=== PATIENT | male | born 1990 | race Caucasian/White ===

== ENCOUNTER 2018-02-24 19:04 | Emergency (ER) | payer OTHER ==
[~2018-02-24] VITALS: Ht 170.2 cm; Wt 72.6 kg
--- OUTSIDE RECORDS SUMMARY | ~2018-02-24 | XMS | Clinical Summary ---
Demographics + + + | Address | [address] | | | [place] [address] | + + + | Home Phone | | + + + | Preferred Language | Unknown | + + + | Marital Status | | + + + | Spiritism Affiliation | NON | + + + | Race | Unknown | + + + | Ethnic Group | Not or | + + + Author + + + | Author | [facility] | + + + | Organization | [facility] | + + + | Address | Unknown | + + + | Phone | Unavailable | + + + Support + + + + + | Name | Relationship | Address | Phone | + + + + + | ROSA ALEXANDER | ECON | [address] | | | | | [place] | | | | | [phone] | | + + + + + Care Team Providers + +------+ + | Care Program Medical Director Name | Role | Phone | + +------+ + | No Pcp Per Patient | PP | Unavailable | + +------+ + Source Comments JUAN C is fully live on both [facility] Ambulatory and [facility] InPatient.[facility] Allergies No Known Allergies Current Medications + + + +---------+------+------+-------+ | Prescription | Sig. | Disp. | Refills | Star | End | Statu | | | | | | t | Date | s | | | | | | Date | | | + + + +---------+------+------+-------+ | nicotine 21 mg/24 | Apply 1 patch to | | | | | Activ | | hr transdermal patch | skin once daily. | | | | | e | | 24 hour | | | | | | | + + + +---------+------+------+-------+ | calcium carbonate | Take 2 tablets by | | | 10/1 | | Activ | | [...] | Take 1-2 tablets by | | | 10/1 | | Activ | | mg oral tablet | mouth every four | | | 9/20 | | e | | | hours as needed. | | | 14 | | | + + + +---------+------+------+-------+ | artificial tears, | Instill 1 drop into | 15 mL | | 10/1 | | Activ | | [...] each by mouth | 20 each | | 10/1 | | Activ | | [...] | exploratory laparotomy and was transferred to [facility] as hemorrhage | | was uncontrollable. Pt was brought to [facility] Trauma Service as a | [...] +---------+ + | Yes | 28 Cans | 14.0 | | | | of beer | | | + + +---------+ + + + + | Sex Assigned at | Date Recorded | | | | + + + | Not on file | | + + + Last Filed Vital Signs + + + + | Vital Sign | Reading | Time Taken | + + + + | Blood Pressure | 114/75 | 09/16/2014 12:01 PM PDT | + + + + | Pulse | 95 | 09/16/2014 12:01 PM PDT | + + + + | Temperature | 37 C (98.6 F) | 09/16/2014 12:01 PM PDT | + + + + | Respiratory Rate | 16 | 09/16/2014 12:01 PM PDT | + + + + | Oxygen Saturation | 100% | 09/16/2014 12:01 PM PDT | + + + + | Inhaled Oxygen | - | - | | Concentration | | | + + + + | Weight | 80 kg (176 lb 5.9 | 09/09/2014 12:00 PM PDT | | | oz) | | + + + + | Height | 180.3 cm (5' 11") | 09/09/2014 10:41 AM PDT | + + + + | Body Mass Index | 24.6 | 09/09/2014 12:00 PM PDT | + + + + Plan of Treatment + + + + + | Health Maintenance | Due Date | Last Done | Comments | + + + + + | INFLUENZA VACCINE | | | | | (FLU SHOT) | 7 | | | + + + + + Implants + +------+--------+ +--------+--------+--------+ | Implanted | Type | Area | Manufacture | Device | Expira | Model | | | | | r | | tion | / | | | | | | Identi | Date | Serial | | | | | | fier | | / Lot | + +------+--------+ +--------+--------+--------+ | Floseal 5mm - | | N/A: | BRIA | | 06/28/ | [id number] | | [id number]: Qty: 1 on | | [employer] | HEALTHCARE | | 2015 | 0 / | | 09/09/2014 by Shen, | | n | | | | /[id number] | | Addie Valenzuela MD | | | | | | 139 | + +------+--------+ +--------+--------+--------+ Results Not on filefrom Last 3 Months
--- OUTSIDE RECORDS SUMMARY | ~2018-02-24 | XMS | Clinical Summary ---
Demographics + + + | Address | [address] | | | [place] [address] | + + + | Home Phone [...] [place] | | | | | [phone] | | + + + + + Care Team Providers + +------+ + | Care Garment Manufacturing Supervisor Name | Role | Phone | + +------+ + | No Pcp Per Patient | PP | Unavailable | + +------+ + Source Comments JUAN C is fully live on both [facility] Ambulatory and [facility] InPatient.[facility] Allergies No Known Allergies Current [...] | exploratory laparotomy and was transferred to [facility] as hemorrhage | | was uncontrollable. Pt was brought to [facility] Trauma Service as a | | Level [...] N/A: | BRIA | | 06/28/ | [id number] | | [id number]: Qty: 1 on | | [facility] | HEALTHCARE | | 2015 | 0 / | | 09/09/2014 by Shen, | | n | | | | /[id number] | | Addie Valenzuela MD | | | | | | 139 | + +------+--------+ +--------+--------+--------+ Results Not on filefrom Last 3 Months
[~2018-02-24 19:04] MED LIST: CHILDREN'S ASPI81 M1 PO; OXYCODONE HCL10 MG PO; RA SENNA PLUS1 EACH PO; ULTRAM50 MG PO
== END 2018-02-24 20:25 | disposition home or self-care (01) ==
LOC: ED 19:04
DX: K62.89 Other specified diseases of anus and rectum (principal); K21.9 Gastro-esophageal reflux disease without esophagitis
CPT/HCPCS: 99282

== ENCOUNTER 2018-04-03 02:41 | Inpatient (IN) | payer OTHER ==
[~2018-04-03] VITALS: Ht 170.2 cm; Wt 84.2 kg
--- NOTE | 2018-04-03 05:54 | NUR ---
04/03/18 0554 Chloé Rader 0530 PT ARRIVES TO PACU. JAW THRUST IN PROGRESS, O2 VIA MASK IN PLACE. PT REACTIVE TO PAIN. 2 RNS AT BEDSIDE. MONITOR IN PLACE. DRESSING TO THE R FORARM SHOWING A SMALL AMOUNT OF DRAINAGE. VITALS STABLE. WILL MONITOR. 0530 PT CONTINUES TO NEED JAW THRUST TO MAINTAIN AIRWAY. 02 AT 6L VIA MASK REMAINS IN PLACE. ATTEMPTS TO STIMULATE PT DONE SEVERAL TIME. PT RESPONDS TO PAIN BY MOVING ALL 4 EXTREMITIES, WILL NOT OPEN EYES. WILL CONTINUE TO MONITOR.
--- NOTE | 2018-04-03 07:30 | NUR ---
PT UNRESPOSIVE TO VOICE, GROANS WITH STERNAL RUB. O2 SATS 95% ON 2L NC, LUNG SOUNDS CLEAR, CONTINUOUS PULSE OX IN PLACE. PT BOWEL TONES HYPOACTIVE. IV FLUIDS INFUSING D5LR AT 125 ML/HR. PT WITH BANDAGE TO RIGHT ARM IN FINGER, PULSE PALPABLE, CAP REFIL 1 SECOND, STRIEK THROUGH DRAINAGE PRESENT. PT WIHTOUT EDEMA. BED ALARM IN PLACE.
--- NOTE | 2018-04-03 08:05 | NUR ---
PT CONTINUES TO BE SOMNOLENT, AROUSABLE WITH STERNAL RUB. VSS. NO ACUTE CHANGES. BED ALARM IN PLACE.
--- NOTE | 2018-04-03 09:10 | NUR ---
PT AROUSABLE TO GENTLE SHAKE, NOT FOLLOWING COMMANDS. PT ON 2L NC, 02 SATS 96%. STRIKE THROUGH UNCHANGED. PULSE PALPBLE. BED ALARM IN PLACE.
--- NOTE | 2018-04-03 10:05 | NUR ---
PT AROUSABLE TO VOICE, FOLLOWING SIMPLE COMMANDS. PT HAD REMOVED NASAL CANNULA, O2 SATS 88%, OXYGEN REPLACED. STRIKE THROUGH TO RIGHT ARM UNCHANGED. PT ABLE TO SQUEEZE HAND, PULSE PALPBLE, CAP REFILL [address].
--- NOTE | 2018-04-03 11:45 | NUR ---
PT MORE ALERT, ANSWERING QUESTIONS. PT COMPLAINT OF PAIN TO RIGHT ARM, RATING 8/10. PT GIVEN 2 MG IV MORPHINE. ASSISTED WITH ORDERING LUNCH. PT ENCOURAGED TO USE URINAL. PT DENIES OTHER NEEDS AT THIS TIME.
[2018-04-03] MEDS ORDERED: IBUPROFEN600 MG PO (13:28)
[2018-04-03] MEDS ORDERED: OXYCODON-ACETA1 EAC2 PO (13:28)
[2018-04-03] MEDS ORDERED: MAPAP325 MG PO (13:29)
--- NOTE | 2018-04-03 16:00 | NUR ---
PT RESTIGN IN BED. PT MORE ALERT, EATING LATE LUNCH. PT COMPLAITN OF PAIN 05/08, STATES IT HURTS WORSE WITH MOVEMENT, GIVEN 1 TAB PERCOCET. CMS INATCT, FULL SNESTATION IN RIGHT HAND, WEAK GRASP, PULSE PALPABLE, CAP REFILL 2 SECONDS. DRESSING TO RIGHT ARM INTACT, STRIKE TRHOUGH UNCHANGED. ADMISSION INTAKE COMPLETED WITH PT. PT PROVIDED WITH FRESH WATER AND SODA. PT DENIES OTHER NEEDS AT THIS TIME.
--- NOTE | 2018-04-03 17:47 | NUR ---
PT RECEIVED THIS AM AFTER SURGERY TO REPAIN RIGH TARM LACERATION. PT VERY DROWSY THIS AM, NOW ALERT AND ORIENTED. PT ON ROOM AIR, LUNG SOUNDS CLEAR. PT PAIN CONTROLED WITH MORTIN AND PERCOCET. TOLERATING REGULAR DIET. IV INFUSING D5LR AT 85 ML/HR. RIGHT ARM WITH DRESSING STRIKE THROUGH UNCHANGED FROM ARRIVAL, CMS INTACT, PULSE PALPBALE, WEAK AUTOMATIC BLOCKER. PT VOIDING QS.
--- NOTE | 2018-04-03 18:36 | NUR ---
PT WALKED IN LAW, COMPLETED 2 LAPS AROUND NURSING FLOOR. PT COMPLAINT OF PAIN, REQUESTING PERCOET, SECOND TAB GIVEN. PT DENIES OTHER NEEDS AT THIS TIME.
--- NOTE | 2018-04-03 19:10 | NUR ---
SHIFT REPORT RECEIVED. PATIENT RESTING IN BED. FRIENDS IN THE ROOM. PATIENT STATES HE "FEELS GOOD" AFTER THE PERCOSET. IV FLUIDS INFUSING. DRESSING IN PLACE, RED DRAINAGE SHOWING THROUGH, DAY RN STATES IT IS THE SAME IT HAS BEEN. PATIENT REQUESTING FOOD. WORK STUDY STUDENT CONTACTED FOR SANDWICH BOX.
--- NOTE | 2018-04-03 19:56 | NUR ---
PATIENT UNWRAPPED MOST OF HIS DRESSING. RN REMOVED DRESSING AND NO NEW DRAINAGE NOTED. FRESH GAUZE PLACED OVER WOUND AND NEW SEBASTIAN WRAPPED PLACED. PATIENT IS PLESANT BUT REQUESTING TO GO OUT AND SMOKE. i EXPLAINED THE POLICY ON THIS AND TOLD HIM HE HAS THE NICOTINE PATCH. HE REQUESTED A SECOND PATCH OR SOME GUM. CALLED, NEW ORDERS FOR LOZENGES OR GUM RECEIVED.
--- NOTE | 2018-04-03 20:30 | NUR ---
EVENING MEDS GIVEN PER ORDER. PATIENT HAS BEEN UP WALKING THE HALLS. HIS RIGHT ARM IN MORE SWOLLEN NOW AFTER IT HAS NOT BEEN ELEVATED. ASSISTED THE PATIENT INTO BED AND ELEVATED THE ARM. HE IS EATING AND HAS RECEIVED HIS NICOTINE LOZENGE. FRIENDS ARE IN THE ROOM. PATIENT IS IN GOOD SPIRITS. HE AGREES TO STAY THE NIGHT BUT HAS MANY QUESTIONS ABOUT HIS RECOVERY. EDUCATION PROVIDED ON INFECTION PREVENTION, PAIN MANAGEMENT, AND IMPORTANCE OF FOLLOWING DC ORDERS.
--- NOTE | 2018-04-03 21:13 | NUR ---
VITALS DONE AND CHARTED. BEDSIDE TABLE AND CALL LIGHT WITHIN REACH. PT NEEDS NOTHING ELSE AT THIS TIME.
--- NOTE | 2018-04-03 22:00 | NUR ---
PATIENT UP WALKING IN THE HALLWAYS. HE IS IN GOOD SPIRITS BUT MOVES HIS RIGHT ARM VERY SLOWLY AND APPEARS UNCOMFORTABLE. USING THE IV POLE TO REST HIS ARM AND ELEVATE WHILE HE WALKS.
--- NOTE | 2018-04-03 22:30 | NUR ---
PATIENT CONTINUE TO REPORT PAIN IN HIS RIGHT ARM. CMS INTACT. HAND APPEARS VERY SWOLLEN AND THE SKIN IS WARM AND RED. FRESH ICE PACKS APPLIED. EDUCATED PATIENT ON PROPER PAIN MANAGEMENT. PROVIDED PRN PERCOCET 2 TABS. ENCOURAGED PATIENT TO REST AND ELEVATE THE EXTREMITY. PROVIDED HYGIENE PRODUCT SO THAT PATIENT COULD BRUSH HIS TEETH AND CLEAN UP.
--- NOTE | 2018-04-03 23:45 | NUR ---
PATIENT REPORTING 10/10 PAIN. ASKING IF BANDAGE CAN BE REMOVED, HE BELIEVES THIS IS CAUSING HIS PAIN. EDUCATED PATIENT ON IMPORTANCE OF THE PROPER BANDAGE. DISCUSSED EXPECTATIONS FOR PAIN CONTROL. PATIENT AGREES TO KEEP ICE ON ARM AND ELEVATE.
--- NOTE | 2018-04-04 00:50 | NUR ---
PATIENT REPORTING PAIN AND APPEARS PAINFUL. PRN MORHINE PROVIDED FOR ADDITIONAL PAIN COVERAGE. PATIENT ABLE TO REST AFTER MED ADMINISTRATION BUT STILL APPEARS UNCOMFORTABLE. CMS INTACT IN RIGHT ARM. SWELLING APPEARS THE SAME IT HAS BEEN, SKIN ON HAND IS WARM AND RED.
--- NOTE | 2018-04-04 02:00 | NUR ---
POLICE ARRIVED TO THE FLOOR REQUESTING TO SPEAK WITH THE PATIENT. THE PATIENT DECLINED TO SPEAK TO THEM AT THIS TIME AND STATES THAT HE DOES NOT WANT TO TALK TO THEM AT ANY POINT. POLICE NOTIFIED. ASSEMBLER WET WASH AND CAR BODY MECHANIC AWARE.
--- NOTE | 2018-04-04 02:45 | NUR ---
PATIENT RESTING IN BED. SLEEPING OFF AND ON. STATES HIS PAIN IS 7/10 BUT STILL CONSTANTLY HURTING. HE STATES THAT THE ICE PACK HAS HELPED. PRN PERCOCET PROVIDED.
--- NOTE | 2018-04-04 02:54 | NUR ---
EVENING MEDS GIVEN PER ORDER. PATIENT IS AWAKE IN HIS ROOM. FRIENDS WITH HIM. HE IS COMPLAINING OF INCREASED PAIN. THE RIGHT EXTREMITY IS HOT, RED, AND SWOLLEN. CMS INTACT. PATIENT APPEARS RESTLESS AND PAINFUL. PRN MORPHINE PROVIDED. ICE PACKS IN PLACE ON ARM. READJUSTED THE PILLOW TO ELEVATE THE EXTREMITIY. PATIENT IS AAOX3. LUNGS ARE CLEAR. ABD SOFT AND NONTENDER. PATIENT HAS HAD GOOD APPETITE ALL DAY. URINE OUTPUT APPEARS SUFFICIENT BUT PATIENT IS NOT SAVING IT TO BE MEASURED. NO OTHER CONCERNS. IV FLUIDS INFUSING, PATIENT REQUESTING THEY BE DISCONNECTED. EDUCATED PATIENT ON NEED FOR PROPER HYDRATION AND HE AGREED TO FINISH OUT THE BAG.
--- NOTE | 2018-04-04 02:55 | NUR ---
VITALS AND I&OS DONE AND CHARTED. BEDSIDE TABLE AND CALL LIGHT WITHIN REACH. PT NEEDS NOTHING ELSE AT THIS TIME.
--- NOTE | 2018-04-04 03:35 | NUR ---
IV FLUIDS FINISHED AT THIS TIME. PATIENT DOES NOT WANT AN ADDITIONAL BAG STARTED.
--- NOTE | 2018-04-04 04:20 | NUR ---
PATIENT HAS BECOME INCREASINGLY UNCOMFORTABLE. HE STATES HE IS ABLE TO SLEEP IN SMALL AMOUNTS BUT WAKES DUE TO PAIN. "IT'S CONSTANTLY THROBBING, IT REALLY HURTS. I DON'T KNOW WHAT TO DO." PATIENT IS ASKING QUESTIONS ABOUT PAIN RELIEF, INCLUDING PUTTING HIS ARM IN COLD WATER, TAKING A SHOWER, REMOVING THE BANDAGE, ETC. DISCUSSED ASSESSMENT FINDINGS WITH CLERICAL ORDER FILLER. PATIENT'S HAND IS SLIGHTLY MORE SWOLLEN THAN PREVIOUS ASSESSMENT. SKIN IS HOT AND TIGHT. PATIENT IS ABLE TO MOVE FINGERS SLIGHTLY AND THE RADIAL PULSE IS BOUNDING. HE IS RESTLESS IN THE BED AND RATES PAIN 10/10. PRN MOTRIN AND MORPHINE PROVIDED. DISCUSSED NEED FOR PROPER PAIN CONTROL PRIOR TO DC. PATIENT IS CONCERNED THAT TAKING THE PAIN MEDS CONSISTENTLY WILL EFFECT HIS ABLITY TO TRANSITION INTO A "SOBER LIVING" HOME HE IS SCHEDULED TO MOVE TO THIS WEEK. ASSURED PATIENT THAT HIS DISCHARGE PAPERS WOULD INCLUDE INFORMATION HE COULD PROVIDE TO THE FACILITY. PATIENT BACK IN BED. FRESH ICE PACKS ON ARM, ELEVATED ABOVE HIS HEART. SEBASTIAN WRAP WAS LOOSENED SLIGHTLY.
--- NOTE | 2018-04-04 05:49 | NUR ---
PATIENT SLEPT ONLY IN SMALL AMOUNTS THROUGHOUT THE NIGHT. DRESSING ON RIGHT ARM WAS CHANGED. NEW SEROSANGUINEOUS DRAINAGE NOTED. RIGHT HAND IS MORE SWOLLEN THAN START OF SHIFT. SKIN IS TIGHT, RED, AND HOT TO TOUCH. RADIAL PULSE IS BOUNDING. CMS INTACT. INCREASED PAIN WITH MOVEMENT. PAIN IS CONSTANT AND ORAL PERCOCET HAS NOT BEEN SUFFICIENT TO MANAGE PAIN. PRN MORPHINE GIVEN FOR COVERAGE NEED. EXTREMITY ELEVATED MUCH POSSIBLE, ICE PACKS USED. PATIENT AMBULATED IN HALLWAYS. IV SL PER PATIENT REQUEST. TOLERATING ORAL INTAKE.
--- NOTE | 2018-04-04 06:37 | NUR ---
VITALS AND I&OS DONE AND CHARTED. BEDSIDE TABLE AND CALL LIGHT WITHIN REACH. PT ASKED WHEN HE COULD HAVE MORE MORPHINE? I TOLD HIM I WOULD ASK HIS RN CARMEN. INFORMED CARMEN WHAT HE HAD ASKED. PT NEEDS NOTHING ELSE AT THIS TIME.
--- NOTE | 2018-04-04 07:57 | NUR ---
PATIENT UP AND DRESSED IN CLOTHES FROM HOME. PATIENT REQUESTED RN FOR WOUND DRESSING CHANGE.RN NOTIFIED. CALL LIGHT IN REACH. NO OTHER NEEDS AT THIS TIME.
--- NOTE | 2018-04-04 08:03 | NUR ---
PT REMOVED DRESSING FROM RIGHT ARM, STATED THAT IT HAD BECOME DAMP FROM DRAINAGE FROM WOUND TO RIGHT AC/FOREARM. WOUND JEMIMA, NOTED SMALL AMOUNT OF SEROSANGUAINOUS DRAINAGE PRESENT. REDRESSED WOUND WITH 4X4 GAUZE, KERLIX GAUZE, AND SEBASTIAN WRAP. CMS TO RUE INTACT. RIGHT HAND AND FOREARM SWOLLEN. ENCOURAGED PT TO ELEVATE RUE. PT UP WALKING AROUND ROOM WITH ARM DANGLING AT SIDE. PT AGREED TO ELEVATE RUE. FRIEND AT SIDE.
--- NOTE | 2018-04-04 09:07 | NUR ---
PT C/O 07/08 PAIN TO RIGHT ARM. GAVE MORPHINE 4 MG IV PRN. PT DECLINED NICOTINE PATCH, HE IS TO DISCHARGE TODAY. PERSONAL SUPPLIES AND CALL BUTTON IN REACH. PT UP IN ROOM INDEPENDANTLY. REMINDED PT TO ELEVATE RIGHT ARM.
--- NOTE | 2018-04-04 09:20 | NUR ---
PT EDUCATION PROVIDED BY AND THIS RN, WOUND CARE AND FOLLOW-UP. HAND X-RAY COMPLETE. PT VERBALIZING HE IS LEAVING NOW. SIGNED PAPER WORK, DRESSING SUPPLIES GIVEN. EDUCATION ON PAIN MEDICATION PERCOCET PRECAUTIONS AND ADMINISTRATION LAST DOSE NEXT DOSE.
--- NOTE | 2018-04-05 12:56 | OR ---
[facility] [address], [place] [address] Signed DATE OF OPERATION: 04/03/2018 SURGEON: Jayne Cronin MD PREOPERATIVE DIAGNOSES: 1. Right deep forearm laceration with ongoing bleeding. 2. Right middle finger laceration. POSTOPERATIVE DIAGNOSES: 1. Right deep forearm laceration with ongoing bleeding related to transection of forearm veins and muscle (flexor carpi radialis), incomplete. 2. Laceration 2.5 cm in length of right middle finger. PROCEDURE: 1. Wound exploration and debridement. 2. Control of venous bleeding. 3. Repair of muscular transection, right forearm. 4. Repair of right finger laceration, 2.5 cm. ANESTHESIA: General endotracheal, Binh Esteves CRNA. 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 He was inebriated at that time. He is accompanied by one of his brothers. He was noted to have profuse bleeding from the right forearm. A field tourniquet was placed, which was inadequate in controlling the bleeding initially. Exploration briefly by Dr. Rice, emergency room physician, showed no sign of arterial bleeding, but persistent significant venous bleeding for which local control could not easily be undertaken in the emergency room setting. Additionally, the patient is noted to have blood over the right middle finger and likely laceration in that area. He is taken emergently to operation for control of hemorrhage, repair of structures as necessary. The patient is right-hand dominant. In discussing things with his brother, he admits he is inebriated. He was given Ancef and tetanus prophylaxis in the emergency room setting and preoperative Pepcid as well. The patient to the extent he can and the brother to the extent he wishes, understand the Electronically Signed By: JAYNE CRONIN MD 04/05/18 1256 PATIENT NAME: CHARLIE ROSE I OPERATIVE REPORT DATE OF : [birth year] REPORT #: [id number] PHYSICIAN: JAYNE CRONIN MD PCP: NO PRIMARY CARE PHYSICIAN REPORT IS CONFIDENTIAL AND NOT TO BE RELEASED WITHOUT AUTHORIZATION [facility] [address], [place] [address] Signed risks of bleeding, infection, need for repair, and other unforeseen complications and wished to proceed. FINDINGS: He was intubated without problem without aspiration or other issues despite a known likely full stomach. The patient was unable to take by citrate due to his inebriation and inability to cooperate. An arm tourniquet was used for hemostasis. The injury included transection of superficial veins of the forearm, but no arterial injury. There was no sign of nerve injury to speak of. Notably, the preoperative sensory exam was inadequate due to his inebriation. Transection of flexor carpi radialis muscle in part was noted. The laceration extended more proximal in the arm than the level of the arm noted. There is no arterial or nerve injury that could be identified. As regard to the laceration of the middle finger was in the right middle finger on the dorsal surface directly over the interphalangeal joint proximally. There was no sign of tendon laceration. This area was irrigated well and closed also. The laceration of the forearm was rather complex, but was repaired well and a drain was placed in the depths of the wound (1 inch Waleska). DESCRIPTION OF PROCEDURE: The patient was brought emergently to the operating room with pressure directly over the wound. The tourniquet of the upper arm was too uncomfortable for the patient to tolerate and had been removed. The radial pulse was noted. With rapid sequence induction, he was intubated without incident. A tourniquet was placed above the elbow in the standard way and exsanguination of the hand and arm undertaken with the Esmarch bandage and the tourniquet taken up to 250 mmHg pressure. The wound dressing was then removed showing a copious amount of clot and so forth in the wound. There was no sign of bleeding at that point. A small amount of oozing welled up in the wound. No doubt from venous flow. The arm was then expediently and thoroughly prepared with Betadine solution and draped sterilely. Interrogation of the wound showed oozing of the transected vessels (veins) of the forearm, which were quickly secured with hemostats. Irrigation was undertaken and transection of the flexor carpi radialis, which was incomplete, was noted. There was no sign of nerve injury. Electronically Signed By: JAYNE CRONIN MD 04/05/18 1256 PATIENT NAME: CHARLIE ROSE I OPERATIVE REPORT DATE OF : [birth year] REPORT #: [id number] PHYSICIAN: JAYNE CRONIN MD PCP: NO PRIMARY CARE PHYSICIAN REPORT IS CONFIDENTIAL AND NOT TO BE RELEASED WITHOUT AUTHORIZATION [address] [address] Signed The wound was copiously irrigated and the transected vessels (veins) were secured with 2-0 Vicryl ties. More proximally, the muscle was irrigated and small punctate areas likely to bleed were electrocauterized carefully. The brachioradialis appeared to be completely intact. There was no evidence of nerve injury or arterial injury. The tourniquet was then taken down, showing no sign of significant bleeding at that point. Good hemostasis was assured. A 1 inch Waleska drain was nestled into the depths of the wound proximally and the muscular transected fascial layers were reapproximated with interrupted 2-0 Vicryl suture. Attention was then turned toward skin closure. 4-0 nylon suture was used to reapproximate the skin, maintaining alignment of his forearm tattoo and so forth as best could be. There were several abraded areas medially. It was not a simple laceration by any means. Those areas that were were secured, however. Attention was then turned toward the right middle finger. In the interphalangeal joint of the middle finger on the dorsal aspect, the laceration was somewhat irregular L-shaped appearance. This was irrigated copiously and gently probed and found not to contain any formed material including glass or other substances. Electrocautery was used for hemostasis. The tendon was identified, but not transected. The skin was then closed with interrupted 4-0 nylon suture. Bacitracin was applied to both wounds as was a Xeroform dressing. A small Flexicon wrap applied to the finger and Xeroform gauze and plain gauze and a Kerlix wrap applied to the forearm and subsequently an Jesus wrap. The patient was ultimately extubated without complication and taken to recovery room in good condition. Intraoperative blood loss from time of entry to the OR was approximately 100 mL at most. Urine was taken from the Quiroz catheter that had been placed to complete his emergency room evaluation, which includes a urine tox screen. MD MONCHO Graf/ALEXIS Electronically Signed By: JAYNE CRONIN MD 04/05/18 1256 PATIENT NAME: CHARLIE ROSE I OPERATIVE REPORT DATE OF : [birth year] REPORT #: [id number] PHYSICIAN: JAYNE CRONIN MD PCP: NO PRIMARY CARE PHYSICIAN REPORT IS CONFIDENTIAL AND NOT TO BE RELEASED WITHOUT AUTHORIZATION [address] [address] Signed /[id number] cc: MD Stiven Painting MD [facility] Copies: TEDDY RICE MD, ANDREW L MD ~ Electronically Signed By: JAYNE CRONIN MD 04/05/18 1256 PATIENT NAME: CHARLIE ROSE I OPERATIVE REPORT DATE OF : [birth year] REPORT #: [id number] PHYSICIAN: JAYNE CRONIN MD PCP: NO PRIMARY CARE PHYSICIAN REPORT IS CONFIDENTIAL AND NOT TO BE RELEASED WITHOUT AUTHORIZATION
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
== END 2018-04-04 09:25 | disposition home or self-care (01) | DRG 502 ==
LOC: ED 02:41 → MS 04:02 → DSVR 04:02 → MS 07:05
PROVIDERS: ADMIT Surgery
PROC: 0HQFXZZ Repair Right Hand Skin, External Approach (ICD-10-PCS; 2018-04-03)
PROC: 0KQ90ZZ Repair Right Lower Arm and Wrist Muscle, Open Approach (ICD-10-PCS; principal; 2018-04-03 04:52)
DX: S56.921A Laceration of unspecified muscles, fascia and tendons at forearm level, right arm, initial encounter (principal); S51.811A Laceration without foreign body of right forearm, initial encounter; S61.212A Laceration without foreign body of right middle finger without damage to nail, initial encounter; F10.129 Alcohol abuse with intoxication, unspecified; Y90.7 Blood alcohol level of 200-239 mg/100 ml; W25.XXXA Contact with sharp glass, initial encounter; Y92.511 Restaurant or cafe as the place of occurrence of the external cause
CPT/HCPCS: 00400; 36415; 73130; 80053; 81001; 85025; 86850; 86900; 86901; 90471; 90715; 96374; 96375; 96376; 99285; G0480; J0330; J0690; J2060; J2250; J2270; J2370; J2405; J2704; J2765; J3010; J7030; J7120

== ENCOUNTER 2018-06-22 15:16 | Emergency (ER) | payer OTHER ==
[~2018-06-22] VITALS: Ht 170.2 cm; Wt 84.2 kg
[~2018-06-22 15:16] MED LIST changes: +IBUPROFEN600 MG PO; +MAPAP325 MG PO; +OXYCODON-ACETA1 EAC2 PO
[2018-06-22] MEDS ORDERED: NORCO 5-325 TA1 EACH PO (15:31)
[2018-06-22] MEDS ORDERED: ZUBSOLV 8.6-2.1 EACH SL (15:32)
[2018-06-22] MEDS ORDERED: [UNRECOGNIZED DRUG - REMARK] (15:33)
== END 2018-06-22 15:35 | disposition home or self-care (01) ==
LOC: ED 15:16
DX: S31.139D Puncture wound of abdominal wall without foreign body, unspecified quadrant without penetration into peritoneal cavity, subsequent encounter (principal)

== ENCOUNTER 2018-07-04 22:32 | Emergency (ER) | payer OTHER ==
[~2018-07-04] VITALS: Ht 170.2 cm; Wt 84.2 kg
[~2018-07-04 22:32] MED LIST changes: +NORCO 5-325 TA1 EACH PO; +ZUBSOLV 8.6-2.1 EACH SL; +[UNRECOGNIZED DRUG - REMARK]
== END 2018-07-04 23:08 | disposition home or self-care (01) ==
LOC: ED 22:32
DX: Z48.817 Encounter for surgical aftercare following surgery on the skin and subcutaneous tissue (principal); F17.200 Nicotine dependence, unspecified, uncomplicated
CPT/HCPCS: 99282

== ENCOUNTER 2019-05-22 02:32 | Emergency (ER) | payer OTHER ==
[~2019-05-22] VITALS: Ht 170.2 cm; Wt 84.8 kg
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
[2019-05-22] MEDS ORDERED: TRAMADOL HCL50 MG PO (02:57)
[2019-05-22] MEDS ORDERED: CEPHALEXIN500 MG PO (02:57)
[2019-05-22] MEDS ORDERED: BACTRIM DS TAB1 EACH PO (02:57)
== END 2019-05-22 03:08 | disposition home or self-care (01) ==
LOC: ED 02:32
DX: L03.114 Cellulitis of left upper limb (principal); F17.200 Nicotine dependence, unspecified, uncomplicated
CPT/HCPCS: 99283

== ENCOUNTER 2019-09-08 02:52 | Emergency (ER) | payer OTHER ==
[~2019-09-08] VITALS: Ht 170.2 cm; Wt 88.7 kg
--- OUTSIDE RECORDS SUMMARY | ~2019-09-08 | XMS | Clinical Summary ---
Demographics + + + | Address | NEED ADDRESS | | | [place] [address] | + + + | Home Phone | | + + + | Preferred Language | Unknown | + + + | Marital Status | Single | + + + | Protestant Affiliation | Unknown | + + + | Race | Unknown | + + + | Ethnic Group | Unknown | + + + Author + + + | Author | [facility] | | | and [place] | + + + | Organization | [facility] | | | and [place] | + + + | Address | Unknown | + + + | Phone | Unavailable | + + + Support + + + + + | Name | Relationship | Address | Phone | + + + + + | Haylee Kc | ECON | [address] | | | | | [place], [place] | | | | | [address] | | + + + + + | Sarai Tnioco | ECON | Unknown | | + + + + + Care Team Providers + +------+ + | Care Home Health Billing Specialist Name | Role | Phone | + +------+ + | No, Unknownpcp | PCP | | + +------+ + Allergies + + + + + + | Active Allergy | Reactions | Severity | Noted | Comments | | | | | Date | | + + + + + + | Amoxicillin | | | 03/31/20 | | | | | | 19 | | + + + + + + Medications + + + +---------+------+------+-------+ | Medication | Sig | Dispensed | Refills | Star | End | Statu | | | | | | t | Date | s | | | | | | Date | | | + + + +---------+------+------+-------+ | ibuprofen | Take 1 tablet by | 40 | 0 | 04/0 | | Activ | | (ADVIL,MOTRIN) 800 | mouth every 8 hours | tablet | | 1/20 | | e | | MG tablet | as needed for Pain. | | | 19 | | | + + + +---------+------+------+-------+ | cephalexin | Take 1 capsule by | 20 | 0 | 04/0 | | Activ | | (KEFLEX) 500 mg | mouth 4 times daily. | capsule | | 12/18 | | e | | capsule | | | | 19 | | | + + + +---------+------+------+-------+ Active Problems Not on file Immunizations + + + + | Name | Dates Previously Given | Next Due | + + + + | TDAP, (ADOL/ADULT) | 02/26/2019 (Deferred: Other - pt had | | | | vaccine in Novemer) | | + + + + Social History + +-------+ +--------+------+ | Tobacco Use | Types | Packs/Day | Years | Date | | | | | Used | | + +-------+ +--------+------+ | Current Every Day | | | | | | Smoker | | | | | + +-------+ +--------+------+ + +---+---+---+ | Smokeless Tobacco: | | | | | Never Used | | | | + +---+---+---+ + + +---------+ + | Alcohol Use | Drinks/We | oz/Week | Comments | | | ek | | | + + +---------+ + | Yes | | | | + + +---------+ + + [...] recent travel history available. | + + Last Filed Vital Signs + + + + | Vital Sign | Reading | Time Taken | + + + + | Blood Pressure | 129/77 | 02/27/201911/2018 PDT | + + + + | Pulse | 86 | 02/27/2019758 PDT | + + + + | Temperature | 37 C (98.6 F) | 02/27/2019758 PDT | + + + + | Respiratory Rate | 14 | 02/27/2019758 PDT | + + + + | Oxygen Saturation | 100% | 02/27/2019758 PDT | + + + + | Inhaled Oxygen | - | - | | Concentration | | | + + + + | Weight | 77.1 kg (170 lb) | 02/26/20191757 PDT | + + + + | Height | 172.7 cm (5' 8") | 02/26/20191757 PDT | + + + + | Body Mass Index | 25.85 | 02/26/20191757 PDT | + + + + Plan of Treatment + + + + + | Health Maintenance | Due Date | Last Done | Comments | + + + + + | Vaccine: | | | | | Dtap/Tdap/Td (1 - | 9 | | | | Tdap) | | | | + + + + + | Vaccine: | | | | | Pneumococcal 19-64 | 9 | | | | (PPSV23 only) Medium | | | | | Risk (1 of 1 - | | | | | PPSV23) | | | | + + + + + | Vaccine: Influenza | | | | | (#1) | 9 | | | + + + + + Results Not on filefrom Last 3 Months Advance Directives Patient has advance care planning documents on file. For more information, please contact:[facility] [place] [address]
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
--- OUTSIDE RECORDS SUMMARY | ~2019-09-08 | XMS | Encounter Summary ---
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 Routin | 09/09/2014 | Stab wound | Results for this | | | e | 6:24 AM | | procedure are in the | | | | PDT | | results section. | + +--------+ + + + | POTASSIUM, POC | Routin | 09/09/2014 | Stab wound | Results for this | | | e | 6:24 AM | | procedure are in the | | | | PDT | | results section. | + +--------+ + + + | GLUCOSE, POC | Routin | 09/09/2014 | Stab wound | Results for this | | | e | 6:24 AM | | procedure are in the | | | | PDT | | results section. | + +--------+ + + + | JARRED POC | Routin | 09/09/2014 | Stab wound | Results for this | | | e | 6:24 AM | | procedure are in the | | | | PDT | | results section. | + +--------+ + + + | LEANDRO MACIEL MILLER POC | Routin | 09/09/2014 | Stab wound | Results for this | | | e | 6:24 AM | | procedure are in the | | | | PDT | | results section. | + +--------+ + + + | CONFIRMATORY ABO/RH | Routin | 09/09/2014 | | Results for this | | | e | 6:10 AM | | procedure are in the | | | | PDT | | results section. | + +--------+ + + + | LACTATE (ART), POC | Routin | 09/09/2014 | Stab wound | Results for this | | ISTAT | e | 5:58 AM | | procedure are in the | | | | PDT | | results section. | + +--------+ + + + | HEMOGLOBIN-DARCY, POC | Routin | 09/09/2014 | Stab wound | Results for this | | | e | 5:58 AM | | procedure are in the | | | | PDT | | results section. | + +--------+ + + + | SODIUM, POC | Routin | 09/09/2014 | Stab wound | Results for this | | | e | 5:58 AM | | procedure are in the | | | | PDT | | results section. | + +--------+ + + + | POTASSIUM, POC | Routin | 09/09/2014 | Stab wound | Results for this | | | e | 5:58 AM | | procedure are in the | | | | PDT | | results section. | + +--------+ + + + | GLUCOSE, POC | Routin | 09/09/2014 | Stab wound | Results for this | | | e | 5:58 AM | | procedure are in the | | | | PDT | | results section. | + +--------+ + + + | ARTERIAL BLOOD GAS, | Routin | 09/09/2014 | Stab wound | Results for this | | POC | e | 5:58 AM | | procedure are in the | | | | PDT | | results section. | + +--------+ + + + | CHLORIDE, POC | Routin | 09/09/2014 | Stab wound | Results for this | | | e | 5:58 AM | | procedure are in the | | | | PDT | | results section. | + +--------+ + + + | LEANDRO IONIZED CA, POC | Routin | 09/09/2014 | Stab wound | Results for this | | | e | 5:58 AM | | procedure are in the | | | | PDT | | results section. | + +--------+ + + + | PRODUCT - | Routin | 09/09/2014 | | Results for this | | CRYOPRECIPITATE POOL | e | 5:49 AM | | procedure are in the | | | | PDT | | results section. | + +--------+ + + + | PRODUCT - | Routin | 09/09/2014 | | Results for this | | CRYOPRECIPITATE POOL | e | 5:49 AM | | procedure are in the | | | | PDT | | results section. | + +--------+ + + + | PRODUCT - RED CELLS | Routin | 09/09/2014 | | Results for this | | LEUKOREDUCED | e | 5:47 AM | | procedure are in the | | | | PDT | | results section. | + +--------+ + + + | PRODUCT - RED CELLS | Routin | 09/09/2014 | | Results for this | | LEUKOREDUCED | e | 5:47 AM | | procedure are in the | | | | PDT | | results section. | + +--------+ + + + | PRODUCT - RED CELLS | Routin | 09/09/2014 | | Results for this | | LEUKOREDUCED | e | 5:47 AM | | procedure are in the | | | | PDT | | results section. | + +--------+ + + + | PRODUCT - RED CELLS | Routin | 09/09/2014 | | Results for this | | LEUKOREDUCED | e | 5:47 AM | | procedure are in the | | | | PDT | | results section. | + +--------+ + + + | PRODUCT - RED CELLS | Routin | 09/09/2014 | | Results for this | | LEUKOREDUCED | e | 5:47 AM | | procedure are in the | | | | PDT | | results section. | + +--------+ + + + | PRODUCT - RED CELLS | Routin | 09/09/2014 | | Results for this | | LEUKOREDUCED | e | 5:47 AM | | procedure are in the | | | | PDT | | results section. | + +--------+ + + + | PRODUCT - RED CELLS | Routin | 09/09/2014 | | Results for this | | LEUKOREDUCED | e | 5:47 AM | | procedure are in the | | | | PDT | | results section. | + +--------+ + + + | PRODUCT - RED CELLS | Routin | 09/09/2014 | | Results for this | | LEUKOREDUCED | e | 5:47 AM | | procedure are in the | | | | PDT | | results section. | + +--------+ + + + | PRODUCT - FRESH | Routin | 09/09/2014 | | Results for this | | FROZEN PLASMA | e | 5:41 AM | | procedure are in the | | | | PDT | | results section. | + +--------+ + + + | PRODUCT - FRESH | Routin | 09/09/2014 | | Results for this | | FROZEN PLASMA | e | 5:41 AM | | procedure are in the | | | | PDT | | results section. | + +--------+ + + + | PRODUCT - FRESH | Routin | 09/09/2014 | | Results for this | | FROZEN PLASMA | e | 5:41 AM | | procedure are in the | | | | PDT | | results section. | + +--------+ + + + | PRODUCT - FRESH | Routin | 09/09/2014 | | Results for this | | FROZEN PLASMA | e | 5:41 AM | | procedure are in the | | | | PDT | | results section. | + +--------+ + + + | PRODUCT - FRESH | Routin | 09/09/2014 | | Results for this | | FROZEN PLASMA | e | 5:41 AM | | procedure are in the | | | | PDT | | results section. | + +--------+ + + + | PRODUCT - FRESH | Routin | 09/09/2014 | | Results for this | | FROZEN PLASMA | e | 5:41 AM | | procedure are in the | | | | PDT | | results section. | + +--------+ + + + | PRODUCT - FRESH | Routin | 09/09/2014 | | Results for this | | FROZEN PLASMA | e | 5:41 AM | | procedure are in the | | | | PDT | | results section. | + +--------+ + + + | PRODUCT - FRESH | Routin | 09/09/2014 | | Results for this | | FROZEN PLASMA | e | 5:41 AM | | procedure are in the | | | | PDT | | results section. | + +--------+ + + + | PRODUCT - FRESH | Routin | 09/09/2014 | | Results for this | | FROZEN PLASMA | e | 5:41 AM | | procedure are in the | | | | PDT | | results section. | + +--------+ + + + | PRODUCT - FRESH | Routin | 09/09/2014 | | Results for this | | FROZEN PLASMA | e | 5:41 AM | | procedure are in the | | | | PDT | | results section. | + +--------+ + + + | PRODUCT - PLATELET | Routin | 09/09/2014 | | Results for this | | PHERESIS | e | 5:39 AM | | procedure are in the | | LEUKOREDUCED | | PDT | | results section. | + +--------+ + + + | PRODUCT - PLATELET | Routin | 09/09/2014 | | Results for this | | PHERESIS | e | 5:39 AM | | procedure are in the | | LEUKOREDUCED | | PDT | | results section. | + +--------+ + + + | PRODUCT - PLATELET | Routin | 09/09/2014 | | Results for this | | PHERESIS | e | 5:39 AM | | procedure are in the | | LEUKOREDUCED | | PDT | | results section. | + +--------+ + + + | PRODUCT - PLATELET | Routin | 09/09/2014 | | Results for this | | PHERESIS | e | 5:35 AM | | procedure are in the | | LEUKOREDUCED | | PDT | | results section. | + +--------+ + + + | PRODUCT - RED CELLS | Routin | 09/09/2014 | | Results for this | | LEUKOREDUCED | e | 5:34 AM | | procedure are in the | | | | PDT | | results section. | + +--------+ + + + | PRODUCT - RED CELLS | Routin | 09/09/2014 | | Results for this | | LEUKOREDUCED | e | 5:34 AM | | procedure are in the | | | | PDT | | results section. | + +--------+ + + + | PRODUCT - RED CELLS | Routin | 09/09/2014 | | Results for this | | LEUKOREDUCED | e | 5:34 AM | | procedure are in the | | | | PDT | | results section. | + +--------+ + + + | PRODUCT - RED CELLS | Routin | 09/09/2014 | | Results for this | | LEUKOREDUCED | e | 5:34 AM | | procedure are in the | | | | PDT | | results section. | + +--------+ + + + | LACTATE (ART), POC | Routin | 09/09/2014 | Stab wound | Results for this | | ISTAT | e | 5:29 AM | | procedure are in the | | | | PDT | | results section. | + +--------+ + + + | HEMOGLOBIN-COOX, POC | Routin | 09/09/2014 | Stab wound | Results for this | | | e | 5:29 AM | | procedure are in the | | | | PDT | | results section. | + +--------+ + + + | SODIUM, POC | Routin | 09/09/2014 | Stab wound | Results for this | | | e | 5:29 AM | | procedure are in the | | | | PDT | | results section. | + +--------+ + + + | POTASSIUM, POC | Routin | 09/09/2014 | Stab wound | Results for this | | | e | 5:29 AM | | procedure are in the | | | | PDT | | results section. | + +--------+ + + + | GLUCOSE, POC | Routin | 09/09/2014 | Stab wound | Results for this | | | e | 5:29 AM | | procedure are in the | | | | PDT | | results section. | + +--------+ + + + | ARTERIAL BLOOD GAS, | Routin | 09/09/2014 | Stab wound | Results for this | | POC | e | 5:29 AM | | procedure are in the | | | | PDT | | results section. | + +--------+ + + + | CHLORIDE, POC | Routin | 09/09/2014 | Stab wound | Results for this | | | e | 5:29 AM | | procedure are in the | | | | PDT | | results section. | + +--------+ + + + | LEANDRO IONIZED CA, POC | Routin | 09/09/2014 | Stab wound | Results for this | | | e | 5:29 AM | | procedure are in the | | | | PDT | | results section. | + +--------+ + + + | CBC (HEMOGRAM) ONLY | Urgent | 09/09/2014 | | Results for this | | | | 5:18 AM | | procedure are in the | | | | PDT | | results section. | + +--------+ + + + | CBC ONLY | Urgent | 09/09/2014 | | Results for this | | | | 5:18 AM | | procedure are in the | | | | PDT | | results section. | + +--------+ + + + | COAGULOPATHY PANEL | Urgent | 09/09/2014 | | Results for this | | (INR,APTT,FIBRINOGEN | | 5:18 AM | | procedure are in the | | ) | | PDT | | results section. | + +--------+ + + + | JASS (YEN), POC | Routin | 09/09/2014 | Stab wound | Results for this | | ISTAT | e | 5:08 AM | | procedure are in the | | | | PDT | | results section. | + +--------+ + + + | HEMOGLOBIN-DARCY POC | Routin | 09/09/2014 | Stab wound | Results for this | | | e | 5:08 AM | | procedure are in the | | | | PDT | | results section. | + +--------+ + + + | SODIUM, POC | Routin | 09/09/2014 | Stab wound | Results for this | | | e | 5:08 AM | | procedure are in the | | | | PDT | | results section. | + +--------+ + + + | POTASSIUM, POC | Routin | 09/09/2014 | Stab wound | Results for this | | | e | 5:08 AM | | procedure are in the | | | | PDT | | results section. | + +--------+ + + + | GLUCOSE, POC | Routin | 09/09/2014 | Stab wound | Results for this | | | e | 5:08 AM | | procedure are in the | | | | PDT | | results section. | + +--------+ + + + | ARTERIAL BLOOD GAS, | Routin | 09/09/2014 | Stab wound | Results for this | | POC | e | 5:08 AM | | procedure are in the | | | | PDT | | results section. | + +--------+ + + + | CHLORIDE, POC | Routin | 09/09/2014 | Stab wound | Results for this | | | e | 5:08 AM | | procedure are in the | | | | PDT | | results section. | + +--------+ + + + | LEANDRO IONIZED CA, POC | Routin | 09/09/2014 | Stab wound | Results for this | | | e | 5:08 AM | | procedure are in the | | | | PDT | | results section. | + +--------+ + + + | CTA ABDOMEN AND | Routin | 09/09/2014 | | Results for this | | PELVIS W IV CONTRAST | e | 5:01 AM | | procedure are in the | | | | PDT | | results section. | + +--------+ + + + | CTA CHEST WWO | Routin | 09/09/2014 | | Results for this | | CONTRAST | e | 5:01 AM | | procedure are in the | | | | PDT | | results section. | + +--------+ + + + | PRODUCT - | Routin | 09/09/2014 | | Results for this | | CRYOPRECIPITATE POOL | e | 4:51 AM | | procedure are in the | | | | PDT | | results section. | + +--------+ + + + | PRODUCT - | Routin | 09/09/2014 | | Results for this | | CRYOPRECIPITATE POOL | e | 4:51 AM | | procedure are in the | | | | PDT | | results section. | + +--------+ + + + | PRODUCT - RED CELLS | Routin | 09/09/2014 | | Results for this | | LEUKOREDUCED | e | 4:50 AM | | procedure are in the | | | | PDT | | results section. | + +--------+ + + + | PRODUCT - RED CELLS | Routin | 09/09/2014 | | Results for this | | LEUKOREDUCED | e | 4:50 AM | | procedure are in the | | | | PDT | | results section. | + +--------+ + + + | PRODUCT - RED CELLS | Routin | 09/09/2014 | | Results for this | | LEUKOREDUCED | e | 4:50 AM | | procedure are in the | | | | PDT | | results section. | + +--------+ + + + | PRODUCT - RED CELLS | Routin | 09/09/2014 | | Results for this | | LEUKOREDUCED | e | 4:50 AM | | procedure are in the | | | | PDT | | results section. | + +--------+ + + + | PRODUCT - RED CELLS | Routin | 09/09/2014 | | Results for this | | LEUKOREDUCED | e | 4:50 AM | | procedure are in the | | | | PDT | | results section. | + +--------+ + + + | PRODUCT - RED CELLS | Routin | 09/09/2014 | | Results for this | | LEUKOREDUCED | e | 4:50 AM | | procedure are in the | | | | PDT | | results section. | + +--------+ + + + | PRODUCT - RED CELLS | Routin | 09/09/2014 | | Results for this | | LEUKOREDUCED | e | 4:46 AM | | procedure are in the | | | | PDT | | results section. | + +--------+ + + + | PRODUCT - RED CELLS | Routin | 09/09/2014 | | Results for this | | LEUKOREDUCED | e | 4:46 AM | | procedure are in the | | | | PDT | | results section. | + +--------+ + + + | EXPLORATORY | | 09/09/2014 | stabbed | | | LAPAROTOMY | | 4:30 AM | | | | | | PDT | | | + +--------+ + + + | PRODUCT - PLATELET | Routin | 09/09/2014 | | Results for this | | PHERESIS | e | 4:07 AM | | procedure are in the | | LEUKOREDUCED | | PDT | | results section. | + +--------+ + + + | PRODUCT - PLATELET | Routin | 09/09/2014 | | Results for this | | PHERESIS | e | 4:07 AM | | procedure are in the | | LEUKOREDUCED | | PDT | | results section. | + +--------+ + + + | PRODUCT - FRESH | Routin | 09/09/2014 | | Results for this | | FROZEN PLASMA | e | 4:07 AM | | procedure are in the | | | | PDT | | results section. | + +--------+ + + + | PRODUCT - FRESH | Routin | 09/09/2014 | | Results for this | | FROZEN PLASMA | e | 4:07 AM | | procedure are in the | | | | PDT | | results section. | + +--------+ + + + | PRODUCT - FRESH | Routin | 09/09/2014 | | Results for this | | FROZEN PLASMA | e | 4:07 AM | | procedure are in the | | | | PDT | | results section. | + +--------+ + + + | PRODUCT - FRESH | Routin | 09/09/2014 | | Results for this | | FROZEN PLASMA | e | 4:07 AM | | procedure are in the | | | | PDT | | results section. | + +--------+ + + + | PRODUCT - FRESH | Routin | 09/09/2014 | | Results for this | | FROZEN PLASMA | e | 4:07 AM | | procedure are in the | | | | PDT | | results section. | + +--------+ + + + | PRODUCT - FRESH | Routin | 09/09/2014 | | Results for this | | FROZEN PLASMA | e | 4:07 AM | | procedure are in the | | | | PDT | | results section. | + +--------+ + + + | PRODUCT - FRESH | Routin | 09/09/2014 | | Results for this | | FROZEN PLASMA | e | 4:07 AM | | procedure are in the | | | | PDT | | results section. | + +--------+ + + + | PRODUCT - FRESH | Routin | 09/09/2014 | | Results for this | | FROZEN PLASMA | e | 4:07 AM | | procedure are in the | | | | PDT | | results section. | + +--------+ + + + | PRODUCT - FRESH | Routin | 09/09/2014 | | Results for this | | FROZEN PLASMA | e | 4:07 AM | | procedure are in the | | | | PDT | | results section. | + +--------+ + + + | PRODUCT - FRESH | Routin | 09/09/2014 | | Results for this | | FROZEN PLASMA | e | 4:07 AM | | procedure are in the | | | | PDT | | results section. | + +--------+ + + + | PRODUCT - FRESH | Routin | 09/09/2014 | | Results for this | | FROZEN PLASMA | e | 4:07 AM | | procedure are in the | | | | PDT | | results section. | + +--------+ + + + | PRODUCT - FRESH | Routin | 09/09/2014 | | Results for this | | FROZEN PLASMA | e | 4:07 AM | | procedure are in the | | | | PDT | | results section. | + +--------+ + + + | CHEM 8 W/H&H,POC | Urgent | 09/09/2014 | | Results for this | | | | 4:00 AM | | procedure are in the | | | | PDT | | results section. | + +--------+ + + + | PRODUCT - RED CELLS | Routin | 09/09/2014 | | Results for this | | LEUKOREDUCED | e | 3:59 AM | | procedure are in the | | | | PDT | | results section. | + +--------+ + + + | PRODUCT - RED CELLS | Routin | 09/09/2014 | | Results for this | | LEUKOREDUCED | e | 3:59 AM | | procedure are in the | | | | PDT | | results section. | + +--------+ + + + | PRODUCT - RED CELLS | Routin | 09/09/2014 | | Results for this | | LEUKOREDUCED | e | 3:59 AM | | procedure are in the | | | | PDT | | results section. | + +--------+ + + + | PRODUCT - RED CELLS | Routin | 09/09/2014 | | Results for this | | LEUKOREDUCED | e | 3:59 AM | | procedure are in the | | | | PDT | | results section. | + +--------+ + + + | PRODUCT - RED CELLS | Routin | 09/09/2014 | | Results for this | | LEUKOREDUCED | e | 3:59 AM | | procedure are in the | | | | PDT | | results section. | + +--------+ + + + | PRODUCT - RED CELLS | Routin | 09/09/2014 | | Results for this | | LEUKOREDUCED | e | 3:59 AM | | procedure are in the | | | | PDT | | results section. | + +--------+ + + + | BG-LAC,POC ISTAT | Urgent | 09/09/2014 | | Results for this | | | | 3:52 AM | | procedure are in the | | | | PDT | | results section. | + +--------+ + + + | PRODUCT - FRESH | Routin | 09/09/2014 | | Results for this | | FROZEN PLASMA | e | 3:51 AM | | procedure are in the | | | | PDT | | results section. | + +--------+ + + + | PRODUCT - FRESH | Routin | 09/09/2014 | | Results for this | | FROZEN PLASMA | e | 3:51 AM | | procedure are in the | | | | PDT | | results section. | + +--------+ + + + | PRODUCT - RED CELLS | Routin | 09/09/2014 | | Results for this | | LEUKOREDUCED | e | 3:32 AM | | procedure are in the | | | | PDT | | results section. | + +--------+ + + + | PRODUCT - RED CELLS | Routin | 09/09/2014 | | Results for this | | LEUKOREDUCED | e | 3:32 AM | | procedure are in the | | | | PDT | | results section. | + +--------+ + + + | PRODUCT - RED CELLS | Routin | 09/09/2014 | | Results for this | | LEUKOREDUCED | e | 3:32 AM | | procedure are in the | | | | PDT | | results section. | + +--------+ + + + | PRODUCT - RED CELLS | Routin | 09/09/2014 | | Results for this | | LEUKOREDUCED | e | 3:32 AM | | procedure are in the | | | | PDT | | results section. | + +--------+ + + + | PRODUCT - RED CELLS | Routin | 09/09/2014 | | Results for this | | LEUKOREDUCED | e | 3:32 AM | | procedure are in the | | | | PDT | | results section. | + +--------+ + + + | PRODUCT - RED CELLS | Routin | 09/09/2014 | | Results for this | | LEUKOREDUCED | e | 3:32 AM | | procedure are in the | | | | PDT | | results section. | + +--------+ + + + | ANTIBODY SCREEN | Urgent | 09/09/2014 | | Results for this | | | | 3:26 AM | | procedure are in the | | | | PDT | | results section. | + +--------+ + + + | TYPE AND SCREEN | Urgent | 09/09/2014 | | Results for this | | | | 3:26 AM | | procedure are in the | | | | PDT | | results section. | + +--------+ + + + | ABO & RH TYPE | Urgent | 09/09/2014 | | Results for this | | | | 3:26 AM | | procedure are in the | | | | PDT | | results section. | + +--------+ + + + | CBC (HEMOGRAM) ONLY | Urgent | 09/09/2014 | | Results for this | | | | 3:26 AM | | procedure are in the | | | | PDT | | results section. | + +--------+ + + + | BASIC METABOLIC SET | Urgent | 09/09/2014 | | Results for this | | (NA, K, CL, TCO2, | | 3:26 AM | | procedure are in the | | BUN, CR, GLU, CA) | | PDT | | results section. | + +--------+ + + + | CBC ONLY | Urgent | 09/09/2014 | | Results for this | | | | 3:26 AM | | procedure are in the | | | | PDT | | results section. | + +--------+ + + + | COAGULOPATHY PANEL | Urgent | 09/09/2014 | | Results for this | | (INR,APTT,FIBRINOGEN | | 3:26 AM | | procedure are in the | | ) | | PDT | | results section. | + +--------+ + + + | ETHANOL (ALCOHOL), | Urgent | 09/09/2014 | | Results for this | | BLOOD | | 3:26 AM | | procedure are in the | | | | PDT | | results section. | + +--------+ + + + | GLUCOSE, PLASMA | Urgent | 09/09/2014 | | Results for this | | | | 3:26 AM | | procedure are in the | | | | PDT | | results section. | + +--------+ + + + | CARDIOLOGY | | 09/09/2014 | | Results for this | | | | 12:00 AM | | procedure are in the | | | | PDT | | results section. | + +--------+ + + + | RADIOLOGY | | 09/09/2014 | | Results for this | | | | 12:00 AM | | procedure are in the | | | | PDT | | results section. | + +--------+ + + + | RADIOLOGY | | 09/09/2014 | | Results for this | | | | 12:00 AM | | procedure are in the | | | | PDT | | results section. | + +--------+ + + + | RADIOLOGY | | 09/09/2014 | | Results for this | | | | 12:00 AM | | procedure are in the | | | | PDT | | results section. | + +--------+ + + + | SURGICAL PATHOLOGY | Routin | 09/09/2014 | | Results for this | | | e | | | procedure are in the | | | | | | results section. | + +--------+ + + + documented in this encounter Results PROCEDURE NOTE (01/02/2016 5:17 PM PST)PROCEDURE NOTE (01/02/2016 5:16 PM PST)PROCEDURE N OTE (01/02/2016 5:16 PM PST)PROCEDURE NOTE (01/02/2016 5:16 PM PST)PROCEDURE NOTE ( 5:15 PM PST)CBC (HEMOGRAM) ONLY (09/16/2014 5:02 AM PDT) + + + + + + | Component | Value | Ref Range | Performed | Pathologist | | | | | At | Signature | + + + + + + | WHITE CELL | 12.71 (H) | 4.40 - 11.00 | [facility] | | | COUNT | | K/cu mm | LABORATORY | | | | | | SERVICES, | | | | | | CORE | | + + + + + + | RED CELL | 3.83 (L) | 4.50 - 6.00 | [facility] | | | COUNT | | M/cu mm | LABORATORY | | | | | | SERVICES, | | | | | | CORE | | + + + + + + | HEMOGLOBIN | 11.5 (L) | 13.5 - 17.5 | [facility] | | | | | g/dL | LABORATORY | | | | | | SERVICES, | | | | | | CORE | | + + + + + + | HEMATOCRIT | 34.1 (L) | 41.0 - 53.0 % | [facility] | | | | | | LABORATORY | | | | | | SERVICES, | | | | | | CORE | | + + + + + + | MCV | 89.0 | 80.0 - 96.0 fL | [facility] | | | | | | LABORATORY | | | | | | SERVICES, | | | | | | CORE | | + + + + + + | MCHC | 33.7 | 33.0 - 35.5 | [facility] | | | | | g/dL | LABORATORY | | | | | | SERVICES, | | | | | | CORE | | + + + + + + | RDW SD | 47.1 (H) | 35.1 - 46.3 fL | [facility] | | | | | | LABORATORY | | | | | | SERVICES, | | | | | | CORE | | + + + + + + | PLATELET | 698 (H) | 150 - 400 K/cu | [facility] | | | COUNT | | mm | LABORATORY | | | | | | SERVICES, | | | | | | CORE | | + + + + + + | MPV | 9.0 (L) | 9.7 - 12.3 fL | [facility] | | | | | | LABORATORY | | | | | | SERVICES, | | | | | | CORE | | + + + + + + | NRBC% | 0.0 | 0.0 - 0.3 % | [facility] | | | | | | LABORATORY | | | | | | SERVICES, | | | | | | CORE | | + + + + + + | NRBC# | 0.00 | 0.00 - 0.02 | [facility] | | | | | K/cu mm | LABORATORY | | | | | | SERVICES, | | | | | | CORE | | + + + + + + + + | Specimen | + + | Blood - Blood | + + + + + + + | Performing | Address | City/State/Zipcode | Phone Number | | Organization | | | | + + + + + | [facility] | [id number] | [place] [address] | | | [place]MA ROSA, CORE | [address] | | | + + + + + PHOSPHORUS, PLASMA (09/16/2014 5:02 AM PDT) + +---------+ + + + | Component | Value | Ref Range | Performed | Pathologist | | | | | At | Signature | + +---------+ + + + | PHOSPHORUS, | 4.8 (H) | 2.4 - 4.7 mg/dL | [facility] | | | PLASMA | | | LABORATORY | | | (LAB) | | | SERVICES, | | | | | | CORE | | + +---------+ + + + + + | Specimen | + + | Blood - Blood | + + + + + + + | Performing | Address | City/State/Zipcode | Phone Number | | Organization | | | | + + + + + | [facility] | [address] | [place] [address] | | | SERVICES, CORE | [address] | | | + + + + + MAGNESIUM, PLASMA (09/16/2014 5:02 AM PDT) + +---------+ + + + | Component | Value | Ref Range | Performed | Pathologist | | | | | At | Signature | + +---------+ + + + | MAGNESIUM,P | 1.5 (L) | 1.8 - 2.5 mg/dL | [facility] | | | L[facility] | | | LABORATORY | | | | | | SERVICES, | | | | | | CORE | | + +---------+ + + + + + | Specimen | + + | Blood - Blood | + + + + + + + | Performing | Address | City/State/Zipcode | Phone Number | | Organization | | | | + + + + + | [facility] | [address] | [place] [address] | | | SERVICES, CORE | [address] | | | + + + + + RENAL FUNCTION SET (NA,K,CL,CO2,BUN,CREAT,GLUC,CA,PHOS,ALB ) (09/16/2014 5:02 AM PDT) + + + + + + | Component | Value | Ref Range | Performed | Pathologist | | | | | At | Signature | + + + + + + | GLUCOSE, | 105 (H) | 60 - 99 mg/dL | [facility] | | | PLASMA | | | LABORATORY | | | (LAB) | | | SERVICES, | | | | | | CORE | | + + + + + + | BUN, PLASMA | 5 (L) | 6 - 20 mg/dL | [facility] | | | (LAB) | | | LABORATORY | | | | | | SERVICES, | | | | | | CORE | | + + + + + + | CREATININE | 0.65 (L) | 0.70 - 1.30 | [facility] | | | PLASMA | | mg/dL | LABORATORY | | | (LAB) | | | SERVICES, | | | | | | CORE | | + + + + + + | EGFR | >60 | >60 mL/min | [facility] | | | - | | | LABORATORY | | | BRAZILIAN | | | SERVICES, | | | | | | CORE | | + + + + + + | EGFR NON | >60 | >60 mL/min | [facility] | | | -MOIS[facility] | | | LABORATORY | | | RICAN | | | SERVICES, | | | | | | CORE | | + + + + + + | SODIUM, | 139 | 136 - 145 | [facility] | | | PLASMA | | mmol/L | LABORATORY | | | (LAB) | | | SERVICES, | | | | | | CORE | | + + + + + + | POTASSIUM, | 3.9 | 3.4 - 5.0 | [facility] | | | PLASMA | | mmol/L | LABORATORY | | | (LAB) | | | SERVICES, | | | | | | CORE | | + + + + + + | CHLORIDE, | 106 | 97 - 108 mmol/L | [facility] | | | PLASMA | | | LABORATORY | | | (LAB) | | | SERVICES, | | | | | | CORE | | + + + + + + | TOTAL CO2, | 26 | 21 - 32 mmol/L | [facility] | | | PLASMA | | | LABORATORY | | | (LAB) | | | SERVICES, | | | | | | CORE | | + + + + + + | CALCIUM, | 8.4 (L) | 8.6 - 10.2 | [facility] | | | PLASMA | | mg/dL | LABORATORY | | | (LAB) | | | SERVICES, | | | | | | CORE | | + + + + + + | ALBUMIN, | 2.1 (L) | 3.5 - 4.7 g/dL | [facility] | | | PLASMA | | | LABORATORY | | | (LAB) | | | SERVICES, | | | | | | CORE | | + + + + + + | PHOSPHORUS, | 4.8 (H) | 2.4 - 4.7 mg/dL | [facility] | | | PLASMA | | | LABORATORY | | | (LAB) | | | SERVICES, | | | | | | CORE | | + + + + + + | POTASSIUM | No Hemo | | [facility] | | | CMNT | | | LABORATORY | | | | | | SERVICES, | | | | | | CORE | | + + + + + + | ANION GAP | 7 | mmol/L | [facility] | | | | | | LABORATORY | | | | | | SERVICES, | | | | | | CORE | | + + + + + + | ANION | 11 | 4 - 11 mmol/L | [facility] | | | GAP(ALB | | | LABORATORY | | | CORRECTED) | | | SERVICES, | | | | | | CORE | | + + + + + + + + | Specimen | + + | Blood - Blood | + + + + + | Narrative | Performed At | + + + | GFR is estimated using the MDRD equation recommended by the | [facility] | | National Kidney Disease Education Program. Estimated GFR | LABORATORY | | Interpretive Information: <60 mL/min/1.73 sq | SERVICES, CORE | | m Chronic Kidney Disease <15 mL/min/1.73 | | | sq m Kidney Failure Estimated GFR greater | | | that 60 mL/min/1.73 sq m is of limited clinical value. The MDRD | | | equation is not valid in the following situations: - Patients under | | | 18 years of age - Severe malnutrition or obesity - Vegetarian diet | | | - Rapidly changing kidney function | | + + + + + + + + | Performing | Address | City/State/Zipcode | Phone Number | | Organization | | | | + + + + + | [facility] | [address] | [place] [address] | | | SERVICES, [facility] | [address] | | | + + + + + CBC (HEMOGRAM) ONLY (09/15/2014 5:11 AM PDT) + + + + + + | Component | Value | Ref Range | Performed | Pathologist | | | | | At | Signature | + + + + + + | WHITE CELL | 12.65 (H) | 4.40 - 11.00 | [facility] | | | COUNT | | K/cu mm | LABORATORY | | | | | | SERVICES, | | | | | | CORE | | + + + + + + | RED CELL | 3.95 (L) | 4.50 - 6.00 | [facility] | | | COUNT | | M/cu mm | LABORATORY | | | | | | SERVICES, | | | | | | CORE | | + + + + + + | HEMOGLOBIN | 11.6 (L) | 13.5 - 17.5 | [facility] | | | | | g/dL | LABORATORY | | | | | | SERVICES, | | | | | | CORE | | + + + + + + | HEMATOCRIT | 34.7 (L) | 41.0 - 53.0 % | [facility] | | | | | | LABORATORY | | | | | | SERVICES, | | | | | | CORE | | + + + + + + | MCV | 87.8 | 80.0 - 96.0 fL | [facility] | | | | | | LABORATORY | | | | | | SERVICES, | | | | | | CORE | | + + + + + + | MCHC | 33.4 | 33.0 - 35.5 | [facility] | | | | | g/dL | LABORATORY | | | | | | SERVICES, | | | | | | CORE | | + + + + + + | RDW SD | 44.8 | 35.1 - 46.3 fL | [facility] | | | | | | LABORATORY | | | | | | SERVICES, | | | | | | CORE | | + + + + + + | PLATELET | 570 (H) | 150 - 400 K/cu | [facility] | | | COUNT | | mm | LABORATORY | | | | | | SERVICES, | | | | | | CORE | | + + + + + + | MPV | 9.0 (L) | 9.7 - 12.3 fL | [facility] | | | | | | LABORATORY | | | | | | SERVICES, | | | | | | CORE | | + + + + + + | NRBC% | 0.0 | 0.0 - 0.3 % | [facility] | | | | | | LABORATORY | | | | | | SERVICES, | | | | | | CORE | | + + + + + + | NRBC# | 0.00 | 0.00 - 0.02 | [facility] | | | | | K/cu mm | LABORATORY | | | | | | SERVICES, | | | | | | CORE | | + + + + + + + + | Specimen | + + | Blood - Blood | + + + + + + + | Performing | Address | City/State/Zipcode | Phone Number | | Organization | | | | + + + + + | [facility] | [address] | [place] [address] | | | SERVICES, CORE | [address] | | | + + + + + PHOSPHORUS, PLASMA (09/15/2014 5:11 AM PDT) + +-------+ + + + | Component | Value | Ref Range | Performed | Pathologist | | | | | At | Signature | + +-------+ + + + | PHOSPHORUS, | 3.6 | 2.4 - 4.7 mg/dL | [facility] | | | PLASMA | | | LABORATORY | | | (LAB) | | | SERVICES, | | | | | | CORE | | + +-------+ + + + + + | Specimen | + + | Blood - Blood | + + + + + + + | Performing | Address | City/State/Zipcode | Phone Number | | Organization | | | | + + + + + | [facility] | [address] | [place] [address] | | | SERVICES, [facility] | [address] | | | + + + + + MAGNESIUM, PLASMA (09/15/2014 5:11 AM PDT) + +---------+ + + + | Component | Value | Ref Range | Performed | Pathologist | | | | | At | Signature | + +---------+ + + + | MAGNESIUM,P | 1.7 (L) | 1.8 - 2.5 mg/dL | [facility] | | | LASMA | | | LABORATORY | | | | | | SERVICES, | | | | | | CORE | | + +---------+ + + + + + | Specimen | + + | Blood - Blood | + + + + + + + | Performing | Address | City/State/Zipcode | Phone Number | | Organization | | | | + + + + + | [facility] | [address] | [place] [address] | | | SERVICES, CORE | [address] | | | + + + + + RENAL FUNCTION SET (NA,K,CL,CO2,BUN,CREAT,GLUC,CA,PHOS,ALB ) (09/15/2014 5:11 AM PDT) + + + + + + | Component | Value | Ref Range | Performed | Pathologist | | | | | At | Signature | + + + + + + | GLUCOSE, | 97 | 60 - 99 mg/dL | [facility] | | | PLASMA | | | LABORATORY | | | (LAB) | | | SERVICES, | | | | | | CORE | | + + + + + + | BUN, PLASMA | 5 (L) | 6 - 20 mg/dL | [facility] | | | (LAB) | | | LABORATORY | | | | | | SERVICES, | | | | | | CORE | | + + + + + + | CREATININE | 0.66 (L) | 0.70 - 1.30 | [facility] | | | PLASMA | | mg/dL | LABORATORY | | | (LAB) | | | SERVICES, | | | | | | CORE | | + + + + + + | EGFR | >60 | >60 mL/min | [facility] | | | - | | | LABORATORY | | | BRAZILIAN | | | SERVICES, | | | | | | CORE | | + + + + + + | EGFR NON | >60 | >60 mL/min | [facility] | | | -MO[facility] | | | LABORATORY | | | RICAN | | | SERVICES, | | | | | | CORE | | + + + + + + | SODIUM, | 137 | 136 - 145 | [facility] | | | PLASMA | | mmol/L | LABORATORY | | | (LAB) | | | SERVICES, | | | | | | CORE | | + + + + + + | POTASSIUM, | 3.9 | 3.4 - 5.0 | [facility] | | | PLASMA | | mmol/L | LABORATORY | | | (LAB) | | | SERVICES, | | | | | | CORE | | + + + + + + | CHLORIDE, | 104 | 97 - 108 mmol/L | [facility] | | | PLASMA | | | LABORATORY | | | (LAB) | | | SERVICES, | | | | | | CORE | | + + + + + + | TOTAL CO2, | 26 | 21 - 32 mmol/L | [facility] | | | PLASMA | | | LABORATORY | | | (LAB) | | | SERVICES, | | | | | | CORE | | + + + + + + | CALCIUM, | 8.3 (L) | 8.6 - 10.2 | [facility] | | | PLASMA | | mg/dL | LABORATORY | | | (LAB) | | | SERVICES, | | | | | | CORE | | + + + + + + | ALBUMIN, | 2.1 (L) | 3.5 - 4.7 g/dL | [facility] | | | PLASMA | | | LABORATORY | | | (LAB) | | | SERVICES, | | | | | | CORE | | + + + + + + | PHOSPHORUS, | 3.6 | 2.4 - 4.7 mg/dL | [facility] | | | PLASMA | | | LABORATORY | | | (LAB) | | | SERVICES, | | | | | | CORE | | + + + + + + | POTASSIUM | No Hemo | | [facility] | | | CMNT | | | LABORATORY | | | | | | SERVICES, | | | | | | CORE | | + + + + + + | ANION GAP | 7 | mmol/L | [facility] | | | | | | LABORATORY | | | | | | SERVICES, | | | | | | CORE | | + + + + + + | ANION | 11 | 4 - 11 mmol/L | [facility] | | | GAP(ALB | | | LABORATORY | | | CORRECTED) | | | SERVICES, | | | | | | CORE | | + + + + + + + + | Specimen | + + | Blood - Blood | + + + + + | Narrative | Performed At | + + + | GFR is estimated using the MDRD equation recommended by the | [facility] | | National Kidney Disease Education Program. Estimated GFR | LABORATORY | | Interpretive Information: <60 mL/min/1.73 sq | [address] | | m Chronic Kidney Disease <15 mL/min/1.73 | | | sq m Kidney Failure Estimated GFR greater | | | that 60 mL/min/1.73 sq m is of limited clinical value. The MDRD | | | equation is not valid in the following situations: - Patients under | | | 18 years of age - Severe malnutrition or obesity - Vegetarian diet | | | - Rapidly changing kidney function | | + + + + + + + + | Performing | Address | City/State/Zipcode | Phone Number | | Organization | | | | + + + + + | [facility] | [address] | [place] [address] | | | [address] | [address] | | | + + + + + CBC (HEMOGRAM) ONLY (09/14/2014 5:03 AM PDT) + + + + + + | Component | Value | Ref Range | Performed | Pathologist | | | | | At | Signature | + + + + + + | WHITE CELL | 13.59 (H) | 4.40 - 11.00 | [facility] | | | COUNT | | K/cu mm | LABORATORY | | | | | | SERVICES, | | | | | | CORE | | + + + + + + | RED CELL | 4.01 (L) | 4.50 - 6.00 | [facility] | | | COUNT | | M/cu mm | LABORATORY | | | | | | SERVICES, | | | | | | CORE | | + + + + + + | HEMOGLOBIN | 12.0 (L) | 13.5 - 17.5 | [facility] | | | | | g/dL | LABORATORY | | | | | | SERVICES, | | | | | | CORE | | + + + + + + | HEMATOCRIT | 35.0 (L) | 41.0 - 53.0 % | [facility] | | | | | | LABORATORY | | | | | | SERVICES, | | | | | | CORE | | + + + + + + | MCV | 87.3 | 80.0 - 96.0 fL | [facility] | | | | | | LABORATORY | | | | | | SERVICES, | | | | | | CORE | | + + + + + + | MCHC | 34.3 | 33.0 - 35.5 | [facility] | | | | | g/dL | LABORATORY | | | | | | SERVICES, | | | | | | CORE | | + + + + + + | RDW SD | 44.8 | 35.1 - 46.3 fL | [facility] | | | | | | LABORATORY | | | | | | SERVICES, | | | | | | CORE | | + + + + + + | PLATELET | 430 (H) | 150 - 400 K/cu | [facility] | | | COUNT | | mm | LABORATORY | | | | | | SERVICES, | | | | | | CORE | | + + + + + + | MPV | 9.6 (L) | 9.7 - 12.3 fL | [facility] | | | | | | LABORATORY | | | | | | SERVICES, | | | | | | CORE | | + + + + + + | NRBC% | 0.0 | 0.0 - 0.3 % | [facility] | | | | | | LABORATORY | | | | | | SERVICES, | | | | | | CORE | | + + + + + + | NRBC# | 0.00 | 0.00 - 0.02 | [facility] | | | | | K/cu mm | LABORATORY | | | | | | SERVICES, | | | | | | CORE | | + + + + + + + + | Specimen | + + | Blood - Blood | + + + + + + + | Performing | Address | City/State/Zipcode | Phone Number | | Organization | | | | + + + + + | [facility] | [address] | [place] [address] | | | SERVICES, CORE | [address] | | | + + + + + PHOSPHORUS, PLASMA (09/14/2014 5:03 AM PDT) + +-------+ + + + | Component | Value | Ref Range | Performed | Pathologist | | | | | At | Signature | + +-------+ + + + | PHOSPHORUS, | 3.7 | 2.4 - 4.7 mg/dL | [facility] | | | PLASMA | | | LABORATORY | | | (LAB) | | | SERVICES, | | | | | | CORE | | + +-------+ + + + + + | Specimen | + + | Blood - Blood | + + + + + + + | Performing | Address | City/State/Zipcode | Phone Number | | Organization | | | | + + + + + | [facility] | [address] | [place] [address] | | | SERVICES, CORE | [address] | | | + + + + + MAGNESIUM, PLASMA (09/14/2014 5:03 AM PDT) + +---------+ + + + | Component | Value | Ref Range | Performed | Pathologist | | | | | At | Signature | + +---------+ + + + | MAGNESIUM,P | 1.7 (L) | 1.8 - 2.5 mg/dL | [facility] | | | LASMA | | | LABORATORY | | | | | | SERVICES, | | | | | | CORE | | + +---------+ + + + + + | Specimen | + + | Blood - Blood | + + + + + + + | Performing | Address | City/State/Zipcode | Phone Number | | Organization | | | | + + + + + | [facility] | [address] | [place] [address] | | | SERVICES, CORE | [address] | | | + + + + + RENAL FUNCTION SET (NA,K,CL,CO2,BUN,CREAT,GLUC,CA,PHOS,ALB ) (09/14/2014 5:03 AM PDT) + + + + + + | Component | Value | Ref Range | Performed | Pathologist | | | | | At | Signature | + + + + + + | GLUCOSE, | 95 | 60 - 99 mg/dL | [facility] | | | PLASMA | | | LABORATORY | | | (LAB) | | | SERVICES, | | | | | | CORE | | + + + + + + | BUN, PLASMA | 5 (L) | 6 - 20 mg/dL | [facility] | | | (LAB) | | | LABORATORY | | | | | | SERVICES, | | | | | | CORE | | + + + + + + | CREATININE | 0.64 (L) | 0.70 - 1.30 | [facility] | | | PLASMA | | mg/dL | LABORATORY | | | (LAB) | | | SERVICES, | | | | | | CORE | | + + + + + + | EGFR | >60 | >60 mL/min | [facility] | | | - | | | LABORATORY | | | BRAZILIAN | | | SERVICES, | | | | | | CORE | | + + + + + + | EGFR NON | >60 | >60 mL/min | [facility] | | | -MOIS[facility] | | | LABORATORY | | | RICAN | | | SERVICES, | | | | | | CORE | | + + + + + + | SODIUM, | 137 | 136 - 145 | [facility] | | | PLASMA | | mmol/L | LABORATORY | | | (LAB) | | | SERVICES, | | | | | | CORE | | + + + + + + | POTASSIUM, | 3.8 | 3.4 - 5.0 | [facility] | | | PLASMA | | mmol/L | LABORATORY | | | (LAB) | | | SERVICES, | | | | | | CORE | | + + + + + + | CHLORIDE, | 102 | 97 - 108 mmol/L | [facility] | | | PLASMA | | | LABORATORY | | | (LAB) | | | SERVICES, | | | | | | CORE | | + + + + + + | TOTAL CO2, | 29 | 21 - 32 mmol/L | [facility] | | | PLASMA | | | LABORATORY | | | (LAB) | | | SERVICES, | | | | | | CORE | | + + + + + + | CALCIUM, | 8.5 (L) | 8.6 - 10.2 | [facility] | | | PLASMA | | mg/dL | LABORATORY | | | (LAB) | | | SERVICES, | | | | | | CORE | | + + + + + + | ALBUMIN, | 2.1 (L) | 3.5 - 4.7 g/dL | [facility] | | | PLASMA | | | LABORATORY | | | (LAB) | | | SERVICES, | | | | | | CORE | | + + + + + + | PHOSPHORUS, | 3.7 | 2.4 - 4.7 mg/dL | [facility] | | | PLASMA | | | LABORATORY | | | (LAB) | | | SERVICES, | | | | | | CORE | | + + + + + + | POTASSIUM | No Hemo | | [facility] | | | CMNT | | | LABORATORY | | | | | | SERVICES, | | | | | | CORE | | + + + + + + | ANION GAP | 6 | mmol/L | [facility] | | | | | | LABORATORY | | | | | | SERVICES, | | | | | | CORE | | + + + + + + | ANION | 10 | 4 - 11 mmol/L | [facility] | | | GAP(ALB | | | LABORATORY | | | CORRECTED) | | | SERVICES, | | | | | | CORE | | + + + + + + + + | Specimen | + + | Blood - Blood | + + + + + | Narrative | Performed At | + + + | GFR is estimated using the MDRD equation recommended by the | [facility] | | National Kidney Disease Education Program. Estimated GFR | LABORATORY | | Interpretive Information: <60 mL/min/1.73 sq | SERVICES, CORE | | m Chronic Kidney Disease <15 mL/min/1.73 | | | sq m Kidney Failure Estimated GFR greater | | | that 60 mL/min/1.73 sq m is of limited clinical value. The MDRD | | | equation is not valid in the following situations: - Patients under | | | 18 years of age - Severe malnutrition or obesity - Vegetarian diet | | | - Rapidly changing kidney function | | + + + + + + + + | Performing | Address | City/State/Zipcode | Phone Number | | Organization | | | | + + + + + | [facility] | [address] | [place] [address] | | | SERVICES, [place] | [address] | | | + + + + + [facility] RENAL DUPLEX COMPLETE (09/13/2014 4:44 PM PDT) + + + + + + | Component | Value | Ref Range | Performed | Pathologist | | | | | At | Signature | + + + + + + | [facility] | RENAL DUPLEX | | | | | RENAL | STUDY: 09/13/2014 | | | | | DUPLEX | Dictated 09/13/2014 | | | | | COMPLETE | INDICATION: Followup | | | | | | left renal vein repair. | | | | | | The blood pressure is | | | | | | 100/54 mmHg. The duplex | | | | | | scanner was used to | | | | | | examine the aorta, | | | | | | celiac, superior | | | | | | mesenteric,right and | | | | | | left renal arteries, | | | | | | right and left renal | | | | | | veins, and the | | | | | | renalparenchyma | | | | | | bilaterally. Flow in the | | | | | | aorta is 110 cm/s, 129 | | | | | | cm/s in the celiac | | | | | | artery, and 142 cm/s | | | | | | inthe superior | | | | | | mesenteric artery, | | | | | | Maximum flow velocity in | | | | | | the right renal artery | | | | | | is 97 cm/s for a | | | | | | renal/aorticratio of | | | | | | 0.88. Maximum flow | | | | | | velocity in the left | | | | | | renal artery is 92 cm/s | | | | | | for a renal/aorticratio | | | | | | of 0.82. The right and | | | | | | left renal veins appear | | | | | | patent. There are normal | | | | | | parenchymal resistance | | | | | | values present in the | | | | | | right and | | | | | | leftkidneys. The | | | | | | right kidney is 10.1 cm | | | | | | and the left kidney, | | | | | | 11.5 cm in length. | | | | | | IMPRESSION: Renal duplex | | | | | | study without evidence | | | | | | of stenosis of the | | | | | | celiac, | | | | | | superiormesenteric, | | | | | | right or left renal | | | | | | arteries. The right | | | | | | and left renal veins | | | | | | arepatent without | | | | | | evidence of | | | | | | thrombus. By | | | | | | ultrasound criteria, the | | | | | | parenchyma ofthe | | | | | | kidneys are normal | | | | | | bilaterally. END | | | | | | IMPRESSION: Attending | | | | | | Radiologists: ,Author | | | | | | : GRICELDA RENE MD I | | | | | | have personally viewed | | | | | | this procedure/exam, | | | | | | reviewed this report, | | | | | | and madechanges to it | | | | | | where appropriate. | | | | | | Final/Electronically | | | | | | signed / GRICELDA | | | | | | EDGARD Preliminary | | | | | | / Stephanie Balbuena | | | | + + + + + + + + | Specimen | + + | | + + + +---------+ + + | Performing | Address | City/State/Zipcode | Phone Number | | Organization | | | | + +---------+ + + | [facility] | | | | | RADIOLOGY | | | | + +---------+ + + PHOSPHORUS, PLASMA (09/13/2014 4:59 AM PDT) + +-------+ + + + | Component | Value | Ref Range | Performed | Pathologist | | | | | At | Signature | + +-------+ + + + | PHOSPHORUS, | 4.3 | 2.4 - 4.7 mg/dL | [facility] | | | PLASMA | | | LABORATORY | | | (LAB) | | | SERVICES, | | | | | | CORE | | + +-------+ + + + + + | Specimen | + + | Blood - Blood | + + + + + + + | Performing | Address | City/State/Zipcode | Phone Number | | Organization | | | | + + + + + | [facility] | [address] | [place] [address] | | | SERVICES, CORE | [address] | | | + + + + + MAGNESIUM, PLASMA (09/13/2014 4:59 AM PDT) + +---------+ + + + | Component | Value | Ref Range | Performed | Pathologist | | | | | At | Signature | + +---------+ + + + | MAGNESIUM,P | 1.6 (L) | 1.8 - 2.5 mg/dL | [facility] | | | [facility] | | | LABORATORY | | | | | | SERVICES, | | | | | | CORE | | + +---------+ + + + + + | Specimen | + + | Blood - Blood | + + + + + + + | Performing | Address | City/State/Zipcode | Phone Number | | Organization | | | | + + + + + | [facility] | [address] | [place] [address] | | | [facility], CORE | [address] | | | + + + + + RENAL FUNCTION SET (NA,K,CL,CO2,BUN,CREAT,GLUC,CA,PHOS,ALB ) (09/13/2014 4:59 AM PDT) + + + + + + | Component | Value | Ref Range | Performed | Pathologist | | | | | At | Signature | + + + + + + | GLUCOSE, | 102 (H) | 60 - 99 mg/dL | [facility] | | | PLASMA | | | LABORATORY | | | (LAB) | | | SERVICES, | | | | | | CORE | | + + + + + + | BUN, PLASMA | 4 (L) | 6 - 20 mg/dL | [facility] | | | (LAB) | | | LABORATORY | | | | | | SERVICES, | | | | | | CORE | | + + + + + + | CREATININE | 0.68 (L) | 0.70 - 1.30 | [facility] | | | PLASMA | | mg/dL | LABORATORY | | | (LAB) | | | SERVICES, | | | | | | CORE | | + + + + + + | EGFR | >60 | >60 mL/min | [facility] | | | - | | | LABORATORY | | | BRAZILIAN | | | SERVICES, | | | | | | CORE | | + + + + + + | EGFR NON | >60 | >60 mL/min | [facility] | | | -MO[facility] | | | LABORATORY | | | RICAN | | | SERVICES, | | | | | | CORE | | + + + + + + | SODIUM, | 141 | 136 - 145 | [facility] | | | PLASMA | | mmol/L | LABORATORY | | | (LAB) | | | SERVICES, | | | | | | CORE | | + + + + + + | POTASSIUM, | 3.7 | 3.4 - 5.0 | [facility] | | | PLASMA | | mmol/L | LABORATORY | | | (LAB) | | | SERVICES, | | | | | | CORE | | + + + + + + | CHLORIDE, | 105 | 97 - 108 mmol/L | [facility] | | | PLASMA | | | LABORATORY | | | (LAB) | | | SERVICES, | | | | | | CORE | | + + + + + + | TOTAL CO2, | 31 | 21 - 32 mmol/L | [facility] | | | PLASMA | | | LABORATORY | | | (LAB) | | | SERVICES, | | | | | | CORE | | + + + + + + | CALCIUM, | 8.3 (L) | 8.6 - 10.2 | [facility] | | | PLASMA | | mg/dL | LABORATORY | | | (LAB) | | | SERVICES, | | | | | | CORE | | + + + + + + | ALBUMIN, | 2.0 (L) | 3.5 - 4.7 g/dL | [facility] | | | PLASMA | | | LABORATORY | | | (LAB) | | | SERVICES, | | | | | | CORE | | + + + + + + | PHOSPHORUS, | 4.3 | 2.4 - 4.7 mg/dL | [facility] | | | PLASMA | | | LABORATORY | | | (LAB) | | | SERVICES, | | | | | | CORE | | + + + + + + | POTASSIUM | No Hemo | | [facility] | | | CMNT | | | LABORATORY | | | | | | SERVICES, | | | | | | CORE | | + + + + + + | ANION GAP | 5 | mmol/L | [facility] | | | | | | LABORATORY | | | | | | SERVICES, | | | | | | CORE | | + + + + + + | ANION | 10 | 4 - 11 mmol/L | [facility] | | | GAP(ALB | | | LABORATORY | | | CORRECTED) | | | SERVICES, | | | | | | CORE | | + + + + + + + + | Specimen | + + | Blood - Blood | + + + + + | Narrative | Performed At | + + + | GFR is estimated using the MDRD equation recommended by the | [facility] | | National Kidney Disease Education Program. Estimated GFR | LABORATORY | | Interpretive Information: <60 mL/min/1.73 sq | SERVICES, CORE | | m Chronic Kidney Disease <15 mL/min/1.73 | | | sq m Kidney Failure Estimated GFR greater | | | that 60 mL/min/1.73 sq m is of limited clinical value. The MDRD | | | equation is not valid in the following situations: - Patients under | | | 18 years of age - Severe malnutrition or obesity - Vegetarian diet | | | - Rapidly changing kidney function | | + + + + + + + + | Performing | Address | City/State/Zipcode | Phone Number | | Organization | | | | + + + + + | [facility] | [address] | [place] [address] | | | SERVICES, CORE | [address] | | | + + + + + [facility]ASC LAB PORTABLE VENOUS DUPLEX LOWER EXTREMITY BILATERAL COMPLETE (09/12/2014 4:00 PM PDT ) + + + + + + | Component | Value | Ref Range | Performed | Pathologist | | | | | At | Signature | + + + + + + | [facility] LAB | LOWER EXTREMITY VENOUS | | | | | PORTABLE | STUDY: 09/12/2014 | | | | | VENOUS | Dictated 09/12/2014 | | | | | DUPLEX | INDICATION: Pain. The | | | | | LOWER | duplex scanner was used | | | | | EXTREMITY | to examine the deep and | | | | | BILATERAL | superficial veins of | | | | | COMPLETE | theright and left lower | | | | | | extremities. The | | | | | | veins are patent with | | | | | | normal flows | | | | | | andresponses to | | | | | | augmentation and | | | | | | compression maneuvers | | | | | | and no thrombus is | | | | | | noted. IMPRESSION: A | | | | | | normal venous | | | | | | examination of the lower | | | | | | extremities. No | | | | | | evidence of | | | | | | venousthrombosis. END | | | | | | IMPRESSION: Attending | | | | | | Radiologists: ,Author | | | | | | : GRICELDA RENE MD I | | | | | | have personally viewed | | | | | | this procedure/exam, | | | | | | reviewed this report, | | | | | | and madechanges to it | | | | | | where appropriate. | | | | | | Final/Electronically | | | | | | signed / GRICELDA | | | | | | EDGARD Preliminary | | | | | | / Stephanie Balbuena | | | | + + + + + + + + | Specimen | + + | | + + + +---------+ + + | Performing | Address | City/State/Zipcode | Phone Number | | Organization | | | | + +---------+ + + | [facility] | | | | RADIOLOGY | | | | + +---------+ + + AMYLASE, BODY FLUIDS (09/12/2014 2:01 PM PDT) + +-------+ + + + | Component | Value | Ref Range | Performed | Pathologist | | | | | At | Signature | + +-------+ + + + | AMYLASE | 18 | U/L | [facility] | | | [facility] | | | LABORATORY | | | | | | SERVICES, | | | | | | CORE | | + +-------+ + + + + + | Specimen | + + | Fluid - Drain | + + + + + + + | Performing | Address | City/State/Zipcode | Phone Number | | Organization | | | | + + + + + | [facility] | [address] | [place] [address] | | | SERVICES, CORE | [address] | | | + + + + + AMYLASE, PLASMA (09/12/2014 12:09 PM PDT) + +-------+ + + + | Component | Value | Ref Range | Performed | Pathologist | | | | | At | Signature | + +-------+ + + + | AMYLASE,CRISTIAN | 28 | 25 - 115 U/L | [facility] | | | SMA | | | LABORATORY | | | | | | SERVICES, | | | | | | CORE | | + +-------+ + + + + + | Specimen | + + | Blood - Blood | + + + + + + + | Performing | Address | City/State/Zipcode | Phone Number | | Organization | | | | + + + + + | [facility] | [address] | [place] [address] | | | SERVICES, CORE | [address] | | | + + + + + PHOSPHORUS, PLASMA (09/12/2014 5:25 AM PDT) + +-------+ + + + | Component | Value | Ref Range | Performed | Pathologist | | | | | At |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 TESTS | | | | + + + + + POTASSIUM, POC (09/09/2014 7:46 AM PDT) + +-------+ + + + | Component | Value | Ref Range | Performed | Pathologist | | | | | At | Signature | + +-------+ + + + | POTASSIUM, | 3.5 | 3.4 - 5.0 | [facility] | | | POC | | mmol/L | [facility] | | | | | | [facility] | | | | | | OF CARE | | | | | | TESTS | | + +-------+ + + + + + | Specimen | + + | | + + + + + + + | Performing | Address | City/State/Zipcode | Phone Number | | Organization | | | | + + + + + | [facility] | [address] | [place], [place] | | | [facility] | [address] | [address] | | | TESTS | | | | + + + + + GLUCOSE, POC (09/09/2014 7:46 AM PDT) + +---------+ + + + | Component | Value | Ref Range | Performed | Pathologist | | | | | At | Signature | + +---------+ + + + | GLUCOSE, | 160 (H) | 60 - 99 mg/dL | [facility] | | | POC | | | [facility] | | | | | | [facility] | | | | | | OF CARE | | | | | | TESTS | | + +---------+ + + + + + | Specimen | + + | | + + + + + + + | Performing | Address | City/State/Zipcode | Phone Number | | Organization | | | | + + + + + | [facility] | [address] | [place], [place] | | | [facility] CARE | [address] | [address] | | | TESTS | | | | + + + + + CHLORIDE, POC (09/09/2014 7:46 AM PDT) + +---------+ + + + | Component | Value | Ref Range | Performed | Pathologist | | | | | At | Signature | + +---------+ + + + | CHLORIDE, | 112 (H) | 97 - 108 mmol/L | [facility] | | | POC | | | [facility] | | | | | | [facility] | | | | | | OF CARE | | | | | | TESTS | | + +---------+ + + + + + | Specimen | + + | | + + + + + + + | Performing | Address | City/State/Zipcode | Phone Number | | Organization | | | | + + + + + | [facility] | [address] | [place], [place] | | | [facility] CARE | [address] | [address] | | | TESTS | | | | + + + + + LEANDRO WESTON ZAVALA (09/09/2014 7:46 AM PDT) + + + + + + | Component | Value | Ref Range | Performed | Pathologist | | | | | At | Signature | + + + + + + | LEANDRO | 1.07 (L) | 1.14 - 1.32 | [facility] - | | | IONIZED CA, | | mmol/L | [facility] | | | POC | | | [facility] | | | | | | OF CARE | | | | | | TESTS | | + + + + + + + + | Specimen | + + | | + + + + + + + | Performing | Address | City/State/Zipcode | Phone Number | | Organization | | | | + + + + + | [facility] | [address] | [place], [place] | | | [facility] CARE | [facility] | [address] | | | TESTS | | | | + + + + + HEMOGLOBIN-COOX, POC (09/09/2014 7:46 AM PDT) + + + + + + | Component | Value | Ref Range | Performed | Pathologist | | | | | At | Signature | + + + + + + | TOTAL | 9.4 (L) | 13.5 - 17.5 | [facility] - | | | HEMOGLOBIN, | | g/dL | [facility] | | | POC | | | [facility] | | | | | | OF CARE | | | | | | TESTS | | + + + + + + | OXYHEMOGLOB | 98.3 | 94.0 - 100 % | [facility] - | | | IN, POC | | | [facility] | | | | | | [facility] | | | | | | OF CARE | | | | | | TESTS | | + + + + + + | CARBOXYHEMO | 1.6 (H) | 0.0 - 1.5 % | [facility] - | | | GLOBIN, POC | | | [facility] | | | | | | [place] [place] | | | | | | OF CARE | | | | | | TESTS | | + + + + + + | METHEMOGLOB | 1.0 | 0.0 - 1.9 % | [facility] - | | | IN, POC | | | [facility] | | | | | | [place] [place] | | | | | | OF CARE | | | | | | TESTS | | + + + + + + | HEMATOCRIT, | 28.9 (L) | 41.0 - 53.0 % | [facility] | | | POC | | | [facility] | | | | | | [place] [place] | | | | | | OF CARE | | | | | | TESTS | | + + + + + + + + | Specimen | + + | | + + + + + + + | Performing | Address | City/State/Zipcode | Phone Number | | Organization | | | | + + + + + | [facility] | [address] | [place], [place] | | | [facility] CARE | [address] | [address] | | | TESTS | | | | + + + + + ANTIBODY SCREEN (09/09/2014 7:30 AM PDT) + + + + + + | Component | Value | Ref Range | Performed | Pathologist | | | | | At | Signature | + + + + + + | Antibody | Negative | | [facility] | | | Screen | | | LABORATORY | | | | | | SERVICES, | | | | | | TRANSFUSION | | | | | | MEDICINE | | + + + + + + + + | Specimen | + + | Blood - Blood | + + + + + + + | Performing | Address | City/State/Zipcode | Phone Number | | Organization | | | | + + + + + | [facility] | [address] | [place] [address] | | | SERVICES, | [address] | | | | TRANSFUSION MEDICINE | | | | + + + + + ABO & RH TYPE (09/09/2014 7:30 AM PDT) + + + + + + | Component | Value | Ref Range | Performed | Pathologist | | | | | At | Signature | + + + + + + | ABO Group | B | | [facility] | | | | | | LABORATORY | | | | | | SERVICES, | | | | | | TRANSFUSION | | | | | | MEDICINE | | + + + + + + | Rh Type | Positive | | [facility] | | | | | | LABORATORY | | | | | | SERVICES, | | | | | | TRANSFUSION | | | | | | MEDICINE | | + + + + + + + + | Specimen | + + | Blood - Blood | + + + + + + + | Performing | Address | City/State/Zipcode | Phone Number | | Organization | | | | + + + + + | [facility] | [address] | [place] [address] | | | SERVICES, | [address] | | | | TRANSFUSION MEDICINE | | | | + + + + + LACTATE (ART), POC (09/09/2014 6:59 AM PDT) + +---------+ + + + | Component | Value | Ref Range | Performed | Pathologist | | | | | At | Signature | + +---------+ + + + | LACTATE | 3.2 (H) | 0.5 - 1.6 | [facility] - | | | ARTERIAL, | | mmol/L | [facility] | | | POC | | | [facility] | | | | | | OF CARE | | | | | | TESTS | | + +---------+ + + + + + | Specimen | + + | | + + + + + + + | Performing | Address | City/State/Zipcode | Phone Number | | Organization | | | | + + + + + | [facility] | [address] | [place], [place] | | | [facility] CARE | [facility] | [address] | | | TESTS | | | | + + + + + SODIUM, POC (09/09/2014 6:59 AM PDT) + +---------+ + + + | Component | Value | Ref Range | Performed | Pathologist | | | | | At | Signature | + +---------+ + + + | SODIUM, POC | 144 (H) | 134 - 143 | [facility] | | | | | mmol/L | [facility] | | | | | | [facility] | | | | | | OF CARE | | | | | | TESTS | | + +---------+ + + + + + | Specimen | + + | | + + + + + + + | Performing | Address | City/State/Zipcode | Phone Number | | Organization | | | | + + + + + | [facility] | [address] | [place], [place] | | | [facility] | [address] | [address] | | | TESTS | | | | + + + + + POTASSIUM, POC (09/09/2014 6:59 AM PDT) + +-------+ + + + | Component | Value | Ref Range | Performed | Pathologist | | | | | At | Signature | + +-------+ + + + | POTASSIUM, | 3.8 | 3.4 - 5.0 | [facility] | | | POC | | mmol/L | [facility] | | | | | | [facility] | | | | | | OF CARE | | | | | | TESTS | | + +-------+ + + + + + | Specimen | + + | | + + + + + + + | Performing | Address | City/State/Zipcode | Phone Number | | Organization | | | | + + + + + | [facility] | [address] | [place], [place] | | | [facility] | [facility] | [address] | | | TESTS | | | | + + + + + GLUCOSE, POC (09/09/2014 6:59 AM PDT) + +---------+ + + + | Component | Value | Ref Range | Performed | Pathologist | | | | | At | Signature | + +---------+ + + + | GLUCOSE, | 195 (H) | 60 - 99 mg/dL | [facility] - | | | POC | | | [facility] | | | | | | [facility] | | | | | | OF CARE | | | | | | TESTS | | + +---------+ + + + + + | Specimen | + + | | + + + + + + + | Performing | Address | City/State/Zipcode | Phone Number | | Organization | | | | + + + + + | [facility] | [address] | [place], [place] | | | [facility] CARE | [address] | [address] | | | TESTS | | | | + + + + + CHLORIDE, POC (09/09/2014 6:59 AM PDT) + +---------+ + + + | Component | Value | Ref Range | Performed | Pathologist | | | | | At | Signature | + +---------+ + + + | CHLORIDE, | 112 (H) | 97 - 108 mmol/L | [facility] - | | | POC | | | [facility] | | | | | | [facility] | | | | | | OF CARE | | | | | | TESTS | | + +---------+ + + + + + | Specimen | + + | | + + + + + + + | Performing | Address | City/State/Zipcode | Phone Number | | Organization | | | | + + + + + | [facility] | [address] | [place], [place] | | | [facility] | [facility] | [address] | | | TESTS | | | | + + + + + LEANDRO IONIZED CA, POC (09/09/2014 6:59 AM PDT) + + + + + + | Component | Value | Ref Range | Performed | Pathologist | | | | | At | Signature | + + + + + + | LEANDRO | 1.01 (L) | 1.14 - 1.32 | [facility] - | | | IONIZED CA, | | mmol/L | [facility] | | | POC | | | [place] | | | | | | OF CARE | | | | | | TESTS | | + + + + + + + + | Specimen | + + | | + + + + + + + | Performing | Address | City/State/Zipcode | Phone Number | | Organization | | | | + + + + + | [facility] | [address] | [place], [place] | | | [facility] | [facility] | [address] | | | TESTS | | | | + + + + + HEMOGLOBIN-COOX, POC (09/09/2014 6:59 AM PDT) + + + + + + | Component | Value | Ref Range | Performed | Pathologist | | | | | At | Signature | + + + + + + | TOTAL | 8.3 (L) | 13.5 - 17.5 | [facility] - | | | HEMOGLOBIN, | | g/dL | [facility] | | | POC | | | [facility] | | | | | | OF CARE | | | | | | TESTS | | + + + + + + | OXYHEMOGLOB | 98.4 | 94.0 - 100 % | [facility] - | | | IN, POC | | | [facility] | | | | | | [place] [place] | | | | | | OF CARE | | | | | | TESTS | | + + + + + + | CARBOXYHEMO | 1.5 | 0.0 - 1.5 % | [facility] - | | | GLOBIN, POC | | | [facility] | | | | | | [facility] | | | | | | OF CARE | | | | | | TESTS | | + + + + + + | METHEMOGLOB | 1.0 | 0.0 - 1.9 % | [facility] - | | | IN, POC | | | [facility] | | | | | | [facility] | | | | | | OF CARE | | | | | | TESTS | | + + + + + + | HEMATOCRIT, | 25.5 (L) | 41.0 - 53.0 % | [facility] - | | | POC | | | [facility] | | | | | | [facility] | | | | | | OF CARE | | | | | | TESTS | | + + + + + + + + | Specimen | + + | | + + + + + + + | Performing | Address | City/State/Zipcode | Phone Number | | Organization | | | | + + + + + | [facility] | [address] | [place], [place] | | | [facility] CARE | [address] | [address] | | | TESTS | | | | + + + + + PRODUCT - FRESH FROZEN PLASMA (09/09/2014 6:31 AM PDT) + + + + + + | Component | Value | Ref Range | Performed | Pathologist | | | | | At | Signature | + + + + + + | PRODUCT | THAWED APHERESIS PLASMA | | [facility] | | | DESCRIPTION | | | DEPARTMENT | | | | | | OF | | | | | | PATHOLOGY | | + + + + + + | PRODUCT | [id number] | | [facility] | | | UNIT # | | | DEPARTMENT | | | | | | OF | | | | | | PATHOLOGY | | + + + + + + | UNIT ABO | AB | | [facility] | | | | | | DEPARTMENT | | | | | | OF | | | | | | PATHOLOGY | | + + + + + + | UNIT RH | NEG | | [facility] | | | | | | DEPARTMENT | | | | | | OF | | | | | | PATHOLOGY | | + + + + + + | STATUS OF | Returned to Blood Bank | | [facility] | | | UNIT | | | DEPARTMENT | | | | | | OF | | | | | | PATHOLOGY | | + + + + + + | BLOOD | [id number] | | [facility] | | | PRODUCT | | | DEPARTMENT | | | CODE | | | OF | | | | | | PATHOLOGY | | + + + + + + + + | Specimen | + + | | + + + + + + + | Performing | Address | City/State/Zipcode | Phone Number | | Organization | | | | + + + + + | [facility] | [address] | [place] [address] | | | PATHOLOGY | [address] | | | + + + + + PRODUCT - FRESH FROZEN PLASMA (09/09/2014 6:31 AM PDT) + + + + + + | Component | Value | Ref Range | Performed | Pathologist | | | | | At | Signature | + + + + + + | PRODUCT | PLASMA THAWED | | [facility] | | | DESCRIPTION | | | DEPARTMENT | | | | | | OF | | | | | | PATHOLOGY | | + + + + + + | PRODUCT | [id number] | | [facility] | | | UNIT # | | | DEPARTMENT | | | | | | OF | | | | | | PATHOLOGY | | + + + + + + | UNIT ABO | B | | [facility] | | | | | | DEPARTMENT | | | | | | OF | | | | | | PATHOLOGY | | + + + + + + | UNIT RH | NEG | | [facility] | | | | | | DEPARTMENT | | | | | | OF | | | | | | PATHOLOGY | | + + + + + + | STATUS OF | Returned to Blood Bank | | [facility] | | | UNIT | | | DEPARTMENT | | | | | | OF | | | | | | PATHOLOGY | | + + + + + + | BLOOD | [id number] | | [facility] | | | PRODUCT | | | DEPARTMENT | | | CODE | | | OF | | | | | | PATHOLOGY | | + + + + + + + + | Specimen | + + | | + + + + + + + | Performing | Address | City/State/Zipcode | Phone Number | | Organization | | | | + + + + + | [facility] | [address] | [place] [address] | | | PATHOLOGY | [address] | | | + + + + + PRODUCT - FRESH FROZEN PLASMA (09/09/2014 6:31 AM PDT) + + + + + + | Component | Value | Ref Range | Performed | Pathologist | | | | | At | Signature | + + + + + + | PRODUCT | PLASMA THAWED | | [facility] | | | DESCRIPTION | | | DEPARTMENT | | | | | | OF | | | | | | PATHOLOGY | | + + + + + + | PRODUCT | [id number] | | [facility] | | | UNIT # | | | DEPARTMENT | | | | | | OF | | | | | | PATHOLOGY | | + + + + + + | UNIT ABO | B | | [facility] | | | | | | DEPARTMENT | | | | | | OF | | | | | | PATHOLOGY | | + + + + + + | UNIT RH | POS | | [facility] | | | | | | DEPARTMENT | | | | | | OF | | | | | | PATHOLOGY | | + + + + + + | STATUS OF | Returned to Blood Bank | | [facility] | | | UNIT | | | DEPARTMENT | | | | | | OF | | | | | | PATHOLOGY | | + + + + + + | BLOOD | [id number] | | [facility] | | | PRODUCT | | | DEPARTMENT | | | CODE | | | OF | | | | | | PATHOLOGY | | + + + + + + + + | Specimen | + + | | + + + + + + + | Performing | Address | City/State/Zipcode | Phone Number | | Organization | | | | + + + + + | [facility] | [address] | [place] [address] | | | PATHOLOGY | [address] | | | + + + + + PRODUCT - FRESH FROZEN PLASMA (09/09/2014 6:31 AM PDT) + + + + + + | Component | Value | Ref Range | Performed | Pathologist | | | | | At | Signature | + + + + + + | PRODUCT | PLASMA THAWED | | [facility] | | | DESCRIPTION | | | DEPARTMENT | | | | | | OF | | | | | | PATHOLOGY | | + + + + + + | PRODUCT | [id number] | | [facility] | | | UNIT # | | | DEPARTMENT | | | | | | OF | | | | | | PATHOLOGY | | + + + + + + | UNIT ABO | B | | [facility] | | | | | | DEPARTMENT | | | | | | OF | | | | | | PATHOLOGY | | + + + + + + | UNIT RH | POS | | [facility] | | | | | | DEPARTMENT | | | | | | OF | | | | | | PATHOLOGY | | + + + + + + | STATUS OF | Returned to Blood Bank | | [facility] | | | UNIT | | | DEPARTMENT | | | | | | OF | | | | | | PATHOLOGY | | + + + + + + | BLOOD | [id number] | | [facility] | | | PRODUCT | | | DEPARTMENT | | | CODE | | | OF | | | | | | PATHOLOGY | | + + + + + + + + | Specimen | + + | | + + + + + + + | Performing | Address | City/State/Zipcode | Phone Number | | Organization | | | | + + + + + | [facility] | [address] | [place] [address] | | | PATHOLOGY | [address] | | | + + + + + PRODUCT - FRESH FROZEN PLASMA (09/09/2014 6:31 AM PDT) + + + + + + | Component | Value | Ref Range | Performed | Pathologist | | | | | At | Signature | + + + + + + | PRODUCT | PLASMA THAWED | | [facility] | | | DESCRIPTION | | | DEPARTMENT | | | | | | OF | | | | | | PATHOLOGY | | + + + + + + | PRODUCT | [id number] | | [facility] | | | UNIT # | | | DEPARTMENT | | | | | | OF | | | | | | PATHOLOGY | | + + + + + + | UNIT ABO | B | | [facility] | | | | | | DEPARTMENT | | | | | | OF | | | | | | PATHOLOGY | | + + + + + + | UNIT RH | POS | | [facility] | | | | | | DEPARTMENT | | | | | | OF | | | | | | PATHOLOGY | | + + + + + + | STATUS OF | Returned to Blood Bank | | [facility] | | | UNIT | | | DEPARTMENT | | | | | | OF | | | | | | PATHOLOGY | | + + + + + + | BLOOD | [id number] | | [facility] | | | PRODUCT | | | DEPARTMENT | | | CODE | | | OF | | | | | | PATHOLOGY | | + + + + + + + + | Specimen | + + | | + + + + + + + | Performing | Address | City/State/Zipcode | Phone Number | | Organization | | | | + + + + + | [facility] | [address] | [place] [address] | | | PATHOLOGY | [address] | | | + + + + + PRODUCT - FRESH FROZEN PLASMA (09/09/2014 6:31 AM PDT) + + + + + + | Component | Value | Ref Range | Performed | Pathologist | | | | | At | Signature | + + + + + + | PRODUCT | PLASMA THAWED | | [facility] | | | DESCRIPTION | | | DEPARTMENT | | | | | | OF | | | | | | PATHOLOGY | | + + + + + + | PRODUCT | [id number] | | [facility] | | | UNIT # | | | DEPARTMENT | | | | | | OF | | | | | | PATHOLOGY | | + + + + + + | UNIT ABO | B | | [facility] | | | | | | DEPARTMENT | | | | | | OF | | | | | | PATHOLOGY | | + + + + + + | UNIT RH | POS | | [facility] | | | | | | DEPARTMENT | | | | | | OF | | | | | | PATHOLOGY | | + + + + + + | STATUS OF | Returned to Blood Bank | | [facility] | | | UNIT | | | DEPARTMENT | | | | | | OF | | | | | | PATHOLOGY | | + + + + + + | BLOOD | [id number] | | [facility] | | | PRODUCT | | | DEPARTMENT | | | CODE | | | OF | | | | | | PATHOLOGY | | + + + + + + + + | Specimen | + + | | + + + + + + + | Performing | Address | City/State/Zipcode | Phone Number | | Organization | | | | + + + + + | [facility] | [address] | [place] [address] | | | PATHOLOGY | [address] | | | + + + + + PRODUCT - FRESH FROZEN PLASMA (09/09/2014 6:31 AM PDT) + + + + + + | Component | Value | Ref Range | Performed | Pathologist | | | | | At | Signature | + + + + + + | PRODUCT | PLASMA THAWED | | [facility] | | | DESCRIPTION | | | DEPARTMENT | | | | | | OF | | | | | | PATHOLOGY | | + + + + + + | PRODUCT | [id number] | | [facility] | | | UNIT # | | | DEPARTMENT | | | | | | OF | | | | | | PATHOLOGY | | + + + + + + | UNIT ABO | B | | [facility] | | | | | | DEPARTMENT | | | | | | OF | | | | | | PATHOLOGY | | + + + + + + | UNIT RH | POS | | [facility] | | | | | | DEPARTMENT | | | | | | OF | | | | | | PATHOLOGY | | + + + + + + | STATUS OF | Returned to Blood Bank | | [facility] | | | UNIT | | | DEPARTMENT | | | | | | OF | | | | | | PATHOLOGY | | + + + + + + | BLOOD | [id number] | | [facility] | | | PRODUCT | | | DEPARTMENT | | | CODE | | | OF | | | | | | PATHOLOGY | | + + + + + + + + | Specimen | + + | | + + + + + + + | Performing | Address | City/State/Zipcode | Phone Number | | Organization | | | | + + + + + | [facility] | [address] | [place] [address] | | | PATHOLOGY | [address] | | | + + + + + PRODUCT - FRESH FROZEN PLASMA (09/09/2014 6:31 AM PDT) + + + + + + | Component | Value | Ref Range | Performed | Pathologist | | | | | At | Signature | + + + + + + | PRODUCT | PLASMA THAWED | | [facility] | | | DESCRIPTION | | | DEPARTMENT | | | | | | OF | | | | | | PATHOLOGY | | + + + + + + | PRODUCT | [id number] | | [facility] | | | UNIT # | | | DEPARTMENT | | | | | | OF | | | | | | PATHOLOGY | | + + + + + + | UNIT ABO | B | | [facility] | | | | | | DEPARTMENT | | | | | | OF | | | | | | PATHOLOGY | | + + + + + + | UNIT RH | POS | | [facility] | | | | | | DEPARTMENT | | | | | | OF | | | | | | PATHOLOGY | | + + + + + + | STATUS OF | Returned to Blood Bank | | [facility] | | | UNIT | | | DEPARTMENT | | | | | | OF | | | | | | PATHOLOGY | | + + + + + + | BLOOD | [id number] | | [facility] | | | PRODUCT | | | DEPARTMENT | | | CODE | | | OF | | | | | | PATHOLOGY | | + + + + + + + + | Specimen | + + | | + + + + + + + | Performing | Address | City/State/Zipcode | Phone Number | | Organization | | | | + + + + + | [facility] | [address] | [place] [address] | | | PATHOLOGY | [address] | | | + + + + + PRODUCT - FRESH FROZEN PLASMA (09/09/2014 6:31 AM PDT) + + + + + + | Component | Value | Ref Range | Performed | Pathologist | | | | | At | Signature | + + + + + + | PRODUCT | PLASMA THAWED | | [facility] | | | DESCRIPTION | | | DEPARTMENT | | | | | | OF | | | | | | PATHOLOGY | | + + + + + + | PRODUCT | [id number] | | [facility] | | | UNIT # | | | DEPARTMENT | | | | | | OF | | | | | | PATHOLOGY | | + + + + + + | UNIT ABO | B | | [facility] | | | | | | DEPARTMENT | | | | | | OF | | | | | | PATHOLOGY | | + + + + + + | UNIT RH | POS | | [facility] | | | | | | DEPARTMENT | | | | | | OF | | | | | | PATHOLOGY | | + + + + + + | STATUS OF | Returned to Blood Bank | | [facility] | | | UNIT | | | DEPARTMENT | | | | | | OF | | | | | | PATHOLOGY | | + + + + + + | BLOOD | [id number] | | [facility] | | | PRODUCT | | | DEPARTMENT | | | CODE | | | OF | | | | | | PATHOLOGY | | + + + + + + + + | Specimen | + + | | + + + + + + + | Performing | Address | City/State/Zipcode | Phone Number | | Organization | | | | + + + + + | [facility] DEPARTMENT [facility] | [address] | [place] [address] | | | PATHOLOGY | [address] | | | + + + + + PRODUCT - FRESH FROZEN PLASMA (09/09/2014 6:31 AM PDT) + + + + + + | Component | Value | Ref Range | Performed | Pathologist | | | | | At | Signature | + + + + + + | PRODUCT | PLASMA THAWED | | [facility] | | | DESCRIPTION | | | DEPARTMENT | | | | | | OF | | | | | | PATHOLOGY | | + + + + + + | PRODUCT | [id number] | | [facility] | | | UNIT # | | | DEPARTMENT | | | | | | OF | | | | | | PATHOLOGY | | + + + + + + | UNIT ABO | B | | [facility] | | | | | | DEPARTMENT | | | | | | OF | | | | | | PATHOLOGY | | + + + + + + | UNIT RH | NEG | | [facility] | | | | | | DEPARTMENT | | | | | | OF | | | | | | PATHOLOGY | | + + + + + + | STATUS OF | Returned to Blood Bank | | [facility] | | | UNIT | | | DEPARTMENT | | | | | | OF | | | | | | PATHOLOGY | | + + + + + + | BLOOD | [id number] | | [facility] | | | PRODUCT | | | DEPARTMENT | | | CODE | | | OF | | | | | | PATHOLOGY | | + + + + + + + + | Specimen | + + | | + + + + + + + | Performing | Address | City/State/Zipcode | Phone Number | | Organization | | | | + + + + + | [facility] | [address] | [place] [address] | | | PATHOLOGY | [address] | | | + + + + + PRODUCT- RED CELLS LEUKOREDUCED (09/09/2014 6:31 AM PDT) + + + + + + | Component | Value | Ref Range | Performed | Pathologist | | | | | At | Signature | + + + + + + | PRODUCT | -1 RED BLOOD CELL | | [facility] | | | DESCRIPTION | ADENINE-SALINE ADDED | | DEPARTMENT | | | | LEUKOCYTES REDUCED | | OF | | | | | | PATHOLOGY | | + + + + + + | PRODUCT | [id number] | | [facility] | | | UNIT # | | | DEPARTMENT | | | | | | OF | | | | | | PATHOLOGY | | + + + + + + | UNIT ABO | O | | [facility] | | | | | | DEPARTMENT | | | | | | OF | | | | | | PATHOLOGY | | + + + + + + | UNIT RH | POS | | [facility] | | | | | | DEPARTMENT | | | | | | OF | | | | | | PATHOLOGY | | + + + + + + | STATUS OF | Returned to Blood Bank | | [facility] | | | UNIT | | | DEPARTMENT | | | | | | OF | | | | | | PATHOLOGY | | + + + + + + | BLOOD | [id number] | | [facility] | | | PRODUCT | | | DEPARTMENT | | | CODE | | | OF | | | | | | PATHOLOGY | | + + + + + + + + | Specimen | + + | | + + + + + + + | Performing | Address | City/State/Zipcode | Phone Number | | Organization | | | | + + + + + | [facility] DE[facility]MENT [facility] | [address] | [place] [address] | | | PATHOLOGY | [address] | | | + + + + + PRODUCT- RED CELLS LEUKOREDUCED (09/09/2014 6:31 AM PDT) + + + + + + | Component | Value | Ref Range | Performed | Pathologist | | | | | At | Signature | + + + + + + | PRODUCT | -1 RED BLOOD CELL | | [facility] | | | DESCRIPTION | ADENINE-SALINE ADDED | | DEPARTMENT | | | | LEUKOCYTES REDUCED | | OF | | | | | | PATHOLOGY | | + + + + + + | PRODUCT | [id number] | | [facility] | | | UNIT # | | | DEPARTMENT | | | | | | OF | | | | | | PATHOLOGY | | + + + + + + | UNIT ABO | O | | [facility] | | | | | | DEPARTMENT | | | | | | OF | | | | | | PATHOLOGY | | + + + + + + | UNIT RH | POS | | [facility] | | | | | | DEPARTMENT | | | | | | OF | | | | | | PATHOLOGY | | + + + + + + | STATUS OF | Returned to Blood Bank | | [facility] | | | UNIT | | | DEPARTMENT | | | | | | OF | | | | | | PATHOLOGY | | + + + + + + | BLOOD | [id number] | | [facility] | | | PRODUCT | | | DEPARTMENT | | | CODE | | | OF | | | | | | PATHOLOGY | | + + + + + + + + | Specimen | + + | | + + + + + + + | Performing | Address | City/State/Zipcode | Phone Number | | Organization | | | | + + + + + | [facility] DEPARTMENT OF | [address] | [place] [address] | | | PATHOLOGY | [address] | | | + + + + + PRODUCT- RED CELLS LEUKOREDUCED (09/09/2014 6:31 AM PDT) + + + + + + | Component | Value | Ref Range | Performed | Pathologist | | | | | At | Signature | + + + + + + | PRODUCT | -1 RED BLOOD CELL | | [facility] | | | DESCRIPTION | ADENINE-SALINE ADDED | | DEPARTMENT | | | | LEUKOCYTES REDUCED | | OF | | | | | | PATHOLOGY | | + + + + + + | PRODUCT | [id number] | | [facility] | | | UNIT # | | | DEPARTMENT | | | | | | OF | | | | | | PATHOLOGY | | + + + + + + | UNIT ABO | O | | [facility] | | | | | | DEPARTMENT | | | | | | OF | | | | | | PATHOLOGY | | + + + + + + | UNIT RH | POS | | [facility] | | | | | | DEPARTMENT | | | | | | OF | | | | | | PATHOLOGY | | + + + + + + | STATUS OF | Returned to Blood Bank | | [facility] | | | UNIT | | | DEPARTMENT | | | | | | OF | | | | | | PATHOLOGY | | + + + + + + | BLOOD | [id number] | | [facility] | | | PRODUCT | | | DEPARTMENT | | | CODE | | | OF | | | | | | PATHOLOGY | | + + + + + + + + | Specimen | + + | | + + + + + + + | Performing | Address | City/State/Zipcode | Phone Number | | Organization | | | | + + + + + | [facility] | [address] | [place] [address] | | | PATHOLOGY | [address] | | | + + + + + PRODUCT- RED CELLS LEUKOREDUCED (09/09/2014 6:31 AM PDT) + + + + + + | Component | Value | Ref Range | Performed | Pathologist | | | | | At | Signature | + + + + + + | PRODUCT | -1 RED BLOOD CELL | | [facility] | | | DESCRIPTION | ADENINE-SALINE ADDED | | DEPARTMENT | | | | LEUKOCYTES REDUCED | | OF | | | | | | PATHOLOGY | | + + + + + + | PRODUCT | [id number] | | [facility] | | | UNIT # | | | DEPARTMENT | | | | | | OF | | | | | | PATHOLOGY | | + + + + + + | UNIT ABO | O | | [facility] | | | | | | DEPARTMENT | | | | | | OF | | | | | | PATHOLOGY | | + + + + + + | UNIT RH | POS | | [facility] | | | | | | DEPARTMENT | | | | | | OF | | | | | | PATHOLOGY | | + + + + + + | STATUS OF | Returned to Blood Bank | | [facility] | | | UNIT | | | DEPARTMENT | | | | | | OF | | | | | | PATHOLOGY | | + + + + + + | BLOOD | [id number] | | [facility] | | | PRODUCT | | | DEPARTMENT | | | CODE | | | OF | | | | | | PATHOLOGY | | + + + + + + + + | Specimen | + + | | + + + + + + + | Performing | Address | City/State/Zipcode | Phone Number | | Organization | | | | + + + + + | [facility] | [address] | [place] [address] | | | PATHOLOGY | [address] | | | + + + + + PRODUCT- RED CELLS LEUKOREDUCED (09/09/2014 6:31 AM PDT) + + + + + + | Component | Value | Ref Range | Performed | Pathologist | | | | | At | Signature | + + + + + + | PRODUCT | -3 RED BLOOD CELLS | | [facility] | | | DESCRIPTION | ADENINE-SALINE ADDED | | DEPARTMENT | | | | LEUKOCYTES REDUCED | | OF | | | | | | PATHOLOGY | | + + + + + + | PRODUCT | [id number] | | [facility] | | | UNIT # | | | DEPARTMENT | | | | | | OF | | | | | | PATHOLOGY | | + + + + + + | UNIT ABO | O | | [facility] | | | | | | DEPARTMENT | | | | | | OF | | | | | | PATHOLOGY | | + + + + + + | UNIT RH | POS | | [facility] | | | | | | DEPARTMENT | | | | | | OF | | | | | | PATHOLOGY | | + + + + + + | STATUS OF | Returned to Blood Bank | | [facility] | | | UNIT | | | DEPARTMENT | | | | | | OF | | | | | | PATHOLOGY | | + + + + + + | BLOOD | [id number] | | [facility] | | | PRODUCT | | | DEPARTMENT | | | CODE | | | OF | | | | | | PATHOLOGY | | + + + + + + + + | Specimen | + + | | + + + + + + + | Performing | Address | City/State/Zipcode | Phone Number | | Organization | | | | + + + + + | [facility] | [address] | [place] [address] | | | PATHOLOGY | [address] | | | + + + + + PRODUCT- RED CELLS LEUKOREDUCED (09/09/2014 6:31 AM PDT) + + + + + + | Component | Value | Ref Range | Performed | Pathologist | | | | | At | Signature | + + + + + + | PRODUCT | -3 RED BLOOD CELLS | | [facility] | | | DESCRIPTION | ADENINE-SALINE ADDED | | DEPARTMENT | | | | LEUKOCYTES REDUCED | | OF | | | | | | PATHOLOGY | | + + + + + + | PRODUCT | [id number] | | [facility] | | | UNIT # | | | DEPARTMENT | | | | | | OF | | | | | | PATHOLOGY | | + + + + + + | UNIT ABO | O | | [facility] | | | | | | DEPARTMENT | | | | | | OF | | | | | | PATHOLOGY | | + + + + + + | UNIT RH | POS | | [facility] | | | | | | DEPARTMENT | | | | | | OF | | | | | | PATHOLOGY | | + + + + + + | STATUS OF | Returned to Blood Bank | | [facility] | | | UNIT | | | DEPARTMENT | | | | | | OF | | | | | | PATHOLOGY | | + + + + + + | BLOOD | [id number] | | [facility] | | | PRODUCT | | | DEPARTMENT | | | CODE | | | OF | | | | | | PATHOLOGY | | + + + + + + + + | Specimen | + + | | + + + + + + + | Performing | Address | City/State/Zipcode | Phone Number | | Organization | | | | + + + + + | [facility] | [address] | [place] [address] | | | PATHOLOGY | [address] | | | + + + + + PRODUCT- RED CELLS LEUKOREDUCED (09/09/2014 6:31 AM PDT) + + + + + + | Component | Value | Ref Range | Performed | Pathologist | | | | | At | Signature | + + + + + + | PRODUCT | -1 RED BLOOD CELL | | [facility] | | | DESCRIPTION | ADENINE-SALINE ADDED | | DEPARTMENT | | | | LEUKOCYTES REDUCED | | OF | | | | | | PATHOLOGY | | + + + + + + | PRODUCT | [id number] | | [facility] | | | UNIT # | | | DEPARTMENT | | | | | | OF | | | | | | PATHOLOGY | | + + + + + + | UNIT ABO | O | | [facility] | | | | | | DEPARTMENT | | | | | | OF | | | | | | PATHOLOGY | | + + + + + + | UNIT RH | POS | | [facility] | | | | | | DEPARTMENT | | | | | | OF | | | | | | PATHOLOGY | | + + + + + + | STATUS OF | Returned to Blood Bank | | [facility] | | | UNIT | | | DEPARTMENT | | | | | | OF | | | | | | PATHOLOGY | | + + + + + + | BLOOD | [id number] | | [facility] | | | PRODUCT | | | DEPARTMENT | | | CODE | | | OF | | | | | | PATHOLOGY | | + + + + + + + + | Specimen | + + | | + + + + + + + | Performing | Address | City/State/Zipcode | Phone Number | | Organization | | | | + + + + + | [facility] | [address] | [place], [place] [address] | | | PATHOLOGY | [address] | | | + + + + + PRODUCT- RED CELLS LEUKOREDUCED (09/09/2014 6:31 AM PDT) + + + + + + | Component | Value | Ref Range | Performed | Pathologist | | | | | At | Signature | + + + + + + | PRODUCT | -3 RED BLOOD CELLS | | [facility] | | | DESCRIPTION | ADENINE-SALINE ADDED | | DEPARTMENT | | | | LEUKOCYTES REDUCED | | OF | | | | | | PATHOLOGY | | + + + + + + | PRODUCT | [id number] | | [facility] | | | UNIT # | | | DEPARTMENT | | | | | | OF | | | | | | PATHOLOGY | | + + + + + + | UNIT ABO | O | | [facility] | | | | | | DEPARTMENT | | | | | | OF | | | | | | PATHOLOGY | | + + + + + + | UNIT RH | POS | | [facility] | | | | | | DEPARTMENT | | | | | | OF | | | | | | PATHOLOGY | | + + + + + + | STATUS OF | Returned to Blood Bank | | [facility] | | | UNIT | | | DEPARTMENT | | | | | | OF | | | | | | PATHOLOGY | | + + + + + + | BLOOD | [id number] | | [facility] | | | PRODUCT | | | DEPARTMENT | | | CODE | | | OF | | | | | | PATHOLOGY | | + + + + + + + + | Specimen | + + | | + + + + + + + | Performing | Address | City/State/Zipcode | Phone Number | | Organization | | | | + + + + + | [facility] DEPART[facility] | [address] | [place] [address] | | | PATHOLOGY | [address] | | | + + + + + CBC (HEMOGRAM) ONLY (09/09/2014 6:30 AM PDT) + + + + + + | Component | Value | Ref Range | Performed | Pathologist | | | | | At | Signature | + + + + + + | WHITE CELL | 4.49 | 4.40 - 11.00 | [facility] | | | COUNT | | K/cu mm | LABORATORY | | | | | | SERVICES, | | | | | | CORE | | + + + + + + | RED CELL | 2.51 (L) | 4.50 - 6.00 | [facility] | | | COUNT | | M/cu mm | LABORATORY | | | | | | SERVICES, | | | | | | CORE | | + + + + + + | HEMOGLOBIN | 7.6 (L) | 13.5 - 17.5 | [facility] | | | | | g/dL | LABORATORY | | | | | | SERVICES, | | | | | | CORE | | + + + + + + | HEMATOCRIT | 21.9 (L) | 41.0 - 53.0 % | [facility] | | | | | | LABORATORY | | | | | | SERVICES, | | | | | | CORE | | + + + + + + | MCV | 87.3 | 80.0 - 96.0 fL | [facility] | | | | | | LABORATORY | | | | | | SERVICES, | | | | | | CORE | | + + + + + + | MCHC | 34.7 | 33.0 - 35.5 | [facility] | | | | | g/dL | LABORATORY | | | | | | SERVICES, | | | | | | CORE | | + + + + + + | RDW SD | 44.0 | 35.1 - 46.3 fL | [facility] | | | | | | LABORATORY | | | | | | SERVICES, | | | | | | CORE | | + + + + + + | PLATELET | 125 (L) | 150 - 400 K/cu | [facility] | | | COUNT | | mm | LABORATORY | | | | | | SERVICES, | | | | | | CORE | | + + + + + + | MPV | 9.1 (L) | 9.7 - 12.3 fL | [facility] | | | | | | LABORATORY | | | | | | SERVICES, | | | | | | CORE | | + + + + + + | NRBC% | 0.0 | 0.0 - 0.3 % | [facility] | | | | | | LABORATORY | | | | | | SERVICES, | | | | | | CORE | | + + + + + + | NRBC# | 0.00 | 0.00 - 0.02 | [facility] | | | | | K/cu mm | LABORATORY | | | | | | SERVICES, | | | | | | CORE | | + + + + + + + + | Specimen | + + | Blood - Blood | + + + + + + + | Performing | Address | City/State/Zipcode | Phone Number | | Organization | | | | + + + + + | [facility] | [address] | [place] [address] | | | SERVICES, CORE | [address] | | | + + + + + COAGULOPATHY PANEL (INR,APTT,FIBRINOGEN) (09/09/2014 6:30 AM PDT) + + + + + + | Component | Value | Ref Range | Performed | Pathologist | | | | | At | Signature | + + + + + + | INR | 1.54 (H) | 0.90 - 1.20 INR | [facility] | | | | | | LABORATORY | | | | | | SERVICES, | | | | | | CORE | | + + + + + + | APTT | 51.9 (H) | 26.0 - 36.0 | [facility] | | | | | seconds | LABORATORY | | | | | | SERVICES, | | | | | | CORE | | + + + + + + | FIBRINOGEN | 206 | 200 - 450 mg/dL | [facility] | | | LEVEL | | | LABORATORY | | | | | | SERVICES, | | | | | | CORE | | + + + + + + + + | Specimen | + + | Blood - Blood | + + + + + | Narrative | Performed At | + + + | INR Therapeutic ranges for full anticoagulation: INR for | [facility] | | Venous Thromboembolism (2.0 - 3.0) INR | LABORATORY | | INR for most patients with mech. valves (2.5 - 3.5) INR | SERVICES, CORE | | APTT Therapeutic Range: (75 - | | | 120) sec Heparin levels of 0.35 - 0.7 U/mL | | + + + + + + + + | Performing | Address | City/State/Zipcode | Phone Number | | Organization | | | | + + + + + | [facility] | [address] | [place] [address] | | | SERVICES, CORE | [address] | | | + + + + + LACTATE (ART), POC (09/09/2014 6:24 AM PDT) + +---------+ + + + | Component | Value | Ref Range | Performed | Pathologist | | | | | At | Signature | + +---------+ + + + | LACTATE | 3.3 (H) | 0.5 - 1.6 | [facility] | | | ARTERIAL, | | mmol/L | [facility] | | | POC | | | [facility] | | | | | | OF CARE | | | | | | TESTS | | + +---------+ + + + + + | Specimen | + + | | + + + + + + + | Performing | Address | City/State/Zipcode | Phone Number | | Organization | | | | + + + + + | [facility] | [address] | [place], [place] | | | [facility] | [address] | [address] | | | TESTS | | | | + + + + + SODIUM, POC (09/09/2014 6:24 AM PDT) + +-------+ + + + | Component | Value | Ref Range | Performed | Pathologist | | | | | At | Signature | + +-------+ + + + | SODIUM, POC | 142 | 134 - 143 | [facility] - | | | | | mmol/L | [facility] | | | | | | [facility] | | | | | | OF CARE | | | | | | TESTS | | + +-------+ + + + + + | Specimen | + + | | + + + + + + + | Performing | Address | City/State/Zipcode | Phone Number | | Organization | | | | + + + + + | [facility] | [address] | [place], [place] | | | [facility] | [facility] | [address] | | | TESTS | | | | + + + + + POTASSIUM, POC (09/09/2014 6:24 AM PDT) + +-------+ + + + | Component | Value | Ref Range | Performed | Pathologist | | | | | At | Signature | + +-------+ + + + | POTASSIUM, | 4.0 | 3.4 - 5.0 | [facility] - | | | POC | | mmol/L | [facility] | | | | | | [facility] | | | | | | OF CARE | | | | | | TESTS | | + +-------+ + + + + + | Specimen | + + | | + + + + + + + | Performing | Address | City/State/Zipcode | Phone Number | | Organization | | | | + + + + + | [facility] | [address] | [place], [place] | | | [facility] | [address] | [address] | | | TESTS | | | | + + + + + GLUCOSE, POC (09/09/2014 6:24 AM PDT) + +---------+ + + + | Component | Value | Ref Range | Performed | Pathologist | | | | | At | Signature | + +---------+ + + + | GLUCOSE, | 219 (H) | 60 - 99 mg/dL | [facility] - | | | POC | | | [facility] | | | | | | [facility] | | | | | | OF CARE | | | | | | TESTS | | + +---------+ + + + + + | Specimen | + + | | + + + + + + + | Performing | Address | City/State/Zipcode | Phone Number | | Organization | | | | + + + + + | [facility] | [address] | [place], [place] | | | [facility] | [facility] | [address] | | | TESTS | | | | + + + + + CHLORIDE, POC (09/09/2014 6:24 AM PDT) + +---------+ + + + | Component | Value | Ref Range | Performed | Pathologist | | | | | At | Signature | + +---------+ + + + | CHLORIDE, | 112 (H) | 97 - 108 mmol/L | [facility] - | | | POC | | | [facility] | | | | | | [facility] | | | | | | OF CARE | | | | | | TESTS | | + +---------+ + + + + + | Specimen | + + | | + + + + + + + | Performing | Address | City/State/Zipcode | Phone Number | | Organization | | | | + + + + + | [facility] | [address] | [place], [place] | | | [facility] | [facility] | [address] | | | TESTS | | | | + + + + + LEANDRO IONIZED CA, POC (09/09/2014 6:24 AM PDT) + + + + + + | Component | Value | Ref Range | Performed | Pathologist | | | | | At | Signature | + + + + + + | LEANDRO | 1.10 (L) | 1.14 - 1.32 | [facility] - | | | IONIZED CA, | | mmol/L | [facility] | | | POC | | | [facility] | | | | | | OF CARE | | | | | | TESTS | | + + + + + + + + | Specimen | + + | | + + + + + + + | Performing | Address | City/State/Zipcode | Phone Number | | Organization | | | | + + + + + | [facility] | [address] | [place], [place] | | | [facility] | [address] | [address] | | | TESTS | | | | + + + + + HEMOGLOBIN-COOX, POC (09/09/2014 6:24 AM PDT) + + + + + + | Component | Value | Ref Range | Performed | Pathologist | | | | | At | Signature | + + + + + + | TOTAL | 8.1 (L) | 13.5 - 17.5 | [facility] - | | | HEMOGLOBIN, | | g/dL | [facility] | | | POC | | | [facility] | | | | | | OF CARE | | | | | | TESTS | | + + + + + + | OXYHEMOGLOB | 98.3 | 94.0 - 100 % | [facility] - | | | IN, POC | | | [facility] | | | | | | [facility] | | | | | | OF CARE | | | | | | TESTS | | + + + + + + | CARBOXYHEMO | 1.7 (H) | 0.0 - 1.5 % | [facility] - | | | GLOBIN, POC | | | [facility] | | | | | | [facility] | | | | | | OF CARE | | | | | | TESTS | | + + + + + + | METHEMOGLOB | 1.0 | 0.0 - 1.9 % | [facility] - | | | IN, POC | | | [facility] | | | | | | [facility] | | | | | | OF CARE | | | | | | TESTS | | + + + + + + | HEMATOCRIT, | 24.8 (L) | 41.0 - 53.0 % | [facility] - | | | POC | | | [facility] | | | | | | [facility] | | | | | | OF CARE | | | | | | TESTS | | + + + + + + + + | Specimen | + + | | + + + + + + + | Performing | Address | City/State/Zipcode | Phone Number | | Organization | | | | + + + + + | [facility] | [address] | [place], [place] | | | [facility] | [address] | [address] | | | TESTS | | | | + + + + + CONFIRMATORY ABO/RH (09/09/2014 6:10 AM PDT) + + + + + + | Component | Value | Ref Range | Performed | Pathologist | | | | | At | Signature | + + + + + + | ABO Group | B | | [facility] | | | | | | LABORATORY | | | | | | SERVICES, | | | | | | TRANSFUSION | | | | | | MEDICINE | | + + + + + + | Rh Type | Positive | | [facility] | | | | | | LABORATORY | | | | | | SERVICES, | | | | | | TRANSFUSION | | | | | | MEDICINE | | + + + + + + + + | Specimen | + + | Blood - Blood | + + + + + + + | Performing | Address | City/State/Zipcode | Phone Number | | Organization | | | | + + + + + | [facility] | [address] | [place] [address] | | | SERVICES, | [address] | | | | TRANSFUSION MEDICINE | | | | + + + + + LACTATE (ART), POC (09/09/2014 5:58 AM PDT) + +---------+ + + + | Component | Value | Ref Range | Performed | Pathologist | | | | | At | Signature | + +---------+ + + + | LACTATE | 3.7 (H) | 0.5 - 1.6 | [facility] - | | | ARTERIAL, | | mmol/L | [facility] | | | POC | | | [facility] | | | | | | OF CARE | | | | | | TESTS | | + +---------+ + + + + + | Specimen | + + | | + + + + + + + | Performing | Address | City/State/Zipcode | Phone Number | | Organization | | | | + + + + + | [facility] | [address] | [place], [place] | | | [facility] | [facility] | [address] | | | TESTS | | | | + + + + + SODIUM, POC (09/09/2014 5:58 AM PDT) + +-------+ + + + | Component | Value | Ref Range | Performed | Pathologist | | | | | At | Signature | + +-------+ + + + | SODIUM, POC | 142 | 134 - 143 | [facility] - | | | | | mmol/L | [facility] | | | | | | [facility] | | | | | | OF CARE | | | | | | TESTS | | + +-------+ + + + + + | Specimen | + + | | + + + + + + + | Performing | Address | City/State/Zipcode | Phone Number | | Organization | | | | + + + + + | [facility] | [address] | [place], [place] | | | [facility] | [facility] | [address] | | | TESTS | | | | + + + + + POTASSIUM, POC (09/09/2014 5:58 AM PDT) + +-------+ + + + | Component | Value | Ref Range | Performed | Pathologist | | | | | At | Signature | + +-------+ + + + | POTASSIUM, | 4.4 | 3.4 - 5.0 | [facility] - | | | POC | | mmol/L | [facility] | | | | | | [facility] | | | | | | OF CARE | | | | | | TESTS | | + +-------+ + + + + + | Specimen | + + | | + + + + + + + | Performing | Address | City/State/Zipcode | Phone Number | | Organization | | | | + + + + + | [facility] | [address] | [place], [place] | | | [facility] | [facility] | [address] | | | TESTS | | | | + + + + + GLUCOSE, POC (09/09/2014 5:58 AM PDT) + +---------+ + + + | Component | Value | Ref Range | Performed | Pathologist | | | | | At | Signature | + +---------+ + + + | GLUCOSE, | 244 (H) | 60 - 99 mg/dL | [facility] - | | | POC | | | [facility] | | | | | | [facility] | | | | | | OF CARE | | | | | | TESTS | | + +---------+ + + + + + | Specimen | + + | | + + + + + + + | Performing | Address | City/State/Zipcode | Phone Number | | Organization | | | | + + + + + | [facility] | [address] | [place], [place] | | | [facility] | [address] | [address] | | | TESTS | | | | + + + + + CHLORIDEWESTON (09/09/2014 5:58 AM PDT) + +---------+ + + + | Component | Value | Ref Range | Performed | Pathologist | | | | | At | Signature | + +---------+ + + + | CHLORIDE, | 112 (H) | 97 - 108 mmol/L | [facility] - | | | POC | | | [facility] | | | | | | [facility] | | | | | | OF CARE | | | | | | TESTS | | + +---------+ + + + + + | Specimen | + + | | + + + + + + + | Performing | Address | City/State/Zipcode | Phone Number | | Organization | | | | + + + + + | [facility] | [address] | [place], [place] | | | [facility] | [facility] | [address] | | | TESTS | | | | + + + + + LEANDRO IONIZED CA, POC (09/09/2014 5:58 AM PDT) + + + + + + | Component | Value | Ref Range | Performed | Pathologist | | | | | At | Signature | + + + + + + | LEANDRO | 0.92 (L) | 1.14 - 1.32 | [facility] - | | | IONIZED CA, | | mmol/L | [facility] | | | POC | | | [facility] | | | | | | OF CARE | | | | | | TESTS | | + + + + + + + + | Specimen | + + | | + + + + + + + | Performing | Address | City/State/Zipcode | Phone Number | | Organization | | | | + + + + + | [facility] | [address] | [place], [place] | | | [facility] | [facility] | [address] | | | TESTS | | | | + + + + + HEMOGLOBIN-COOX POC (09/09/2014 5:58 AM PDT) + + + + + + | Component | Value | Ref Range | Performed | Pathologist | | | | | At | Signature | + + + + + + | TOTAL | 7.8 (L) | 13.5 - 17.5 | [facility] - | | | HEMOGLOBIN, | | g/dL | [facility] | | | POC | | | [place] | | | | | | OF CARE | | | | | | TESTS | | + + + + + + | OXYHEMOGLOB | 98.1 | 94.0 - 100 % | [facility] - | | | IN, POC | | | [facility] | | | | | | [facility] | | | | | | OF CARE | | | | | | TESTS | | + + + + + + | CARBOXYHEMO | 1.8 (H) | 0.0 - 1.5 % | [facility] - | | | GLOBIN, POC | | | [facility] | | | | | | [facility] | | | | | | OF CARE | | | | | | TESTS | | + + + + + + | METHEMOGLOB | 1.0 | 0.0 - 1.9 % | [facility] - | | | IN, POC | | | [facility] | | | | | | [facility] | | | | | | OF CARE | | | | | | TESTS | | + + + + + + | HEMATOCRIT, | 23.8 (L) | 41.0 - 53.0 % | [facility] - | | | POC | | | [facility] | | | | | | [facility] | | | | | | OF CARE | | | | | | TESTS | | + + + + + + + + | Specimen | + + | | + + + + + + + | Performing | Address | City/State/Zipcode | Phone Number | | Organization | | | | + + + + + | [facility] | [address] | [place], [place] | | | [facility] | [address] | [address] | | | TESTS | | | | + + + + + ARTERIAL BLOOD GAS, POC (09/09/2014 5:58 AM PDT) + + + + + + | Component | Value | Ref Range | Performed | Pathologist | | | | | At | Signature | + + + + + + | PH | 7.31 (L) | 7.37 - 7.44 | [facility] - | | | [facility], | | | [place] | | | POC | | | [place] POINT | | | | | | OF CARE | | | | | | TESTS | | + + + + + + | PO2 | 512 (H) | 83 - 108 mmHg | [facility] - | | | ARTERIAL, | | | [place] | | | POC | | | [place] [place]INT | | | | | | OF CARE | | | | | | TESTS | | + + + + + + | PCO2 | 41 | 32 - 43 mmHg | [facility] - | | | ART[facility], | | | [place] | | | POC | | | [place] [place] | | | | | | OF CARE | | | | | | TESTS | | + + + + + + | O2 SAT | 100.9 (H) | 92.0 - 98.0 % | [facility] - | | | ART[facility], | | | [place] | | | POC | | | [place], POINT | | | | | | OF CARE | | | | | | TESTS | | + + + + + + | HCO3 | 20.8 (L) | 21 - 28 mmol/L | [facility] - | | | ARTERIAL, | | | [place] | | | POC | | | [place], [place] | | | | | | OF CARE | | | | | | TESTS | | + + + + + + | BASE EXCESS | -5.5 | | [facility] - | | | ART[facility], | | | [place] | | | POC | | | [place] [place] | | | | | | OF CARE | | | | | | TESTS | | + + + + + + + + | Specimen | + + | | + + + + + + + | Performing | Address | City/State/Zipcode | Phone Number | | Organization | | | | + + + + + | [facility] | [address] | [place], [place] | | | [facility] | [address] | [address] | | | TESTS | | | | + + + + + PRODUCT - CRYOPRECIPITATE POOL (09/09/2014 5:49 AM PDT) + + + + + + | Component | Value | Ref Range | Performed | Pathologist | | | | | At | Signature | + + + + + + | PRODUCT | [id number] POOLED CRYO | | [facility] | | | DESCRIPTION | | | DEPARTMENT | | | | | | OF | | | | | | PATHOLOGY | | + + + + + + | PRODUCT | [id number] | | [facility] | | | UNIT # | | | DEPARTMENT | | | | | | OF | | | | | | PATHOLOGY | | + + + + + + | UNIT ABO | O | | [facility] | | | | | | DEPARTMENT | | | | | | OF | | | | | | PATHOLOGY | | + + + + + + | UNIT RH | POS | | [facility] | | | | | | DEPARTMENT | | | | | | OF | | | | | | PATHOLOGY | | + + + + + + | STATUS OF | Presumed Transfused | | [facility] | | | UNIT | | | DEPARTMENT | | | | | | OF | | | | | | PATHOLOGY | | + + + + + + | BLOOD | [id number] | | [facility] | | | PRODUCT | | | DEPARTMENT | | | CODE | | | OF | | | | | | PATHOLOGY | | + + + + + + + + | Specimen | + + | | + + + + + + + | Performing | Address | City/State/Zipcode | Phone Number | | Organization | | | | + + + + + | [facility] | [address] | [place] [address] | | | PATHOLOGY | [address] | | | + + + + + PRODUCT - CRYOPRECIPITATE POOL (09/09/2014 5:49 AM PDT) + + + + + + | Component | Value | Ref Range | Performed | Pathologist | | | | | At | Signature | + + + + + + | PRODUCT | [id number] POOLED CRYO | | [facility] | | | DESCRIPTION | | | DEPARTMENT | | | | | | OF | | | | | | PATHOLOGY | | + + + + + + | PRODUCT | [id number] | | [facility] | | | UNIT # | | | DEPARTMENT | | | | | | OF | | | | | | PATHOLOGY | | + + + + + + | UNIT ABO | O | | [facility] | | | | | | DEPARTMENT | | | | | | OF | | | | | | PATHOLOGY | | + + + + + + | UNIT RH | POS | | [facility] | | | | | | DEPARTMENT | | | | | | OF | | | | | | PATHOLOGY | | + + + + + + | STATUS OF | Returned to Blood Bank | | [facility] | | | UNIT | | | DEPARTMENT | | | | | | OF | | | | | | PATHOLOGY | | + + + + + + | BLOOD | [id number] | | [facility] | | | PRODUCT | | | DEPARTMENT | | | CODE | | | OF | | | | | | PATHOLOGY | | + + + + + + + + | Specimen | + + | | + + + + + + + | Performing | Address | City/State/Zipcode | Phone Number | | Organization | | | | + + + + + | [facility] | [address] | [place] [address] | | | PATHOLOGY | [address] | | | + + + + + PRODUCT- RED CELLS LEUKOREDUCED (09/09/2014 5:47 AM PDT) + + + + + + | Component | Value | Ref Range | Performed | Pathologist | | | | | At | Signature | + + + + + + | PRODUCT | -3 RED BLOOD CELLS | | [facility] | | | DESCRIPTION | ADENINE-SALINE ADDED | | DEPARTMENT | | | | LEUKOCYTES REDUCED | | OF | | | | | | PATHOLOGY | | + + + + + + | PRODUCT | [id number] | | [facility] | | | UNIT # | | | DEPARTMENT | | | | | | OF | | | | | | PATHOLOGY | | + + + + + + | UNIT ABO | O | | [facility] | | | | | | DEPARTMENT | | | | | | OF | | | | | | PATHOLOGY | | + + + + + + | UNIT RH | POS | | [facility] | | | | | | DEPARTMENT | | | | | | OF | | | | | | PATHOLOGY | | + + + + + + | STATUS OF | Presumed Transfused | | [facility] | | | UNIT | | | DEPARTMENT | | | | | | OF | | | | | | PATHOLOGY | | + + + + + + | BLOOD | [id number] | | [facility] | | | PRODUCT | | | DEPARTMENT | | | CODE | | | OF | | | | | | PATHOLOGY | | + + + + + + + + | Specimen | + + | | + + + + + + + | Performing | Address | City/State/Zipcode | Phone Number | | Organization | | | | + + + + + | [facility] DEPARTMENT OF | [address] | [place], [place] [address] | | | PATHOLOGY | [address] | | | + + + + + PRODUCT- RED CELLS LEUKOREDUCED (09/09/2014 5:47 AM PDT) + + + + + + | Component | Value | Ref Range | Performed | Pathologist | | | | | At | Signature | + + + + + + | PRODUCT | -3 RED BLOOD CELLS | | [facility] | | | DESCRIPTION | ADENINE-SALINE ADDED | | DEPARTMENT | | | | LEUKOCYTES REDUCED | | OF | | | | | | PATHOLOGY | | + + + + + + | PRODUCT | [id number] | | [facility] | | | UNIT # | | | DEPARTMENT | | | | | | OF | | | | | | PATHOLOGY | | + + + + + + | UNIT ABO | O | | [facility] | | | | | | DEPARTMENT | | | | | | OF | | | | | | PATHOLOGY | | + + + + + + | UNIT RH | POS | | [facility] | | | | | | DEPARTMENT | | | | | | OF | | | | | | PATHOLOGY | | + + + + + + | STATUS OF | Returned to Blood Bank | | [facility] | | | UNIT | | | DEPARTMENT | | | | | | OF | | | | | | PATHOLOGY | | + + + + + + | BLOOD | [id number] | | [facility] | | | PRODUCT | | | DEPARTMENT | | | CODE | | | OF | | | | | | PATHOLOGY | | + + + + + + + + | Specimen | + + | | + + + + + + + | Performing | Address | City/State/Zipcode | Phone Number | | Organization | | | | + + + + + | [facility] DEPARTMENT OF | [address] | [place] [address] | | | PATHOLOGY | [address] | | | + + + + + PRODUCT- RED CELLS LEUKOREDUCED (09/09/2014 5:47 AM PDT) + + + + + + | Component | Value | Ref Range | Performed | Pathologist | | | | | At | Signature | + + + + + + | PRODUCT | -3 RED BLOOD CELLS | | [facility] | | | DESCRIPTION | ADENINE-SALINE ADDED | | DEPARTMENT | | | | LEUKOCYTES REDUCED | | OF | | | | | | PATHOLOGY | | + + + + + + | PRODUCT | [id number] | | [facility] | | | UNIT # | | | DEPARTMENT | | | | | | OF | | | | | | PATHOLOGY | | + + + + + + | UNIT ABO | O | | [facility] | | | | | | DEPARTMENT | | | | | | OF | | | | | | PATHOLOGY | | + + + + + + | UNIT RH | POS | | [facility] | | | | | | DEPARTMENT | | | | | | OF | | | | | | PATHOLOGY | | + + + + + + | STATUS OF | Returned to Blood Bank | | [facility] | | | UNIT | | | DEPARTMENT | | | | | | OF | | | | | | PATHOLOGY | | + + + + + + | BLOOD | [id number] | | [facility] | | | PRODUCT | | | DEPARTMENT | | | CODE | | | OF | | | | | | PATHOLOGY | | + + + + + + + + | Specimen | + + | | + + + + + + + | Performing | Address | City/State/Zipcode | Phone Number | | Organization | | | | + + + + + | [facility] DEPARTMENT OF | [address] | [place], [place] [address] | | | PATHOLOGY | [address] | | | + + + + + PRODUCT- RED CELLS LEUKOREDUCED (09/09/2014 5:47 AM PDT) + + + + + + | Component | Value | Ref Range | Performed | Pathologist | | | | | At | Signature | + + + + + + | PRODUCT | -3 RED BLOOD CELLS | | [facility] | | | DESCRIPTION | ADENINE-SALINE ADDED | | DEPARTMENT | | | | LEUKOCYTES REDUCED | | OF | | | | | | PATHOLOGY | | + + + + + + | PRODUCT | [id number] | | [facility] | | | UNIT # | | | DEPARTMENT | | | | | | OF | | | | | | PATHOLOGY | | + + + + + + | UNIT ABO | O | | [facility] | | | | | | DEPARTMENT | | | | | | OF | | | | | | PATHOLOGY | | + + + + + + | UNIT RH | POS | | [facility] | | | | | | DEPARTMENT | | | | | | OF | | | | | | PATHOLOGY | | + + + + + + | STATUS OF | Presumed Transfused | | [facility] | | | UNIT | | | DEPARTMENT | | | | | | OF | | | | | | PATHOLOGY | | + + + + + + | BLOOD | [id number] | | [facility] | | | PRODUCT | | | DEPARTMENT | | | CODE | | | OF | | | | | | PATHOLOGY | | + + + + + + + + | Specimen | + + | | + + + + + + + | Performing | Address | City/State/Zipcode | Phone Number | | Organization | | | | + + + + + | [facility] DEPARTMENT OF | [address] | [place] [address] | | | PATHOLOGY | [address] | | | + + + + + PRODUCT- RED CELLS LEUKOREDUCED (09/09/2014 5:47 AM PDT) + + + + + + | Component | Value | Ref Range | Performed | Pathologist | | | | | At | Signature | + + + + + + | PRODUCT | -1 RED BLOOD CELL | | [facility] | | | DESCRIPTION | ADENINE-SALINE ADDED | | DEPARTMENT | | | | LEUKOCYTES REDUCED | | OF | | | | | | PATHOLOGY | | + + + + + + | PRODUCT | [id number] | | [facility] | | | UNIT # | | | DEPARTMENT | | | | | | OF | | | | | | PATHOLOGY | | + + + + + + | UNIT ABO | O | | [facility] | | | | | | DEPARTMENT | | | | | | OF | | | | | | PATHOLOGY | | + + + + + + | UNIT RH | POS | | [facility] | | | | | | DEPARTMENT | | | | | | OF | | | | | | PATHOLOGY | | + + + + + + | STATUS OF | Presumed Transfused | | [facility] | | | UNIT | | | DEPARTMENT | | | | | | OF | | | | | | PATHOLOGY | | + + + + + + | BLOOD | [id number] | | [facility] | | | PRODUCT | | | DEPARTMENT | | | CODE | | | OF | | | | | | PATHOLOGY | | + + + + + + + + | Specimen | + + | | + + + + + + + | Performing | Address | City/State/Zipcode | Phone Number | | Organization | | | | + + + + + | [facility] DEPARTMENT OF | [address] | [place] [address] | | | PATHOLOGY | [address] | | | + + + + + PRODUCT- RED CELLS LEUKOREDUCED (09/09/2014 5:47 AM PDT) + + + + + + | Component | Value | Ref Range | Performed | Pathologist | | | | | At | Signature | + + + + + + | PRODUCT | -3 RED BLOOD CELLS | | [facility] | | | DESCRIPTION | ADENINE-SALINE ADDED | | DEPARTMENT | | | | LEUKOCYTES REDUCED | | OF | | | | | | PATHOLOGY | | + + + + + + | PRODUCT | [id number] | | [facility] | | | UNIT # | | | DEPARTMENT | | | | | | OF | | | | | | PATHOLOGY | | + + + + + + | UNIT ABO | O | | [facility] | | | | | | DEPARTMENT | | | | | | OF | | | | | | PATHOLOGY | | + + + + + + | UNIT RH | POS | | [facility] | | | | | | DEPARTMENT | | | | | | OF | | | | | | PATHOLOGY | | + + + + + + | STATUS OF | Returned to Blood Bank | | [facility] | | | UNIT | | | DEPARTMENT | | | | | | OF | | | | | | PATHOLOGY | | + + + + + + | BLOOD | [id number] | | [facility] | | | PRODUCT | | | DEPARTMENT | | | CODE | | | OF | | | | | | PATHOLOGY | | + + + + + + + + | Specimen | + + | | + + + + + + + | Performing | Address | City/State/Zipcode | Phone Number | | Organization | | | | + + + + + | [facility] | [address] | [place] [address] | | | PATHOLOGY | [address] | | | + + + + + PRODUCT- RED CELLS LEUKOREDUCED (09/09/2014 5:47 AM PDT) + + + + + + | Component | Value | Ref Range | Performed | Pathologist | | | | | At | Signature | + + + + + + | PRODUCT | -3 RED BLOOD CELLS | | [facility] | | | DESCRIPTION | ADENINE-SALINE ADDED | | DEPARTMENT | | | | LEUKOCYTES REDUCED | | OF | | | | | | PATHOLOGY | | + + + + + + | PRODUCT | [id number] | | [facility] | | | UNIT # | | | DEPARTMENT | | | | | | OF | | | | | | PATHOLOGY | | + + + + + + | UNIT ABO | O | | [facility] | | | | | | DEPARTMENT | | | | | | OF | | | | | | PATHOLOGY | | + + + + + + | UNIT RH | POS | | [facility] | | | | | | DEPARTMENT | | | | | | OF | | | | | | PATHOLOGY | | + + + + + + | STATUS OF | Presumed Transfused | | [facility] | | | UNIT | | | DEPARTMENT | | | | | | OF | | | | | | PATHOLOGY | | + + + + + + | BLOOD | [id number] | | [facility] | | | PRODUCT | | | DEPARTMENT | | | CODE | | | OF | | | | | | PATHOLOGY | | + + + + + + + + | Specimen | + + | | + + + + + + + | Performing | Address | City/State/Zipcode | Phone Number | | Organization | | | | + + + + + | [facility] DEPARTMENT OF | [address] | [place] [address] | | | PATHOLOGY | [address] | | | + + + + + PRODUCT- RED CELLS LEUKOREDUCED (09/09/2014 5:47 AM PDT) + + + + + + | Component | Value | Ref Range | Performed | Pathologist | | | | | At | Signature | + + + + + + | PRODUCT | -3 RED BLOOD CELLS | | [facility] | | | DESCRIPTION | ADENINE-SALINE ADDED | | DEPARTMENT | | | | LEUKOCYTES REDUCED | | OF | | | | | | PATHOLOGY | | + + + + + + | PRODUCT | [id number] | | [facility] | | | UNIT # | | | DEPARTMENT | | | | | | OF | | | | | | PATHOLOGY | | + + + + + + | UNIT ABO | O | | [facility] | | | | | | DEPARTMENT | | | | | | OF | | | | | | PATHOLOGY | | + + + + + + | UNIT RH | POS | | [facility] | | | | | | DEPARTMENT | | | | | | OF | | | | | | PATHOLOGY | | + + + + + + | STATUS OF | Presumed Transfused | | [facility] | | | UNIT | | | DEPARTMENT | | | | | | OF | | | | | | PATHOLOGY | | + + + + + + | BLOOD | [id number] | | [facility] | | | PRODUCT | | | DEPARTMENT | | | CODE | | | OF | | | | | | PATHOLOGY | | + + + + + + + + | Specimen | + + | | + + + + + + + | Performing | Address | City/State/Zipcode | Phone Number | | Organization | | | | + + + + + | [facility]MENT [facility] | [address] | [place] [address] | | | PATHOLOGY | [address] | | | + + + + + PRODUCT - FRESH FROZEN PLASMA (09/09/2014 5:41 AM PDT) + + + + + + | Component | Value | Ref Range | Performed | Pathologist | | | | | At | Signature | + + + + + + | PRODUCT | PLASMA THAWED | | [facility] | | | DESCRIPTION | | | DEPARTMENT | | | | | | OF | | | | | | PATHOLOGY | | + + + + + + | PRODUCT | [id number] | | [facility] | | | UNIT # | | | DEPARTMENT | | | | | | OF | | | | | | PATHOLOGY | | + + + + + + | UNIT ABO | B | | [facility] | | | | | | DEPARTMENT | | | | | | OF | | | | | | PATHOLOGY | | + + + + + + | UNIT RH | POS | | [facility] | | | | | | DEPARTMENT | | | | | | OF | | | | | | PATHOLOGY | | + + + + + + | STATUS OF | Presumed Transfused | | [facility] | | | UNIT | | | DEPARTMENT | | | | | | OF | | | | | | PATHOLOGY | | + + + + + + | BLOOD | [id number] | | [facility] | | | PRODUCT | | | DEPARTMENT | | | CODE | | | OF | | | | | | PATHOLOGY | | + + + + + + + + | Specimen | + + | | + + + + + + + | Performing | Address | City/State/Zipcode | Phone Number | | Organization | | | | + + + + + | [facility] DEPARTMENT OF | [address] | [place] [address] | | | PATHOLOGY | [address] | | | + + + + + PRODUCT - FRESH FROZEN PLASMA (09/09/2014 5:41 AM PDT) + + + + + + | Component | Value | Ref Range | Performed | Pathologist | | | | | At | Signature | + + + + + + | PRODUCT | PLASMA THAWED | | [facility] | | | DESCRIPTION | | | DEPARTMENT | | | | | | OF | | | | | | PATHOLOGY | | + + + + + + | PRODUCT | [id number] | | [facility] | | | UNIT # | | | DEPARTMENT | | | | | | OF | | | | | | PATHOLOGY | | + + + + + + | UNIT ABO | AB | | [facility] | | | | | | DEPARTMENT | | | | | | OF | | | | | | PATHOLOGY | | + + + + + + | UNIT RH | POS | | [facility] | | | | | | DEPARTMENT | | | | | | OF | | | | | | PATHOLOGY | | + + + + + + | STATUS OF | Presumed Transfused | | [facility] | | | UNIT | | | DEPARTMENT | | | | | | OF | | | | | | PATHOLOGY | | + + + + + + | BLOOD | [id number] | | [facility] | | | PRODUCT | | | DEPARTMENT | | | CODE | | | OF | | | | | | PATHOLOGY | | + + + + + + + + | Specimen | + + | | + + + + + + + | Performing | Address | City/State/Zipcode | Phone Number | | Organization | | | | + + + + + | [facility] DEPARTMENT | [address] | [place] [address] | | | PATHOLOGY | [address] | | | + + + + + PRODUCT - FRESH FROZEN PLASMA (09/09/2014 5:41 AM PDT) + + + + + + | Component | Value | Ref Range | Performed | Pathologist | | | | | At | Signature | + + + + + + | PRODUCT | PLASMA THAWED | | [facility] | | | DESCRIPTION | | | DEPARTMENT | | | | | | OF | | | | | | PATHOLOGY | | + + + + + + | PRODUCT | [id number] | | [facility] | | | UNIT # | | | DEPARTMENT | | | | | | OF | | | | | | PATHOLOGY | | + + + + + + | UNIT ABO | B | | [facility] | | | | | | DEPARTMENT | | | | | | OF | | | | | | PATHOLOGY | | + + + + + + | UNIT RH | NEG | | [facility] | | | | | | DEPARTMENT | | | | | | OF | | | | | | PATHOLOGY | | + + + + + + | STATUS OF | Returned to Blood Bank | | [facility] | | | UNIT | | | DEPARTMENT | | | | | | OF | | | | | | PATHOLOGY | | + + + + + + | BLOOD | [id number] | | [facility] | | | PRODUCT | | | DEPARTMENT | | | CODE | | | OF | | | | | | PATHOLOGY | | + + + + + + + + | Specimen | + + | | + + + + + + + | Performing | Address | City/State/Zipcode | Phone Number | | Organization | | | | + + + + + | [facility] | [address] | [place] [address] | | | PATHOLOGY | [address] | | | + + + + + PRODUCT - FRESH FROZEN PLASMA (09/09/2014 5:41 AM PDT) + + + + + + | Component | Value | Ref Range | Performed | Pathologist | | | | | At | Signature | + + + + + + | PRODUCT | FRESH FROZEN PLASMA, | | [facility] | | | DESCRIPTION | THAWED | | DEPARTMENT | | | | | | OF | | | | | | PATHOLOGY | | + + + + + + | PRODUCT | [id number] | | [facility] | | | UNIT # | | | DEPARTMENT | | | | | | OF | | | | | | PATHOLOGY | | + + + + + + | UNIT ABO | B | | [facility] | | | | | | DEPARTMENT | | | | | | OF | | | | | | PATHOLOGY | | + + + + + + | UNIT RH | POS | | [facility] | | | | | | DEPARTMENT | | | | | | OF | | | | | | PATHOLOGY | | + + + + + + | STATUS OF | Presumed Transfused | | [facility] | | | UNIT | | | DEPARTMENT | | | | | | OF | | | | | | PATHOLOGY | | + + + + + + | BLOOD | [id number] | | [facility] | | | PRODUCT | | | DEPARTMENT | | | CODE | | | OF | | | | | | PATHOLOGY | | + + + + + + + + | Specimen | + + | | + + + + + + + | Performing | Address | City/State/Zipcode | Phone Number | | Organization | | | | + + + + + | [facility] DEPARTMENT OF | [address] | [place] [address] | | | PATHOLOGY | [address] | | | + + + + + PRODUCT - FRESH FROZEN PLASMA (09/09/2014 5:41 AM PDT) + + + + + + | Component | Value | Ref Range | Performed | Pathologist | | | | | At | Signature | + + + + + + | PRODUCT | FRESH FROZEN PLASMA, | | [facility] | | | DESCRIPTION | THAWED | | DEPARTMENT | | | | | | OF | | | | | | PATHOLOGY | | + + + + + + | PRODUCT | [id number] | | [facility] | | | UNIT # | | | DEPARTMENT | | | | | | OF | | | | | | PATHOLOGY | | + + + + + + | UNIT ABO | B | | [facility] | | | | | | DEPARTMENT | | | | | | OF | | | | | | PATHOLOGY | | + + + + + + | UNIT RH | POS | | [facility] | | | | | | DEPARTMENT | | | | | | OF | | | | | | PATHOLOGY | | + + + + + + | STATUS OF | Presumed Transfused | | [facility] | | | UNIT | | | DEPARTMENT | | | | | | OF | | | | | | PATHOLOGY | | + + + + + + | BLOOD | [id number] | | [facility] | | | PRODUCT | | | DEPARTMENT | | | CODE | | | OF | | | | | | PATHOLOGY | | + + + + + + + + | Specimen | + + | | + + + + + + + | Performing | Address | City/State/Zipcode | Phone Number | | Organization | | | | + + + + + | [facility] | [address] | [place] [address] | | | PATHOLOGY | [address] | | | + + + + + PRODUCT - FRESH FROZEN PLASMA (09/09/2014 5:41 AM PDT) + + + + + + | Component | Value | Ref Range | Performed | Pathologist | | | | | At | Signature | + + + + + + | PRODUCT | PLASMA THAWED | | [facility] | | | DESCRIPTION | | | DEPARTMENT | | | | | | OF | | | | | | PATHOLOGY | | + + + + + + | PRODUCT | [id number] | | [facility] | | | UNIT # | | | DEPARTMENT | | | | | | OF | | | | | | PATHOLOGY | | + + + + + + | UNIT ABO | B | | [facility] | | | | | | DEPARTMENT | | | | | | OF | | | | | | PATHOLOGY | | + + + + + + | UNIT RH | NEG | | [facility] | | | | | | DEPARTMENT | | | | | | OF | | | | | | PATHOLOGY | | + + + + + + | STATUS OF | Presumed Transfused | | [facility] | | | UNIT | | | DEPARTMENT | | | | | | OF | | | | | | PATHOLOGY | | + + + + + + | BLOOD | [id number] | | [facility] | | | PRODUCT | | | DEPARTMENT | | | CODE | | | OF | | | | | | PATHOLOGY | | + + + + + + + + | Specimen | + + | | + + + + + + + | Performing | Address | City/State/Zipcode | Phone Number | | Organization | | | | + + + + + | [facility] DEPARTMENT OF | [address] | [place] [address] | | | PATHOLOGY | [address] | | | + + + + + PRODUCT - FRESH FROZEN PLASMA (09/09/2014 5:41 AM PDT) + + + + + + | Component | Value | Ref Range | Performed | Pathologist | | | | | At | Signature | + + + + + + | PRODUCT | FRESH FROZEN PLASMA, | | [facility] | | | DESCRIPTION | THAWED | | DEPARTMENT | | | | | | OF | | | | | | PATHOLOGY | | + + + + + + | PRODUCT | [id number] | | [facility] | | | UNIT # | | | DEPARTMENT | | | | | | OF | | | | | | PATHOLOGY | | + + + + + + | UNIT ABO | B | | [facility] | | | | | | DEPARTMENT | | | | | | OF | | | | | | PATHOLOGY | | + + + + + + | UNIT RH | POS | | [facility] | | | | | | DEPARTMENT | | | | | | OF | | | | | | PATHOLOGY | | + + + + + + | STATUS OF | Presumed Transfused | | [facility] | | | UNIT | | | DEPARTMENT | | | | | | OF | | | | | | PATHOLOGY | | + + + + + + | BLOOD | [id number] | | [facility] | | | PRODUCT | | | DEPARTMENT | | | CODE | | | OF | | | | | | PATHOLOGY | | + + + + + + + + | Specimen | + + | | + + + + + + + | Performing | Address | City/State/Zipcode | Phone Number | | Organization | | | | + + + + + | [facility] | [address] | [place] [address] | | | PATHOLOGY | [address] | | | + + + + + PRODUCT - FRESH FROZEN PLASMA (09/09/2014 5:41 AM PDT) + + + + + + | Component | Value | Ref Range | Performed | Pathologist | | | | | At | Signature | + + + + + + | PRODUCT | THAWED APHERESIS PLASMA | | [facility] | | | DESCRIPTION | | | DEPARTMENT | | | | | | OF | | | | | | PATHOLOGY | | + + + + + + | PRODUCT | [id number] | | [facility] | | | UNIT # | | | DEPARTMENT | | | | | | OF | | | | | | PATHOLOGY | | + + + + + + | UNIT ABO | AB | | [facility] | | | | | | DEPARTMENT | | | | | | OF | | | | | | PATHOLOGY | | + + + + + + | UNIT RH | POS | | [facility] | | | | | | DEPARTMENT | | | | | | OF | | | | | | PATHOLOGY | | + + + + + + | STATUS OF | Presumed Transfused | | [facility] | | | UNIT | | | DEPARTMENT | | | | | | OF | | | | | | PATHOLOGY | | + + + + + + | BLOOD | [id number] | | [facility] | | | PRODUCT | | | DEPARTMENT | | | CODE | | | OF | | | | | | PATHOLOGY | | + + + + + + + + | Specimen | + + | | + + + + + + + | Performing | Address | City/State/Zipcode | Phone Number | | Organization | | | | + + + + + | [facility] DEPARTMENT OF | [address] | [place] [address] | | | PATHOLOGY | [address] | | | + + + + + PRODUCT - FRESH FROZEN PLASMA (09/09/2014 5:41 AM PDT) + + + + + + | Component | Value | Ref Range | Performed | Pathologist | | | | | At | Signature | + + + + + + | PRODUCT | FRESH FROZEN PLASMA, | | [facility] | | | DESCRIPTION | THAWED | | DEPARTMENT | | | | | | OF | | | | | | PATHOLOGY | | + + + + + + | PRODUCT | [id number] | | [facility] | | | UNIT # | | | DEPARTMENT | | | | | | OF | | | | | | PATHOLOGY | | + + + + + + | UNIT ABO | B | | [facility] | | | | | | DEPARTMENT | | | | | | OF | | | | | | PATHOLOGY | | + + + + + + | UNIT RH | POS | | [facility] | | | | | | DEPARTMENT | | | | | | OF | | | | | | PATHOLOGY | | + + + + + + | STATUS OF | Presumed Transfused | | [facility] | | | UNIT | | | DEPARTMENT | | | | | | OF | | | | | | PATHOLOGY | | + + + + + + | BLOOD | [id number] | | [facility] | | | PRODUCT | | | DEPARTMENT | | | CODE | | | OF | | | | | | PATHOLOGY | | + + + + + + + + | Specimen | + + | | + + + + + + + | Performing | Address | City/State/Zipcode | Phone Number | | Organization | | | | + + + + + | [facility] | [address] | [place] [address] | | | PATHOLOGY | [address] | | | + + + + + PRODUCT - FRESH FROZEN PLASMA (09/09/2014 5:41 AM PDT) + + + + + + | Component | Value | Ref Range | Performed | Pathologist | | | | | At | Signature | + + + + + + | PRODUCT | PLASMA THAWED | | [facility] | | | DESCRIPTION | | | DEPARTMENT | | | | | | OF | | | | | | PATHOLOGY | | + + + + + + | PRODUCT | [id number] | | [facility] | | | UNIT # | | | DEPARTMENT | | | | | | OF | | | | | | PATHOLOGY | | + + + + + + | UNIT ABO | B | | [facility] | | | | | | DEPARTMENT | | | | | | OF | | | | | | PATHOLOGY | | + + + + + + | UNIT RH | NEG | | [facility] | | | | | | DEPARTMENT | | | | | | OF | | | | | | PATHOLOGY | | + + + + + + | STATUS OF | Presumed Transfused | | [facility] | | | UNIT | | | DEPARTMENT | | | | | | OF | | | | | | PATHOLOGY | | + + + + + + | BLOOD | [id number] | | [facility] | | | PRODUCT | | | DEPARTMENT | | | CODE | | | OF | | | | | | PATHOLOGY | | + + + + + + + + | Specimen | + + | | + + + + + + + | Performing | Address | City/State/Zipcode | Phone Number | | Organization | | | | + + + + + | [facility] DEPARTMENT OF | [address] | [place] [address] | | | PATHOLOGY | [address] | | | + + + + + PRODUCT - PLATELET PHERESIS LEUKOREDUCED (09/09/2014 5:39 AM PDT) + + + + + + | Component | Value | Ref Range | Performed | Pathologist | | | | | At | Signature | + + + + + + | PRODUCT | PLATELETS PHERESIS | | [facility] | | | DESCRIPTION | LEUKOCYTE REDUCED | | DEPARTMENT | | | | | | OF | | | | | | PATHOLOGY | | + + + + + + | PRODUCT | [id number] | | [facility] | | | UNIT # | | | DEPARTMENT | | | | | | OF | | | | | | PATHOLOGY | | + + + + + + | UNIT ABO | O | | [facility] | | | | | | DEPARTMENT | | | | | | OF | | | | | | PATHOLOGY | | + + + + + + | UNIT RH | POS | | [facility] | | | | | | DEPARTMENT | | | | | | OF | | | | | | PATHOLOGY | | + + + + + + | STATUS OF | Returned to Blood Bank | | [facility] | | | UNIT | | | DEPARTMENT | | | | | | OF | | | | | | PATHOLOGY | | + + + + + + | BLOOD | [id number] | | [facility] | | | PRODUCT | | | DEPARTMENT | | | CODE | | | OF | | | | | | PATHOLOGY | | + + + + + + + + | Specimen | + + | | + + + + + + + | Performing | Address | City/State/Zipcode | Phone Number | | Organization | | | | + + + + + | [facility] DEPARTMENT OF | [id number] | [place] [address] | | | PATHOLOGY | [address] | | | + + + + + PRODUCT - PLATELET PHERESIS LEUKOREDUCED (09/09/2014 5:39 AM PDT) + + + + + + | Component | Value | Ref Range | Performed | Pathologist | | | | | At | Signature | + + + + + + | PRODUCT | PLATELETS PHERESIS | | [facility] | | | DESCRIPTION | LEUKOCYTE REDUCED | | DEPARTMENT | | | | | | OF | | | | | | PATHOLOGY | | + + + + + + | PRODUCT | [id number] | | [facility] | | | UNIT # | | | DEPARTMENT | | | | | | OF | | | | | | PATHOLOGY | | + + + + + + | UNIT ABO | O | | [facility] | | | | | | DEPARTMENT | | | | | | OF | | | | | | PATHOLOGY | | + + + + + + | UNIT RH | POS | | [facility] | | | | | | DEPARTMENT | | | | | | OF | | | | | | PATHOLOGY | | + + + + + + | STATUS OF | Presumed Transfused | | [facility] | | | UNIT | | | DEPARTMENT | | | | | | OF | | | | | | PATHOLOGY | | + + + + + + | BLOOD | [id number] | | [facility] | | | PRODUCT | | | DEPARTMENT | | | CODE | | | OF | | | | | | PATHOLOGY | | + + + + + + + + | Specimen | + + | | + + + + + + + | Performing | Address | City/State/Zipcode | Phone Number | | Organization | | | | + + + + + | [facility] DEPARTMENT OF | [address] | [place] [address] | | | PATHOLOGY | [address] | | | + + + + + PRODUCT - PLATELET PHERESIS LEUKOREDUCED (09/09/2014 5:39 AM PDT) + + + + + + | Component | Value | Ref Range | Performed | Pathologist | | | | | At | Signature | + + + + + + | PRODUCT | PLATELETS PHERESIS | | [facility] | | | DESCRIPTION | LEUKOCYTES REDUCED | | DEPARTMENT | | | | | | OF | | | | | | PATHOLOGY | | + + + + + + | PRODUCT | [id number] | | [facility] | | | UNIT # | | | DEPARTMENT | | | | | | OF | | | | | | PATHOLOGY | | + + + + + + | UNIT ABO | O | | [facility] | | | | | | DEPARTMENT | | | | | | OF | | | | | | PATHOLOGY | | + + + + + + | UNIT RH | POS | | [facility] | | | | | | DEPARTMENT | | | | | | OF | | | | | | PATHOLOGY | | + + + + + + | STATUS OF | Returned to Blood Bank | | [facility] | | | UNIT | | | DEPARTMENT | | | | | | OF | | | | | | PATHOLOGY | | + + + + + + | BLOOD | [id number] | | [facility] | | | PRODUCT | | | DEPARTMENT | | | CODE | | | OF | | | | | | PATHOLOGY | | + + + + + + + + | Specimen | + + | | + + + + + + + | Performing | Address | City/State/Zipcode | Phone Number | | Organization | | | | + + + + + | [facility]MENT [facility] | [address] | [place] [address] | | | PATHOLOGY | [address] | | | + + + + + PRODUCT - PLATELET PHERESIS LEUKOREDUCED (09/09/2014 5:35 AM PDT) + + + + + + | Component | Value | Ref Range | Performed | Pathologist | | | | | At | Signature | + + + + + + | PRODUCT | PLATELETS PHERESIS | | [facility] | | | DESCRIPTION | LEUKOCYTE REDUCED | | DEPARTMENT | | | | | | OF | | | | | | PATHOLOGY | | + + + + + + | PRODUCT | [id number] | | [facility] | | | UNIT # | | | DEPARTMENT | | | | | | OF | | | | | | PATHOLOGY | | + + + + + + | UNIT ABO | AB | | [facility] | | | | | | DEPARTMENT | | | | | | OF | | | | | | PATHOLOGY | | + + + + + + | UNIT RH | POS | | [facility] | | | | | | DEPARTMENT | | | | | | OF | | | | | | PATHOLOGY | | + + + + + + | STATUS OF | Presumed Transfused | | [facility] | | | UNIT | | | DEPARTMENT | | | | | | OF | | | | | | PATHOLOGY | | + + + + + + | BLOOD | [id number] | | [facility] | | | PRODUCT | | | DEPARTMENT | | | CODE | | | OF | | | | | | PATHOLOGY | | + + + + + + + + | Specimen | + + | | + + + + + + + | Performing | Address | City/State/Zipcode | Phone Number | | Organization | | | | + + + + + | [facility] DEPARTMENT OF | [address] | [place] [address] | | | PATHOLOGY | [address] | | | + + + + + PRODUCT- RED CELLS LEUKOREDUCED (09/09/2014 5:34 AM PDT) + + + + + + | Component | Value | Ref Range | Performed | Pathologist | | | | | At | Signature | + + + + + + | PRODUCT | -3 RED BLOOD CELLS | | [facility] | | | DESCRIPTION | ADENINE-SALINE ADDED | | DEPARTMENT | | | | LEUKOCYTES REDUCED | | OF | | | | | | PATHOLOGY | | + + + + + + | PRODUCT | [id number] | | [facility] | | | UNIT # | | | DEPARTMENT | | | | | | OF | | | | | | PATHOLOGY | | + + + + + + | UNIT ABO | O | | [facility] | | | | | | DEPARTMENT | | | | | | OF | | | | | | PATHOLOGY | | + + + + + + | UNIT RH | POS | | [facility] | | | | | | DEPARTMENT | | | | | | OF | | | | | | PATHOLOGY | | + + + + + + | STATUS OF | Returned to Blood Bank | | [facility] | | | UNIT | | | DEPARTMENT | | | | | | OF | | | | | | PATHOLOGY | | + + + + + + | BLOOD | [id number] | | [facility] | | | PRODUCT | | | DEPARTMENT | | | CODE | | | OF | | | | | | PATHOLOGY | | + + + + + + + + | Specimen | + + | | + + + + + + + | Performing | Address | City/State/Zipcode | Phone Number | | Organization | | | | + + + + + | [facility] DEPARTMENT OF | [address] | [place] [address] | | | PATHOLOGY | [address] | | | + + + + + PRODUCT- RED CELLS LEUKOREDUCED (09/09/2014 5:34 AM PDT) + + + + + + | Component | Value | Ref Range | Performed | Pathologist | | | | | At | Signature | + + + + + + | PRODUCT | -3 RED BLOOD CELLS | | [facility] | | | DESCRIPTION | ADENINE-SALINE ADDED | | DEPARTMENT | | | | LEUKOCYTES REDUCED | | OF | | | | | | PATHOLOGY | | + + + + + + | PRODUCT | [id number] | | [facility] | | | UNIT # | | | DEPARTMENT | | | | | | OF | | | | | | PATHOLOGY | | + + + + + + | UNIT ABO | O | | [facility] | | | | | | DEPARTMENT | | | | | | OF | | | | | | PATHOLOGY | | + + + + + + | UNIT RH | POS | | [facility] | | | | | | DEPARTMENT | | | | | | OF | | | | | | PATHOLOGY | | + + + + + + | STATUS OF | Presumed Transfused | | [facility] | | | UNIT | | | DEPARTMENT | | | | | | OF | | | | | | PATHOLOGY | | + + + + + + | BLOOD | [id number] | | [facility] | | | PRODUCT | | | DEPARTMENT | | | CODE | | | OF | | | | | | PATHOLOGY | | + + + + + + + + | Specimen | + + | | + + + + + + + | Performing | Address | City/State/Zipcode | Phone Number | | Organization | | | | + + + + + | [facility] DEPARTMENT OF | [address] | [place] [address] | | | PATHOLOGY | [address] | | | + + + + + PRODUCT- RED CELLS LEUKOREDUCED (09/09/2014 5:34 AM PDT) + + + + + + | Component | Value | Ref Range | Performed | Pathologist | | | | | At | Signature | + + + + + + | PRODUCT | -3 RED BLOOD CELLS | | [facility] | | | DESCRIPTION | ADENINE-SALINE ADDED | | DEPARTMENT | | | | LEUKOCYTES REDUCED | | OF | | | | | | PATHOLOGY | | + + + + + + | PRODUCT | [id number] | | [facility] | | | UNIT # | | | DEPARTMENT | | | | | | OF | | | | | | PATHOLOGY | | + + + + + + | UNIT ABO | O | | [facility] | | | | | | DEPARTMENT | | | | | | OF | | | | | | PATHOLOGY | | + + + + + + | UNIT RH | POS | | [facility] | | | | | | DEPARTMENT | | | | | | OF | | | | | | PATHOLOGY | | + + + + + + | STATUS OF | Presumed Transfused | | [facility] | | | UNIT | | | DEPARTMENT | | | | | | OF | | | | | | PATHOLOGY | | + + + + + + | BLOOD | [id number] | | [facility] | | | PRODUCT | | | DEPARTMENT | | | CODE | | | OF | | | | | | PATHOLOGY | | + + + + + + + + | Specimen | + + | | + + + + + + + | Performing | Address | City/State/Zipcode | Phone Number | | Organization | | | | + + + + + | [facility] DEPARTMENT OF | [address] | [place] [address] | | | PATHOLOGY | [address] | | | + + + + + PRODUCT- RED CELLS LEUKOREDUCED (09/09/2014 5:34 AM PDT) + + + + + + | Component | Value | Ref Range | Performed | Pathologist | | | | | At | Signature | + + + + + + | PRODUCT | -3 RED BLOOD CELLS | | [facility] | | | DESCRIPTION | ADENINE-SALINE ADDED | | DEPARTMENT | | | | LEUKOCYTES REDUCED | | OF | | | | | | PATHOLOGY | | + + + + + + | PRODUCT | [id number] | | [facility] | | | UNIT # | | | DEPARTMENT | | | | | | OF | | | | | | PATHOLOGY | | + + + + + + | UNIT ABO | O | | [facility] | | | | | | DEPARTMENT | | | | | | OF | | | | | | PATHOLOGY | | + + + + + + | UNIT RH | POS | | [facility] | | | | | | DEPARTMENT | | | | | | OF | | | | | | PATHOLOGY | | + + + + + + | STATUS OF | Presumed Transfused | | [facility] | | | UNIT | | | DEPARTMENT | | | | | | OF | | | | | | PATHOLOGY | | + + + + + + | BLOOD | [id number] | | [facility] | | | PRODUCT | | | DEPARTMENT | | | CODE | | | OF | | | | | | PATHOLOGY | | + + + + + + + + | Specimen | + + | | + + + + + + + | Performing | Address | City/State/Zipcode | Phone Number | | Organization | | | | + + + + + | [facility] DEPARTMENT OF | [address] | [place] [address] | | | PATHOLOGY | [address] | | | + + + + + LACTATE (ART) POC (09/09/2014 5:29 AM PDT) + +---------+ + + + | Component | Value | Ref Range | Performed | Pathologist | | | | | At | Signature | + +---------+ + + + | LACTATE | 3.8 (H) | 0.5 - 1.6 | [facility] - | | | ARTERIAL, | | mmol/L | [facility] | | | POC | | | [facility] | | | | | | OF CARE | | | | | | TESTS | | + +---------+ + + + + + | Specimen | + + | | + + + + + + + | Performing | Address | City/State/Zipcode | Phone Number | | Organization | | | | + + + + + | [facility] | [address] | [place], [place] | | | [facility] | [address] | [address] | | | TESTS | | | | + + + + + SODIUM, POC (09/09/2014 5:29 AM PDT) + +-------+ + + + | Component | Value | Ref Range | Performed | Pathologist | | | | | At | Signature | + +-------+ + + + | SODIUM, POC | 141 | 134 - 143 | [facility] - | | | | | mmol/L | [facility] | | | | | | [facility] | | | | | | OF CARE | | | | | | TESTS | | + +-------+ + + + + + | Specimen | + + | | + + + + + + + | Performing | Address | City/State/Zipcode | Phone Number | | Organization | | | | + + + + + | [facility] | [address] | [place], [place] | | | [facility] | [facility] | [address] | | | TESTS | | | | + + + + + POTASSIUM, POC (09/09/2014 5:29 AM PDT) + +-------+ + + + | Component | Value | Ref Range | Performed | Pathologist | | | | | At | Signature | + +-------+ + + + | POTASSIUM, | 5.0 | 3.4 - 5.0 | [facility] - | | | POC | | mmol/L | [facility] | | | | | | [facility] | | | | | | OF CARE | | | | | | TESTS | | + +-------+ + + + + + | Specimen | + + | | + + + + + + + | Performing | Address | City/State/Zipcode | Phone Number | | Organization | | | | + + + + + | [facility] | [address] | [place], [place] | | | [facility] CARE | [address] | [address] | | | TESTS | | | | + + + + + GLUCOSE, POC (09/09/2014 5:29 AM PDT) + +---------+ + + + | Component | Value | Ref Range | Performed | Pathologist | | | | | At | Signature | + +---------+ + + + | GLUCOSE, | 267 (H) | 60 - 99 mg/dL | [facility] | | | POC | | | [facility] | | | | | | [facility] | | | | | | OF CARE | | | | | | TESTS | | + +---------+ + + + + + | Specimen | + + | | + + + + + + + | Performing | Address | City/State/Zipcode | Phone Number | | Organization | | | | + + + + + | [facility] | [address] | [place], [place] | | | [facility] CARE | [address] | [address] | | | TESTS | | | | + + + + + CHLORIDE, POC (09/09/2014 5:29 AM PDT) + +---------+ + + + | Component | Value | Ref Range | Performed | Pathologist | | | | | At | Signature | + +---------+ + + + | CHLORIDE, | 113 (H) | 97 - 108 mmol/L | [facility] - | | | POC | | | [facility] | | | | | | [facility] | | | | | | OF CARE | | | | | | TESTS | | + +---------+ + + + + + | Specimen | + + | | + + + + + + + | Performing | Address | City/State/Zipcode | Phone Number | | Organization | | | | + + + + + | [facility] | [address] | [place], [place] | | | [facility] CARE | [address] | [address] | | | TESTS | | | | + + + + + LEANDRO IONIZED CA, POC (09/09/2014 5:29 AM PDT) + +-------+ + + + | Component | Value | Ref Range | Performed | Pathologist | | | | | At | Signature | + +-------+ + + + | LEANDRO | 1.27 | 1.14 - 1.32 | [facility] - | | | IONIZED CA, | | mmol/L | [facility] | | | POC | | | [facility] | | | | | | OF CARE | | | | | | TESTS | | + +-------+ + + + + + | Specimen | + + | | + + + + + + + | Performing | Address | City/State/Zipcode | Phone Number | | Organization | | | | + + + + + | [facility] | [address] | [place], [place] | | | [facility]ARE | [address] | [address] | | | TESTS | | | | + + + + + HEMOGLOBIN-WESTON TAVERAS (09/09/2014 5:29 AM PDT) + + + + + + | Component | Value | Ref Range | Performed | Pathologist | | | | | At | Signature | + + + + + + | TOTAL | 5.8 (AA) | 13.5 - 17.5 | [facility] - | | | HEMOGLOBIN, | | g/dL | [facility] | | | POC | | | [facility] | | | | | | OF CARE | | | | | | TESTS | | + + + + + + | OXYHEMOGLOB | 98.7 | 94.0 - 100 % | [facility] - | | | IN, POC | | | [facility] | | | | | | [facility] POINT | | | | | | OF CARE | | | | | | TESTS | | + + + + + + | CARBOXYHEMO | 1.8 (H) | 0.0 - 1.5 % | [facility] - | | | GLOBIN, POC | | | [facility] | | | | | | [facility] POINT | | | | | | OF CARE | | | | | | TESTS | | + + + + + + | METHEMOGLOB | 0.5 | 0.0 - 1.9 % | [facility] - | | | IN, POC | | | [facility] | | | | | | WILL, POINT | | | | | | OF CARE | | | | | | TESTS | | + + + + + + | HEMATOCRIT, | 17.9 (AA) | 41.0 - 53.0 % | [facility] - | | | POC | | | [facility] | | | | | | [facility] POINT | | | | | | OF CARE | | | | | | TESTS | | + + + + + + + + | Specimen | + + | | + + + + + + + | Performing | Address | City/State/Zipcode | Phone Number | | Organization | | | | + + + + + | [facility] | [address] | [place], [place] | | | [facility] | [facility] | [address] | | | TESTS | | | | + + + + + ARTERIAL BLOOD GAS, POC (09/09/2014 5:29 AM PDT) + + + + + + | Component | Value | Ref Range | Performed | Pathologist | | | | | At | Signature | + + + + + + | PH | 7.27 (L) | 7.37 - 7.44 | [facility] - | | | ARTERIAL, | | | [facility] | | | POC | | | [facility] | | | | | | OF CARE | | | | | | TESTS | | + + + + + + | PO2 | 514 (H) | 83 - 108 mmHg | [facility] - | | | ARTERIAL, | | | [facility] | | | POC | | | [facility] | | | | | | OF CARE | | | | | | TESTS | | + + + + + + | PCO2 | 48 (H) | 32 - 43 mmHg | [facility] - | | | ARTERIAL, | | | [facility] | | | POC | | | WILL POINT | | | | | | OF CARE | | | | | | TESTS | | + + + + + + | HCO3 | 22.2 | 21 - 28 mmol/L | [facility] - | | | ARTERIAL, | | | [facility] | | | POC | | | WILL, POINT | | | | | | OF CARE | | | | | | TESTS | | + + + + + + | BASE EXCESS | -4.7 | | [facility] - | | | ARTERIAL, | | | [facility] | | | POC | | | WILL POINT | | | | | | OF CARE | | | | | | TESTS | | + + + + + + + + | Specimen | + + | | + + + + + + + | Performing | Address | City/State/Zipcode | Phone Number | | Organization | | | | + + + + + | [facility] | [address] | [place], [place] | | | [facility] OF [facility] | [address] | [address] | | | TESTS | | | | + + + + + CBC (HEMOGRAM) ONLY (09/09/2014 5:18 AM PDT) + + + + + + | Component | Value | Ref Range | Performed | Pathologist | | | | | At | Signature | + + + + + + | WHITE CELL | 12.12 (H) | 4.40 - 11.00 | [facility] | | | COUNT | | K/cu mm | LABORATORY | | | | | | SERVICES, | | | | | | CORE | | + + + + + + | RED CELL | 2.73 (L) | 4.50 - 6.00 | [facility] | | | COUNT | | M/cu mm | LABORATORY | | | | | | SERVICES, | | | | | | CORE | | + + + + + + | HEMOGLOBIN | 8.0 (L) | 13.5 - 17.5 | [facility] | | | | | g/dL | LABORATORY | | | | | | SERVICES, | | | | | | CORE | | + + + + + + | HEMATOCRIT | 24.7 (L) | 41.0 - 53.0 % | [facility] | | | | | | LABORATORY | | | | | | SERVICES, | | | | | | CORE | | + + + + + + | MCV | 90.5 | 80.0 - 96.0 fL | [facility] | | | | | | LABORATORY | | | | | | SERVICES, | | | | | | CORE | | + + + + + + | MCHC | 32.4 | 33.0 - 35.5 | [facility] | | | | | g/dL | LABORATORY | | | | | | SERVICES, | | | | | | CORE | | + + + + + + | RDW SD | 47.8 (H) | 35.1 - 46.3 fL | [facility] | | | | | | LABORATORY | | | | | | SERVICES, | | | | | | CORE | | + + + + + + | PLATELET | 65 (L) | 150 - 400 K/cu | [facility] | | | COUNT | | mm | LABORATORY | | | | | | SERVICES, | | | | | | CORE | | + + + + + + | MPV | 9.8 | 9.7 - 12.3 fL | [facility] | | | | | | LABORATORY | | | | | | SERVICES, | | | | | | CORE | | + + + + + + | NRBC% | 0.0 | 0.0 - 0.3 % | [facility] | | | | | | LABORATORY | | | | | | SERVICES, | | | | | | CORE | | + + + + + + | NRBC# | 0.00 | 0.00 - 0.02 | [facility] | | | | | K/cu mm | LABORATORY | | | | | | SERVICES, | | | | | | CORE | | + + + + + + + + | Specimen | + + | Blood - Blood | + + + + + + + | Performing | Address | City/State/Zipcode | Phone Number | | Organization | | | | + + + + + | [facility] | [address] | [place] [address] | | | SERVICES, CORE | [address] | | | + + + + + COAGULOPATHY PANEL (INR,APTT,FIBRINOGEN) (09/09/2014 5:18 AM PDT) + + + + + + | Component | Value | Ref Range | Performed | Pathologist | | | | | At | Signature | + + + + + + | INR | 2.39 (H) | 0.90 - 1.20 INR | [facility] | | | | | | LABORATORY | | | | | | SERVICES, | | | | | | CORE | | + + + + + + | APTT | >200.0 (HH) | 26.0 - 36.0 | [facility] | | | | | seconds | LABORATORY | | | | | | SERVICES, | | | | | | CORE | | + + + + + + | FIBRINOGEN | 82 (L) | 200 - 450 mg/dL | [facility] | | | LEVEL | | | LABORATORY | | | | | | SERVICES, | | | | | | CORE | | + + + + + + + + | Specimen | + + | Blood - Blood | + + + + + | Narrative | Performed At | + + + | INR Therapeutic ranges for full anticoagulation: INR for | [facility] | | Venous Thromboembolism (2.0 - 3.0) INR | LABORATORY | | INR for most patients with mech. valves (2.5 - 3.5) INR | [facility] | | APTT Therapeutic Range: (75 - | | | 120) sec Heparin levels of 0.35 - 0.7 U/mL | | + + + + + + + + | Performing | Address | City/State/Zipcode | Phone Number | | Organization | | | | + + + + + | [facility] | [address] [facility] | [place] [address] | | | [address] | [address] | | | + + + + + JASS (ART)WESTON (09/09/2014 5:08 AM PDT) + +---------+ + + + | Component | Value | Ref Range | Performed | Pathologist | | | | | At | Signature | + +---------+ + + + | LACTATE | 3.5 (H) | 0.5 - 1.6 | [facility] - | | | ARTERIAL, | | mmol/L | [facility] | | | POC | | | [facility] | | | | | | OF CARE | | | | | | TESTS | | + +---------+ + + + + + | Specimen | + + | | + + + + + + + | Performing | Address | City/State/Zipcode | Phone Number | | Organization | | | | + + + + + | [facility] | [address] | [place], [place] | | | [facility] OF CARE | [address] | [address] | | | TESTS | | | | + + + + + SODIUM, POC (09/09/2014 5:08 AM PDT) + +-------+ + + + | Component | Value | Ref Range | Performed | Pathologist | | | | | At | Signature | + +-------+ + + + | SODIUM, POC | 140 | 134 - 143 | [facility] - | | | | | mmol/L | [facility] | | | | | | [facility] | | | | | | OF CARE | | | | | | TESTS | | + +-------+ + + + + + | Specimen | + + | | + + + + + + + | Performing | Address | City/State/Zipcode | Phone Number | | Organization | | | | + + + + + | [facility] | [address] | [place], [place] | | | [facility] CARE | [address] | [address] | | | TESTS | | | | + + + + + POTASSIUM, POC (09/09/2014 5:08 AM PDT) + +-------+ + + + | Component | Value | Ref Range | Performed | Pathologist | | | | | At | Signature | + +-------+ + + + | POTASSIUM, | 5.0 | 3.4 - 5.0 | [facility] - | | | POC | | mmol/L | [facility] | | | | | | [facility] | | | | | | OF CARE | | | | | | TESTS | | + +-------+ + + + + + | Specimen | + + | | + + + + + + + | Performing | Address | City/State/Zipcode | Phone Number | | Organization | | | | + + + + + | [facility] | [address] | [place], [place] | | | [facility] | [facility] | [address] | | | TESTS | | | | + + + + + GLUCOSE, POC (09/09/2014 5:08 AM PDT) + +---------+ + + + | Component | Value | Ref Range | Performed | Pathologist | | | | | At | Signature | + +---------+ + + + | GLUCOSE, | 307 (H) | 60 - 99 mg/dL | [facility] - | | | POC | | | [facility] | | | | | | [facility] | | | | | | OF CARE | | | | | | TESTS | | + +---------+ + + + + + | Specimen | + + | | + + + + + + + | Performing | Address | City/State/Zipcode | Phone Number | | Organization | | | | + + + + + | [facility] | [address] | [place], [place] | | | [facility] OF CARE | [address] | [address] | | | TESTS | | | | + + + + + CHLORIDE, POC (09/09/2014 5:08 AM PDT) + +---------+ + + + | Component | Value | Ref Range | Performed | Pathologist | | | | | At | Signature | + +---------+ + + + | CHLORIDE, | 112 (H) | 97 - 108 mmol/L | [facility] - | | | POC | | | [facility] | | | | | | [facility] | | | | | | OF CARE | | | | | | TESTS | | + +---------+ + + + + + | Specimen | + + | | + + + + + + + | Performing | Address | City/State/Zipcode | Phone Number | | Organization | | | | + + + + + | [facility] | [address] | [place], [place] | | | [facility] OF [facility] | [facility] | [address] | | | TESTS | | | | + + + + + LEANDRO IONIZED CA, POC (09/09/2014 5:08 AM PDT) + + + + + + | Component | Value | Ref Range | Performed | Pathologist | | | | | At | Signature | + + + + + + | LEANDRO | 0.62 (L) | 1.14 - 1.32 | [facility] - | | | IONIZED CA, | | mmol/L | [facility] | | | POC | | | [facility] | | | | | | OF CARE | | | | | | TESTS | | + + + + + + + + | Specimen | + + | | + + + + + + + | Performing | Address | City/State/Zipcode | Phone Number | | Organization | | | | + + + + + | [facility] | [address] | [place], [place] | | | [facility] | [address] | [address] | | | TESTS | | | | + + + + + HEMOGLOBIN-COOX, POC (09/09/2014 5:08 AM PDT) + + + + + + | Component | Value | Ref Range | Performed | Pathologist | | | | | At | Signature | + + + + + + | TOTAL | 8.9 (L) | 13.5 - 17.5 | [facility] - | | | HEMOGLOBIN, | | g/dL | [facility] | | | POC | | | [facility] | | | | | | OF CARE | | | | | | TESTS | | + + + + + + | OXYHEMOGLOB | 98.6 | 94.0 - 100 % | [facility] - | | | IN, POC | | | [facility] | | | | | | [facility] POINT | | | | | | OF CARE | | | | | | TESTS | | + + + + + + | CARBOXYHEMO | 1.5 | 0.0 - 1.5 % | [facility] - | | | GLOBIN, POC | | | [facility] | | | | | | [facility]INT | | | | | | OF CARE | | | | | | TESTS | | + + + + + + | METHEMOGLOB | 0.5 | 0.0 - 1.9 % | [facility] - | | | IN, POC | | | [facility] | | | | | | [facility]INT | | | | | | OF CARE | | | | | | TESTS | | + + + + + + | HEMATOCRIT, | 27.4 (L) | 41.0 - 53.0 % | [facility] - | | | POC | | | [facility] | | | | | | [facility]INT | | | | | | OF CARE | | | | | | TESTS | | + + + + + + + + | Specimen | + + | | + + + + + + + | Performing | Address | City/State/Zipcode | Phone Number | | Organization | | | | + + + + + | [facility] | [address] | [place], [place] | | | [facility] OF CARE | [facility] | [address] | | | TESTS | | | | + + + + + ARTERIAL BLOOD GAS, POC (09/09/2014 5:08 AM PDT) + + + + + + | Component | Value | Ref Range | Performed | Pathologist | | | | | At | Signature | + + + + + + | PH | 7.08 (AA) | 7.37 - 7.44 | [facility] - | | | ARTERIAL, | | | [facility] | | | POC | | | [facility] | | | | | | OF CARE | | | | | | TESTS | | + + + + + + | PO2 | 519 (H) | 83 - 108 mmHg | [facility] - | | | ARTERIAL, | | | [facility] | | | POC | | | [facility]INT | | | | | | OF CARE | | | | | | TESTS | | + + + + + + | PCO2 | 59 (H) | 32 - 43 mmHg | [facility] - | | | ARTERIAL, | | | [facility] | | | POC | | | H[facility], POINT | | | | | | OF CARE | | | | | | TESTS | | + + + + + + | O2 SAT | 100.6 (H) | 92.0 - 98.0 % | [facility] - | | | ARTERIAL, | | | [facility] | | | POC | | | [facility], POINT | | | | | | OF CARE | | | | | | TESTS | | + + + + + + | HCO3 | 17.8 (L) | 21 - 28 mmol/L | [facility] - | | | ARTERIAL, | | | [facility] | | | POC | | | [facility] | | | | | | OF CARE | | | | | | TESTS | | + + + + + + | BASE EXCESS | -12.1 | | [facility] - | | | [facility], | | | [facility] | | | POC | | | [facility] | | | | | | OF CARE | | | | | | TESTS | | + + + + + + + + | Specimen | + + | | + + + + + + + | Performing | Address | City/State/Zipcode | Phone Number | | Organization | | | | + + + + + | [facility] | [address] | [place], [place] | | | [facility] | [address] | [phone] | | | TESTS | | | | + + + + + CTA ABDOMEN AND PELVIS WITH CONTRAST (09/09/2014 5:01 AM PDT) + + + + + + | Component | Value | Ref Range | Performed | Pathologist | | | | | At | Signature | + + + + + + | CTA ABDOMEN | EXAM: CTA of the | | | | | AND PELVIS | chest, abdomen and | | | | | W/ | pelvis with intravenous | | | | | CONTRAST | contrast HISTORY: | | | | | | Trauma, stabbing | | | | | | COMPARISON: None | | | | | | available. TECHNIQUE: | | | | | | CTA of the chest, | | | | | | abdomen and pelvis with | | | | | | 150 mL of Omnipaque | | | | | | 350non-ionic intravenous | | | | | | contrast. Coronal and | | | | | | sagittal MIP | | | | | | reformatted. | | | | | | FINDINGS:LINES/TUBES: | | | | | | Endotracheal tube | | | | | | terminates | | | | | | appropriately. | | | | | | Orogastric | | | | | | tubeterminates in distal | | | | | | esophagus. Advancement | | | | | | is needed. MEDIASTINUM: | | | | | | Density in the anterior | | | | | | mediastinum is thought | | | | | | to be residualthymus. | | | | | | There is diffuse | | | | | | mediastinal edema, | | | | | | likely from | | | | | | anasarca/lineplacement. | | | | | | The thoracic aorta and | | | | | | major branch vessels | | | | | | appear intact.LUNGS: | | | | | | Small bilateral pleural | | | | | | effusions measure | | | | | | intermediate density and | | | | | | arelikely small | | | | | | hemothoraces. Minimal | | | | | | compressive atelectasis. | | | | | | Small leftpneumothorax. | | | | | | Note that a CTA | | | | | | examination is limited | | | | | | in evaluation for active | | | | | | | | | | | | extravasation.Additional | | | | | | ly, evaluation of the | | | | | | solid organs is limited | | | | | | in the | | | | | | angiographicphase. No | | | | | | portal phase was done. | | | | | | LIVER: Large amount of | | | | | | perihepatic clotted | | | | | | blood with no active | | | | | | bleeding. Nodefinite | | | | | | focal liver lesions | | | | | | though imaging phases | | | | | | not ideal for | | | | | | evaluation.BILIARY: | | | | | | Unremarkable.SPLEEN: | | | | | | Poorly enhancing; unable | | | | | | to assess for | | | | | | injury.PANCREAS: | | | | | | Unremarkable. ADRENALS: | | | | | | Unremarkable.KIDNEYS/URE | | | | | | TERS: | | | | | | Unremarkable.PELVIC | | | | | | ORGANS/BLADDER: History | | | | | | contrast the bladder. | | | | | | [place] in the bladder. GI | | | | | | TRACT: Limited | | | | | | evaluation.PERITONEUM: | | | | | | Large amount of surgical | | | | | | packing in the left | | | | | | abdomen. Scatteredareas | | | | | | of large volume | | | | | | intraperitoneal | | | | | | hemorrhage in the right | | | | | | upper quadrant,left | | | | | | upper quadrant, right | | | | | | lower quadrant and | | | | | | pelvis. Blush of | | | | | | contrast seenalong the | | | | | | packing material near | | | | | | the gastroepiploic | | | | | | artery, along the | | | | | | greatercurvature. Free | | | | | | air from recent ex-lap. | | | | | | LYMPH NODES: No | | | | | | lymphadenopathy.VESSELS: | | | | | | Unremarkable. BONES AND | | | | | | SOFT TISSUES: | | | | | | Unremarkable. | | | | | | IMPRESSION: *Limited | | | | | | evaluation of the solid | | | | | | organs in the | | | | | | angiographic phase.* 1. | | | | | | Small left pneumothorax. | | | | | | Small bilateral | | | | | | hemothoraces. No active | | | | | | bleeding inthe chest | | | | | | seen.2. Post recent | | | | | | exploratory laparoscopy | | | | | | with packing. Large | | | | | | volumehemoperitoneum. | | | | | | Concern for active | | | | | | extravasation adjacent | | | | | | to the packing | | | | | | comingfrom the | | | | | | gastroepiploic artery, | | | | | | along the greater | | | | | | curvature.3. Orogastric | | | | | | tube in the distal | | | | | | esophagus. Advancement | | | | | | is needed. These | | | | | | results were discussed | | | | | | with Dr. Lopes at 0532 | | | | | | hours by Dr. Brar. | | | | | | Attending Radiologists: | | | | | | ELIO FRANKS MDAuthor: | | | | | | ELIO FRANKS MD I have | | | | | | personally viewed this | | | | | | procedure/exam, reviewed | | | | | | this report, and | | | | | | madechanges to it where | | | | | | appropriate. | | | | | | Final/Electronically | | | | | | daphne / ELIO | | | | | | GOLDEN 09/09/2014 11:50 | | | | | | AM | | | | + + + + + + + + | Specimen | + + | | + + + +---------+ + + | Performing | Address | City/State/Zipcode | Phone Number | | Organization | | | | + +---------+ + + | [facility] | | | | | [facility]OLOGY | | | | + +---------+ + + CT CTA CHEST WITH & WITHOUT CONTRAST (09/09/2014 5:01 AM PDT) + + + + + + | Component | Value | Ref Range | Performed | Pathologist | | | | | At | Signature | + + + + + + | CT CTA | EXAM: CTA of the | | | | | CHEST WWO | chest, abdomen and | | | | | CONTRAST | pelvis with intravenous | | | | | | contrast HISTORY: | | | | | | Trauma, stabbing | | | | | | COMPARISON: None | | | | | | available. TECHNIQUE: | | | | | | CTA of the chest, | | | | | | abdomen and pelvis with | | | | | | 150 mL of Omnipaque | | | | | | 350non-ionic intravenous | | | | | | contrast. Coronal and | | | | | | sagittal MIP | | | | | | reformatted. | | | | | | FINDINGS:LINES/TUBES: | | | | | | Endotracheal tube | | | | | | terminates | | | | | | appropriately. | | | | | | Orogastric | | | | | | tubeterminates in distal | | | | | | esophagus. Advancement | | | | | | is needed. MEDIASTINUM: | | | | | | Density in the anterior | | | | | | mediastinum is thought | | | | | | to be residualthymus. | | | | | | There is diffuse | | | | | | mediastinal edema, | | | | | | likely from | | | | | | anasarca/lineplacement. | | | | | | The thoracic aorta and | | | | | | major branch vessels | | | | | | appear intact.LUNGS: | | | | | | Small bilateral pleural | | | | | | effusions measure | | | | | | intermediate density and | | | | | | arelikely small | | | | | | hemothoraces. Minimal | | | | | | compressive atelectasis. | | | | | | Small leftpneumothorax. | | | | | | Note that a CTA | | | | | | examination is limited | | | | | | in evaluation for active | | | | | | | | | | | | extravasation.Additional | | | | | | ly, evaluation of the | | | | | | solid organs is limited | | | | | | in the | | | | | | angiographicphase. No | | | | | | portal phase was done. | | | | | | LIVER: Large amount of | | | | | | perihepatic clotted | | | | | | blood with no active | | | | | | bleeding. Nodefinite | | | | | | focal liver lesions | | | | | | though imaging phases | | | | | | not ideal for | | | | | | evaluation.BILIARY: | | | | | | Unremarkable.SPLEEN: | | | | | | Poorly enhancing; unable | | | | | | to assess for | | | | | | injury.PANCREAS: | | | | | | Unremarkable. ADRENALS: | | | | | | Unremarkable.KIDNEYS/URE | | | | | | TERS: | | | | | | Unremarkable.PELVIC | | | | | | ORGANS/BLADDER: History | | | | | | contrast the bladder. | | | | | | Bolivar in the bladder. GI | | | | | | TRACT: Limited | | | | | | evaluation.PERITONEUM: | | | | | | Large amount of surgical | | | | | | packing in the left | | | | | | abdomen. Scatteredareas | | | | | | of large volume | | | | | | intraperitoneal | | | | | | hemorrhage in the right | | | | | | upper quadrant,left | | | | | | upper quadrant, right | | | | | | lower quadrant and | | | | | | pelvis. Blush of | | | | | | contrast seenalong the | | | | | | packing material near | | | | | | the gastroepiploic | | | | | | artery, along the | | | | | | greatercurvature. Free | | | | | | air from recent ex-lap. | | | | | | LYMPH NODES: No | | | | | | lymphadenopathy.VESSELS: | | | | | | Unremarkable. BONES AND | | | | | | SOFT TISSUES: | | | | | | Unremarkable. | | | | | | IMPRESSION: *Limited | | | | | | evaluation of the solid | | | | | | organs in the | | | | | | angiographic phase.* 1. | | | | | | Small left pneumothorax. | | | | | | Small bilateral | | | | | | hemothoraces. No active | | | | | | bleeding inthe chest | | | | | | seen.2. Post recent | | | | | | exploratory laparoscopy | | | | | | with packing. Large | | | | | | volumehemoperitoneum. | | | | | | Concern for active | | | | | | extravasation adjacent | | | | | | to the packing | | | | | | comingfrom the | | | | | | gastroepiploic artery, | | | | | | along the greater | | | | | | curvature.3. Orogastric | | | | | | tube in the distal | | | | | | esophagus. Advancement | | | | | | is needed. These | | | | | | results were discussed | | | | | | with Dr. Lopes at 0532 | | | | | | hours by Dr. Brar. | | | | | | Attending Radiologists: | | | | | | ELIO FRANKS MDAuthor: | | | | | | ELIO FRANKS MD I have | | | | | | personally viewed this | | | | | | procedure/exam, reviewed | | | | | | this report, and | | | | | | madechanges to it where | | | | | | appropriate. | | | | | | Final/Electronically | | | | | | signed / ELIO | | | | | | GOLDEN 09/09/2014 11:50 | | | | | | AM | | | | + + + + + + + + | Specimen | + + | | + + + +---------+ + + | Performing | Address | City/State/Zipcode | Phone Number | | Organization | | | | + +---------+ + + | [facility] | | | | | RADIOLOGY | | | | + +---------+ + + PRODUCT - CRYOPRECIPITATE POOL (09/09/2014 4:51 AM PDT) + + + + + + | Component | Value | Ref Range | Performed | Pathologist | | | | | At | Signature | + + + + + + | PRODUCT | [id number] POOLED CRYO | | [facility] | | | DESCRIPTION | | | DEPARTMENT | | | | | | OF | | | | | | PATHOLOGY | | + + + + + + | PRODUCT | [id number] | | [facility] | | | UNIT # | | | DEPARTMENT | | | | | | OF | | | | | | PATHOLOGY | | + + + + + + | UNIT ABO | A | | [facility] | | | | | | DEPARTMENT | | | | | | OF | | | | | | PATHOLOGY | | + + + + + + | UNIT RH | POS | | [facility] | | | | | | DEPARTMENT | | | | | | OF | | | | | | PATHOLOGY | | + + + + + + | STATUS OF | Presumed Transfused | | [facility] | | | UNIT | | | DEPARTMENT | | | | | | OF | | | | | | PATHOLOGY | | + + + + + + | BLOOD | [id number] | | [facility] | | | PRODUCT | | | DEPARTMENT | | | CODE | | | OF | | | | | | PATHOLOGY | | + + + + + + + + | Specimen | + + | | + + + + + + + | Performing | Address | City/State/Zipcode | Phone Number | | Organization | | | | + + + + + | [facility] | [address] | [place] [address] | | | PATHOLOGY | [address] | | | + + + + + PRODUCT - CRYOPRECIPITATE POOL (09/09/2014 4:51 AM PDT) + + + + + + | Component | Value | Ref Range | Performed | Pathologist | | | | | At | Signature | + + + + + + | PRODUCT | [id number] POOLED CRYO | | [facility] | | | DESCRIPTION | | | DEPARTMENT | | | | | | OF | | | | | | PATHOLOGY | | + + + + + + | PRODUCT | [id number] | | [facility] | | | UNIT # | | | DEPARTMENT | | | | | | OF | | | | | | PATHOLOGY | | + + + + + + | UNIT ABO | A | | [facility] | | | | | | DEPARTMENT | | | | | | OF | | | | | | PATHOLOGY | | + + + + + + | UNIT RH | POS | | [facility] | | | | | | DEPARTMENT | | | | | | OF | | | | | | PATHOLOGY | | + + + + + + | STATUS OF | Presumed Transfused | | [facility] | | | UNIT | | | DEPARTMENT | | | | | | OF | | | | | | PATHOLOGY | | + + + + + + | BLOOD | [id number] | | [facility] | | | PRODUCT | | | DEPARTMENT | | | CODE | | | OF | | | | | | PATHOLOGY | | + + + + + + + + | Specimen | + + | | + + + + + + + | Performing | Address | City/State/Zipcode | Phone Number | | Organization | | | | + + + + + | [facility] | [address] | [place] [address] | | | PATHOLOGY | [address] | | | + + + + + PRODUCT- RED CELLS LEUKOREDUCED (09/09/2014 4:50 AM PDT) + + + + + + | Component | Value | Ref Range | Performed | Pathologist | | | | | At | Signature | + + + + + + | PRODUCT | -3 RED BLOOD CELLS | | [facility] | | | DESCRIPTION | ADENINE-SALINE ADDED | | DEPARTMENT | | | | LEUKOCYTES REDUCED | | OF | | | | | | PATHOLOGY | | + + + + + + | PRODUCT | [id number] | | [facility] | | | UNIT # | | | DEPARTMENT | | | | | | OF | | | | | | PATHOLOGY | | + + + + + + | UNIT ABO | O | | [facility] | | | | | | DEPARTMENT | | | | | | OF | | | | | | PATHOLOGY | | + + + + + + | UNIT RH | POS | | [facility] | | | | | | DEPARTMENT | | | | | | OF | | | | | | PATHOLOGY | | + + + + + + | STATUS OF | Returned to Blood Bank | | [facility] | | | UNIT | | | DEPARTMENT | | | | | | OF | | | | | | PATHOLOGY | | + + + + + + | BLOOD | [id number] | | [facility] | | | PRODUCT | | | DEPARTMENT | | | CODE | | | OF | | | | | | PATHOLOGY | | + + + + + + + + | Specimen | + + | | + + + + + + + | Performing | Address | City/State/Zipcode | Phone Number | | Organization | | | | + + + + + | [facility] | [address] | [place] [address] | | | PATHOLOGY | [address] | | | + + + + + PRODUCT- RED CELLS LEUKOREDUCED (09/09/2014 4:50 AM PDT) + + + + + + | Component | Value | Ref Range | Performed | Pathologist | | | | | At | Signature | + + + + + + | PRODUCT | -1 RED BLOOD CELL | | [facility] | | | DESCRIPTION | ADENINE-SALINE ADDED | | DEPARTMENT | | | | LEUKOCYTES REDUCED | | OF | | | | | | PATHOLOGY | | + + + + + + | PRODUCT | [id number] | | [facility] | | | UNIT # | | | DEPARTMENT | | | | | | OF | | | | | | PATHOLOGY | | + + + + + + | UNIT ABO | O | | [facility] | | | | | | DEPARTMENT | | | | | | OF | | | | | | PATHOLOGY | | + + + + + + | UNIT RH | POS | | [facility] | | | | | | DEPARTMENT | | | | | | OF | | | | | | PATHOLOGY | | + + + + + + | STATUS OF | Presumed Transfused | | [facility] | | | UNIT | | | DEPARTMENT | | | | | | OF | | | | | | PATHOLOGY | | + + + + + + | BLOOD | [id number] | | [facility] | | | PRODUCT | | | DEPARTMENT | | | CODE | | | OF | | | | | | PATHOLOGY | | + + + + + + + + | Specimen | + + | | + + + + + + + | Performing | Address | City/State/Zipcode | Phone Number | | Organization | | | | + + + + + | [facility] | [address] | [place] [address] | | | PATHOLOGY | [address] | | | + + + + + PRODUCT- RED CELLS LEUKOREDUCED (09/09/2014 4:50 AM PDT) + + + + + + | Component | Value | Ref Range | Performed | Pathologist | | | | | At | Signature | + + + + + + | PRODUCT | -1 RED BLOOD CELL | | [facility] | | | DESCRIPTION | ADENINE-SALINE ADDED | | DEPARTMENT | | | | LEUKOCYTES REDUCED | | OF | | | | | | PATHOLOGY | | + + + + + + | PRODUCT | [id number] | | [facility] | | | UNIT # | | | DEPARTMENT | | | | | | OF | | | | | | PATHOLOGY | | + + + + + + | UNIT ABO | O | | [facility] | | | | | | DEPARTMENT | | | | | | OF | | | | | | PATHOLOGY | | + + + + + + | UNIT RH | POS | | [facility] | | | | | | DEPARTMENT | | | | | | OF | | | | | | PATHOLOGY | | + + + + + + | STATUS OF | Returned to Blood Bank | | [facility] | | | UNIT | | | DEPARTMENT | | | | | | OF | | | | | | PATHOLOGY | | + + + + + + | BLOOD | [id number] | | [facility] | | | PRODUCT | | | DEPARTMENT | | | CODE | | | OF | | | | | | PATHOLOGY | | + + + + + + + + | Specimen | + + | | + + + + + + + | Performing | Address | City/State/Zipcode | Phone Number | | Organization | | | | + + + + + | [facility] | [address] | [place] [address] | | | PATHOLOGY | [address] | | | + + + + + PRODUCT- RED CELLS LEUKOREDUCED (09/09/2014 4:50 AM PDT) + + + + + + | Component | Value | Ref Range | Performed | Pathologist | | | | | At | Signature | + + + + + + | PRODUCT | -1 RED BLOOD CELL | | [facility] | | | DESCRIPTION | ADENINE-SALINE ADDED | | DEPARTMENT | | | | LEUKOCYTES REDUCED | | OF | | | | | | PATHOLOGY | | + + + + + + | PRODUCT | [id number] | | [facility] | | | UNIT # | | | DEPARTMENT | | | | | | OF | | | | | | PATHOLOGY | | + + + + + + | UNIT ABO | O | | [facility] | | | | | | DEPARTMENT | | | | | | OF | | | | | | PATHOLOGY | | + + + + + + | UNIT RH | POS | | [facility] | | | | | | DEPARTMENT | | | | | | OF | | | | | | PATHOLOGY | | + + + + + + | STATUS OF | Returned to Blood Bank | | [facility] | | | UNIT | | | DEPARTMENT | | | | | | OF | | | | | | PATHOLOGY | | + + + + + + | BLOOD | [id number] | | [facility] | | | PRODUCT | | | DEPARTMENT | | | CODE | | | OF | | | | | | PATHOLOGY | | + + + + + + + + | Specimen | + + | | + + + + + + + | Performing | Address | City/State/Zipcode | Phone Number | | Organization | | | | + + + + + | [facility] | [address] | [place] [address] | | | PATHOLOGY | [address] | | | + + + + + PRODUCT- RED CELLS LEUKOREDUCED (09/09/2014 4:50 AM PDT) + + + + + + | Component | Value | Ref Range | Performed | Pathologist | | | | | At | Signature | + + + + + + | PRODUCT | -3 RED BLOOD CELLS | | [facility] | | | DESCRIPTION | ADENINE-SALINE ADDED | | DEPARTMENT | | | | LEUKOCYTES REDUCED | | OF | | | | | | PATHOLOGY | | + + + + + + | PRODUCT | [id number] | | [facility] | | | UNIT # | | | DEPARTMENT | | | | | | OF | | | | | | PATHOLOGY | | + + + + + + | UNIT ABO | O | | [facility] | | | | | | DEPARTMENT | | | | | | OF | | | | | | PATHOLOGY | | + + + + + + | UNIT RH | POS | | [facility] | | | | | | DEPARTMENT | | | | | | OF | | | | | | PATHOLOGY | | + + + + + + | STATUS OF | Presumed Transfused | | [facility] | | | UNIT | | | DEPARTMENT | | | | | | OF | | | | | | PATHOLOGY | | + + + + + + | BLOOD | [id number] | | [facility] | | | PRODUCT | | | DEPARTMENT | | | CODE | | | OF | | | | | | PATHOLOGY | | + + + + + + + + | Specimen | + + | | + + + + + + + | Performing | Address | City/State/Zipcode | Phone Number | | Organization | | | | + + + + + | [facility] | [address] | [place] [address] | | | PATHOLOGY | [address] | | | + + + + + PRODUCT- RED CELLS LEUKOREDUCED (09/09/2014 4:50 AM PDT) + + + + + + | Component | Value | Ref Range | Performed | Pathologist | | | | | At | Signature | + + + + + + | PRODUCT | -1 RED BLOOD CELL | | [facility] | | | DESCRIPTION | ADENINE-SALINE ADDED | | DEPARTMENT | | | | LEUKOCYTES REDUCED | | OF | | | | | | PATHOLOGY | | + + + + + + | PRODUCT | [id number] | | [facility] | | | UNIT # | | | DEPARTMENT | | | | | | OF | | | | | | PATHOLOGY | | + + + + + + | UNIT ABO | O | | [facility] | | | | | | DEPARTMENT | | | | | | OF | | | | | | PATHOLOGY | | + + + + + + | UNIT RH | POS | | [facility] | | | | | | DEPARTMENT | | | | | | OF | | | | | | PATHOLOGY | | + + + + + + | STATUS OF | Returned to Blood Bank | | [facility] | | | UNIT | | | DEPARTMENT | | | | | | OF | | | | | | PATHOLOGY | | + + + + + + | BLOOD | [id number] | | [facility] | | | PRODUCT | | | DEPARTMENT | | | CODE | | | OF | | | | | | PATHOLOGY | | + + + + + + + + | Specimen | + + | | + + + + + + + | Performing | Address | City/State/Zipcode | Phone Number | | Organization | | | | + + + + + | [facility] | [address] | [place] [address] | | | PATHOLOGY | [address] | | | + + + + + PRODUCT- RED CELLS LEUKOREDUCED (09/09/2014 4:46 AM PDT) + + + + + + | Component | Value | Ref Range | Performed | Pathologist | | | | | At | Signature | + + + + + + | PRODUCT | -1 RED BLOOD CELL | | [facility] | | | DESCRIPTION | ADENINE-SALINE ADDED | | DEPARTMENT | | | | LEUKOCYTES REDUCED | | OF | | | | | | PATHOLOGY | | + + + + + + | PRODUCT | [id number] | | [facility] | | | UNIT # | | | DEPARTMENT | | | | | | OF | | | | | | PATHOLOGY | | + + + + + + | UNIT ABO | O | | [facility] | | | | | | DEPARTMENT | | | | | | OF | | | | | | PATHOLOGY | | + + + + + + | UNIT RH | POS | | [facility] | | | | | | DEPARTMENT | | | | | | OF | | | | | | PATHOLOGY | | + + + + + + | STATUS OF | Returned to Blood Bank | | [facility] | | | UNIT | | | DEPARTMENT | | | | | | OF | | | | | | PATHOLOGY | | + + + + + + | BLOOD | [id number] | | [facility] | | | PRODUCT | | | DEPARTMENT | | | CODE | | | OF | | | | | | PATHOLOGY | | + + + + + + + + | Specimen | + + | | + + + + + + + | Performing | Address | City/State/Zipcode | Phone Number | | Organization | | | | + + + + + | [facility] | [address] | [place] [address] | | | PATHOLOGY | [address] | | | + + + + + PRODUCT- RED CELLS LEUKOREDUCED (09/09/2014 4:46 AM PDT) + + + + + + | Component | Value | Ref Range | Performed | Pathologist | | | | | At | Signature | + + + + + + | PRODUCT | -1 RED BLOOD CELL | | [facility] | | | DESCRIPTION | ADENINE-SALINE ADDED | | DEPARTMENT | | | | LEUKOCYTES REDUCED | | OF | | | | | | PATHOLOGY | | + + + + + + | PRODUCT | [id number] | | [facility] | | | UNIT # | | | DEPARTMENT | | | | | | OF | | | | | | PATHOLOGY | | + + + + + + | UNIT ABO | O | | [facility] | | | | | | DEPARTMENT | | | | | | OF | | | | | | PATHOLOGY | | + + + + + + | UNIT RH | POS | | [facility] | | | | | | DEPARTMENT | | | | | | OF | | | | | | PATHOLOGY | | + + + + + + | STATUS OF | Returned to Blood Bank | | [facility] | | | UNIT | | | DEPARTMENT | | | | | | OF | | | | | | PATHOLOGY | | + + + + + + | BLOOD | [id number] | | [facility] | | | PRODUCT | | | DEPARTMENT | | | CODE | | | OF | | | | | | PATHOLOGY | | + + + + + + + + | Specimen | + + | | + + + + + + + | Performing | Address | City/State/Zipcode | Phone Number | | Organization | | | | + + + + + | [facility] | [address] | [place] [address] | | | PATHOLOGY | [address] | | | + + + + + PRODUCT - FRESH FROZEN PLASMA (09/09/2014 4:07 AM PDT) + + + + + + | Component | Value | Ref Range | Performed | Pathologist | | | | | At | Signature | + + + + + + | PRODUCT | PLASMA THAWED | | [facility] | | | DESCRIPTION | | | DEPARTMENT | | | | | | OF | | | | | | PATHOLOGY | | + + + + + + | PRODUCT | [id number] | | [facility] | | | UNIT # | | | DEPARTMENT | | | | | | OF | | | | | | PATHOLOGY | | + + + + + + | UNIT ABO | A | | [facility] | | | | | | DEPARTMENT | | | | | | OF | | | | | | PATHOLOGY | | + + + + + + | UNIT RH | POS | | [facility] | | | | | | DEPARTMENT | | | | | | OF | | | | | | PATHOLOGY | | + + + + + + | STATUS OF | Presumed Transfused | | [facility] | | | UNIT | | | DEPARTMENT | | | | | | OF | | | | | | PATHOLOGY | | + + + + + + | BLOOD | [id number] | | [facility] | | | PRODUCT | | | DEPARTMENT | | | CODE | | | OF | | | | | | PATHOLOGY | | + + + + + + + + | Specimen | + + | | + + + + + + + | Performing | Address | City/State/Zipcode | Phone Number | | Organization | | | | + + + + + | [facility] | [address] | [place] [address] | | | PATHOLOGY | [address] | | | + + + + + PRODUCT - FRESH FROZEN PLASMA (09/09/2014 4:07 AM PDT) + + + + + + | Component | Value | Ref Range | Performed | Pathologist | | | | | At | Signature | + + + + + + | PRODUCT | THAWED APHERESIS PLASMA | | [facility] | | | DESCRIPTION | | | DEPARTMENT | | | | | | OF | | | | | | PATHOLOGY | | + + + + + + | PRODUCT | [id number] | | [facility] | | | UNIT # | | | DEPARTMENT | | | | | | OF | | | | | | PATHOLOGY | | + + + + + + | UNIT ABO | AB | | [facility] | | | | | | DEPARTMENT | | | | | | OF | | | | | | PATHOLOGY | | + + + + + + | UNIT RH | POS | | [facility] | | | | | | DEPARTMENT | | | | | | OF | | | | | | PATHOLOGY | | + + + + + + | STATUS OF | Presumed Transfused | | [facility] | | | UNIT | | | DEPARTMENT | | | | | | OF | | | | | | PATHOLOGY | | + + + + + + | BLOOD | [id number] | | [facility] | | | PRODUCT | | | DEPARTMENT | | | CODE | | | OF | | | | | | PATHOLOGY | | + + + + + + + + | Specimen | + + | | + + + + + + + | Performing | Address | City/State/Zipcode | Phone Number | | Organization | | | | + + + + + | [facility] | [address] | [place] [address] | | | PATHOLOGY | [address] | | | + + + + + PRODUCT - FRESH FROZEN PLASMA (09/09/2014 4:07 AM PDT) + + + + + + | Component | Value | Ref Range | Performed | Pathologist | | | | | At | Signature | + + + + + + | PRODUCT | THAWED APHERESIS PLASMA | | [facility] | | | DESCRIPTION | | | DEPARTMENT | | | | | | OF | | | | | | PATHOLOGY | | + + + + + + | PRODUCT | [id number] | | [facility] | | | UNIT # | | | DEPARTMENT | | | | | | OF | | | | | | PATHOLOGY | | + + + + + + | UNIT ABO | AB | | [facility] | | | | | | DEPARTMENT | | | | | | OF | | | | | | PATHOLOGY | | + + + + + + | UNIT RH | POS | | [facility] | | | | | | DEPARTMENT | | | | | | OF | | | | | | PATHOLOGY | | + + + + + + | STATUS OF | Presumed Transfused | | [facility] | | | UNIT | | | DEPARTMENT | | | | | | OF | | | | | | PATHOLOGY | | + + + + + + | BLOOD | [id number] | | [facility] | | | PRODUCT | | | DEPARTMENT | | | CODE | | | OF | | | | | | PATHOLOGY | | + + + + + + + + | Specimen | + + | | + + + + + + + | Performing | Address | City/State/Zipcode | Phone Number | | Organization | | | | + + + + + | [facility] | [address] | [place] [address] | | | PATHOLOGY | [address] | | | + + + + + PRODUCT - FRESH FROZEN PLASMA (09/09/2014 4:07 AM PDT) + + + + + + | Component | Value | Ref Range | Performed | Pathologist | | | | | At | Signature | + + + + + + | PRODUCT | PLASMA THAWED | | [facility] | | | DESCRIPTION | | | DEPARTMENT | | | | | | OF | | | | | | PATHOLOGY | | + + + + + + | PRODUCT | [id number] | | [facility] | | | UNIT # | | | DEPARTMENT | | | | | | OF | | | | | | PATHOLOGY | | + + + + + + | UNIT ABO | A | | [facility] | | | | | | DEPARTMENT | | | | | | OF | | | | | | PATHOLOGY | | + + + + + + | UNIT RH | POS | | [facility] | | | | | | DEPARTMENT | | | | | | OF | | | | | | PATHOLOGY | | + + + + + + | STATUS OF | Presumed Transfused | | [facility] | | | UNIT | | | DEPARTMENT | | | | | | OF | | | | | | PATHOLOGY | | + + + + + + | BLOOD | [id number] | | [facility] | | | PRODUCT | | | DEPARTMENT | | | CODE | | | OF | | | | | | PATHOLOGY | | + + + + + + + + | Specimen | + + | | + + + + + + + | Performing | Address | City/State/Zipcode | Phone Number | | Organization | | | | + + + + + | [facility] | [address] | [place] [address] | | | PATHOLOGY | [address] | | | + + + + + PRODUCT - FRESH FROZEN PLASMA (09/09/2014 4:07 AM PDT) + + + + + + | Component | Value | Ref Range | Performed | Pathologist | | | | | At | Signature | + + + + + + | PRODUCT | FRESH FROZEN PLASMA, | | [facility] | | | DESCRIPTION | THAWED | | DEPARTMENT | | | | | | OF | | | | | | PATHOLOGY | | + + + + + + | PRODUCT | [id number] | | [facility] | | | UNIT # | | | DEPARTMENT | | | | | | OF | | | | | | PATHOLOGY | | + + + + + + | UNIT ABO | A | | [facility] | | | | | | DEPARTMENT | | | | | | OF | | | | | | PATHOLOGY | | + + + + + + | UNIT RH | POS | | [facility] | | | | | | DEPARTMENT | | | | | | OF | | | | | | PATHOLOGY | | + + + + + + | STATUS OF | Presumed Transfused | | [facility] | | | UNIT | | | DEPARTMENT | | | | | | OF | | | | | | PATHOLOGY | | + + + + + + | BLOOD | [id number] | | [facility] | | | PRODUCT | | | DEPARTMENT | | | CODE | | | OF | | | | | | PATHOLOGY | | + + + + + + + + | Specimen | + + | | + + + + + + + | Performing | Address | City/State/Zipcode | Phone Number | | Organization | | | | + + + + + | [facility] DE[facility]MENT | [address] | [place] [address] | | | PATHOLOGY | [address] | | | + + + + + PRODUCT - FRESH FROZEN PLASMA (09/09/2014 4:07 AM PDT) + + + + + + | Component | Value | Ref Range | Performed | Pathologist | | | | | At | Signature | + + + + + + | PRODUCT | THAWED APHERESIS PLASMA | | [facility] | | | DESCRIPTION | | | DEPARTMENT | | | | | | OF | | | | | | PATHOLOGY | | + + + + + + | PRODUCT | [id number] | | [facility] | | | UNIT # | | | DEPARTMENT | | | | | | OF | | | | | | PATHOLOGY | | + + + + + + | UNIT ABO | A | | [facility] | | | | | | DEPARTMENT | | | | | | OF | | | | | | PATHOLOGY | | + + + + + + | UNIT RH | POS | | [facility] | | | | | | DEPARTMENT | | | | | | OF | | | | | | PATHOLOGY | | + + + + + + | STATUS OF | Presumed Transfused | | [facility] | | | UNIT | | | DEPARTMENT | | | | | | OF | | | | | | PATHOLOGY | | + + + + + + | BLOOD | [id number] | | [facility] | | | PRODUCT | | | DEPARTMENT | | | CODE | | | OF | | | | | | PATHOLOGY | | + + + + + + + + | Specimen | + + | | + + + + + + + | Performing | Address | City/State/Zipcode | Phone Number | | Organization | | | | + + + + + | [facility] | [address] | [place] [address] | | | PATHOLOGY | [address] | | | + + + + + PRODUCT - FRESH FROZEN PLASMA (09/09/2014 4:07 AM PDT) + + + + + + | Component | Value | Ref Range | Performed | Pathologist | | | | | At | Signature | + + + + + + | PRODUCT | PLASMA THAWED | | [facility] | | | DESCRIPTION | | | DEPARTMENT | | | | | | OF | | | | | | PATHOLOGY | | + + + + + + | PRODUCT | [id number] | | [facility] | | | UNIT # | | | DEPARTMENT | | | | | | OF | | | | | | PATHOLOGY | | + + + + + + | UNIT ABO | A | | [facility] | | | | | | DEPARTMENT | | | | | | OF | | | | | | PATHOLOGY | | + + + + + + | UNIT RH | POS | | [facility] | | | | | | DEPARTMENT | | | | | | OF | | | | | | PATHOLOGY | | + + + + + + | STATUS OF | Presumed Transfused | | [facility] | | | UNIT | | | DEPARTMENT | | | | | | OF | | | | | | PATHOLOGY | | + + + + + + | BLOOD | [id number] | | [facility] | | | PRODUCT | | | DEPARTMENT | | | CODE | | | OF | | | | | | PATHOLOGY | | + + + + + + + + | Specimen | + + | | + + + + + + + | Performing | Address | City/State/Zipcode | Phone Number | | Organization | | | | + + + + + | [facility]MENT [facility] | [address] | [place] [address] | | | PATHOLOGY | [address] | | | + + + + + PRODUCT - PLATELET PHERESIS LEUKOREDUCED (09/09/2014 4:07 AM PDT) + + + + + + | Component | Value | Ref Range | Performed | Pathologist | | | | | At | Signature | + + + + + + | PRODUCT | PLATELETS PHERESIS | | [facility] | | | DESCRIPTION | LEUKOCYTES REDUCED | | DEPARTMENT | | | | | | OF | | | | | | PATHOLOGY | | + + + + + + | PRODUCT | [id number] | | [facility] | | | UNIT # | | | DEPARTMENT | | | | | | OF | | | | | | PATHOLOGY | | + + + + + + | UNIT ABO | AB | | [facility] | | | | | | DEPARTMENT | | | | | | OF | | | | | | PATHOLOGY | | + + + + + + | UNIT RH | POS | | [facility] | | | | | | DEPARTMENT | | | | | | OF | | | | | | PATHOLOGY | | + + + + + + | STATUS OF | Presumed Transfused | | [facility] | | | UNIT | | | DEPARTMENT | | | | | | OF | | | | | | PATHOLOGY | | + + + + + + | BLOOD | [id number] | | [facility] | | | PRODUCT | | | DEPARTMENT | | | CODE | | | OF | | | | | | PATHOLOGY | | + + + + + + + + | Specimen | + + | | + + + + + + + | Performing | Address | City/State/Zipcode | Phone Number | | Organization | | | | + + + + + | [facility] DEPARTMENT OF | [address] | [place] [address] | | | PATHOLOGY | [address] | | | + + + + + PRODUCT - PLATELET PHERESIS LEUKOREDUCED (09/09/2014 4:07 AM PDT) + + + + + + | Component | Value | Ref Range | Performed | Pathologist | | | | | At | Signature | + + + + + + | PRODUCT | PLATELETS PHERESIS, | | [facility] | | | DESCRIPTION | LEUKOCYTE REDUCED, | | DEPARTMENT | | | | IRRADIATED | | OF | | | | | | PATHOLOGY | | + + + + + + | PRODUCT | [id number] | | [facility] | | | UNIT # | | | DEPARTMENT | | | | | | OF | | | | | | PATHOLOGY | | + + + + + + | UNIT ABO | O | | [facility] | | | | | | DEPARTMENT | | | | | | OF | | | | | | PATHOLOGY | | + + + + + + | UNIT RH | NEG | | [facility] | | | | | | DEPARTMENT | | | | | | OF | | | | | | PATHOLOGY | | + + + + + + | STATUS OF | Presumed Transfused | | [facility] | | | UNIT | | | DEPARTMENT | | | | | | OF | | | | | | PATHOLOGY | | + + + + + + | BLOOD | [id number] | | [facility] | | | PRODUCT | | | DEPARTMENT | | | CODE | | | OF | | | | | | PATHOLOGY | | + + + + + + + + | Specimen | + + | | + + + + + + + | Performing | Address | City/State/Zipcode | Phone Number | | Organization | | | | + + + + + | [facility] DEPARTMENT | [address] | [place] [address] | | | PATHOLOGY | [address] | | | + + + + + PRODUCT - FRESH FROZEN PLASMA (09/09/2014 4:07 AM PDT) + + + + + + | Component | Value | Ref Range | Performed | Pathologist | | | | | At | Signature | + + + + + + | PRODUCT | PLASMA THAWED | | [facility] | | | DESCRIPTION | | | DEPARTMENT | | | | | | OF | | | | | | PATHOLOGY | | + + + + + + | PRODUCT | [id number] | | [facility] | | | UNIT # | | | DEPARTMENT | | | | | | OF | | | | | | PATHOLOGY | | + + + + + + | UNIT ABO | A | | [facility] | | | | | | DEPARTMENT | | | | | | OF | | | | | | PATHOLOGY | | + + + + + + | UNIT RH | POS | | [facility] | | | | | | DEPARTMENT | | | | | | OF | | | | | | PATHOLOGY | | + + + + + + | STATUS OF | Presumed Transfused | | [facility] | | | UNIT | | | DEPARTMENT | | | | | | OF | | | | | | PATHOLOGY | | + + + + + + | BLOOD | [id number] | | [facility] | | | PRODUCT | | | DEPARTMENT | | | CODE | | | OF | | | | | | PATHOLOGY | | + + + + + + + + | Specimen | + + | | + + + + + + + | Performing | Address | City/State/Zipcode | Phone Number | | Organization | | | | + + + + + | [facility] | [address] | [place] [address] | | | PATHOLOGY | [address] | | | + + + + + PRODUCT - FRESH FROZEN PLASMA (09/09/2014 4:07 AM PDT) + + + + + + | Component | Value | Ref Range | Performed | Pathologist | | | | | At | Signature | + + + + + + | PRODUCT | PLASMA THAWED | | [facility] | | | DESCRIPTION | | | DEPARTMENT | | | | | | OF | | | | | | PATHOLOGY | | + + + + + + | PRODUCT | [id number] | | [facility] | | | UNIT # | | | DEPARTMENT | | | | | | OF | | | | | | PATHOLOGY | | + + + + + + | UNIT ABO | A | | [facility] | | | | | | DEPARTMENT | | | | | | OF | | | | | | PATHOLOGY | | + + + + + + | UNIT RH | POS | | [facility] | | | | | | DEPARTMENT | | | | | | OF | | | | | | PATHOLOGY | | + + + + + + | STATUS OF | Presumed Transfused | | [facility] | | | UNIT | | | DEPARTMENT | | | | | | OF | | | | | | PATHOLOGY | | + + + + + + | BLOOD | [id number] | | [facility] | | | PRODUCT | | | DEPARTMENT | | | CODE | | | OF | | | | | | PATHOLOGY | | + + + + + + + + | Specimen | + + | | + + + + + + + | Performing | Address | City/State/Zipcode | Phone Number | | Organization | | | | + + + + + | [facility] DEPARTMENT OF | [address] | [place] [address] | | | PATHOLOGY | [address] | | | + + + + + PRODUCT - FRESH FROZEN PLASMA (09/09/2014 4:07 AM PDT) + + + + + + | Component | Value | Ref Range | Performed | Pathologist | | | | | At | Signature | + + + + + + | PRODUCT | PLASMA THAWED | | [facility] | | | DESCRIPTION | | | DEPARTMENT | | | | | | OF | | | | | | PATHOLOGY | | + + + + + + | PRODUCT | [id number] | | [facility] | | | UNIT # | | | DEPARTMENT | | | | | | OF | | | | | | PATHOLOGY | | + + + + + + | UNIT ABO | A | | [facility] | | | | | | DEPARTMENT | | | | | | OF | | | | | | PATHOLOGY | | + + + + + + | UNIT RH | POS | | [facility] | | | | | | DEPARTMENT | | | | | | OF | | | | | | PATHOLOGY | | + + + + + + | STATUS OF | Presumed Transfused | | [facility] | | | UNIT | | | DEPARTMENT | | | | | | OF | | | | | | PATHOLOGY | | + + + + + + | BLOOD | [id number] | | [facility] | | | PRODUCT | | | DEPARTMENT | | | CODE | | | OF | | | | | | PATHOLOGY | | + + + + + + + + | Specimen | + + | | + + + + + + + | Performing | Address | City/State/Zipcode | Phone Number | | Organization | | | | + + + + + | [facility] | [address] | [place] [address] | | | PATHOLOGY | [address] | | | + + + + + PRODUCT - FRESH FROZEN PLASMA (09/09/2014 4:07 AM PDT) + + + + + + | Component | Value | Ref Range | Performed | Pathologist | | | | | At | Signature | + + + + + + | PRODUCT | PLASMA THAWED | | [facility] | | | DESCRIPTION | | | DEPARTMENT | | | | | | OF | | | | | | PATHOLOGY | | + + + + + + | PRODUCT | [id number] | | [facility] | | | UNIT # | | | DEPARTMENT | | | | | | OF | | | | | | PATHOLOGY | | + + + + + + | UNIT ABO | A | | [facility] | | | | | | DEPARTMENT | | | | | | OF | | | | | | PATHOLOGY | | + + + + + + | UNIT RH | POS | | [facility] | | | | | | DEPARTMENT | | | | | | OF | | | | | | PATHOLOGY | | + + + + + + | STATUS OF | Presumed Transfused | | [facility] | | | UNIT | | | DEPARTMENT | | | | | | OF | | | | | | PATHOLOGY | | + + + + + + | BLOOD | [id number] | | [facility] | | | PRODUCT | | | DEPARTMENT | | | CODE | | | OF | | | | | | PATHOLOGY | | + + + + + + + + | Specimen | + + | | + + + + + + + | Performing | Address | City/State/Zipcode | Phone Number | | Organization | | | | + + + + + | [facility] DEPARTMENT OF | [address] | [place] [address] | | | PATHOLOGY | [address] | | | + + + + + PRODUCT - FRESH FROZEN PLASMA (09/09/2014 4:07 AM PDT) + + + + + + | Component | Value | Ref Range | Performed | Pathologist | | | | | At | Signature | + + + + + + | PRODUCT | THAWED APHERESIS PLASMA | | [facility] | | | DESCRIPTION | | | DEPARTMENT | | | | | | OF | | | | | | PATHOLOGY | | + + + + + + | PRODUCT | [id number] | | [facility] | | | UNIT # | | | DEPARTMENT | | | | | | OF | | | | | | PATHOLOGY | | + + + + + + | UNIT ABO | AB | | [facility] | | | | | | DEPARTMENT | | | | | | OF | | | | | | PATHOLOGY | | + + + + + + | UNIT RH | POS | | [facility] | | | | | | DEPARTMENT | | | | | | OF | | | | | | PATHOLOGY | | + + + + + + | STATUS OF | Presumed Transfused | | [facility] | | | UNIT | | | DEPARTMENT | | | | | | OF | | | | | | PATHOLOGY | | + + + + + + | BLOOD | [id number] | | [facility] | | | PRODUCT | | | DEPARTMENT | | | CODE | | | OF | | | | | | PATHOLOGY | | + + + + + + + + | Specimen | + + | | + + + + + + + | Performing | Address | City/State/Zipcode | Phone Number | | Organization | | | | + + + + + | [facility] DEPARTMENT | [address] | [place] [address] | | | PATHOLOGY | [address] | | | + + + + + CHEM 8 W/H&HPOC (09/09/2014 4:00 AM PDT) + + + + + + | Component | Value | Ref Range | Performed | Pathologist | | | | | At | Signature | + + + + + + | SODIUM, POC | 143 | 134 - 143 | [facility] - | | | | | mmol/L | [facility] | | | | | | [facility] | | | | | | OF CARE | | | | | | TESTS | | + + + + + + | POTASSIUM, | 3.8 | 3.4 - 5.0 | [facility] - | | | POC | | mmol/L | [facility] | | | | | | [facility] | | | | | | OF CARE | | | | | | TESTS | | + + + + + + | CHLORIDE, | 110.0 (H) | 97 - 108 mmol/L | [facility] - | | | POC | | | [facility] | | | | | | [facility] | | | | | | OF CARE | | | | | | TESTS | | + + + + + + | IONIZED | 0.86 (L) | 1.14 - 1.32 | [facility] - | | | CALCIUM, | | mmol/L | [facility] | | | POC | | | [facility] | | | | | | OF CARE | | | | | | TESTS | | + + + + + + | TCO2, POC | 17 (L) | 22 - 29 mmol/L | [facility] - | | | | | | [facility] | | | | | | [place] | | | | | | OF CARE | | | | | | TESTS | | + + + + + + | GLUCOSE, | 330 (H) | 60 - 99 mg/dL | [facility] - | | | POC | | | [facility] | | | | | | [place] [place] | | | | | | OF CARE | | | | | | TESTS | | + + + + + + | BUN, POC | 5 (L) | 6 - 20 mg/dL | [facility] - | | | | | | [facility] | | | | | | [place] [place] | | | | | | OF CARE | | | | | | TESTS | | + + + + + + | CREATININE, | 0.8 | 0.7 - 1.3 mg/dL | [facility] - | | | POC | | | [facility] | | | | | | [place] [place] | | | | | | OF CARE | | | | | | TESTS | | + + + + + + | HEMOGLOBIN, | 4.4 (AA) | 13.5 - 17.5 | [facility] - | | | POC | | g/dL | [facility] | | | | | | [facility] | | | | | | OF CARE | | | | | | TESTS | | + + + + + + | HEMATOCRIT, | 13 (AA) | 41.0 - 53.0 | [facility] - | | | POC | | %PCV | [facility] | | | | | | [facility] | | | | | | OF CARE | | | | | | TESTS | | + + + + + + + + | Specimen | + + | | + + + + + + + | Performing | Address | City/State/Zipcode | Phone Number | | Organization | | | | + + + + + | [facility] | [address] | [place], [place] | | | [facility] | [address] | [address] | | | TESTS | | | | + + + + + PRODUCT- RED CELLS LEUKOREDUCED (09/09/2014 3:59 AM PDT) + + + + + + | Component | Value | Ref Range | Performed | Pathologist | | | | | At | Signature | + + + + + + | PRODUCT | -1 RED BLOOD CELL | | [facility] | | | DESCRIPTION | ADENINE-SALINE ADDED | | DEPARTMENT | | | | LEUKOCYTES REDUCED | | OF | | | | | | PATHOLOGY | | + + + + + + | PRODUCT | [id number] | | [facility] | | | UNIT # | | | DEPARTMENT | | | | | | OF | | | | | | PATHOLOGY | | + + + + + + | UNIT ABO | O | | [facility] | | | | | | DEPARTMENT | | | | | | OF | | | | | | PATHOLOGY | | + + + + + + | UNIT RH | NEG | | [facility] | | | | | | DEPARTMENT | | | | | | OF | | | | | | PATHOLOGY | | + + + + + + | STATUS OF | Presumed Transfused | | [facility] | | | UNIT | | | DEPARTMENT | | | | | | OF | | | | | | PATHOLOGY | | + + + + + + | BLOOD | [id number] | | [facility] | | | PRODUCT | | | DEPARTMENT | | | CODE | | | OF | | | | | | PATHOLOGY | | + + + + + + + + | Specimen | + + | | + + + + + + + | Performing | Address | City/State/Zipcode | Phone Number | | Organization | | | | + + + + + | [facility] | [address] | [place] [address] | | | PATHOLOGY | [address] | | | + + + + + PRODUCT- RED CELLS LEUKOREDUCED (09/09/2014 3:59 AM PDT) + + + + + + | Component | Value | Ref Range | Performed | Pathologist | | | | | At | Signature | + + + + + + | PRODUCT | -1 RED BLOOD CELL | | [facility] | | | DESCRIPTION | ADENINE-SALINE ADDED | | DEPARTMENT | | | | LEUKOCYTES REDUCED | | OF | | | | | | PATHOLOGY | | + + + + + + | PRODUCT | [id number] | | [facility] | | | UNIT # | | | DEPARTMENT | | | | | | OF | | | | | | PATHOLOGY | | + + + + + + | UNIT ABO | O | | [facility] | | | | | | DEPARTMENT | | | | | | OF | | | | | | PATHOLOGY | | + + + + + + | UNIT RH | NEG | | [facility] | | | | | | DEPARTMENT | | | | | | OF | | | | | | PATHOLOGY | | + + + + + + | STATUS OF | Presumed Transfused | | [facility] | | | UNIT | | | DEPARTMENT | | | | | | OF | | | | | | PATHOLOGY | | + + + + + + | BLOOD | [id number] | | [facility] | | | PRODUCT | | | DEPARTMENT | | | CODE | | | OF | | | | | | PATHOLOGY | | + + + + + + + + | Specimen | + + | | + + + + + + + | Performing | Address | City/State/Zipcode | Phone Number | | Organization | | | | + + + + + | [facility] DEPARTMENT OF | [address] | [place] [address] | | | PATHOLOGY | [address] | | | + + + + + PRODUCT- RED CELLS LEUKOREDUCED (09/09/2014 3:59 AM PDT) + + + + + + | Component | Value | Ref Range | Performed | Pathologist | | | | | At | Signature | + + + + + + | PRODUCT | -1 RED BLOOD CELL | | [facility] | | | DESCRIPTION | ADENINE-SALINE ADDED | | DEPARTMENT | | | | LEUKOCYTES REDUCED | | OF | | | | | | PATHOLOGY | | + + + + + + | PRODUCT | [id number] | | [facility] | | | UNIT # | | | DEPARTMENT | | | | | | OF | | | | | | PATHOLOGY | | + + + + + + | UNIT ABO | O | | [facility] | | | | | | DEPARTMENT | | | | | | OF | | | | | | PATHOLOGY | | + + + + + + | UNIT RH | NEG | | [facility] | | | | | | DEPARTMENT | | | | | | OF | | | | | | PATHOLOGY | | + + + + + + | STATUS OF | Presumed Transfused | | [facility] | | | UNIT | | | DEPARTMENT | | | | | | OF | | | | | | PATHOLOGY | | + + + + + + | BLOOD | [id number] | | [facility] | | | PRODUCT | | | DEPARTMENT | | | CODE | | | OF | | | | | | PATHOLOGY | | + + + + + + + + | Specimen | + + | | + + + + + + + | Performing | Address | City/State/Zipcode | Phone Number | | Organization | | | | + + + + + | [facility] | [address] | [place] [address] | | | PATHOLOGY | [address] | | | + + + + + PRODUCT- RED CELLS LEUKOREDUCED (09/09/2014 3:59 AM PDT) + + + + + + | Component | Value | Ref Range | Performed | Pathologist | | | | | At | Signature | + + + + + + | PRODUCT | -1 RED BLOOD CELL | | [facility] | | | DESCRIPTION | ADENINE-SALINE ADDED | | DEPARTMENT | | | | LEUKOCYTES REDUCED | | OF | | | | | | PATHOLOGY | | + + + + + + | PRODUCT | [id number] | | [facility] | | | UNIT # | | | DEPARTMENT | | | | | | OF | | | | | | PATHOLOGY | | + + + + + + | UNIT ABO | O | | [facility] | | | | | | DEPARTMENT | | | | | | OF | | | | | | PATHOLOGY | | + + + + + + | UNIT RH | NEG | | [facility] | | | | | | DEPARTMENT | | | | | | OF | | | | | | PATHOLOGY | | + + + + + + | STATUS OF | Presumed Transfused | | [facility] | | | UNIT | | | DEPARTMENT | | | | | | OF | | | | | | PATHOLOGY | | + + + + + + | BLOOD | [id number] | | [facility] | | | PRODUCT | | | DEPARTMENT | | | CODE | | | OF | | | | | | PATHOLOGY | | + + + + + + + + | Specimen | + + | | + + + + + + + | Performing | Address | City/State/Zipcode | Phone Number | | Organization | | | | + + + + + | [facility] DEPARTMENT OF | [address] | [place] [address] | | | PATHOLOGY | [address] | | | + + + + + PRODUCT- RED CELLS LEUKOREDUCED (09/09/2014 3:59 AM PDT) + + + + + + | Component | Value | Ref Range | Performed | Pathologist | | | | | At | Signature | + + + + + + | PRODUCT | -1 RED BLOOD CELL | | [facility] | | | DESCRIPTION | ADENINE-SALINE ADDED | | DEPARTMENT | | | | LEUKOCYTES REDUCED | | OF | | | | | | PATHOLOGY | | + + + + + + | PRODUCT | [id number] | | [facility] | | | UNIT # | | | DEPARTMENT | | | | | | OF | | | | | | PATHOLOGY | | + + + + + + | UNIT ABO | O | | [facility] | | | | | | DEPARTMENT | | | | | | OF | | | | | | PATHOLOGY | | + + + + + + | UNIT RH | NEG | | [facility] | | | | | | DEPARTMENT | | | | | | OF | | | | | | PATHOLOGY | | + + + + + + | STATUS OF | Presumed Transfused | | [facility] | | | UNIT | | | DEPARTMENT | | | | | | OF | | | | | | PATHOLOGY | | + + + + + + | BLOOD | [id number] | | [facility] | | | PRODUCT | | | DEPARTMENT | | | CODE | | | OF | | | | | | PATHOLOGY | | + + + + + + + + | Specimen | + + | | + + + + + + + | Performing | Address | City/State/Zipcode | Phone Number | | Organization | | | | + + + + + | [facility] | [address] | [place] [address] | | | PATHOLOGY | [address] | | | + + + + + PRODUCT- RED CELLS LEUKOREDUCED (09/09/2014 3:59 AM PDT) + + + + + + | Component | Value | Ref Range | Performed | Pathologist | | | | | At | Signature | + + + + + + | PRODUCT | -1 RED BLOOD CELL | | [facility] | | | DESCRIPTION | ADENINE-SALINE ADDED | | DEPARTMENT | | | | LEUKOCYTES REDUCED | | OF | | | | | | PATHOLOGY | | + + + + + + | PRODUCT | [id number] | | [facility] | | | UNIT # | | | DEPARTMENT | | | | | | OF | | | | | | PATHOLOGY | | + + + + + + | UNIT ABO | O | | [facility] | | | | | | DEPARTMENT | | | | | | OF | | | | | | PATHOLOGY | | + + + + + + | UNIT RH | NEG | | [facility] | | | | | | DEPARTMENT | | | | | | OF | | | | | | PATHOLOGY | | + + + + + + | STATUS OF | Presumed Transfused | | [facility] | | | UNIT | | | DEPARTMENT | | | | | | OF | | | | | | PATHOLOGY | | + + + + + + | BLOOD | [id number] | | [facility] | | | PRODUCT | | | DEPARTMENT | | | CODE | | | OF | | | | | | PATHOLOGY | | + + + + + + + + | Specimen | + + | | + + + + + + + | Performing | Address | City/State/Zipcode | Phone Number | | Organization | | | | + + + + + | [facility] | [address] | [place] [address] | | | PATHOLOGY | [address] | | | + + + + + ED BG-LAC,POC (09/09/2014 3:52 AM PDT) + + + + + + | Component | Value | Ref Range | Performed | Pathologist | | | | | At | Signature | + + + + + + | ED BG POC | 18 (L) | 23 - 29 mmol/L | [facility] - | | | TC02 | | | [facility] | | | | | | [facility] | | | | | | OF CARE | | | | | | TESTS | | + + + + + + | ED BG POC | 7.06 (L) | 7.35 - 7.45 | [facility] - | | | PH | | | [place] | | | | | | [facility] | | | | | | OF CARE | | | | | | TESTS | | + + + + + + | ED BG POC | 58 (H) | 35 - 50 mmHg | [facility] - | | | PCO2 | | | [facility] | | | | | | [facility] | | | | | | OF CARE | | | | | | TESTS | | + + + + + + | ED BG POC | 16 (L) | 22 - 28 mmol/L | [facility] - | | | HCO3 | | | [facility] | | | | | | [facility] | | | | | | OF CARE | | | | | | TESTS | | + + + + + + | ED BG POC | -14.0 | mmol/L | [facility] - | | | BE | | | [facility] | | | | | | [facility] | | | | | | OF CARE | | | | | | TESTS | | + + + + + + | ED BG POC | <70 (L) | 30 - 55 mmHg | [facility] - | | | PO2 | | | [facility] | | | | | | [facility] | | | | | | OF CARE | | | | | | TESTS | | + + + + + + | ED BG POC | 19 | % | [facility] - | | | SO2 | | | [facility] | | | | | | [facility] | | | | | | OF CARE | | | | | | TESTS | | + + + + + + | ED LACTATE | 4.3 (H) | 0.5 - 2.2 | [facility] - | | | POC | | mmol/L | [facility] | | | | | | [facility] | | | | | | OF CARE | | | | | | TESTS | | + + + + + + | ED BG POC | 36.0 C | | [facility] - | | | TEMP | | | [facility] | | | | | | [facility] | | | | | | OF CARE | | | | | | TESTS | | + + + + + + | ISTAT | VENOUS | | [facility] - | | | SAMPLE TYPE | | | [facility] | | | | | | [facility] | | | | | | OF CARE | | | | | | TESTS | | + + + + + + + + | Specimen | + + | | + + + + + + + | Performing | Address | City/State/Zipcode | Phone Number | | Organization | | | | + + + + + | [facility] | [address] | [place], [place] | | | [facility] | [address] | [address] | | | TESTS | | | | + + + + + PRODUCT - FRESH FROZEN PLASMA (09/09/2014 3:51 AM PDT) + + + + + + | Component | Value | Ref Range | Performed | Pathologist | | | | | At | Signature | + + + + + + | PRODUCT | PLASMA THAWED | | [facility] | | | DESCRIPTION | | | DEPARTMENT | | | | | | OF | | | | | | PATHOLOGY | | + + + + + + | PRODUCT | [id number] | | [facility] | | | UNIT # | | | DEPARTMENT | | | | | | OF | | | | | | PATHOLOGY | | + + + + + + | UNIT ABO | A | | [facility] | | | | | | DEPARTMENT | | | | | | OF | | | | | | PATHOLOGY | | + + + + + + | UNIT RH | POS | | [facility] | | | | | | DEPARTMENT | | | | | | OF | | | | | | PATHOLOGY | | + + + + + + | STATUS OF | Returned to Blood Bank | | [facility] | | | UNIT | | | DEPARTMENT | | | | | | OF | | | | | | PATHOLOGY | | + + + + + + | BLOOD | [id number] | | [facility] | | | PRODUCT | | | DEPARTMENT | | | CODE | | | OF | | | | | | PATHOLOGY | | + + + + + + + + | Specimen | + + | | + + + + + + + | Performing | Address | City/State/Zipcode | Phone Number | | Organization | | | | + + + + + | [facility] | [phone] | [place] [address] | | | PATHOLOGY | [address] | | | + + + + + PRODUCT - FRESH FROZEN PLASMA (09/09/2014 3:51 AM PDT) + + + + + + | Component | Value | Ref Range | Performed | Pathologist | | | | | At | Signature | + + + + + + | PRODUCT | THAWED APHERESIS PLASMA | | [facility] | | | DESCRIPTION | | | DEPARTMENT | | | | | | OF | | | | | | PATHOLOGY | | + + + + + + | PRODUCT | [id number] | | [facility] | | | UNIT # | | | DEPARTMENT | | | | | | OF | | | | | | PATHOLOGY | | + + + + + + | UNIT ABO | A | | [facility] | | | | | | DEPARTMENT | | | | | | OF | | | | | | PATHOLOGY | | + + + + + + | UNIT RH | POS | | [facility] | | | | | | DEPARTMENT | | | | | | OF | | | | | | PATHOLOGY | | + + + + + + | STATUS OF | Returned to Blood Bank | | [facility] | | | UNIT | | | DEPARTMENT | | | | | | OF | | | | | | PATHOLOGY | | + + + + + + | BLOOD | [id number] | | [facility] | | | PRODUCT | | | DEPARTMENT | | | CODE | | | OF | | | | | | PATHOLOGY | | + + + + + + + + | Specimen | + + | | + + + + + + + | Performing | Address | City/State/Zipcode | Phone Number | | Organization | | | | + + + + + | [facility] | [address] | [place] [address] | | | PATHOLOGY | [address] | | | + + + + + PRODUCT- RED CELLS LEUKOREDUCED (09/09/2014 3:32 AM PDT) + + + + + + | Component | Value | Ref Range | Performed | Pathologist | | | | | At | Signature | + + + + + + | PRODUCT | -1 RED BLOOD CELL | | [facility] | | | DESCRIPTION | ADENINE-SALINE ADDED | | DEPARTMENT | | | | LEUKOCYTES REDUCED | | OF | | | | | | PATHOLOGY | | + + + + + + | PRODUCT | [id number] | | [facility] | | | UNIT # | | | DEPARTMENT | | | | | | OF | | | | | | PATHOLOGY | | + + + + + + | UNIT ABO | O | | [facility] | | | | | | DEPARTMENT | | | | | | OF | | | | | | PATHOLOGY | | + + + + + + | UNIT RH | POS | | [facility] | | | | | | DEPARTMENT | | | | | | OF | | | | | | PATHOLOGY | | + + + + + + | STATUS OF | Presumed Transfused | | [facility] | | | UNIT | | | DEPARTMENT | | | | | | OF | | | | | | PATHOLOGY | | + + + + + + | BLOOD | [id number] | | [facility] | | | PRODUCT | | | DEPARTMENT | | | CODE | | | OF | | | | | | PATHOLOGY | | + + + + + + + + | Specimen | + + | | + + + + + + + | Performing | Address | City/State/Zipcode | Phone Number | | Organization | | | | + + + + + | [facility] | [address] | [place] [address] | | | PATHOLOGY | [address] | | | + + + + + PRODUCT- RED CELLS LEUKOREDUCED (09/09/2014 3:32 AM PDT) + + + + + + | Component | Value | Ref Range | Performed | Pathologist | | | | | At | Signature | + + + + + + | PRODUCT | -1 RED BLOOD CELL | | [facility] | | | DESCRIPTION | ADENINE-SALINE ADDED | | DEPARTMENT | | | | LEUKOCYTES REDUCED | | OF | | | | | | PATHOLOGY | | + + + + + + | PRODUCT | [id number] | | [facility] | | | UNIT # | | | DEPARTMENT | | | | | | OF | | | | | | PATHOLOGY | | + + + + + + | UNIT ABO | O | | [facility] | | | | | | DEPARTMENT | | | | | | OF | | | | | | PATHOLOGY | | + + + + + + | UNIT RH | POS | | [facility] | | | | | | DEPARTMENT | | | | | | OF | | | | | | PATHOLOGY | | + + + + + + | STATUS OF | Presumed Transfused | | [facility] | | | UNIT | | | DEPARTMENT | | | | | | OF | | | | | | PATHOLOGY | | + + + + + + | BLOOD | [id number] | | [facility] | | | PRODUCT | | | DEPARTMENT | | | CODE | | | OF | | | | | | PATHOLOGY | | + + + + + + + + | Specimen | + + | | + + + + + + + | Performing | Address | City/State/Zipcode | Phone Number | | Organization | | | | + + + + + | [facility] | [address] | [place] [address] | | | PATHOLOGY | [address] | | | + + + + + PRODUCT- RED CELLS LEUKOREDUCED (09/09/2014 3:32 AM PDT) + + + + + + | Component | Value | Ref Range | Performed | Pathologist | | | | | At | Signature | + + + + + + | PRODUCT | -3 RED BLOOD CELLS | | [facility] | | | DESCRIPTION | ADENINE-SALINE ADDED | | DEPARTMENT | | | | LEUKOCYTES REDUCED | | OF | | | | | | PATHOLOGY | | + + + + + + | PRODUCT | [id number] | | [facility] | | | UNIT # | | | DEPARTMENT | | | | | | OF | | | | | | PATHOLOGY | | + + + + + + | UNIT ABO | O | | [facility] | | | | | | DEPARTMENT | | | | | | OF | | | | | | PATHOLOGY | | + + + + + + | UNIT RH | POS | | [facility] | | | | | | DEPARTMENT | | | | | | OF | | | | | | PATHOLOGY | | + + + + + + | STATUS OF | Presumed Transfused | | [facility] | | | UNIT | | | DEPARTMENT | | | | | | OF | | | | | | PATHOLOGY | | + + + + + +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 +---------+ +--------+---+---+ +---+---+ | | | +---+---+ + +---------+ +-------+---+---+ | ketorolac (TORADOL) injection | New Bag | 09/15/20 | 15 mg | | | | 15 mg 15 mg, intravenous, EVERY | | 14 1:40 | | | | | 6 HOURS NEEDED, Starting Sat | | PM PDT | | | | | 09/15/14 at 1335, Until Mon | | | | | | | 09/17/14 at 0105, severe pain | | | | | | + +---------+ +-------+---+---+ +---+---+ | | | +---+---+ + + [...] +---+---+---+ +---+---+ | | | +---+---+ + +---------+ + +---+---+ | lactated ringers IV 1,000 mL, | New Bag | 09/09/20 | 1,000 mL | | | | intravenous, ONCE, 1 dose, Sun | | 14 7:59 | | | | | 09/09/14 at 2000 | | PM PDT | | | | + +---------+ + +---+---+ +---+---+ | | | +---+---+ + +---------+ + +---+---+ | lactated ringers IV 1,000 mL, | New Bag | 09/09/20 | 1,000 mL | | | | intravenous, ONCE, 1 dose, Sun | | 14 11:14 | | | | | 09/09/14 at 2345 | | PM PDT | | | | + +---------+ + +---+---+ +---+---+ | | | +---+---+ + +---------+ + +---+---+ | lactated ringers IV 1,000 mL, | New Bag | 09/10/20 | 1,000 mL | | | | intravenous, ONCE, 1 dose, Mon | | 14 5:00 | | | | | 09/10/14 at 0515 | | AM PDT | | | | + +---------+ + +---+---+ +---+---+ | | | +---+---+ + +---------+ +-----+---+---+ | magnesium sulfate IV (RTU) 4 g | New Bag | 09/10/20 | 4 g | | | | 4 g, intravenous, NEEDED, | | 14 3:55 | | | | | Starting 10/12/14 at 2324, | | AM PDT | | | | | Until 09/10/14 at 1601, | | | | | | | magnesium level < or = 1.4 mg/dL | | | | | | | and for SCr < 1.5 | | | | | | + +---------+ +-----+---+---+ +---+---+ | | | +---+---+ + +---------+ +-----+---+---+ | magnesium sulfate IV (RTU) 4 g | New Bag | 09/12/20 | 4 g | | | | 4 g, intravenous, ONCE, 1 dose, | | 14 9:25 | | | | | 09/12/14 at 0830 | | AM PDT | | | | + +---------+ +-----+---+---+ +---+---+ | | | +---+---+ + +---------+ +-----+---+---+ | magnesium sulfate IV (RTU) 4 g | New Bag | 09/13/20 | 4 g | | | | 4 g, intravenous, ONCE, 1 dose, | | 14 9:50 | | | | | Melissa 09/13/14 at 0915 | | AM PDT | | | | + +---------+ +-----+---+---+ +---+---+ | | | +---+---+ + +---------+ +-----+---+---+ | magnesium sulfate IV (RTU) 4 g | New Bag | 09/14/20 | 4 g | | | | 4 g, intravenous, ONCE, 1 dose, | | 14 9:16 | | | | | 09/14/14 at 0915 | | AM PDT | | | | + +---------+ +-----+---+---+ +---+---+ | | | +---+---+ + +---------+ +-----+---+---+ | magnesium sulfate IV (RTU) 4 g | New Bag | 09/16/20 | 4 g | | | | 4 g, intravenous, ONCE, 1 dose, | | 14 9:22 | | | | | 09/16/14 at 0745 | | AM PDT | | | | + +---------+ +-----+---+---+ +---+---+ | | | +---+---+ + +-------+ +--------+---+ + | meningococcal | Given | 09/11/20 | 0.5 mL | | Left Arm | | polysaccharide-dipheria toxoid | | 14 1:36 | | | | | conjugate vaccine (MENACTRA) | | PM PDT | | | | | injection 0.5 mL 0.5 mL, | | | | | | | intramuscular, ONE TIME DURING | | | | | | | VISIT, 1 dose, Starting Tue | | | | | | | 09/11/14 at 0900, Until Tue | | | | | | | 14 at 1336 | | | | | | + +-------+ +--------+---+ + +---+---+ | | | +---+---+ + +-------+ +--------+---+---+ | mineral oil (FLEET MINERAL OIL) | Given | /16/20 | 133 mL | | | | rectal enema 133 mL 133 mL, | | 14 10:56 | | | | | rectal, ONCE, 1 dose, Melissa | | AM PDT | | | | | 09/13/14 at 1015 | | | | | | + +-------+ +--------+---+---+ +---+---+ | | | +---+---+ + + + +---------+---+---+ | nicotine (NICOTROL) 14 mg/24 hr | Applied | 09/16/20 | 1 patch | | | | 1 patch 1 patch, transdermal, | Patch | 14 8:23 | | | | | DAILY, First dose on 09/10/14 | | AM PDT | | | | | at 1900, Until Discontinued | | | | | | + + + +---------+---+---+ + + +---------+---+---+ | Applied Patch | 09/15/20 | 1 patch | | | | | 14 8:09 | | | | | | AM PDT | | | | + + +---------+---+---+ | Applied Patch | 09/14/20 | 1 patch | | | | | 14 9:16 | | | | | | AM PDT | | | | + + +---------+---+---+ +---+---+ | | | +---+---+ + +-------+ +------+---+---+ | nicotine polacrilex (NICORETTE) | Given | 09/11/20 | 2 mg | | | | gum 2 mg 2 mg, oral, NEEDED, | | 14 4:11 | | | | | Starting 09/11/14 at 0200, | | AM PDT | | | | | Until 09/17/14 at 0105, | | | | | | | Withdrawal symptoms | | | | | | + +-------+ +------+---+---+ +---+---+ | | | +---+---+ + +---------+ +------+---+---+ | ondansetron (ZOFRAN) injection | New Bag | 09/14/20 | 4 mg | | | | 4 mg 4 mg, intravenous, EVERY 12 | | 14 1:06 | | | | | HOURS NEEDED, Starting Tue | | PM PDT | | | | | 09/11/14 at 1318, Until Mon | | | | | | | 09/17/14 at 0105, nausea/vomiting | | | | | | + +---------+ +------+---+---+ +---------+ +------+---+---+ | New Bag | 09/13/20 | 4 mg | | | | | 14 2:04 | | | | | | PM PDT | | | | +---------+ +------+---+---+ | New Bag | 09/13/20 | 4 mg | | | | | 14 1:26 | | | | | | AM PDT | | | | +---------+ +------+---+---+ + +---+ | | | + +---+ | ondansetron (ZOFRAN) injection | | | 1 dose, Starting Wed09/11/14 at | | | 1317, Until Wed09/11/14 at 1321 | | + +---+ | | | + +---+ + +-------+ +-------+---+---+ | oxyCODONE (immediate release) | Given | 09/16/20 | 15 mg | | | | (ROXICODONE) tablet 5-15 mg 5-15 | | 14 6:19 | | | | | mg, oral, EVERY 3 HOURS | | PM PDT | | | | | NEEDED, Starting Wed09/10/14 at | | | | | | | 1552, Until Wed09/17/14 at 0105, | | | | | | | moderate pain | | | | | | + +-------+ +-------+---+---+ +-------+ +-------+---+---+ | Given | 09/16/20 | 15 mg | | | | | 14 3:00 | | | | | | PM PDT | | | | +-------+ +-------+---+---+ | Given | 09/16/20 | 15 mg | | | | | 14 11:58 | | | | | | AM PDT | | | | +-------+ +-------+---+---+ +---+---+ | | | +---+---+ + +---------+ +-------+---+---+ | piperacillin-tazobactam (ZOSYN) | New Bag | 09/09/20 | 4.5 g | | | | IV (minibag+) 4.5 g 4.5 g, | | 14 2:00 | | | | | intravenous, ONCE, 1 dose, Sun | | PM PDT | | | | | 09/09/14 at 1300 | | | | | | + +---------+ +-------+---+---+ +---+---+ | | | +---+---+ + +---------+ +---------+---+---+ | piperacillin-tazobactam (ZOSYN) | Bag | 09/13/20 | 3.375 g | | | | IV 3.375 g 3.375 g, | | 14 9:17 | | | | | intravenous, EVERY 8 HOURS, 14 | | PM PDT | | | | | doses, First dose on Wed09/09/14 | | | | | | | at 1900, Last dose on [facility] | | | | | | | [...] +---+---+ | | | +---+---+ + +-------+ +--------+---+ + | pneumococcal (13-julio) conjugate | Given | 09/11/20 | 0.5 mL | | Left Arm | | vaccine (PREVNAR 13) injection | | 14 1:38 | | | | | 0.5 mL 0.5 mL, intramuscular, | | PM PDT | | | | | ONE TIME DURING VISIT, 1 dose, | | | | | | | Starting Wed09/11/14 at 0900, | | | | | | | Until Wed09/11/14 at 1338 | | | | | | + +-------+ +--------+---+ + +---+---+ | | | +---+---+ + +-------+ +------+---+---+ | polyethylene glycol (MIRALAX) | Given | 09/16/20 | 17 g | | | | powder 17 g 17 g, oral, DAILY, | | 14 8:23 | | | | | First dose on [facility] 09/13/14 at | | AM PDT | | | | | 1130, Until Discontinued | | | | | | + +-------+ +------+---+---+ +-------+ +------+---+---+ | Given | 09/15/20 | 17 g | | | | | 14 8:09 | | | | | | AM PDT | | | | +-------+ +------+---+---+ | Given | 09/14/20 | 17 g | | | | | 14 9:16 | | | | | | AM PDT | | | | +-------+ +------+---+---+ +---+---+ | | | +---+---+ + +-------+ +--------+---+---+ | potassium chloride (KLOR-CON) | Given | 09/13/20 | 20 mEq | | | | packet 20 mEq 20 mEq, oral, | | 14 10:56 | | | | | THREE TIMES DAILY, 3 doses, First | | AM PDT | | | | | dose on Wed09/13/14 at 1030, | | | | | | | Last dose on Wed09/13/14 at 2200 | | | | | | + +-------+ +--------+---+---+ +---+---+ | | | +---+---+ + +-------+ +--------+---+---+ | potassium chloride (KLOR-CON) | Given | 09/14/20 | 20 mEq | | | | packet 20 mEq 20 mEq, oral, FOUR | | 14 9:18 | | | | | TIMES DAILY, 4 doses, First dose | | PM PDT | | | | | on Wed09/14/14 at 0845, Last | | | | | | | dose on Wed09/14/14 at 2200 | | | | | | + +-------+ +--------+---+---+ +---+---+ | | | +---+---+ + +---------+ +--------+---+---+ | potassium chloride IV 20 mEq | New Bag | 09/10/20 | 20 mEq | | | | 20 mEq, intravenous, NEEDED, | | 14 3:55 | | | | | Starting 09/09/14 at 2324, | | AM PDT | | | | | Until Wed09/10/14 at 1601, | | | | | | | potassium level 3.6 - 4 mmol/L | | | | | | + +---------+ +--------+---+---+ +---+---+ | | | +---+---+ + +---------+ +--------+---+---+ | potassium chloride IV 40 mEq | New Bag | 09/09/20 | 40 mEq | | | | 40 mEq, intravenous, NEEDED, | | 14 11:40 | | | | | Starting 09/09/14 at 2324, | | PM PDT | | | | | Until Wed09/10/14 at 1601, | | | | | | | potassium level 2.5 - 3.5 mmol/L | | | | | | + +---------+ +--------+---+---+ +---+---+ | | | +---+---+ + + + +---+---+---+ | probiotic kefir (FELICITAS'S KEFIR) | Given - | 09/13/20 | | | | | oral, THREE TIMES DAILY, First | Food | 14 9:24 | | | | | dose on Wed09/13/14 at 1130, | | PM PDT | | | | | Until Discontinued | | | | | | + + + +---+---+---+ + + +---+---+---+ | Given - Food | 09/13/20 | | | | | | 14 10:56 | | | | | | AM PDT | | | | + + +---+---+---+ +---+---+ | | | +---+---+ + +---------+ +---------+---+---+ | promethazine (PHENERGAN) | New Bag | 09/13/20 | 6.25 mg | | | | injection 6.25 mg 6.25 mg, | | 14 7:51 | | | | | intravenous, EVERY 4 HOURS | | PM PDT | | | | | NEEDED, Starting Wed09/11/14 at | | | | | | | 1319, Until Wed09/17/14 at 0105, | | | | | | | nausea/vomiting | | | | | | + +---------+ +---------+---+---+ +---------+ +---------+---+---+ | New Bag | 09/13/20 | 6.25 mg | | | | | 14 9:50 | | | | | | AM PDT | | | | +---------+ +---------+---+---+ | New Bag | 09/13/20 | 6.25 mg | | | | | 14 4:41 | | | | | | AM PDT | | | | +---------+ +---------+---+---+ + +---+ | | | + +---+ | propofol (DIPRIVAN) injection | | | 1 dose, Starting 09/09/14 at | | | 1134, Until 09/09/14 at 1200 | | + +---+ | | | + +---+ + + + + +-------+---+ | propofol (DIPRIVAN) injection | Rate/Dos | 09/10/20 | 10 | 4.8 | | | 0.5-60 mcg/kg/min | e Verify | 14 7:28 | mcg/kg/m | mL/hr | | | 80 kg (rounded to 0.24-28.8 | | AM PDT | in | | | | mL/hr), intravenous, CONTINUOUS, | | | | | | | Starting 09/09/14 at 1245, | | | | | | | Until 09/10/14 at 1334 | | | | | | + + + + +-------+---+ + + + +-------+---+ | New Bag | 09/10/20 | 10 | 4.8 | | | | 14 5:08 | mcg/kg/m | mL/hr | | | | AM PDT | in | | | + + + +-------+---+ | Rate/Dose Change | 09/09/20 | 10 | 4.8 | | | | 14 9:00 | mcg/kg/m | mL/hr | | | | PM PDT | in | | | + + + +-------+---+ +---+---+ | | | +---+---+ + +-------+ + +---+---+ | senna-docusate (SENOKOT S) | Given | 09/16/20 | 1 tablet | | | | 8.6-50 mg 1 tablet 1 tablet, | | 14 8:23 | | | | | oral, TWICE DAILY, First dose on | | AM PDT | | | | | 09/11/14 at 1130, Until | | | | | | | Discontinued | | | | | | + +-------+ + +---+---+ +-------+ + +---+---+ | Given | 09/15/20 | 1 tablet | | | | | 14 8:12 | | | | | | PM PDT | | | | +-------+ + +---+---+ | Given | 09/15/20 | 1 tablet | | | | | 14 8:09 | | | | | | AM PDT | | | | +-------+ + +---+---+ +---+---+ | | | +---+---+ + +-------+ +-------+---+---+ | simethicone chew (MYLICON) | Given | 09/15/20 | 80 mg | | | | tablet 80 mg 80 mg, oral, THREE | | 14 11:16 | | | | | TIMES DAILY NEEDED, Starting | | PM PDT | | | | | Melissa 09/13/14 at 0435, Until Mon | | | | | | | 09/17/14 at 0105, bloating | | | | | | + +-------+ +-------+---+---+ +-------+ +-------+---+---+ | Given | 09/13/20 | 80 mg | | | | | 14 7:51 | | | | | | PM PDT | | | | +-------+ +-------+---+---+ | Given | 09/13/20 | 80 mg | | | | | 14 9:51 | | | | | | AM PDT | | | | +-------+ +-------+---+---+ +---+---+ | | | +---+---+ documented in this encounter
--- OUTSIDE RECORDS SUMMARY | ~2019-09-08 | XMS | Encounter Summary ---
Demographics + + + | Address | [address] | | | [place] [address] | + + + | Home Phone | | + + + | Preferred Language | Unknown | + + + | Marital Status | | + + + | Hindu Affiliation | NON | + + + | Race | Unknown | + + + | Ethnic Group | Not or | + + + Author + + + | Author | [facility] | + + + | Organization | [facility] | + + + | Address | Unknown | + + + | Phone | Unavailable | + + + Support + + + + + | Name | Relationship | Address | Phone | + + + + + | Noemy Alvarez | ADOLFO | [address] | | | | | [place] | | | | | [address] | | + + + + + Care Team Providers + +------+ + | Care Derrick Boat Captain Name | Role | Phone | + +------+ + | No Pcp Per Patient | PCP | Unavailable | + +------+ + Encounter Details +--------+ + + + + | Date | Type | Department | Care Team | Description | +--------+ + + + + | 09/16/ | Pharmacy | Outpatient Retail | | | | 2013 | Visit | [facility] | | | | | | [address] | | | | | | [place], | | | | | | [place] [address] | | | +--------+ + + + [...]
--- OUTSIDE RECORDS SUMMARY | ~2019-09-08 | XMS | Clinical Summary ---
Demographics + + + | Address | NEED ADDRESS | | | [place] [address] | + + + | Home Phone | | + + + | Preferred Language | Unknown | + + + | Marital Status | Single | + + + | Lutheran Affiliation | Unknown | + + + | Race | Unknown | + + + | Ethnic Group | Unknown | + + + Author + + + | Author | [facility] | | | and Shawnana | + + + | Organization | [facility] | | | and [...] [place], [place] | | | | | [address] | | + + + + + | Sarai Tinoco | ECON | Unknown | | + + + + + Care Team Providers + +------+ + | Care Registered Public Surveyor Name | Role | Phone | + [...] documents on file. For more information, please contact:[facility] [place] [address]
--- OUTSIDE RECORDS SUMMARY | ~2019-09-08 | XMS | Encounter Summary ---
Demographics + + + | Address | [address] | | | [place] [address] | + + + | Home Phone | | + + + | Preferred Language | Unknown | + + + | Marital Status | | + + + | Episcopal Affiliation | NON | + + + | Race | Unknown | + + + | Ethnic Group | Not or | + + + Author + + + | Author | [facility] | + + + | Organization | [facility] | + + + | Address | Unknown | + + + | Phone | Unavailable | + + + Support + + + + + | Name | Relationship | Address | Phone | + + + + + | Noemy Alvarez | ADOLFO | [address] | | | | | [place] | | | | | [address] | | + + + + + Care Team Providers + +------+ + | Care Recreation Attendant Name | Role | Phone | + [...] | | | | | [place], | | | | | | [place] [address] | | | +--------+ + + + [...]
--- OUTSIDE RECORDS SUMMARY | ~2019-09-08 | XMS | Clinical Summary ---
Demographics + + + | Address | [address] | | | [place] [address] | + + + | Home Phone | | + + + | Preferred Language | Unknown | + + + | Marital Status | | + + + | Mormonism Affiliation | NON | + + + [...] [place] | | | | | [address] | | + + + + + Care Team Providers + +------+ + | Care Museum Informatics Specialist Name | Role | Phone | + +------+ + | No Pcp Per Patient | PCP | Unavailable | + +------+ + Source Comments JUAN C is fully live on both [facility] and [facility] In[facility] Allergies No Known Allergies Medications [...] | exploratory laparotomy and was transferred to [facility] as hemorrhage | | was uncontrollable. Pt was brought to [facility] Trauma Service as a | | [...] N/A: | FRASER | | 06/28/ | [id number] | | [id number]: Qty: 1 on | | Abdome | HEALTHCARE | | 2015 | 0 / | | 09/09/2014 by Shen, | | n | | | | /[id number] | | Addie Valenzuela MD at [facility] | | | | | | [...] + +--------+ +--------+ + +--------+ | [place] | OHP | [id number] | 09/08/ | [phone] | [address] | | | PLUS | | 2013-P | 6 | [phone] | id | | | OPEN | | resent | | [place] | | | | CARD | | | | [phone] | | + +--------+ +--------+ + +--------+ | [facility] [facility] | [place] | [phone] | Effect | [phone] | [address] | Agency | | | CRIME | | [address] | [address] | | | | VICTIM | | for | | [place], [place] | | | | S | | all | | [id number] | | | | COMPEN | | [...] | 1990 | [phone] | [place] [address] | | | lito | | | 8 (Home) | | + +--------+ +--------+ + + | Jah Garrido | Agency | Self | [birth year] | [address] | | | | | 1990 | [phone] | [place] [address] | | | | | | 8 [...]
--- OUTSIDE RECORDS SUMMARY | ~2019-09-08 | XMS | Encounter Summary ---
Demographics + + + | Address | [address] | | | [place] [address] | + + + | Home Phone | | + + + | Preferred Language | Unknown | + + + | Marital Status | | + + + | Pentecostalism Affiliation | NON | + + + | Race | Unknown | + + + | Ethnic Group | Not or | + + + Author + + + | Author | [facility] | + + + | Organization | [facility] | + + + | Address | Unknown | + + + | Phone | Unavailable | + + + Support + + + + + | Name | Relationship | Address | Phone | + + + + + | Noemy Alvarez | ADOLFO | [address] | | | | | [place] | | | | | [address] | | + + + + + Care Team Providers + +------+ + | Care Women'S Garment Fitter Name | Role | Phone | + [...] [address] | | | | | | [place], [place] | | | | | | [address] | | | +--------+ + + + [...]
--- OUTSIDE RECORDS SUMMARY | ~2019-09-08 | XMS | Encounter Summary ---
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 | | PRODUCT [...] | + + + + + | [facility] | [address] | [place] [address] | | | PATHOLOGY | [address] [...] + + + + | PRODUCT | [id number] | | [facility] | | | UNIT [...] + + + + | BLOOD | [id number] | | [facility] | | | PRODUCT [...] DEPARTMENT OF | [address] | [place] [address] | | | PATHOLOGY | [address] [...] + + + + | PRODUCT | [id number] | | [facility] | | | UNIT [...] + + + + | BLOOD | [id number] | | [facility] | | | PRODUCT [...] | + + + + + | [facility] | [address] | [place] [address] | | | PATHOLOGY | [address] [...] + + + + | PRODUCT | [id number] | | [facility] | | | UNIT [...] + + + + | BLOOD | [id number] | | [facility] | | | PRODUCT [...] + | [facility] DEPARTMENT OF | [address] | [place] [address] | | | PATHOLOGY | [address] [...] + + + + | PRODUCT | [id number] | | [facility] | | | UNIT [...] + + + + | BLOOD | [id number] | | [facility] | | | PRODUCT [...] | + + + + + | [facility] | [address] | [place] [address] | | | PATHOLOGY | [address] [...] + + + + | PRODUCT | [id number] | | [facility] | | | UNIT [...] + + + + | BLOOD | [id number] | | [facility] | | | PRODUCT [...] DEPARTMENT OF | [address] | [place] [address] | | | PATHOLOGY | [address] [...] + + + + | PRODUCT | [id number] | | [facility] | | | UNIT [...] + + + + | BLOOD | [id number] | | [facility] | | | PRODUCT [...] | + + + + + | [facility] | [address] | [place] [address] | | | PATHOLOGY | [address] [...] + + + + | PRODUCT | [id number] | | [facility] | | | UNIT [...] + + + + | BLOOD | [id number] | | [facility] | | | PRODUCT [...] | + + + + + | [facility] DEPARTMENT OF | [address] | [place] [address] | | | PATHOLOGY | [address] [...] + + + + | PRODUCT | [id number] | | [facility] | | | UNIT [...] + + + + | BLOOD | [id number] | | [facility] | | | PRODUCT [...] | + + + + + | [facility] | [address] | [place] [address] | | | PATHOLOGY | [address] [...] + + + + | PRODUCT | [id number] | | [facility] | | | UNIT [...] + + + + | BLOOD | [id number] | | [facility] | | | PRODUCT [...] | + + + + + | [facility] DEPARTMENT OF | [address] | [place] [address] | | | PATHOLOGY | [address] [...] + + + + | PRODUCT | [id number] | | [facility] | | | UNIT [...] + + + + | BLOOD | [id number] | | [facility] | | | PRODUCT [...] | + + + + + | [facility] | [address] | [place] [address] | | | PATHOLOGY | [address] [...] + + + + | PRODUCT | [id number] | | [facility] | | | UNIT [...] + + + + | BLOOD | [id number] | | [facility] | | | PRODUCT [...] DEPARTMENT OF | [address] | [place] [address] | | | PATHOLOGY | [address] [...] + + + + | PRODUCT | [id number] | | [facility] | | | UNIT [...] + + + + | BLOOD | [id number] | | [facility] | | | PRODUCT [...] | + + + + + | [facility] | [address] | [place] [address] | | | PATHOLOGY | [address] [...] + + + + | PRODUCT | [id number] | | [facility] | | | UNIT [...] + + + + | BLOOD | [id number] | | [facility] | | | PRODUCT [...] DEPARTMENT OF | [address] | [place] [address] | | | PATHOLOGY | [address] [...] + + + + + | [facility] | [address] | [place] [address] | | | ALMA ROSA, CORE | [address] | | | [...] | + + + + + | [facility] | [address] | [place] [address] | | | SERVICES, CORE | MONTSERRAT [...] WALLS | [address] | [place], [place] | | | DAVID SOLIS OF CARE | [address] | [address] | | | TESTS | | | [...] [facility] | [address] | [place], [place] | | | DAVID SOLIS OF MANJIT | [address] | [address] | | | TESTS | | | [...] ANDERSONAM | [address] | [place], [place] | | | DAVID SOLIS OF CARE | [address] | [address] | | | TESTS | | | [...] WALLS | [address] | [place], [place] | | | DAIVD SOLIS OF CARE | [facility] | [address] | | | TESTS | | | | + + + + + WESTON STERN (09/09/2014 6:24 AM PDT) + +---------+ + [...] MARK[facility] | [address] | [place], [place] | | | DAVID SOLIS OF MANJIT | [address] | [address] | | | TESTS | | | [...] - [facility] | [address] | [place], [place] | | | DAVID SOLIS OF CARE | [address] | [address] | | | TESTS | | | [...] WALLS | [address] | [place], [place] | | | DAVID SOLIS OF MANJIT | [address] | [address] | | | TESTS | | | [...] | + + + + + | [facility] | [address] | [place] [address] | | | ALMA ROSA, | [address] | | | | TRANSFUSION MEDICINE [...] | [facility] | [address] | [place], [place] | | | DAVID SOLIS OF MANJIT | [address] | [address] | | | TESTS | | | [...] WALLS | [address] | [place], [place] | | | DAVID SOLIS OF MANJIT | [address] | [address] | | | TESTS | | | [...] MARQU[facility] | [address] | [place], [place] | | | DAVID SOLIS OF CARE | [facility] | [address] | | | TESTS | | | [...] MARQU[facility] | [address] | [place], [place] | | | WILL POINT OF CARE | [address] | [address] | | | TESTS | | | [...] + + | J[facility]AN C [facility] | [address] | [place], [place] | | | WILL POINT OF CARE | [address] | [address] | | | TESTS | | | | + + + + + LEANDRO MACIEL CA POC (09/09/2014 5:58 AM PDT) + + [...] + + | [facility] | [address] | [place], [place] | | | DAVID SOLIS OF CARE | [facility] | [address] | | | TESTS | | | [...] + + | [facility] | [address] | [place], [place] | | | WILL POINT OF [facility] | [address] | [address] | | | TESTS | | | [...] [facility] | [address] | [place] | | | DAVID SOLIS OF [facility] | [facility] | [address] | | | TESTS | | | [...] + + + + | PRODUCT | [id number] | | [facility] | | | UNIT [...] + + + + | BLOOD | [id number] | | [facility] | | | PRODUCT [...] | + + + + + | [facility] | [address] | [place] [address] | | | PATHOLOGY | [address] [...] + + + + | PRODUCT | [id number] | | [facility] | | | UNIT [...] + + + + | BLOOD | [id number] | | [facility] | | | PRODUCT [...] DEPARTMENT OF | [address] | [place] [address] | | | PATHOLOGY | [address] [...] + + + + | PRODUCT | [id number] | | [facility] | | | UNIT [...] + + + + | BLOOD | [id number] | | [facility] | | | PRODUCT [...] | + + + + + | [facility] | [address] | [place] [address] | | | PATHOLOGY | [address] [...] + + + + | PRODUCT | [id number] | | [facility] | | | UNIT [...] + + + + | BLOOD | [id number] | | [facility] | | | PRODUCT [...] DEPARTMENT OF | [address] | [place] [address] | | | PATHOLOGY | [address] [...] + + + + | PRODUCT | [id number] | | [facility] | | | UNIT [...] + + + + | BLOOD | [id number] | | [facility] | | | PRODUCT [...] | + + + + + | [facility] | [address] | [place] [address] | | | PATHOLOGY | [address] [...] + + + + | PRODUCT | [id number] | | [facility] | | | UNIT [...] + + + + | BLOOD | [id number] | | [facility] | | | PRODUCT [...] DEPARTMENT OF | [address] | [place] [address] | | | PATHOLOGY | [address] [...] + + + + | PRODUCT | [id number] | | [facility] | | | UNIT [...] + + + + | BLOOD | [id number] | | [facility] | | | PRODUCT [...] | + + + + + | [facility] | [address] | [place] [address] | | | PATHOLOGY | [address] [...] + + + + | PRODUCT | [id number] | | [facility] | | | UNIT [...] + + + + | BLOOD | [id number] | | [facility] | | | PRODUCT [...] DEPARTMENT OF | [address] | [place] [address] | | | PATHOLOGY | [address] [...] + + + + | PRODUCT | [id number] | | [facility] | | | UNIT [...] + + + + | BLOOD | [id number] | | [facility] | | | PRODUCT [...] | + + + + + | [facility] | [address] | [place] [address] | | | PATHOLOGY | [address] [...] + + + + | PRODUCT | [id number] | | [facility] | | | UNIT [...] + + + + | BLOOD | [id number] | | [facility] | | | PRODUCT [...] DEPARTMENT OF | [address] | [place] [address] | | | PATHOLOGY | [address] [...] + + + + | PRODUCT | [id number] | | [facility] | | | UNIT [...] + + + + | BLOOD | [id number] | | [facility] | | | PRODUCT [...] DEPARTMENT OF | [address] | [place] [address] | | | PATHOLOGY | [address] [...] + + + + | PRODUCT | [id number] | | [facility] | | | UNIT [...] + + + + | BLOOD | [id number] | | [facility] | | | PRODUCT [...] DEPARTMENT OF | [address] | [place] [address] | | | PATHOLOGY | [address] [...] + + + + | PRODUCT | [id number] | | [facility] | | | UNIT [...] + + + + | BLOOD | [id number] | | [facility] | | | PRODUCT [...] | [facility] DEPARTMENT OF | [address] | [place] [address] | | | PATHOLOGY | [address] [...] + + + + | PRODUCT | [id number] | | [facility] | | | UNIT [...] + + + + | BLOOD | [id number] | | [facility] | | | PRODUCT [...] | + + + + + | [facility] DEPARTMENT OF | [address] | [place] [address] | | | PATHOLOGY | [address] [...] + + + + | PRODUCT | [id number] | | [facility] | | | UNIT [...] + + + + | BLOOD | [id number] | | [facility] | | | PRODUCT [...] | + + + + + | [facility] DEPARTMENT | [address] | [place] [address] | | | PATHOLOGY | [address] [...] + + + + | PRODUCT | [id number] | | [facility] | | | UNIT [...] + + + + | BLOOD | [id number] | | [facility] | | | PRODUCT [...] | + + + + + | [facility] | [address] | [place] [address] | | | PATHOLOGY | [address] [...] + + + + | PRODUCT | [id number] | | [facility] | | | UNIT [...] + + + + | BLOOD | [id number] | | [facility] | | | PRODUCT [...] DEPARTMENT OF | [address] | [place], [place] [address] | | | PATHOLOGY | [address] [...] + + + + | PRODUCT | [id number] | | [facility] | | | UNIT [...] + + + + | BLOOD | [id number] | | [facility] | | | PRODUCT [...] | + + + + + | [facility] | [address] | [place] [address] | | | PATHOLOGY | [address] [...] + + + + | PRODUCT | [id number] | | [facility] | | | UNIT [...] + + + + | BLOOD | [id number] | | [facility] | | | PRODUCT [...] DEPARTMENT OF | [address] | [place] [address] | | | PATHOLOGY | [address] [...] + + + + | PRODUCT | [id number] | | [facility] | | | UNIT [...] + + + + | BLOOD | [id number] | | [facility] | | | PRODUCT [...] | + + + + + | [facility] | [address] | [place] [address] | | | PATHOLOGY | [address] [...] + + + + | PRODUCT | [id number] | | [facility] | | | UNIT [...] + + + + | BLOOD | [id number] | | [facility] | | | PRODUCT [...] | + + + + + | [facility] DEPARTMENT OF | [address] | [place] [address] | | | PATHOLOGY | [address] [...] + + + + | PRODUCT | [id number] | | [facility] | | | UNIT [...] + + + + | BLOOD | [id number] | | [facility] | | | PRODUCT [...] | + + + + + | [facility] | [address] | [place] [address] | | | PATHOLOGY | [address] [...] + + + + | PRODUCT | [id number] | | [facility] | | | UNIT [...] + + + + | BLOOD | [id number] | | [facility] | | | PRODUCT [...] DEPARTMENT OF | [address] | [place] [address] | | | PATHOLOGY | [address] [...] + + + + | PRODUCT | [id number] | | [facility] | | | UNIT [...] + + + + | BLOOD | [id number] | | [facility] | | | PRODUCT [...] | + + + + + | [facility] DEPARTMENT | [address] | [place] [address] | | | PATHOLOGY | [address] [...] + + + + | PRODUCT | [id number] | | [facility] | | | UNIT [...] + + + + | BLOOD | [id number] | | [facility] | | | PRODUCT [...] DEPARTMENT OF | [address] | [place] [address] | | | PATHOLOGY | [address] [...] + + + + | PRODUCT | [id number] | | [facility] | | | UNIT [...] + + + + | BLOOD | [id number] | | [facility] | | | PRODUCT [...] + + + + | [facility] | [address] | [place] [address] | | | PATHOLOGY | [address] [...] + + + + | PRODUCT | [id number] | | [facility] | | | UNIT [...] + + + + | BLOOD | [id number] | | [facility] | | | PRODUCT [...] | [address] | [place] [address] | | | PATHOLOGY | [address] [...] + + + + | PRODUCT | [id number] | | [facility] | | | UNIT [...] + + + + | BLOOD | [id number] | | [facility] | | | PRODUCT [...] | + + + + + | [facility] DEPARTMENT | [address] | [place] [address] | | | PATHOLOGY | [address] | | | + + + + + LACTATE (ART), POC (09/09/2014 5:29 AM PDT) + +---------+ + + + | Component | Value | Ref Range | Performed | Pathologist | | | | | At | Signature | + +---------+ + + + | LACTATE | 3.8 (H) | 0.5 - 1.6 | [facility] - | | | ARTERIAL, | | [...] WALLS | [address] | [place], [place] | | | DAVID SOLIS OF MANJIT | [address] | [address] | | | TESTS | | | [...] [facility] | [address] | [place], [place] | | | WILL POINT OF CARE | [address] | [address] | | | TESTS | | | [...] | | POC | | mmol/L | [facility] | | | | | [...] + | [facility] | [address] | [place], [place] | | | DAVID SOLIS OF CARE | [address] | [address] | | | TESTS | | | [...] + + | [facility] | [address] | [place], [place] | | | DAVID SOLIS OF MAN[place] | [facility] | [address] | | | TESTS | | | | + + + + + WESTON STERN (09/09/2014 5:29 AM PDT) + +---------+ + [...] [facility] | [address] | [place], [place] | | | WILL POINT OF CARE | [employer] [facility] | [address] | | | TESTS | | | [...] [facility] | [address] | [place], [place] | | | WILL POINT OF [facility] | [facility] | [address] | | | TESTS | | | [...] WALLS | [address] | [place], [place] | | | WILL POINT OF CARE | [address] | [address] | | | TESTS | | | [...] [facility] | [address] | [place], [place] | | | WILL POINT OF CARE | [facility] | [address] | | | TESTS | | | [...] | + + + + + | [facility] | [address] [facility] | [place] [address] | | | SERVICES, CORE | [address] [...] | + + + + + | [facility] | [address] | [place] [address] | | | SERVICES, CORE | [address] [...] WALLS | [address] | [place], [place] | | | WILL POINT OF CARE | [address] | [address] | | | TESTS | | | | + + + + + SODIUM POC (09/09/2014 5:08 AM PDT) + +-------+ [...] [facility] | [address] | [place], [place] | | | WILL POINT OF CARE | [address] | [address] | | | TESTS | | | [...] + | [facility] | [address] | [place], [place] | | | DAVID SOLIS OF CARE | [address] | [address] | | | TESTS | | | [...] WALL[facility] | [address] | [place], [place] | | | DAVID SOLIS OF CARE | [address] | [address] | | | TESTS | | | [...] [facility] | [address] | [place], [place] | | | DAVID SOLIS OF CARE | [address] | [address] | | | TESTS | | | [...] [facility] | [address] | [place], [place] | | | DAVID SOLIS OF [facility] | [facility] | [address] | | | TESTS | | | [...] | | POC | | | DAVID OSLIS | | | | | | OF [...] + + | [facility] | [address] | [place], [place] | | | WILL POINT OF CARE | [address] | [address] | | | TESTS | | | [...] + | [facility] | [address] [facility] [address] | [place], [place] | | | WILL POINT OF CARE | [address] | [address] | | | TESTS | | | [...] + + | Performing | Address | City[facility]State[facility] | Phone Number | | Organization | | | | + +---------+ + + | [facility] DEPARTMENT OF | | | | | [...] + + + + | PRODUCT | [id number] | | [facility] | | | UNIT [...] + + + + | BLOOD | [id number] | | [facility] | | | PRODUCT [...] DEPARTMENT OF | [address] | [place] [address] | | | PATHOLOGY | [address] [...] + + + + | PRODUCT | [id number] | | [facility] | | | UNIT [...] + + + + | BLOOD | [id number] | | [facility] | | | PRODUCT [...] | + + + + + | [facility] | [address] | [place] [address] | | | PATHOLOGY | [address] [...] + + + + | PRODUCT | [id number] | | [facility] | | | UNIT [...] + + + + | BLOOD | [id number] | | [facility] | | | PRODUCT [...] DEPARTMENT OF | [address] | [place] [address] | | | PATHOLOGY | [address] [...] + + + + | PRODUCT | [id number] | | [facility] | | | UNIT [...] + + + + | BLOOD | [id number] | | [facility] | | | PRODUCT [...] | + + + + + | [facility] | [address] | [place] [address] | | | PATHOLOGY | [address] [...] + + + + | PRODUCT | [id number] | | [facility] | | | UNIT [...] + + + + | BLOOD | [id number] | | [facility] | | | PRODUCT [...] | [facility] DEPARTMENT | [address] | [place] [address] | | | PATHOLOGY | [address] [...] + + + + | PRODUCT | [id number] | | [facility] | | | UNIT [...] + + + + | BLOOD | [id number] | | [facility] | | | PRODUCT [...] | + + + + + | [facility] | [address] | [place] [address] | | | PATHOLOGY | [address] [...] + + + + | PRODUCT | [id number] | | [facility] | | | UNIT [...] + + + + | BLOOD | [id number] | | [facility] | | | PRODUCT [...] [facility] | [address] | [place] [address] | | | PATHOLOGY | [address] [...] + + + + | PRODUCT | [id number] | | [facility] | | | UNIT [...] + + + + | BLOOD | [id number] | | [facility] | | | PRODUCT [...] | + + + + + | [facility] | [address] | [place] [address] | | | PATHOLOGY | [address] [...] + + + + | PRODUCT | [id number] | | [facility] | | | UNIT [...] + + + + | BLOOD | [id number] | | [facility] | | | PRODUCT [...] | [facility] | [address] | [place] [address] | | | PATHOLOGY | [address] [...] + + + + | PRODUCT | [id number] | | [facility] | | | UNIT [...] + + + + | BLOOD | [id number] | | [facility] | | | PRODUCT [...] | + + + + + | [facility] | [address] | [place] [address] | | | PATHOLOGY | [address] [...] + + + + | PRODUCT | [id number] | | [facility] | | | UNIT [...] + + + + | BLOOD | [id number] | | [facility] | | | PRODUCT [...] DEPARTMENT OF | [address] | [place] [address] | | | PATHOLOGY | [address] [...] + + + + | PRODUCT | [id number] | | [facility] | | | UNIT [...] + + + + | BLOOD | [id number] | | [facility] | | | PRODUCT [...] | + + + + + | [facility] | [address] | [place] [address] | | | PATHOLOGY | [address] [...] + + + + | PRODUCT | [id number] | | [facility] | | | UNIT [...] + + + + | BLOOD | [id number] | | [facility] | | | PRODUCT [...] DEPARTMENT OF | [address] | [place] [address] | | | PATHOLOGY | [address] [...] + + + + | PRODUCT | [id number] | | [facility] | | | UNIT [...] + + + + | BLOOD | [id number] | | [facility] | | | PRODUCT [...] | + + + + + | [facility] | [address] | [place] [address] | | | PATHOLOGY | [address] [...] + + + + | PRODUCT | [id number] | | [facility] | | | UNIT [...] + + + + | BLOOD | [id number] | | [facility] | | | PRODUCT [...] DEPARTMENT OF | [address] | [place] [address] | | | PATHOLOGY | [address] [...] + + + + | PRODUCT | [id number] | | [facility] | | | UNIT [...] + + + + | BLOOD | [id number] | | [facility] | | | PRODUCT [...] | + + + + + | [facility] | [address] | [place] [address] | | | PATHOLOGY | [address] [...] + + + + | PRODUCT | [id number] | | [facility] | | | UNIT [...] + + + + | BLOOD | [id number] | | [facility] | | | PRODUCT [...] DEPARTMENT OF | [address] | [place] [address] | | | PATHOLOGY | [address] [...] + + + + | PRODUCT | [id number] | | [facility] | | | UNIT [...] + + + + | BLOOD | [id number] | | [facility] | | | PRODUCT [...] [facility] | [address] | [place] [address] | | | PATHOLOGY | [address] [...] + + + + | PRODUCT | [id number] | | [facility] | | | UNIT [...] + + + + | BLOOD | [id number] | | [facility] | | | PRODUCT [...] | [address] | [place] [address] | | | PATHOLOGY | [address] [...] + + + + | PRODUCT | [id number] | | [facility] | | | UNIT [...] + + + + | BLOOD | [id number] | | [facility] | | | PRODUCT [...] DEPARTMENT OF | [address] | [place] [address] | | | PATHOLOGY | [address] [...] + + + + | PRODUCT | [id number] | | [facility] | | | UNIT [...] + + + + | BLOOD | [id number] | | [facility] | | | PRODUCT [...] | + + + + + | [facility] DEPARTMENT OF | [address] | [place] [address] | | | PATHOLOGY | [address] [...] + + + + | PRODUCT | [id number] | | [facility] | | | UNIT [...] + + + + | BLOOD | [id number] | | [facility] | | | PRODUCT [...] DEPARTMENT OF | [address] | [place] [address] | | | PATHOLOGY | [address] [...] + + + + | PRODUCT | [id number] | | [facility] | | | UNIT [...] + + + + | BLOOD | [id number] | | [facility] | | | PRODUCT [...] | + + + + + | [facility] | [address] | [place] [address] | | | PATHOLOGY | [address] [...] + + + + | PRODUCT | [id number] | | [facility] | | | UNIT [...] + + + + | BLOOD | [id number] | | [facility] | | | PRODUCT [...] | + + + + + | [facility] | [address] | [place] [address] | | | PATHOLOGY | [address] [...] | 143 | 134 - 143 | [facility] - | | | | | mmol/L | TITI | | | | | | [facility] | | | | | | OF CARE | | | | | | TESTS | | + + + + + + | POTASSIUM, | 3.8 | 3.4 - 5.0 | [facility] - | | | POC [...] TITI | [address] | [place], [place] | | | DAV[facility] OF [facility] | [address] | [address] | | | TESTS | | | [...] + + + + | PRODUCT | [id number] | | [facility] | | | UNIT [...] + + + + | BLOOD | [id number] | | [facility] | | | PRODUCT [...] | [facility] DEPARTMENT OF | [address] | [place] [address] | | | PATHOLOGY | [address] [...] + + + + | PRODUCT | [id number] | | [facility] | | | UNIT [...] + + + + | BLOOD | [id number] | | [facility] | | | PRODUCT [...] | + + + + + | [facility] DEPARTMENT OF | [address] | [place] [address] | | | PATHOLOGY | [address] [...] + + + + | PRODUCT | [id number] | | [facility] | | | UNIT [...] + + + + | BLOOD | [id number] | | [facility] | | | PRODUCT [...] | + + + + + | [facility] DEPARTMENT OF | [address] | [place] [address] | | | PATHOLOGY | [address] [...] + + + + | PRODUCT | [id number] | | [facility] | | | UNIT [...] + + + + | BLOOD | [id number] | | [facility] | | | PRODUCT [...] | + + + + + | [facility] DEPARTMENT OF | [address] | [place] [address] | | | PATHOLOGY | [address] [...] + + + + | PRODUCT | [id number] | | [facility] | | | UNIT [...] + + + + | BLOOD | [id number] | | [facility] | | | PRODUCT [...] | + + + + + | [facility] DEPARTMENT OF | [address] | [place] [address] | | | PATHOLOGY | [address] [...] + + + + | PRODUCT | [id number] | | [facility] | | | UNIT [...] + + + + | BLOOD | [id number] | | [facility] | | | PRODUCT [...] | + + + + + | [facility] DEPARTMENT OF | [address] | [place] [address] | | | PATHOLOGY | [address] | | | + + + + + ED -[facility] BRAVO (09/09/2014 3:52 AM PDT) + + + [...] TITI | [address] | [place], [place] | | | [facility] | [facility] | [address] | | | TESTS | | | [...] + + + + | PRODUCT | [id number] | | [facility] | | | UNIT [...] + + + + | BLOOD | [id number] | | [facility] | | | PRODUCT [...] DEPARTMENT OF | [address] | [place] [address] | | | PATHOLOGY | [address] [...] + + + + | PRODUCT | [id number] | | [facility] | | | UNIT [...] + + + + | BLOOD | [id number] | | [facility] | | | PRODUCT [...] DEPARTMENT OF | [address] | [place] [address] | | | PATHOLOGY | [address] [...] + + + + | PRODUCT | [id number] | | [facility] | | | UNIT [...] + + + + | BLOOD | [id number] | | [facility] | | | PRODUCT [...] DEPARTMENT OF | [address] | [place] [address] | | | PATHOLOGY | [address] [...] + + + + | PRODUCT | [id number] | | [facility] | | | UNIT [...] + + + + | BLOOD | [id number] | | [facility] | | | PRODUCT [...] | [facility] DEPARTMENT OF | [address] | [place] [address] | | | PATHOLOGY | [address] [...] + + + + | PRODUCT | [id number] | | [facility] | | | UNIT [...] + + + + | BLOOD | [id number] | | [facility] | | | PRODUCT [...] | + + + + + | [facility] DEPARTMENT OF | [address] | [place] [address] | | | PATHOLOGY | [address] [...] + + + + | PRODUCT | [id number] | | [facility] | | | UNIT [...] + + + + | BLOOD | [id number] | | [facility] | | | PRODUCT [...] | + + + + + | [facility] DEPARTMENT OF | [address] | [place] [address] | | | PATHOLOGY | [address] [...] + + + + | PRODUCT | [id number] | | [facility] | | | UNIT [...] + + + + | BLOOD | [id number] | | [facility] | | | PRODUCT [...] | + + + + + | [facility] DEPARTMENT OF | [address] | [place] [address] | | | PATHOLOGY | [address] [...] + + + + | PRODUCT | [id number] | | [facility] | | | UNIT [...] + + + + | BLOOD | [id number] | | [facility] | | | PRODUCT [...] | + + + + + | [facility] DEPARTMENT | [address] | [place] [address] | | | PATHOLOGY | [address] [...] | + + + + + | [facility] | [address] | [place] [address] | | | SERVICES, | [address] [...] [facility] | [address] | [place] [address] | | | SERVICES, | [address] [...] + | [facility] | [address] | [place] [address] | | | ALMA ROSA, ELOY | [...] + | [facility] | [address] | [place] [address] | | | SERVICES, CORE | [address] [...] | | | LABORATORY | | | MALAGASY | | | SERVICES, | | | [...] | + + + + + | [facility] | [address] | [place] [address] | | | SERVICES, CORE | [address] | | | + + + + + ETHANOL (ALCOHOL), BLOOD (09/09/2014 3:26 AM PDT) + +-------+ + + + | Component | Value | Ref Range | Performed | Pathologist | | | | | At | Signature | + +-------+ + + + | ETHANOL | <10 | <10 mg/dL | [facility] | | | (ALCOHOL) | | | [...] [facility] | [address] | [place] [address] | | | SERVICES, CORE | [address] [...] | + + + + + | [facility] | [address] | [place] [address] | | | SERVICES, CORE | [address] [...] Patricia, | | | | | | MLevi/PathologistT:09/11/ | | | | | | /rdl [...] discolored, | | | | | | gelbbambghvfnf-ls-xyjhlo | | | | | | -green [...] | | | | | | colon:A1, sales representative uniforms | | | | | | margins [...] | | | | | | Diagnostician: Radha | | | | | | s Belem | | | | | | M.GermanPathologistTawnyi | | | | | | buzz [...] | + + + + + | [facility] | [address] | [place] [address] | | | PATHOLOGY | [address] | | | + + + + + RADIOLOGY (09/09/2014 12:00 AM PDT) + + + | Narrative | Performed At | + + + | | | | | | + + + + + | Procedure Note | + + | Nato, Faculty - 09/18/2014 10:46 PM PDT | [...] + documented in this encounter Visit Diagnoses Not on filedocumented in this encounter Administered Medications + +--------+ +------+------+---------+ | Medication Order | MAR | Action | Dose | Rate | Site | | | Action | Date | | | | + +--------+ +------+------+---------+ | heparin 1000 units/mL-NS | Given | 09/09/20 | | | Abdomen | | injection INTRAPROCEDURE PRN, | | 14 6:49 | | | | | Starting 09/09/14 at 0649, | | AM PDT | | | | | Until 09/09/14 at 1021 | | | | | | + +--------+ +------+------+---------+ +---+---+ | | | +---+---+ + +-------+ +---------+---+---------+ | thrombin (THROMBIN-JMI) topical | Given | 09/09/20 | 20,000 | | Abdomen | | solution INTRAPROCEDURE PRN, | | 14 5:54 | Units | | | | Starting 09/09/14 at 0554, | | AM PDT | | | | | Until 09/09/14 at 1021 | | | | | | + +-------+ +---------+---+---------+ +---+---+ | | | +---+---+ documented in this encounter
--- OUTSIDE RECORDS SUMMARY | ~2019-09-08 | XMS | Encounter Summary ---
Demographics + + + | Address | [address] | | | [place] [address] | + + + | Home Phone | | + + + | Preferred Language | Unknown | + + + | Marital Status | | + + + | Mandaeism Affiliation | NON | + + + | Race | Unknown | + + + | Ethnic Group | Not or | + + + Author + + + | Author | [facility] | + + + | Organization | [facility] | + + + | Address | Unknown | + + + | Phone | Unavailable | + + + Support + + + + + | Name | Relationship | Address | Phone | + + + + + | Noemy Alvarez | ADOLFO | [address] | | | | | [place] | | | | | [address] | | + + + + + Care Team Providers + +------+ + | Care Safety Deposit Supervisor Name | Role | Phone | + [...] [address] | | | | | | [place], [place] | | | | | | [address] | | | +--------+ + + + [...]
--- OUTSIDE RECORDS SUMMARY | ~2019-09-08 | XMS | Encounter Summary ---
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 [place] [address] | | | PATHOLOGY | [address] [...] + + + + | PRODUCT | [id number] | | [facility] | | | UNIT [...] + + + + | BLOOD | [id number] | | [facility] | | | PRODUCT [...] | + + + + + | [facility] | [address] | [place] [address] | | | PATHOLOGY | [address] [...] + + + + | PRODUCT | [id number] | | [facility] | | | UNIT [...] + + + + | BLOOD | [id number] | | [facility] | | | PRODUCT [...] DEPARTMENT OF | [address] | [place] [address] | | | PATHOLOGY | [address] [...] + + + + | PRODUCT | [id number] | | [facility] | | | UNIT [...] + + + + | BLOOD | [id number] | | [facility] | | | PRODUCT [...] | + + + + + | [facility] | [address] | [place] [address] | | | PATHOLOGY | [address] [...] + + + + | PRODUCT | [id number] | | [facility] | | | UNIT [...] + + + + | BLOOD | [id number] | | [facility] | | | PRODUCT [...] | + + + + + | [facility] DEPARTMENT | [address] | [place] [address] | | | PATHOLOGY | [address] [...] | + + + + + | [facility]ORY | [address] | [place] [address] | | | SERVICES, CORE | [address]ARK [...] | + + + + + | [facility] | [address] | [place] [address] | | | SERVICES, CORE | MONTSERRAT [...] | [facility] | [address] | [place], [place] | | | DAVID SOLIS OF CARE | [address] | [address] | | | TESTS | | | [...] [facility] | [address] | [place], [place] | | | DAVID SOLIS OF [facility] | [address] | [address] | | | TESTS | | | [...] - [facility] | [address] | [place], [place] | | | DAVID SOLIS OF CARE | [address] | [address] | | | TESTS | | | [...] [place] | [address] | [place], [place] | | | DAVID SOLIS OF [facility] | [address] | [address] | | | TESTS | | | [...] [place] | [address] | [place], [place] | | | DAVID SOLIS OF CARE | [address] | [address] | | | TESTS | | | [...] - [place] | [address] | [place], [place] | | | DAVID SOLIS OF [facility] | [facility] | [address] | | | TESTS | | | [...] [place] | [address] | [place], [place] | | | DAVID SOLIS OF [facility] | [address] | [address] | | | TESTS | | | [...] | + + + + + | [facility] | [address] | [place] [address] | | | ALMA ROSA, | MONTSERRAT [...] 3.7 (H) | 0.5 - 1.6 | [facility] - | | | ARTERIAL, | | [...] [place] | [address] | [place], [place] | | | DAV[facility] SOLIS OF [facility] | [address] | [address] | | | TESTS | | | [...] [place] | [address] | [place], [place] | | | DAVID SOLIS OF [facility] | [facility] | [address] | | | TESTS | | | [...] [facility] | [address] | [place], [place] | | | [place], POINT OF CARE | [facility] | [address] | | | TESTS | | | | + + + + + GLUCOSE, POC (09/09/2014 5:58 AM PDT) + +---------+ + + + | Component | Value | Ref Range | Performed | Pathologist | | | | | At | Signature | + +---------+ + + + | GLUCOSE, | 244 (H) | 60 - 99 mg/dL | [facility] - | | | POC | [...] | [facility] - [facility] | [address] | [place], [place] | | | DAVID SOLIS OF CARE | [facility] | [address] | | | TESTS | | | [...] W[place] | [address] | [place], [place] | | | WILL POINT OF CARE | [address] | [address] | | | TESTS | | | [...] [place] | [address] | [place], [place] | | | HILL, POINT OF CARE | [address] | [address] | | | TESTS | | | [...] W[place] | [address] | [place], [place] | | | DAVID SOLIS OF CARE | [address] | [address] | | | TESTS | | | [...] [place] | [address] | [place], [place] | | | WILL POINT OF [facility] | [facility] | [address] | | | TESTS | | | [...] + + + + | PRODUCT | [id number] | | [facility] | | | UNIT [...] + + + + | BLOOD | [id number] | | [facility] | | | PRODUCT [...] | + + + + + | [facility] | [address] | [place] [address] | | | PATHOLOGY | [address] [...] + + + + | PRODUCT | [id number] | | [facility] | | | UNIT [...] + + + + | BLOOD | [id number] | | [facility] | | | PRODUCT [...] | + + + + + | [facility] DEPARTMENT OF | [address] | [place] [address] | | | PATHOLOGY | [address] [...] + + + + | PRODUCT | [id number] | | [facility] | | | UNIT [...] + + + + | BLOOD | [id number] | | [facility] | | | PRODUCT [...] | + + + + + | [facility] | [address] | [place] [address] | | | PATHOLOGY | [address] [...] + + + + | PRODUCT | [id number] | | [facility] | | | UNIT [...] + + + + | BLOOD | [id number] | | [facility] | | | PRODUCT [...] DEPARTMENT OF | [address] | [place] [address] | | | PATHOLOGY | [address] [...] + + + + | PRODUCT | [id number] | | [facility] | | | UNIT [...] + + + + | BLOOD | [id number] | | [facility] | | | PRODUCT [...] | + + + + + | [facility] | [address] | [place] [address] | | | PATHOLOGY | [address] [...] + + + + | PRODUCT | [id number] | | [facility] | | | UNIT [...] + + + + | BLOOD | [id number] | | [facility] | | | PRODUCT [...] DEPARTMENT OF | [address] | [place] [address] | | | PATHOLOGY | [address] [...] + + + + | PRODUCT | [id number] | | [facility] | | | UNIT [...] + + + + | BLOOD | [id number] | | [facility] | | | PRODUCT [...] | + + + + + | [facility] | [address] | [place] [address] | | | PATHOLOGY | [address] [...] + + + + | PRODUCT | [id number] | | [facility] | | | UNIT [...] + + + + | BLOOD | [id number] | | [facility] | | | PRODUCT [...] DEPARTMENT OF | [address] | [place] [address] | | | PATHOLOGY | [address] [...] + + + + | PRODUCT | [id number] | | [facility] | | | UNIT [...] + + + + | BLOOD | [id number] | | [facility] | | | PRODUCT [...] | + + + + + | [facility] | [address] | [place] [address] | | | PATHOLOGY | [address] [...] + + + + | PRODUCT | [id number] | | [facility] | | | UNIT [...] + + + + | BLOOD | [id number] | | [facility] | | | PRODUCT [...] DEPARTMENT OF | [address] | [place] [address] | | | PATHOLOGY | [address] [...] + + + + | PRODUCT | [id number] | | [facility] | | | UNIT [...] + + + + | BLOOD | [id number] | | [facility] | | | PRODUCT [...] + | [facility] DEPARTMENT OF | [address] | [place] [address] | | | PATHOLOGY | [address] [...] + + + + | PRODUCT | [id number] | | [facility] | | | UNIT [...] + + + + | BLOOD | [id number] | | [facility] | | | PRODUCT [...] | [address] | [place], [place] [address] | | | PATHOLOGY | [address] [...] + + + + | PRODUCT | [id number] | | [facility] | | | UNIT [...] + + + + | BLOOD | [id number] | | [facility] | | | PRODUCT [...] OF | [address] | [place] [address] | | | PATHOLOGY | [address] [...] + + + + | PRODUCT | [id number] | | [facility] | | | UNIT [...] + + + + | BLOOD | [id number] | | [facility] | | | PRODUCT [...] DEPARTMENT OF | [address] | [place] [address] | | | PATHOLOGY | [address] [...] + + + + | PRODUCT | [id number] | | [facility] | | | UNIT [...] + + + + | BLOOD | [id number] | | [facility] | | | PRODUCT [...] | + + + + + | [facility] DEPARTMENT OF | [address] | [place] [address] | | | PATHOLOGY | [address] [...] + + + + | PRODUCT | [id number] | | [facility] | | | UNIT [...] + + + + | BLOOD | [id number] | | [facility] | | | PRODUCT [...] | + + + + + | [facility] | [address] | [place] [address] | | | PATHOLOGY | [address] [...] + + + + | PRODUCT | [id number] | | [facility] | | | UNIT [...] + + + + | BLOOD | [id number] | | [facility] | | | PRODUCT [...] [facility] DEPARTMENT | [address] | [place] [address] | | | PATHOLOGY | [address] [...] + + + + | PRODUCT | [id number] | | [facility] | | | UNIT [...] + + + + | BLOOD | [id number] | | [facility] | | | PRODUCT [...] | + + + + + | [facility] | [address] | [place] [address] | | | PATHOLOGY | [address] [...] + + + + | PRODUCT | [id number] | | [facility] | | | UNIT [...] + + + + | BLOOD | [id number] | | [facility] | | | PRODUCT [...] DEPARTMENT OF | [address] | [place] [address] | | | PATHOLOGY | [address] [...] + + + + | PRODUCT | [id number] | | [facility] | | | UNIT [...] + + + + | BLOOD | [id number] | | [facility] | | | PRODUCT [...] | + + + + + | [facility] | [address] | [place] [address] | | | PATHOLOGY | [address] [...] + + + + | PRODUCT | [id number] | | [facility] | | | UNIT [...] + + + + | BLOOD | [id number] | | [facility] | | | PRODUCT [...] DEPARTMENT OF | [address] | [place] [address] | | | PATHOLOGY | [address] [...] + + + + | PRODUCT | [id number] | | [facility] | | | UNIT [...] + + + + | BLOOD | [id number] | | [facility] | | | PRODUCT [...] | + + + + + | [facility] | [address] | [place] [address] | | | PATHOLOGY | [address] [...] + + + + | PRODUCT | [id number] | | [facility] | | | UNIT [...] + + + + | BLOOD | [id number] | | [facility] | | | PRODUCT [...] DEPARTMENT OF | [address] | [place] [address] | | | PATHOLOGY | [address] [...] + + + + | PRODUCT | [id number] | | [facility] | | | UNIT [...] + + + + | BLOOD | [id number] | | [facility] | | | PRODUCT [...] | + + + + + | [facility] | [address] | [place] [address] | | | PATHOLOGY | [address] [...] + + + + | PRODUCT | [id number] | | [facility] | | | UNIT [...] + + + + | BLOOD | [id number] | | [facility] | | | PRODUCT [...] DEPARTMENT OF | [address] | [place] [address] | | | PATHOLOGY | [address] [...] + + + + | PRODUCT | [id number] | | [facility] | | | UNIT [...] + + + + | BLOOD | [id number] | | [facility] | | | PRODUCT [...] | + + + + + | [facility] DEPARTMENT | [address] | [place] [address] | | | PATHOLOGY | [address] [...] + + + + | PRODUCT | [id number] | | [facility] | | | UNIT [...] + + + + | BLOOD | [id number] | | [facility] | | | PRODUCT [...] DEPARTMENT OF | [address] | [place], [place] [address] | | | PATHOLOGY | [address] [...] + + + + | PRODUCT | [id number] | | [facility] | | | UNIT [...] + + + + | BLOOD | [id number] | | [facility] | | | PRODUCT [...] | + + + + + | [facility] DEPARTMENT | [address] | [place] [address] | | | PATHOLOGY | [address] [...] WALLS | [address] | [place], [place] | | | DAVID SOLIS OF MAN[facility] | [facility] | [address] | | | TESTS | | | | + + + + + SODIUM POC (09/09/2014 5:29 AM PDT) + +-------+ [...] [facility] | [address] | [place], [place] | | | DAVID SOLIS OF CARE | [facility] | [address] | | | TESTS | | | [...] + | [facility] | [address] | [place], [place] | | | DAVID SOLIS OF CARE | [facility] | [address] | | | TESTS | | | [...] [place] | [address] | [place], [place] | | | DAVID SOLIS OF [facility] | [address] | [address] | | | TESTS | | | [...] [facility] | [address] | [place], [place] | | | WILL POINT OF CARE | [address] | [address] | | | TESTS | | | [...] | [facility] | [address] | [place], [place] | | | DAVID SOLIS OF CARE | [address] | [address] | | | TESTS | | | [...] [place] | [address] | [place], [place] | | | WILL POINT OF CARE | [address] | [address] | | | TESTS | | | [...] - [facility] | [address] | [place], [place] | | | WILL POINT OF CARE | [facility] | [address] | | | TESTS | | | [...] | + + + + + | [facility] | [address] | [place] [address] | | | SERVICES, CORE | MONTSERRAT [...] | + + + + + | [facility] | [address] | [place] [address] | | | SERVICES, CORE | MONTSERRAT [...] WALLS | [address] | [place], [place] | | | WILL POINT OF CARE | [address] | [address] | | | TESTS | | | [...] [facility] | [address] | [place], [place] | | | WILL POINT OF CARE | [address] | [address] | | | TESTS | | | [...] TITI | [address] | [place], [place] | | | DAVID SOLIS OF CARE | [address] | [address] | | | TESTS | | | [...] | | | POC | | | [facility] | | | [...] WALLS | [address] | [place], [place] | | | DAVID SOLIS OF CARE | [address] | [address] | | | TESTS | | | [...] [place] | [address] | [place], [place] | | | DAVID SOLIS OF CARE | [address] | [address] | | | TESTS | | | [...] [place] | [address] | [place], [place] | | | WILL POINT OF [facility] | [address] | [address] | | | TESTS | | | [...] W[place] | [address] | [place], [place] | | | WILL POINT OF CARE | [address] | [address] | | | TESTS | | | [...] C WALLS | [address] | [place], [place] | | | DAVID SOLIS OF [facility] | [address] | [address] | | | TESTS | | | [...] | | + +---------+ + + | [facility] DEPARTMENT OF | | | | [...] + + + + | PRODUCT | [id number] | | [facility] | | | UNIT [...] + + + + | BLOOD | [id number] | | [facility] | | | PRODUCT [...] DEPARTMENT OF | [address] | [place] [address] | | | PATHOLOGY | [address] [...] + + + + | PRODUCT | [id number] | | [facility] | | | UNIT [...] + + + + | BLOOD | [id number] | | [facility] | | | PRODUCT [...] | + + + + + | [facility] DEPARTMENT OF | [address] | [place] [address] | | | PATHOLOGY | [address] [...] + + + + | PRODUCT | [id number] | | [facility] | | | UNIT [...] + + + + | BLOOD | [id number] | | [facility] | | | PRODUCT [...] DEPARTMENT OF | [address] | [place] [address] | | | PATHOLOGY | [address] [...] + + + + | PRODUCT | [id number] | | [facility] | | | UNIT [...] + + + + | BLOOD | [id number] | | [facility] | | | PRODUCT [...] | + + + + + | [facility] | [address] | [place] [address] | | | PATHOLOGY | [address] [...] + + + + | PRODUCT | [id number] | | [facility] | | | UNIT [...] + + + + | BLOOD | [id number] | | [facility] | | | PRODUCT [...] [facility] DEPARTMENT | [address] | [place] [address] | | | PATHOLOGY | [address] [...] + + + + | PRODUCT | [id number] | | [facility] | | | UNIT [...] + + + + | BLOOD | [id number] | | [facility] | | | PRODUCT [...] | + + + + + | [facility] DEPARTMENT OF | [address] | [place] [address] | | | PATHOLOGY | [address] [...] + + + + | PRODUCT | [id number] | | [facility] | | | UNIT [...] + + + + | BLOOD | [id number] | | [facility] | | | PRODUCT [...] [facility] DEPARTMENT | [address] | [place] [address] | | | PATHOLOGY | [address] [...] + + + + | PRODUCT | [id number] | | [facility] | | | UNIT [...] + + + + | BLOOD | [id number] | | [facility] | | | PRODUCT [...] | + + + + + | [facility] | [address] | [place] [address] | | | PATHOLOGY | [address] [...] + + + + | PRODUCT | [id number] | | [facility] | | | UNIT [...] + + + + | BLOOD | [id number] | | [facility] | | | PRODUCT [...] [facility] DEPARTMENT | [address] | [place] [address] | | | PATHOLOGY | [address] [...] + + + + | PRODUCT | [id number] | | [facility] | | | UNIT [...] + + + + | BLOOD | [id number] | | [facility] | | | PRODUCT [...] | + + + + + | [facility] DEPARTMENT OF | [address] | [place] [address] | | | PATHOLOGY | [address] [...] + + + + | PRODUCT | [id number] | | [facility] | | | UNIT [...] + + + + | BLOOD | [id number] | | [facility] | | | PRODUCT [...] [facility] DEPARTMENT | [address] | [place] [address] | | | PATHOLOGY | [address] [...] + + + + | PRODUCT | [id number] | | [facility] | | | UNIT [...] + + + + | BLOOD | [id number] | | [facility] | | | PRODUCT [...] | + + + + + | [facility] | [address] | [place] [address] | | | PATHOLOGY | [address] [...] + + + + | PRODUCT | [id number] | | [facility] | | | UNIT [...] + + + + | BLOOD | [id number] | | [facility] | | | PRODUCT [...] DEPARTMENT OF | [address] | [place] [address] | | | PATHOLOGY | [address] [...] + + + + | PRODUCT | [id number] | | [facility] | | | UNIT [...] + + + + | BLOOD | [id number] | | [facility] | | | PRODUCT [...] | + + + + + | [facility] | [address] | [place] [address] | | | PATHOLOGY | [address] [...] + + + + | PRODUCT | [id number] | | [facility] | | | UNIT [...] + + + + | BLOOD | [id number] | | [facility] | | | PRODUCT [...] DEPARTMENT OF | [address] | [place] [address] | | | PATHOLOGY | [address] [...] + + + + | PRODUCT | [id number] | | [facility] | | | UNIT [...] + + + + | BLOOD | [id number] | | [facility] | | | PRODUCT [...] | + + + + + | [facility] | [address] | [place] [address] | | | PATHOLOGY | [address] [...] + + + + | PRODUCT | [id number] | | [facility] | | | UNIT [...] + + + + | BLOOD | [id number] | | [facility] | | | PRODUCT [...] DEPARTMENT OF | [address] | [place] [address] | | | PATHOLOGY | [address] [...] + + + + | PRODUCT | [id number] | | [facility] | | | UNIT [...] + + + + | BLOOD | [id number] | | [facility] | | | PRODUCT [...] | + + + + + | [facility] | [address] | [place] [address] | | | PATHOLOGY | [address] [...] + + + + | PRODUCT | [id number] | | [facility] | | | UNIT [...] + + + + | BLOOD | [id number] | | [facility] | | | PRODUCT [...] | [address] | [place] [address] | | | PATHOLOGY | [address] [...] + + + + | PRODUCT | [id number] | | [facility] | | | UNIT [...] + + + + | BLOOD | [id number] | | [facility] | | | PRODUCT [...] DEPARTMENT OF | [address] | [place] [address] | | | PATHOLOGY | [address] [...] + + + + | PRODUCT | [id number] | | [facility] | | | UNIT [...] + + + + | BLOOD | [id number] | | [facility] | | | PRODUCT [...] | + + + + + | [facility] DEPARTMENT OF | [address] | [place] [address] | | | PATHOLOGY | [address] [...] + + + + | PRODUCT | [id number] | | [facility] | | | UNIT [...] + + + + | BLOOD | [id number] | | [facility] | | | PRODUCT [...] DEPARTMENT OF | [address] | [place], [place] [address] | | | PATHOLOGY | [address] [...] + + + + | PRODUCT | [id number] | | [facility] | | | UNIT [...] + + + + | BLOOD | [id number] | | [facility] | | | PRODUCT [...] | + + + + + | [facility] | [address] | [place] [address] | | | PATHOLOGY | [address] [...] + + + + | PRODUCT | [id number] | | [facility] | | | UNIT [...] + + + + | BLOOD | [id number] | | [facility] | | | PRODUCT [...] | + + + + + | [facility] | [address] | [place] [address] | | | PATHOLOGY | [address] [...] | 143 | 134 - 143 | [facility] - | | | | | mmol/L | TITI | | | | | | [facility] | | | | | | OF CARE | | | | | | TESTS | | + + + + + + | POTASSIUM, | 3.8 | 3.4 - 5.0 | [facility] - | | | POC | | mmol/L | TITI | | | | | | [place], [...] | | POC | | g/dL | MARQUSHERI | | | | | [...] TITI | [address] | [place], [place] | | | [facility] | [address] | [address] | | | TESTS | | | [...] + + + + | PRODUCT | [id number] | | [facility] | | | UNIT [...] + + + + | BLOOD | [id number] | | [facility] | | | PRODUCT [...] DEPARTMENT OF | [address] | [place] [address] | | | PATHOLOGY | [address] [...] + + + + | PRODUCT | [id number] | | [facility] | | | UNIT [...] + + + + | BLOOD | [id number] | | [facility] | | | PRODUCT [...] DEPARTMENT OF | [address] | [place] [address] | | | PATHOLOGY | [address] [...] + + + + | PRODUCT | [id number] | | [facility] | | | UNIT [...] + + + + | BLOOD | [id number] | | [facility] | | | PRODUCT [...] | + + + + + | [facility] DEPARTMENT OF | [address] | [place] [address] | | | PATHOLOGY | [address] [...] + + + + | PRODUCT | [id number] | | [facility] | | | UNIT [...] + + + + | BLOOD | [id number] | | [facility] | | | PRODUCT [...] | + + + + + | [facility] DEPARTMENT OF | [address] | [place] [address] | | | PATHOLOGY | [address] [...] + + + + | PRODUCT | [id number] | | [facility] | | | UNIT [...] + + + + | BLOOD | [id number] | | [facility] | | | PRODUCT [...] DEPARTMENT OF | [address] | [place] [address] | | | PATHOLOGY | [address] [...] + + + + | PRODUCT | [id number] | | [facility] | | | UNIT [...] + + + + | BLOOD | [id number] | | [facility] | | | PRODUCT [...] | + + + + + | [facility] DEPARTMENT OF | [address] | [place] [address] | | | PATHOLOGY | [address] | | | + + + + + ED BG-[facility]ACPOC (09/09/2014 3:52 AM PDT) + + + [...] TITI | [address] | [place], [place] | | | [facility] | [address] | [address] | | | TESTS | | | [...] + + + + | PRODUCT | [id number] | | [facility] | | | UNIT [...] + + + + | BLOOD | [id number] | | [facility] | | | PRODUCT [...] | [address] | [place] [address] | | | PATHOLOGY | [address] [...] + + + + | PRODUCT | [id number] | | [facility] | | | UNIT [...] + + + + | BLOOD | [id number] | | [facility] | | | PRODUCT [...] DEPARTMENT OF | [address] | [place] [address] | | | PATHOLOGY | [address] [...] + + + + | PRODUCT | [id number] | | [facility] | | | UNIT [...] + + + + | BLOOD | [id number] | | [facility] | | | PRODUCT [...] DEPARTMENT OF | [address] | [place], [place] [address] | | | PATHOLOGY | [address] [...] + + + + | PRODUCT | [id number] | | [facility] | | | UNIT [...] + + + + | BLOOD | [id number] | | [facility] | | | PRODUCT [...] DEPARTMENT OF | [address] | [place] [address] | | | PATHOLOGY | [address] [...] + + + + | PRODUCT | [id number] | | [facility] | | | UNIT [...] + + + + | BLOOD | [id number] | | [facility] | | | PRODUCT [...] DEPARTMENT OF | [address] | [place] [address] | | | PATHOLOGY | [address] [...] + + + + | PRODUCT | [id number] | | [facility] | | | UNIT [...] + + + + | BLOOD | [id number] | | [facility] | | | PRODUCT [...] DEPARTMENT OF | [address] | [place] [address] | | | PATHOLOGY | [address] [...] + + + + | PRODUCT | [id number] | | [facility] | | | UNIT [...] + + + + | BLOOD | [id number] | | [facility] | | | PRODUCT [...] | + + + + + | [facility] DEPARTMENT OF | [address] | [place] [address] | | | PATHOLOGY | [address] [...] + + + + | PRODUCT | [id number] | | [facility] | | | UNIT [...] + + + + | BLOOD | [id number] | | [facility] | | | PRODUCT [...] | + + + + + | [facility] DEPARTMENT | [address] | [place] [address] | | | PATHOLOGY | [address] [...] | + + + + + | [facility] | [address] [facility] | [place] [address] | | | SERVICES, | [address] [...] [facility] | [address] | [place] [address] | | | SERVICES, | [address] [...] | + + + + + | [facility] | [address] | [place] [address] | | | SERVICES, CORE | P[facility] [...] [facility] | [address] | [place] [address] | | | SERVICES, CORE | PARK [...] | | | LABORATORY | | | [facility] | | | SERVICES, | | | [...] the MDRD equation recommended by the | [facility] | | National Kidney Disease Education Program. [...] | + + + + + | [facility] | [address] | [place] [address] | | | SERVICES, CORE | [address] | | | + + + + + ETHANOL (ALCOHOL), BLOOD (09/09/2014 3:26 AM PDT) + +-------+ + + + | Component | Value | Ref Range | Performed | Pathologist | | | | | At | Signature | + +-------+ + + + | ETHANOL | <10 | <10 mg/dL | [facility] | | | (ALCOHOL) | | | [...] [facility] | [address] | [place] [address] | | | SERVICES, CORE | PARK [...] | + + + + + | [facility] | [address] | [place] [address] | | | SERVICES, CORE | [address] [...] MLevi/PathologistT:09/11/ | | | | | | 14/rdl [...] discolored, | | | | | | qdlboemoqmvnwg-gr-pzsoyy | | | | | | -green [...] | | | | | | colon:A1, appeals representative | | | | | | [...] | + + + + + | [facility] | [address] | [place] [address] | | | PATHOLOGY | [address] [...]
--- OUTSIDE RECORDS SUMMARY | ~2019-09-08 | XMS | Encounter Summary ---
Demographics + + + | Address | [address] | | | [place] [address] | + + + | Home Phone | | + + + | Preferred Language | Unknown | + + + | Marital Status | | + + + | Religion Affiliation | NON | + + + | Race | Unknown | + + + | Ethnic Group | Not or | + + + Author + + + | Author | [facility] | + + + | Organization | [facility] | + + + | Address | Unknown | + + + | Phone | Unavailable | + + + Support + + + + + | Name | Relationship | Address | Phone | + + + + + | Noemy Alvarez | ADOLFO | [address] | | | | | [place] | | | | | [address] | | + + + + + Care Team Providers + +------+ + | Care Occupational Health Specialist Name | Role | Phone | [...] Anesthesia | 6A Intra Op [facility] | Juan William, | | | 2013 | Event | [facility] | [place] | | | | | Admitting Desk | | | | | | Located on the 9 | | | | | | floor [address] | | | | | | [address] | | | | | | [place], [place] | | | | | | [address] | | | +--------+ + + + [...] | /1 | 3 | | reviewed, PAR[place] held, anesthetic plan made or approved by [...] 14; | 09/09/14 0345 by | 09/10/14 0410 by | | D - | Right; [...] radial | Juan William MD | Elena Brarientos RN | | Arteri | | | [...] (removed in [place]); No; Abthera; | Mark Maldonado RN | Elena Barrientos RN | | Drains [...] PDT | | | | | Starting 10/12/14 at 0515, | | | | | [...] 14 5:24 | | | | | 14 at 0524, Until Sun | | AM PDT | | | | | 14 at 1015, sedation | | | | | | + +-------+ +------+---+---+ +---+---+ | | | +---+---+ + + + +---+---+---+ | NaCl 0.9 % IV INTRAPROCEDURE | given by | 09/09/20 | | | | | CONTINUOUS PRN, Starting Sun | | 14 6:20 | | | | | 14 at 0501, Until Sun | anesthes | [...]
--- OUTSIDE RECORDS SUMMARY | ~2019-09-08 | XMS | Encounter Summary ---
Demographics + + + | Address | [address] | | | [place] [address] | + + + | Home Phone | | + + + | Preferred Language | Unknown | + + + | Marital Status | | + + + | Jehovah'S Witness Affiliation | NON | + + + [...] [place] | | | | | [address] | | + + + + + Care Team Providers + +------+ + | Care Manager Risk Management Name | Role | Phone | + [...] | | | 2013 | Event | [facility] | [place] | | | | | Admitting Desk | | | | | | Located on the 9 | | | | | | floor [address] | | | | | | [address] | | | | | | [place], [place] | | | | | | [address] | | | +--------+ + + + [...]
--- OUTSIDE RECORDS SUMMARY | ~2019-09-08 | XMS | Encounter Summary ---
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 | | | PRODUCT [...] | + + + + + | [facility] DEPARTMENT | [address] | [place] [address] | | | PATHOLOGY | [address] [...] | + + + + + | [facility] LABORATORY | [address] | [place] [address] | | | SERVICES, CORE | [address] [...] | + + + + + | [facility] | [address] | [place] [address] | | | SERVICES, CORE | MONTSERRAT [...] WALLS | [address] | [place], [place] | | | DAVID SOLIS OF CARE | [address] | [address] | | | TESTS | | | [...] MARQUAM | [address] | [place], [place] | | | DAVID SOLIS OF [place] | [address] | [address] | | | TESTS | | | [...] - MARQU[place] | [address] | [place], [place] | | | DAVID SOLIS OF CARE | [address] | [address] | | | TESTS | | | [...] WALLS | [address] | [place], [place] | | | DAVID SOLIS OF [facility] | [address] | [address] | | | TESTS | | | [...] [place] | [address] | [place], [place] | | | DAVID SOLIS OF CARE | [address] | [address] | | | TESTS | | | [...] - [place]QU[place] | [address] | [place], [place] | | | DAVID SOLIS OF [place] | [facility] | [address] | | | TESTS | | | [...] WALLS | [address] | [place], [place] | | | DAVID SOLIS OF [place] | [address] | [address] | | | TESTS | | | [...] | + + + + + | [facility] | [address] | [place] [address] | | | ALMA ROSA, | [address] [...] MARQUAM | [address] | [place], [place] | | | DAVID SOLIS OF [facility] | [address] | [address] | | | TESTS | | | [...] WALLS | [address] | [place], [place] | | | DAVID SOLIS OF [place] | [facility] | [address] | | | TESTS | | | [...] MARQUAM | [address] | [place], [place] | | | [place], POINT OF CARE | [facility] | [address] | | | TESTS | | | | + + + + + GLUCOSE, POC (09/09/2014 5:58 AM PDT) + +---------+ + + + | Component | Value | Ref Range | Performed | Pathologist | | | | | At | Signature | + +---------+ + + + | GLUCOSE, | 244 (H) | 60 - 99 mg/dL | [facility] - | | | POC | [...] MARQUAM | [address] | [place], [place] | | | DAVID SOLIS OF CARE | [facility] | [address] | | | TESTS | | | [...] WALLS | [address] | [place], [place] | | | WILL POINT OF CARE | [address] | [address] | | | TESTS | | | [...] MARQUAM | [address] | [place], [place] | | | H[place], POINT OF CARE | [address] | [address] | | | TESTS | | | [...] WALLS | [address] | [place], [place] | | | DAVID SOLIS OF CARE | [address] | [address] | | | TESTS | | | [...] MARQUAM | [address] | [place], [place] | | | WILL POINT OF [facility] | [facility] | [address] | | | TESTS | | | [...] + + + + | PRODUCT | [id number] | | [facility] | | | UNIT [...] + + + + | BLOOD | [id number] | | [facility] | | | PRODUCT [...] | + + + + + | [facility] | [address] | [place] [address] | | | PATHOLOGY | [address] [...] + + + + | PRODUCT | [id number] | | [facility] | | | UNIT [...] + + + + | BLOOD | [id number] | | [facility] | | | PRODUCT [...] | + + + + + | [facility] DEPARTMENT OF | [address] | [place] [address] | | | PATHOLOGY | [address] [...] + + + + | PRODUCT | [id number] | | [facility] | | | UNIT [...] + + + + | BLOOD | [id number] | | [facility] | | | PRODUCT [...] | + + + + + | [facility] | [address] | [place] [address] | | | PATHOLOGY | [address] [...] + + + + | PRODUCT | [id number] | | [facility] | | | UNIT [...] + + + + | BLOOD | [id number] | | [facility] | | | PRODUCT [...] DEPARTMENT OF | [address] | [place] [address] | | | PATHOLOGY | [address] [...] + + + + | PRODUCT | [id number] | | [facility] | | | UNIT [...] + + + + | BLOOD | [id number] | | [facility] | | | PRODUCT [...] | + + + + + | [facility] | [address] | [place] [address] | | | PATHOLOGY | [address] [...] + + + + | PRODUCT | [id number] | | [facility] | | | UNIT [...] + + + + | BLOOD | [id number] | | [facility] | | | PRODUCT [...] DEPARTMENT OF | [address] | [place] [address] | | | PATHOLOGY | [address] [...] + + + + | PRODUCT | [id number] | | [facility] | | | UNIT [...] + + + + | BLOOD | [id number] | | [facility] | | | PRODUCT [...] | + + + + + | [facility] | [address] | [place] [address] | | | PATHOLOGY | [address] [...] + + + + | PRODUCT | [id number] | | [facility] | | | UNIT [...] + + + + | BLOOD | [id number] | | [facility] | | | PRODUCT [...] DEPARTMENT OF | [address] | [place] [address] | | | PATHOLOGY | [address] [...] + + + + | PRODUCT | [id number] | | [facility] | | | UNIT [...] + + + + | BLOOD | [id number] | | [facility] | | | PRODUCT [...] | + + + + + | [facility] | [address] | [place] [address] | | | PATHOLOGY | [address] [...] + + + + | PRODUCT | [id number] | | [facility] | | | UNIT [...] + + + + | BLOOD | [id number] | | [facility] | | | PRODUCT [...] DEPARTMENT OF | [address] | [place] [address] | | | PATHOLOGY | [address] [...] + + + + | PRODUCT | [id number] | | [facility] | | | UNIT [...] + + + + | BLOOD | [id number] | | [facility] | | | PRODUCT [...] DEPARTMENT OF | [address] | [place] [address] | | | PATHOLOGY | [address] [...] + + + + | PRODUCT | [id number] | | [facility] | | | UNIT [...] + + + + | BLOOD | [id number] | | [facility] | | | PRODUCT [...] | [address] | [place], [place] [address] | | | PATHOLOGY | [address] [...] + + + + | PRODUCT | [id number] | | [facility] | | | UNIT [...] + + + + | BLOOD | [id number] | | [facility] | | | PRODUCT [...] OF | [address] | [place] [address] | | | PATHOLOGY | [address] [...] + + + + | PRODUCT | [id number] | | [facility] | | | UNIT [...] + + + + | BLOOD | [id number] | | [facility] | | | PRODUCT [...] DEPARTMENT OF | [address] | [place] [address] | | | PATHOLOGY | [address] [...] + + + + | PRODUCT | [id number] | | [facility] | | | UNIT [...] + + + + | BLOOD | [id number] | | [facility] | | | PRODUCT [...] | + + + + + | [facility] DEPARTMENT OF | [address] | [place] [address] | | | PATHOLOGY | [address] [...] + + + + | PRODUCT | [id number] | | [facility] | | | UNIT [...] + + + + | BLOOD | [id number] | | [facility] | | | PRODUCT [...] | + + + + + | [facility] | [address] | [place] [address] | | | PATHOLOGY | [address] [...] + + + + | PRODUCT | [id number] | | [facility] | | | UNIT [...] + + + + | BLOOD | [id number] | | [facility] | | | PRODUCT [...] [facility] DEPARTMENT | [address] | [place] [address] | | | PATHOLOGY | [address] [...] + + + + | PRODUCT | [id number] | | [facility] | | | UNIT [...] + + + + | BLOOD | [id number] | | [facility] | | | PRODUCT [...] | + + + + + | [facility] | [address] | [place] [address] | | | PATHOLOGY | [address] [...] + + + + | PRODUCT | [id number] | | [facility] | | | UNIT [...] + + + + | BLOOD | [id number] | | [facility] | | | PRODUCT [...] DEPARTMENT OF | [address] | [place] [address] | | | PATHOLOGY | [address] [...] + + + + | PRODUCT | [id number] | | [facility] | | | UNIT [...] + + + + | BLOOD | [id number] | | [facility] | | | PRODUCT [...] | + + + + + | [facility] | [address] | [place] [address] | | | PATHOLOGY | [address] [...] + + + + | PRODUCT | [id number] | | [facility] | | | UNIT [...] + + + + | BLOOD | [id number] | | [facility] | | | PRODUCT [...] DEPARTMENT OF | [address] | [place] [address] | | | PATHOLOGY | [address] [...] + + + + | PRODUCT | [id number] | | [facility] | | | UNIT [...] + + + + | BLOOD | [id number] | | [facility] | | | PRODUCT [...] | + + + + + | [facility] | [address] | [place] [address] | | | PATHOLOGY | [address] [...] + + + + | PRODUCT | [id number] | | [facility] | | | UNIT [...] + + + + | BLOOD | [id number] | | [facility] | | | PRODUCT [...] DEPARTMENT OF | [address] | [place] [address] | | | PATHOLOGY | [address] [...] + + + + | PRODUCT | [id number] | | [facility] | | | UNIT [...] + + + + | BLOOD | [id number] | | [facility] | | | PRODUCT [...] | + + + + + | [facility] | [address] | [place] [address] | | | PATHOLOGY | [address] [...] + + + + | PRODUCT | [id number] | | [facility] | | | UNIT [...] + + + + | BLOOD | [id number] | | [facility] | | | PRODUCT [...] DEPARTMENT OF | [address] | [place] [address] | | | PATHOLOGY | [address] [...] + + + + | PRODUCT | [id number] | | [facility] | | | UNIT [...] + + + + | BLOOD | [id number] | | [facility] | | | PRODUCT [...] | + + + + + | [facility] DEPARTMENT | [address] | [place] [address] | | | PATHOLOGY | [address] [...] + + + + | PRODUCT | [id number] | | [facility] | | | UNIT [...] + + + + | BLOOD | [id number] | | [facility] | | | PRODUCT [...] DEPARTMENT OF | [address] | [place], [place] [address] | | | PATHOLOGY | [address] [...] + + + + | PRODUCT | [id number] | | [facility] | | | UNIT [...] + + + + | BLOOD | [id number] | | [facility] | | | PRODUCT [...] | + + + + + | [facility] DEPARTMENT | [address] | [place] [address] | | | PATHOLOGY | [address] [...] WALLS | [address] | [place], [place] | | | DAVID SOLIS OF MANJIT | [facility] | [address] | | | TESTS | | | [...] [place] | | | | | | DAIVD SOLIS | | | | | | [...] [place] | [address] | [place], [place] | | | DAVID SOLIS OF CARE | [facility] | [address] | | | TESTS | | | [...] - MARQU[place] | [address] | [place], [place] | | | DAVID SOLIS OF CARE | [facility] | [address] | | | TESTS | | | [...] WALLS | [address] | [place], [place] | | | DAVID SOLIS OF [place] | [address] | [address] | | | TESTS | | | [...] MARQUAM | [address] | [place], [place] | | | WILL POINT OF CARE | [address] | [address] | | | TESTS | | | [...] MARQU[place] | [address] | [place], [place] | | | DAVID SOLIS OF CARE | [address] | [address] | | | TESTS | | | [...] WALLS | [address] | [place], [place] | | | WILL POINT OF CARE | [address] | [address] | | | TESTS | | | [...] - MARQUAM | [address] | [place], [place] | | | WILL POINT OF CARE | [facility] | [address] | | | TESTS | | | [...] | + + + + + | [facility] | [address] | [place] [address] | | | SERVICES, CORE | MONTSERRAT [...] | + + + + + | [facility] | [address] | [place] [address] | | | SERVICES, CORE | MONTSERRAT [...] WALLS | [address] | [place], [place] | | | WILL POINT OF CARE | [address] | [address] | | | TESTS | | | [...] MARQUAM | [address] | [place], [place] | | | WILL POINT OF CARE | [address] | [address] | | | TESTS | | | [...] TITI | [address] | [place], [place] | | | DAVID SOLIS OF CARE | [address] | [address] | | | TESTS | | | [...] WALLS | [address] | [place], [place] | | | DAVID SOLIS OF CARE | [address] | [address] | | | TESTS | | | [...] [place]QUAM | [address] | [place], [place] | | | DAVID SOLIS OF CARE | [address] | [address] | | | TESTS | | | [...] [place]QUAM | [address] | [place], [place] | | | WILL POINT OF [facility] | [address] | [address] | | | TESTS | | | [...] WALLS | [address] | [place], [place] | | | WILL POINT OF CARE | [address] | [address] | | | TESTS | | | [...] C WALLS | [address] | [place], [place] | | | DAVID SOLIS OF [facility] | [address] | [address] | | | TESTS | | | [...] | | + +---------+ + + | [facility] DEPARTMENT OF | | | | [...] + + + + | PRODUCT | [id number] | | [facility] | | | UNIT [...] + + + + | BLOOD | [id number] | | [facility] | | | PRODUCT [...] DEPARTMENT OF | [address] | [place] [address] | | | PATHOLOGY | [address] [...] + + + + | PRODUCT | [id number] | | [facility] | | | UNIT [...] + + + + | BLOOD | [id number] | | [facility] | | | PRODUCT [...] | + + + + + | [facility] DEPARTMENT OF | [address] | [place] [address] | | | PATHOLOGY | [address] [...] + + + + | PRODUCT | [id number] | | [facility] | | | UNIT [...] + + + + | BLOOD | [id number] | | [facility] | | | PRODUCT [...] DEPARTMENT OF | [address] | [place] [address] | | | PATHOLOGY | [address] [...] + + + + | PRODUCT | [id number] | | [facility] | | | UNIT [...] + + + + | BLOOD | [id number] | | [facility] | | | PRODUCT [...] | + + + + + | [facility] | [address] | [place] [address] | | | PATHOLOGY | [address] [...] + + + + | PRODUCT | [id number] | | [facility] | | | UNIT [...] + + + + | BLOOD | [id number] | | [facility] | | | PRODUCT [...] [facility] DEPARTMENT | [address] | [place] [address] | | | PATHOLOGY | [address] [...] + + + + | PRODUCT | [id number] | | [facility] | | | UNIT [...] + + + + | BLOOD | [id number] | | [facility] | | | PRODUCT [...] | + + + + + | [facility] DEPARTMENT OF | [address] | [place] [address] | | | PATHOLOGY | [address] [...] + + + + | PRODUCT | [id number] | | [facility] | | | UNIT [...] + + + + | BLOOD | [id number] | | [facility] | | | PRODUCT [...] [facility] DEPARTMENT | [address] | [place] [address] | | | PATHOLOGY | [address] [...] + + + + | PRODUCT | [id number] | | [facility] | | | UNIT [...] + + + + | BLOOD | [id number] | | [facility] | | | PRODUCT [...] | + + + + + | [facility] | [address] | [place] [address] | | | PATHOLOGY | [address] [...] + + + + | PRODUCT | [id number] | | [facility] | | | UNIT [...] + + + + | BLOOD | [id number] | | [facility] | | | PRODUCT [...] [facility] DEPARTMENT | [address] | [place] [address] | | | PATHOLOGY | [address] [...] + + + + | PRODUCT | [id number] | | [facility] | | | UNIT [...] + + + + | BLOOD | [id number] | | [facility] | | | PRODUCT [...] | + + + + + | [facility] DEPARTMENT OF | [address] | [place] [address] | | | PATHOLOGY | [address] [...] + + + + | PRODUCT | [id number] | | [facility] | | | UNIT [...] + + + + | BLOOD | [id number] | | [facility] | | | PRODUCT [...] [facility] DEPARTMENT | [address] | [place] [address] | | | PATHOLOGY | [address] [...] + + + + | PRODUCT | [id number] | | [facility] | | | UNIT [...] + + + + | BLOOD | [id number] | | [facility] | | | PRODUCT [...] | + + + + + | [facility] | [address] | [place] [address] | | | PATHOLOGY | [address] [...] + + + + | PRODUCT | [id number] | | [facility] | | | UNIT [...] + + + + | BLOOD | [id number] | | [facility] | | | PRODUCT [...] DEPARTMENT OF | [address] | [place] [address] | | | PATHOLOGY | [address] [...] + + + + | PRODUCT | [id number] | | [facility] | | | UNIT [...] + + + + | BLOOD | [id number] | | [facility] | | | PRODUCT [...] | + + + + + | [facility] | [address] | [place] [address] | | | PATHOLOGY | [address] [...] + + + + | PRODUCT | [id number] | | [facility] | | | UNIT [...] + + + + | BLOOD | [id number] | | [facility] | | | PRODUCT [...] DEPARTMENT OF | [address] | [place] [address] | | | PATHOLOGY | [address] [...] + + + + | PRODUCT | [id number] | | [facility] | | | UNIT [...] + + + + | BLOOD | [id number] | | [facility] | | | PRODUCT [...] | + + + + + | [facility] | [address] | [place] [address] | | | PATHOLOGY | [address] [...] + + + + | PRODUCT | [id number] | | [facility] | | | UNIT [...] + + + + | BLOOD | [id number] | | [facility] | | | PRODUCT [...] DEPARTMENT OF | [address] | [place] [address] | | | PATHOLOGY | [address] [...] + + + + | PRODUCT | [id number] | | [facility] | | | UNIT [...] + + + + | BLOOD | [id number] | | [facility] | | | PRODUCT [...] | + + + + + | [facility] | [address] | [place] [address] | | | PATHOLOGY | [address] [...] + + + + | PRODUCT | [id number] | | [facility] | | | UNIT [...] + + + + | BLOOD | [id number] | | [facility] | | | PRODUCT [...] | [address] | [place] [address] | | | PATHOLOGY | [address] [...] + + + + | PRODUCT | [id number] | | [facility] | | | UNIT [...] + + + + | BLOOD | [id number] | | [facility] | | | PRODUCT [...] DEPARTMENT OF | [address] | [place] [address] | | | PATHOLOGY | [address] [...] + + + + | PRODUCT | [id number] | | [facility] | | | UNIT [...] + + + + | BLOOD | [id number] | | [facility] | | | PRODUCT [...] | + + + + + | [facility] DEPARTMENT OF | [address] | [place] [address] | | | PATHOLOGY | [address] [...] + + + + | PRODUCT | [id number] | | [facility] | | | UNIT [...] + + + + | BLOOD | [id number] | | [facility] | | | PRODUCT [...] DEPARTMENT OF | [address] | [place], [place] [address] | | | PATHOLOGY | [address] [...] + + + + | PRODUCT | [id number] | | [facility] | | | UNIT [...] + + + + | BLOOD | [id number] | | [facility] | | | PRODUCT [...] | + + + + + | [facility] | [address] | [place] [address] | | | PATHOLOGY | [address] [...] + + + + | PRODUCT | [id number] | | [facility] | | | UNIT [...] + + + + | BLOOD | [id number] | | [facility] | | | PRODUCT [...] | + + + + + | [facility] | [address] | [place] [address] | | | PATHOLOGY | [address] [...] | 143 | 134 - 143 | [facility] - | | | | | [...] TITI | [address] | [place], [place] | | | [facility] | [address] | [address] | | | TESTS | | | [...] + + + + | PRODUCT | [id number] | | [facility] | | | UNIT [...] + + + + | BLOOD | [id number] | | [facility] | | | PRODUCT [...] DEPARTMENT OF | [address] | [place] [address] | | | PATHOLOGY | [address] [...] + + + + | PRODUCT | [id number] | | [facility] | | | UNIT [...] + + + + | BLOOD | [id number] | | [facility] | | | PRODUCT [...] DEPARTMENT OF | [address] | [place] [address] | | | PATHOLOGY | [address] [...] + + + + | PRODUCT | [id number] | | [facility] | | | UNIT [...] + + + + | BLOOD | [id number] | | [facility] | | | PRODUCT [...] | + + + + + | [facility] DEPARTMENT OF | [address] | [place] [address] | | | PATHOLOGY | [address] [...] + + + + | PRODUCT | [id number] | | [facility] | | | UNIT [...] + + + + | BLOOD | [id number] | | [facility] | | | PRODUCT [...] | + + + + + | [facility] DEPARTMENT OF | [address] | [place] [address] | | | PATHOLOGY | [address] [...] + + + + | PRODUCT | [id number] | | [facility] | | | UNIT [...] + + + + | BLOOD | [id number] | | [facility] | | | PRODUCT [...] DEPARTMENT OF | [address] | [place] [address] | | | PATHOLOGY | [address] [...] + + + + | PRODUCT | [id number] | | [facility] | | | UNIT [...] + + + + | BLOOD | [id number] | | [facility] | | | PRODUCT [...] | + + + + + | [facility] DEPARTMENT OF | [address] | [place] [address] | | | PATHOLOGY | [address] [...] TITI | [address] | [place], [place] | | | [facility] | [address] | [address] | | | TESTS | | | [...] + + + + | PRODUCT | [id number] | | [facility] | | | UNIT [...] + + + + | BLOOD | [id number] | | [facility] | | | PRODUCT [...] | [address] | [place] [address] | | | PATHOLOGY | [address] [...] + + + + | PRODUCT | [id number] | | [facility] | | | UNIT [...] + + + + | BLOOD | [id number] | | [facility] | | | PRODUCT [...] DEPARTMENT OF | [address] | [place] [address] | | | PATHOLOGY | [address] [...] + + + + | PRODUCT | [id number] | | [facility] | | | UNIT [...] + + + + | BLOOD | [id number] | | [facility] | | | PRODUCT [...] DEPARTMENT OF | [address] | [place], [place] [address] | | | PATHOLOGY | [address] [...] + + + + | PRODUCT | [id number] | | [facility] | | | UNIT [...] + + + + | BLOOD | [id number] | | [facility] | | | PRODUCT [...] DEPARTMENT OF | [address] | [place] [address] | | | PATHOLOGY | [address] [...] + + + + | PRODUCT | [id number] | | [facility] | | | UNIT [...] + + + + | BLOOD | [id number] | | [facility] | | | PRODUCT [...] DEPARTMENT OF | [address] | [place] [address] | | | PATHOLOGY | [address] [...] + + + + | PRODUCT | [id number] | | [facility] | | | UNIT [...] + + + + | BLOOD | [id number] | | [facility] | | | PRODUCT [...] DEPARTMENT OF | [address] | [place] [address] | | | PATHOLOGY | [address] [...] + + + + | PRODUCT | [id number] | | [facility] | | | UNIT [...] + + + + | BLOOD | [id number] | | [facility] | | | PRODUCT [...] | + + + + + | [facility] DEPARTMENT OF | [address] | [place] [address] | | | PATHOLOGY | [address] [...] + + + + | PRODUCT | [id number] | | [facility] | | | UNIT [...] + + + + | BLOOD | [id number] | | [facility] | | | PRODUCT [...] | + + + + + | [facility] DEPARTMENT | [address] | [place] [address] | | | PATHOLOGY | [address] [...] | + + + + + | [facility] | [address] [facility] | [place] [address] | | | SERVICES, | [address] [...] [facility] | [address] | [place] [address] | | | SERVICES, | [address] [...] | + + + + + | [facility] | [address] | [place] [address] | | | SERVICES, CORE | [address] [...] [facility] | [address] | [place] [address] | | | SERVICES, CORE | PARK [...] | | | LABORATORY | | | [facility] | | | SERVICES, | | | [...] the MDRD equation recommended by the | DESU | | National Kidney Disease Education Program. [...] | + + + + + | [facility] | [address] | [place] [address] | | | SERVICES, CORE | [address] | | | + + + + + ETHANOL (ALCOHOL), BLOOD (09/09/2014 3:26 AM PDT) + +-------+ + + + | Component | Value | Ref Range | Performed | Pathologist | | | | | At | Signature | + +-------+ + + + | ETHANOL | <10 | <10 mg/dL | [facility] | | | (ALCOHOL) | | | [...] [facility] | [address] | [place] [address] | | | SERVICES, CORE | P[address] [...] | + + + + + | [facility] | [address] | [place] [address] | | | SERVICES, CORE | [address] [...] discolored, | | | | | | yfoaakddfnbuds-gf-fppdkl | | | | | | -green [...] | | | | | | colon:A1, 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
--- OUTSIDE RECORDS SUMMARY | ~2019-09-08 | XMS | Encounter Summary ---
Demographics + + + | Address | [address] | | | [place] [address] | + + + | Home Phone | | + + + | Preferred Language | Unknown | + + + | Marital Status | | + + + | Worship Affiliation | NON | + + + [...] [place] | | | | | [address] | | + + + + + Care Team Providers + +------+ + | Care Obstetrics Tech Name | Role | Phone | [...] Anesthesia | 6A Intra Op [facility] | Victoriano Munson, | | | 2013 | Event | [facility] | MD [address] | | | | | Admitting Desk | [address] | | | | | Located on the | [place], [place] | | | | | [facility] [address] | [address] | | | | | [address] | [phone] | | | | | [place], [place] | | | | | | [address] | | | +--------+ + + + [...] 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) [...] | Endotracheal Tube (ETT); From | Martha aCrreno, | Elena Barrinetos RN | | ETT/Or | Lips (peds [...] Carreno, | Judith Valadez RN | | [place] | | RN | | | y [...] RN | | Drains | No; 19 Setswana; Robbin; Upper, | | | | | [...] | +---+---+ + +-------+ +--------+---+---+ | glycopyrrolate (DARCYUL) | Given | 09/10/20 | 0.6 mg | | | | injection INTRAPROCEDURE PRN, | | 14 11:22 | | | | | Starting Wed09/10/14 at 1122, | | AM PDT | [...] | Until 09/10/14 at 1213 | | | | [...] | | at 1900, Last dose on Wed | | | | | | | [...] 50 mg | | | | Starting Wed09/10/14 at 0816, | | 14 8:16 | | | | | Until Wed09/10/14 at 1213 | | AM PDT | [...]
--- OUTSIDE RECORDS SUMMARY | ~2019-09-08 | XMS | Encounter Summary ---
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 [facility] | | | PRODUCT [...] | + + + + + | [facility] | [address] | [place] [address] | | | PATHOLOGY | [address] [...] + + + + | PRODUCT | [id number] | | [facility] | | | UNIT [...] + + + + | BLOOD | [id number] | | [facility] | | | PRODUCT [...] DEPARTMENT OF | [address] | [place] [address] | | | PATHOLOGY | [address] [...] [facility] | [address] | [place] [address] | | | ALMA ROSA, CORE | [...] | + + + + + | [facility] | [address] | [place] [address] | | | SERVICES, CORE | MONTSERRAT [...] WALLS | [address] | [place], [place] | | | DAVID SOLIS OF CARE | [address] | [address] | | | TESTS | | | [...] MARQUAM | [address] | [place], [place] | | | DAVID SOLIS OF [facility] | [address] | [address] | | | TESTS | | | [...] ANDERSONAM | [address] | [place], [place] | | | DAVID SOLIS OF CARE | [address] | [address] | | | TESTS | | | [...] WALLS | [address] | [place], [place] | | | DAVID SOLIS OF CARE | [facility] | [address] | | | TESTS | | | [...] MARKADEEMAM | [address] | [place], [place] | | | DAVID SOLIS OF MAN[facility] | [address] | [address] | | | TESTS | | | [...] - MARQUAM | [address] | [place], [place] | | | DAVID SOLIS OF CARE | [address] | [address] | | | TESTS | | | [...] WALLS | [address] | [place], [place] | | | DAVID SOLIS OF [facility] | [address] | [address] | | | TESTS | | | [...] | + + + + + | [facility] | [address] | [place] [address] | | | ALMA ROSA, | MONTSERRAT [...] TITI | [address] | [place], [place] | | | DAVID SOLIS OF MAN[facility] | [address] | [address] | | | TESTS | | | [...] WALLS | [address] | [place], [place] | | | DAVID SOLIS OF [facility] | [address] | [address] | | | TESTS | | | [...] MARQUAM | [address] | [place], [place] | | | DAVID SOLIS OF CARE | [facility] | [address] | | | TESTS | | | [...] MARQUAM | [address] | [place], [place] | | | WILL POINT OF CARE | [address] | [address] | | | TESTS | | | [...] + + | JUAN C WALLS | [address] | [place], [place] | | | WILL POINT OF CARE | [address] | [address] | | | TESTS | | | [...] + + | [facility] - [facility] | [address] | [place], [place] | | | DAVID SOLIS OF CARE | [facility] | [address] | | | TESTS | | | [...] + + | [facility] TITI | [address] | [place], [place] | | | WILL POINT OF [facility] | [address] | [address] | | | TESTS | | | [...] MARQUAM | [address] | [place], [place] | | | DAVID SOLIS OF [facility] | [facility] | [address] | | | TESTS | | | [...] + + + + | PRODUCT | [id number] | | [facility] | | | UNIT [...] + + + + | BLOOD | [id number] | | [facility] | | | PRODUCT [...] | + + + + + | [facility] | [address] | [place] [address] | | | PATHOLOGY | [address] [...] + + + + | PRODUCT | [id number] | | [facility] | | | UNIT [...] + + + + | BLOOD | [id number] | | [facility] | | | PRODUCT [...] DEPARTMENT OF | [address] | [place] [address] | | | PATHOLOGY | [address] [...] + + + + | PRODUCT | [id number] | | [facility] | | | UNIT [...] + + + + | BLOOD | [id number] | | [facility] | | | PRODUCT [...] | + + + + + | [facility] | [address] | [place] [address] | | | PATHOLOGY | [address] [...] + + + + | PRODUCT | [id number] | | [facility] | | | UNIT [...] + + + + | BLOOD | [id number] | | [facility] | | | PRODUCT [...] DEPARTMENT OF | [address] | [place] [address] | | | PATHOLOGY | [address] [...] + + + + | PRODUCT | [id number] | | [facility] | | | UNIT [...] + + + + | BLOOD | [id number] | | [facility] | | | PRODUCT [...] | + + + + + | [facility] | [address] | [place] [address] | | | PATHOLOGY | [address] [...] + + + + | PRODUCT | [id number] | | [facility] | | | UNIT [...] + + + + | BLOOD | [id number] | | [facility] | | | PRODUCT [...] DEPARTMENT OF | [address] | [place] [address] | | | PATHOLOGY | [address] [...] + + + + | PRODUCT | [id number] | | [facility] | | | UNIT [...] + + + + | BLOOD | [id number] | | [facility] | | | PRODUCT [...] | + + + + + | [facility] | [address] | [place] [address] | | | PATHOLOGY | [address] [...] + + + + | PRODUCT | [id number] | | [facility] | | | UNIT [...] + + + + | BLOOD | [id number] | | [facility] | | | PRODUCT [...] DEPARTMENT OF | [address] | [place] [address] | | | PATHOLOGY | [address] [...] + + + + | PRODUCT | [id number] | | [facility] | | | UNIT [...] + + + + | BLOOD | [id number] | | [facility] | | | PRODUCT [...] | + + + + + | [facility] | [address] | [place] [address] | | | PATHOLOGY | [address] [...] + + + + | PRODUCT | [id number] | | [facility] | | | UNIT [...] + + + + | BLOOD | [id number] | | [facility] | | | PRODUCT [...] DEPARTMENT OF | [address] | [place] [address] | | | PATHOLOGY | [address] [...] + + + + | PRODUCT | [id number] | | [facility] | | | UNIT [...] + + + + | BLOOD | [id number] | | [facility] | | | PRODUCT [...] DEPARTMENT OF | [address] | [place] [address] | | | PATHOLOGY | [address] [...] + + + + | PRODUCT | [id number] | | [facility] | | | UNIT [...] + + + + | BLOOD | [id number] | | [facility] | | | PRODUCT [...] DEPARTMENT OF | [address] | [place] [address] | | | PATHOLOGY | [address] [...] + + + + | PRODUCT | [id number] | | [facility] | | | UNIT [...] + + + + | BLOOD | [id number] | | [facility] | | | PRODUCT [...] OF | [address] | [place] [address] | | | PATHOLOGY | [address] [...] + + + + | PRODUCT | [id number] | | [facility] | | | UNIT [...] + + + + | BLOOD | [id number] | | [facility] | | | PRODUCT [...] | + + + + + | [facility] DEPARTMENT OF | [address] | [place] [address] | | | PATHOLOGY | [address] [...] + + + + | PRODUCT | [id number] | | [facility] | | | UNIT [...] + + + + | BLOOD | [id number] | | [facility] | | | PRODUCT [...] | + + + + + | [facility] DEPARTMENT | [address] | [place] [address] | | | PATHOLOGY | [address] [...] + + + + | PRODUCT | [id number] | | [facility] | | | UNIT [...] + + + + | BLOOD | [id number] | | [facility] | | | PRODUCT [...] | + + + + + | [facility] | [address] | [place] [address] | | | PATHOLOGY | [address] [...] + + + + | PRODUCT | [id number] | | [facility] | | | UNIT [...] + + + + | BLOOD | [id number] | | [facility] | | | PRODUCT [...] DEPARTMENT OF | [address] | [place], [place] [address] | | | PATHOLOGY | [address] [...] + + + + | PRODUCT | [id number] | | [facility] | | | UNIT [...] + + + + | BLOOD | [id number] | | [facility] | | | PRODUCT [...] | + + + + + | [facility] | [address] | [place] [address] | | | PATHOLOGY | [address] [...] + + + + | PRODUCT | [id number] | | [facility] | | | UNIT [...] + + + + | BLOOD | [id number] | | [facility] | | | PRODUCT [...] DEPARTMENT OF | [address] | [place] [address] | | | PATHOLOGY | [address] [...] + + + + | PRODUCT | [id number] | | [facility] | | | UNIT [...] + + + + | BLOOD | [id number] | | [facility] | | | PRODUCT [...] | + + + + + | [facility] | [address] | [place] [address] | | | PATHOLOGY | [address] [...] + + + + | PRODUCT | [id number] | | [facility] | | | UNIT [...] + + + + | BLOOD | [id number] | | [facility] | | | PRODUCT [...] | + + + + + | [facility] DEPARTMENT OF | [address] | [place] [address] | | | PATHOLOGY | [address] [...] + + + + | PRODUCT | [id number] | | [facility] | | | UNIT [...] + + + + | BLOOD | [id number] | | [facility] | | | PRODUCT [...] | + + + + + | [facility] | [address] | [place] [address] | | | PATHOLOGY | [address] [...] + + + + | PRODUCT | [id number] | | [facility] | | | UNIT [...] + + + + | BLOOD | [id number] | | [facility] | | | PRODUCT [...] DEPARTMENT OF | [address] | [place] [address] | | | PATHOLOGY | [address] [...] + + + + | PRODUCT | [id number] | | [facility] | | | UNIT [...] + + + + | BLOOD | [id number] | | [facility] | | | PRODUCT [...] | + + + + + | [facility] DEPARTMENT | [address] | [place] [address] | | | PATHOLOGY | [address] [...] + + + + | PRODUCT | [id number] | | [facility] | | | UNIT [...] + + + + | BLOOD | [id number] | | [facility] | | | PRODUCT [...] DEPARTMENT OF | [address] | [place] [address] | | | PATHOLOGY | [address] [...] + + + + | PRODUCT | [id number] | | [facility] | | | UNIT [...] + + + + | BLOOD | [id number] | | [facility] | | | PRODUCT [...] OH DEPARTMENT | [address] | [place] [address] | | | PATHOLOGY | [address] [...] + + + + | PRODUCT | [id number] | | [facility] | | | UNIT [...] + + + + | BLOOD | [id number] | | [facility] | | | PRODUCT [...] | [address] | [place] [address] | | | PATHOLOGY | [address] [...] + + + + | PRODUCT | [id number] | | [facility] | | | UNIT [...] + + + + | BLOOD | [id number] | | [facility] | | | PRODUCT [...] | + + + + + | [facility] DEPARTMENT | [address] | [place] [address] | | | PATHOLOGY | [address] | | | + + + + + LACTATE (ART), POC (09/09/2014 5:29 AM PDT) + +---------+ + + + | Component | Value | Ref Range | Performed | Pathologist | | | | | At | Signature | + +---------+ + + + | LACTATE | 3.8 (H) | 0.5 - 1.6 | [facility] - | | | ARTERIAL, | [...] WALLS | [address] | [place], [place] | | | DAVID SOLIS OF MAN[facility] | [address] | [address] | | | TESTS | | | [...] MARQUAM | [address] | [place], [place] | | | WILL POINT OF CARE | [address] | [address] | | | TESTS | | | [...] - ANDERSONAM | [address] | [place], [place] | | | DAVID SOLIS OF CARE | [address] | [address] | | | TESTS | | | [...] + + | JUAN C WALLS | [address] | [place], [place] | | | DAVID SOLIS OF MAN[facility] | [facility] | [address] | | | TESTS | | | [...] MARQUAM | [address] | [place], [place] | | | WILL POINT OF CARE | [facility] | [address] | | | TESTS | | | [...] MARQUAM | [address] | [place] | | | WILL POINT OF [facility] | [facility] | [address] | | | TESTS | | | [...] WALLS | [address] | [place], [place] | | | WILL POINT OF CARE | [address] | [address] | | | TESTS | | | [...] MARQUAM | [address] | [place], [place] | | | WILL POINT OF CARE | [facility] | [address] | | | TESTS | | | [...] | + + + + + | [facility] | [address] [facility] | [place] [address] | | | SERVICES, CORE | [address] [...] | + + + + + | [facility] | [address] | [place] [address] | | | SERVICES, CORE | MONTSERRAT [...] WALLS | [address] | [place], [place] | | | WILL POINT OF CARE | [address] | [address] | | | TESTS | | | [...] MARQUAM | [address] | [place], [place] | | | WILL POINT OF CARE | [address] | [address] | | | TESTS | | | [...] - TITI | [address] | [place], [place] | | | DAVID SOLIS OF CARE | [address] | [address] | | | TESTS | | | [...] WALLS | [address] | [place], [place] | | | DAVID SOLIS OF CARE | [address] | [address] | | | TESTS | | | [...] MARQUAM | [address] | [place], [place] | | | DAVID SOLIS OF CARE | [address] | [address] | | | TESTS | | | [...] ANDERSONAM | [address] | [place] | | | DAVID SOLIS OF [facility] | [facility] | [address] | | | TESTS | | | [...] + + | JUAN C WALLS | [address] | [place], [place] | | | WILL POINT OF CARE | [address] | [address] | | | TESTS | | | [...] + | JUAN C WALLS | [address] [facility] [address] | [place], [place] | | | WILL POINT OF CARE | [address] | [address] | | | TESTS | | | [...] + + | Performing | Address | City/[facility] | Phone Number | | Organization | | | | + +---------+ + + | [facility] DEPARTMENT OF | | | | [...] + + + + | PRODUCT | [id number] | | [facility] | | | UNIT [...] + + + + | BLOOD | [id number] | | [facility] | | | PRODUCT [...] DEPARTMENT OF | [address] | [place] [address] | | | PATHOLOGY | [address] [...] + + + + | PRODUCT | [id number] | | [facility] | | | UNIT [...] + + + + | BLOOD | [id number] | | [facility] | | | PRODUCT [...] | + + + + + | [facility] OF | [address] | [place] [address] | | | PATHOLOGY | [address] [...] + + + + | PRODUCT | [id number] | | [facility] | | | UNIT [...] + + + + | BLOOD | [id number] | | [facility] | | | PRODUCT [...] DEPARTMENT OF | [address] | [place] [address] | | | PATHOLOGY | [address] [...] + + + + | PRODUCT | [id number] | | [facility] | | | UNIT [...] + + + + | BLOOD | [id number] | | [facility] | | | PRODUCT [...] | + + + + + | [facility] | [address] | [place] [address] | | | PATHOLOGY | [address] [...] + + + + | PRODUCT | [id number] | | [facility] | | | UNIT [...] + + + + | BLOOD | [id number] | | [facility] | | | PRODUCT [...] DEPARTMENT | [address] | [place] [address] | | | PATHOLOGY | [address] [...] + + + + | PRODUCT | [id number] | | [facility] | | | UNIT [...] + + + + | BLOOD | [id number] | | [facility] | | | PRODUCT [...] | + + + + + | [facility] | [address] | [place] [address] | | | PATHOLOGY | [address] [...] + + + + | PRODUCT | [id number] | | [facility] | | | UNIT [...] + + + + | BLOOD | [id number] | | [facility] | | | PRODUCT [...] [facility] DEPARTMENT | [address] | [place] [address] | | | PATHOLOGY | [address] [...] + + + + | PRODUCT | [id number] | | [facility] | | | UNIT [...] + + + + | BLOOD | [id number] | | [facility] | | | PRODUCT [...] | + + + + + | [facility] | [address] | [place] [address] | | | PATHOLOGY | [address] [...] + + + + | PRODUCT | [id number] | | [facility] | | | UNIT [...] + + + + | BLOOD | [id number] | | [facility] | | | PRODUCT [...] DEPARTMENT | [address] | [place] [address] | | | PATHOLOGY | [address] [...] + + + + | PRODUCT | [id number] | | [facility] | | | UNIT [...] + + + + | BLOOD | [id number] | | [facility] | | | PRODUCT [...] | + + + + + | [facility] | [address] | [place] [address] | | | PATHOLOGY | [address] [...] + + + + | PRODUCT | [id number] | | [facility] | | | UNIT [...] + + + + | BLOOD | [id number] | | [facility] | | | PRODUCT [...] DEPARTMENT OF | [address] | [place] [address] | | | PATHOLOGY | [address] [...] + + + + | PRODUCT | [id number] | | [facility] | | | UNIT [...] + + + + | BLOOD | [id number] | | [facility] | | | PRODUCT [...] | + + + + + | [facility] | [address] | [place] [address] | | | PATHOLOGY | [address] [...] + + + + | PRODUCT | [id number] | | [facility] | | | UNIT [...] + + + + | BLOOD | [id number] | | [facility] | | | PRODUCT [...] DEPARTMENT OF | [address] | [place] [address] | | | PATHOLOGY | [address] [...] + + + + | PRODUCT | [id number] | | [facility] | | | UNIT [...] + + + + | BLOOD | [id number] | | [facility] | | | PRODUCT [...] | + + + + + | [facility] | [address] | [place] [address] | | | PATHOLOGY | [address] [...] + + + + | PRODUCT | [id number] | | [facility] | | | UNIT [...] + + + + | BLOOD | [id number] | | [facility] | | | PRODUCT [...] DEPARTMENT OF | [address] | [place] [address] | | | PATHOLOGY | [address] [...] + + + + | PRODUCT | [id number] | | [facility] | | | UNIT [...] + + + + | BLOOD | [id number] | | [facility] | | | PRODUCT [...] | + + + + + | [facility] | [address] | [place] [address] | | | PATHOLOGY | [address] [...] + + + + | PRODUCT | [id number] | | [facility] | | | UNIT [...] + + + + | BLOOD | [id number] | | [facility] | | | PRODUCT [...] DEPARTMENT OF | [address] | [place] [address] | | | PATHOLOGY | [address] [...] + + + + | PRODUCT | [id number] | | [facility] | | | UNIT [...] + + + + | BLOOD | [id number] | | [facility] | | | PRODUCT [...] [facility] DEPARTMENT | [address] | [place] [address] | | | PATHOLOGY | [address] [...] + + + + | PRODUCT | [id number] | | [facility] | | | UNIT [...] + + + + | BLOOD | [id number] | | [facility] | | | PRODUCT [...] | [address] | [place] [address] | | | PATHOLOGY | [address] [...] + + + + | PRODUCT | [id number] | | [facility] | | | UNIT [...] + + + + | BLOOD | [id number] | | [facility] | | | PRODUCT [...] DEPARTMENT OF | [address] | [place] [address] | | | PATHOLOGY | [address] [...] + + + + | PRODUCT | [id number] | | [facility] | | | UNIT [...] + + + + | BLOOD | [id number] | | [facility] | | | PRODUCT [...] | + + + + + | [facility] DEPARTMENT OF | [address] | [place] [address] | | | PATHOLOGY | [address] [...] + + + + | PRODUCT | [id number] | | [facility] | | | UNIT [...] + + + + | BLOOD | [id number] | | [facility] | | | PRODUCT [...] DEPARTMENT OF | [address] | [place] [address] | | | PATHOLOGY | [address] [...] + + + + | PRODUCT | [id number] | | [facility] | | | UNIT [...] + + + + | BLOOD | [id number] | | [facility] | | | PRODUCT [...] | + + + + + | [facility] | [address] | [place] [address] | | | PATHOLOGY | [address] [...] + + + + | PRODUCT | [id number] | | [facility] | | | UNIT [...] + + + + | BLOOD | [id number] | | [facility] | | | PRODUCT [...] | + + + + + | [facility] | [address] | [place] [address] | | | PATHOLOGY | [address] [...] | 143 | 134 - 143 | [facility] - | | | | | [...] TITI | [address] | [place], [place] | | | [facility] | [address] | [address] | | | TESTS | | | [...] + + + + | PRODUCT | [id number] | | [facility] | | | UNIT [...] + + + + | BLOOD | [id number] | | [facility] | | | PRODUCT [...] OF | [address] | [place] [address] | | | PATHOLOGY | [address] [...] + + + + | PRODUCT | [id number] | | [facility] | | | UNIT [...] + + + + | BLOOD | [id number] | | [facility] | | | PRODUCT [...] | + + + + + | [facility] DEPARTMENT OF | [address] | [place] [address] | | | PATHOLOGY | [address] [...] + + + + | PRODUCT | [id number] | | [facility] | | | UNIT [...] + + + + | BLOOD | [id number] | | [facility] | | | PRODUCT [...] | + + + + + | [facility] DEPARTMENT OF | [address] | [place] [address] | | | PATHOLOGY | [address] [...] + + + + | PRODUCT | [id number] | | [facility] | | | UNIT [...] + + + + | BLOOD | [id number] | | [facility] | | | PRODUCT [...] | + + + + + | [facility] DEPARTMENT OF | [address] | [place] [address] | | | PATHOLOGY | [address] [...] + + + + | PRODUCT | [id number] | | [facility] | | | UNIT [...] + + + + | BLOOD | [id number] | | [facility] | | | PRODUCT [...] | + + + + + | [facility] DEPARTMENT OF | [address] | [place] [address] | | | PATHOLOGY | [address] [...] + + + + | PRODUCT | [id number] | | [facility] | | | UNIT [...] + + + + | BLOOD | [id number] | | [facility] | | | PRODUCT [...] | + + + + + | [facility] DEPARTMENT OF | [address] | [place] [address] | | | PATHOLOGY | [address] [...] TITI | [address] | [place], [place] | | | [facility] | [facility] | [address] | | | TESTS | | | [...] + + + + | PRODUCT | [id number] | | [facility] | | | UNIT [...] + + + + | BLOOD | [id number] | | [facility] | | | PRODUCT [...] DEPARTMENT OF | [address] | [place] [address] | | | PATHOLOGY | [address] [...] + + + + | PRODUCT | [id number] | | [facility] | | | UNIT [...] + + + + | BLOOD | [id number] | | [facility] | | | PRODUCT [...] DEPARTMENT OF | [address] | [place] [address] | | | PATHOLOGY | [address] [...] + + + + | PRODUCT | [id number] | | [facility] | | | UNIT [...] + + + + | BLOOD | [id number] | | [facility] | | | PRODUCT [...] DEPARTMENT OF | [address] | [place] [address] | | | PATHOLOGY | [address] [...] + + + + | PRODUCT | [id number] | | [facility] | | | UNIT [...] + + + + | BLOOD | [id number] | | [facility] | | | PRODUCT [...] OF | [address] | [place] [address] | | | PATHOLOGY | [address] [...] + + + + | PRODUCT | [id number] | | [facility] | | | UNIT [...] + + + + | BLOOD | [id number] | | [facility] | | | PRODUCT [...] | + + + + + | [facility] DEPARTMENT OF | [address] | [place] [address] | | | PATHOLOGY | [address] [...] + + + + | PRODUCT | [id number] | | [facility] | | | UNIT [...] + + + + | BLOOD | [id number] | | [facility] | | | PRODUCT [...] | + + + + + | [facility] DEPARTMENT OF | [address] | [place] [address] | | | PATHOLOGY | [address] [...] + + + + | PRODUCT | [id number] | | [facility] | | | UNIT [...] + + + + | BLOOD | [id number] | | [facility] | | | PRODUCT [...] | + + + + + | [facility] DEPARTMENT OF | [address] | [place] [address] | | | PATHOLOGY | [address] [...] + + + + | PRODUCT | [id number] | | [facility] | | | UNIT [...] + + + + | BLOOD | [id number] | | [facility] | | | PRODUCT [...] | + + + + + | [facility] DEPARTMENT | [address] | [place] [address] | | | PATHOLOGY | [address] [...] | + + + + + | [facility] | [address] | [place] [address] | | | SERVICES, | [address] [...] [facility] | [address] | [place] [address] | | | SERVICES, | [address] [...] C LABORATORY | [address] | [place] [address] | | | ALMA ROSA, ELOY | [...] [facility] | [address] | [place] [address] | | | SERVICES, CORE | [address] [...] | | | LABORATORY | | | MAURITIAN | | | SERVICES, | | | [...] | + + + + + | [facility] | [address] | [place] [address] | | | SERVICES, CORE | [address] | | | + + + + + ETHANOL (ALCOHOL), BLOOD (09/09/2014 3:26 AM PDT) + +-------+ + + + | Component | Value | Ref Range | Performed | Pathologist | | | | | At | Signature | + +-------+ + + + | ETHANOL | <10 | <10 mg/dL | [facility] | | | (ALCOHOL) | | | [...] [facility] | [address] | [place] [address] | | | SERVICES, CORE | [address] [...] | + + + + + | [facility] | [address] | [place] [address] | | | SERVICES, CORE | [address] [...] discolored, | | | | | | nddgowfmnwihfi-li-gvlhmf | | | | | | -green [...] | | | | | | colon:A1, exhibit display representative | | | | | | [...] | + + + + + | [facility] | [address] | [place] [address] | | | PATHOLOGY | [address] [...]
--- OUTSIDE RECORDS SUMMARY | ~2019-09-08 | XMS | Encounter Summary ---
Demographics + + + | Address | [address] | | | [place] [address] | + + + | Home Phone | | + + + | Preferred Language | Unknown | + + + | Marital Status | | + + + | Latter-Day Affiliation | NON | + + + [...] [place] | | | | | [address] | | + + + + + Care Team Providers + +------+ + | Care Scuba Diver Name | Role | Phone | + [...] | 6A Intra Op [facility] | Victoriano Musnon, | | | 2013 | Event | [facility] | MD [address] | | | | | Admitting Desk | [address] | | | | | Located on the | [place], [place] | | | | | [facility] [address] | [address] | | | | | [address] | [phone] | | | | | [place], [place] | | | | | | [address] | | | +--------+ + + + [...] Retained Sponges | | | | | -[place]-Colostomy (N/A | | | | | Abdomen) [...] RN | | Drains | No; 19 [place]; Rob[place]; Upper, | | | | | [...]
--- OUTSIDE RECORDS SUMMARY | ~2019-09-08 | XMS | Encounter Summary ---
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 | + + + + + | [facility] | [address] | [place] [address] | | | SERVICES, CORE | JACKIE [...] [place] | [address] | [place], [place] | | | DAVID SOLIS OF CARE | [address] | [address] | | | TESTS | | | [...] [facility] | [address] | [place], [place] | | | DAVID SOLIS OF MANJIT | [facility] | [address] | | | TESTS | | | [...] WALLS | [address] | [place], [place] | | | DAVDI SOLIS OF CARE | [address] | [address] | | | TESTS | | | [...] [place] | [address] | [place], [place] | | | DAVID SOLIS OF MANJIT | [facility] | [address] | | | TESTS | | | [...] - [place] | [address] | [place], [place] | | | DAVID SOLIS OF CARE | [facility] | [address] | | | TESTS | | | [...] WALLS | [address] | [place], [place] | | | WILL POINT OF CARE | [address] | [address] | | | TESTS | | | [...] [place] | [address] | [place], [place] | | | DAVID SOLIS OF CARE | [address] | [address] | | | TESTS | | | [...] [facility] | [address] | [place] [address] | | | SERVICES, | [address] [...] TITI | [address] | [place], [place] | | | DAVID SOLIS OF MANJIT | [facility] | [address] | | | TESTS | | | [...] [place] | [address] | [place], [place] | | | DAVID SOLIS OF CARE | [facility] | [address] | | | TESTS | | | [...] [place] | [address] | [place], [place] | | | DAVID SOLIS OF MANJIT | [facility] | [address] | | | TESTS | | | [...] WALLS | [address] | [place], [place] | | | WILL POINT OF CARE | [address] | [address] | | | TESTS | | | [...] + + | [facility] | [address] | [place], [place] | | | DAVID SOLIS OF CARE | [facility] | [address] | | | TESTS | | | [...] [place] | [address] | [place] | | | DAVID SOLIS OF MANJIT | [facility] | [address] | | | TESTS | | | [...] TITI | [address] | [place], [place] | | | DAVID SOLIS OF CARE | [address] | [address] | | | TESTS | | | [...] TITI | [address] | [place] | | | DAVID SOLIS OF [facility] | [address] | [address] | | | TESTS | | | [...] + + + + | PRODUCT | [id number] | | [facility] | | | UNIT [...] + + + + | BLOOD | [id number] | | [facility] | | | PRODUCT [...] | [address] | [place] [address] | | | PATHOLOGY | [address] [...] + + + + | PRODUCT | [id number] | | [facility] | | | UNIT [...] + + + + | BLOOD | [id number] | | [facility] | | | PRODUCT [...] DEPARTMENT OF | [address] | [place] [address] | | | PATHOLOGY | [address] [...] + + + + | PRODUCT | [id number] | | [facility] | | | UNIT [...] + + + + | BLOOD | [id number] | | [facility] | | | PRODUCT [...] DEPARTMENT OF | [address] | [place], [place] [address] | | | PATHOLOGY | [address] [...] + + + + | PRODUCT | [id number] | | [facility] | | | UNIT [...] + + + + | BLOOD | [id number] | | [facility] | | | PRODUCT [...] + + + + | [facility] DEPARTMENT OF | [address] | [place] [address] | | | PATHOLOGY | [address] [...] + + + + | PRODUCT | [id number] | | [facility] | | | UNIT [...] + + + + | BLOOD | [id number] | | [facility] | | | PRODUCT [...] DEPARTMENT OF | [address] | [place], [place] [address] | | | PATHOLOGY | [address] [...] + + + + | PRODUCT | [id number] | | [facility] | | | UNIT [...] + + + + | BLOOD | [id number] | | [facility] | | | PRODUCT [...] DEPARTMENT OF | [address] | [place] [address] | | | PATHOLOGY | [address] [...] + + + + | PRODUCT | [id number] | | [facility] | | | UNIT [...] + + + + | BLOOD | [id number] | | [facility] | | | PRODUCT [...] DEPARTMENT OF | [address] | [place] [address] | | | PATHOLOGY | [address] [...] + + + + | PRODUCT | [id number] | | [facility] | | | UNIT [...] + + + + | BLOOD | [id number] | | [facility] | | | PRODUCT [...] OF | [address] | [place] [address] | | | PATHOLOGY | [address] [...] + + + + | PRODUCT | [id number] | | [facility] | | | UNIT [...] + + + + | BLOOD | [id number] | | [facility] | | | PRODUCT [...] DEPARTMENT OF | [address] | [place] [address] | | | PATHOLOGY | [address] [...] + + + + | PRODUCT | [id number] | | [facility] | | | UNIT [...] + + + + | BLOOD | [id number] | | [facility] | | | PRODUCT [...] OF | [address] | [place] [address] | | | PATHOLOGY | [address] [...] + + + + | PRODUCT | [id number] | | [facility] | | | UNIT [...] + + + + | BLOOD | [id number] | | [facility] | | | PRODUCT [...] + + + + | [facility] DEPARTMENT OF | [address] | [place] [address] | | | PATHOLOGY | [address] [...] + + + + | PRODUCT | [id number] | | [facility] | | | UNIT [...] + + + + | BLOOD | [id number] | | [facility] | | | PRODUCT [...] [facility] DEPARTMENT | [address] | [place] [address] | | | PATHOLOGY | [address] [...] + + + + | PRODUCT | [id number] | | [facility] | | | UNIT [...] + + + + | BLOOD | [id number] | | [facility] | | | PRODUCT [...] + + + + | [facility] | [address] | [place] [address] | | | PATHOLOGY | [address] [...] + + + + | PRODUCT | [id number] | | [facility] | | | UNIT [...] + + + + | BLOOD | [id number] | | [facility] | | | PRODUCT [...] DEPARTMENT OF | [address] | [place] [address] | | | PATHOLOGY | [address] [...] + + + + | PRODUCT | [id number] | | [facility] | | | UNIT [...] + + + + | BLOOD | [id number] | | [facility] | | | PRODUCT [...] + + + + | [facility] | [address] | [place] [address] | | | PATHOLOGY | [address] [...] + + + + | PRODUCT | [id number] | | [facility] | | | UNIT [...] + + + + | BLOOD | [id number] | | [facility] | | | PRODUCT [...] DEPARTMENT OF | [address] | [place] [address] | | | PATHOLOGY | [address] [...] + + + + | PRODUCT | [id number] | | [facility] | | | UNIT [...] + + + + | BLOOD | [id number] | | [facility] | | | PRODUCT [...] + + + + | [facility] | [address] | [place] [address] | | | PATHOLOGY | [address] [...] + + + + | PRODUCT | [id number] | | [facility] | | | UNIT [...] + + + + | BLOOD | [id number] | | [facility] | | | PRODUCT [...] DEPARTMENT OF | [address] | [place] [address] | | | PATHOLOGY | [address] [...] + + + + | PRODUCT | [id number] | | [facility] | | | UNIT [...] + + + + | BLOOD | [id number] | | [facility] | | | PRODUCT [...] + + + + | [facility] | [address] | [place] [address] | | | PATHOLOGY | [address] [...] + + + + | PRODUCT | [id number] | | [facility] | | | UNIT [...] + + + + | BLOOD | [id number] | | [facility] | | | PRODUCT [...] | [address] | [place] [address] | | | PATHOLOGY | [address] [...] + + + + | PRODUCT | [id number] | | [facility] | | | UNIT [...] + + + + | BLOOD | [id number] | | [facility] | | | PRODUCT [...] + + + + | [facility] DEPARTMENT OF | [address] | [place] [address] | | | PATHOLOGY | [address] [...] + + + + | PRODUCT | [id number] | | [facility] | | | UNIT [...] + + + + | BLOOD | [id number] | | [facility] | | | PRODUCT [...] DEPARTMENT OF | [address] | [place] [address] | | | PATHOLOGY | [address] [...] + + + + | PRODUCT | [id number] | | [facility] | | | UNIT [...] + + + + | BLOOD | [id number] | | [facility] | | | PRODUCT [...] DEPARTMENT OF | [address] | [place] [address] | | | PATHOLOGY | [address] [...] + + + + | PRODUCT | [id number] | | [facility] | | | UNIT [...] + + + + | BLOOD | [id number] | | [facility] | | | PRODUCT [...] + + + + | [facility] DEPARTMENT OF | [address] | [place] [address] | | | PATHOLOGY | [address] [...] + + + + | PRODUCT | [id number] | | [facility] | | | UNIT [...] + + + + | BLOOD | [id number] | | [facility] | | | PRODUCT [...] DEPARTMENT OF | [address] | [place] [address] | | | PATHOLOGY | [address] [...] + + + + | PRODUCT | [id number] | | [facility] | | | UNIT [...] + + + + | BLOOD | [id number] | | [facility] | | | PRODUCT [...] + + + + | [facility] DEPARTMENT OF | [address] | [place] [address] | | | PATHOLOGY | [address] [...] + + + + | PRODUCT | [id number] | | [facility] | | | UNIT [...] + + + + | BLOOD | [id number] | | [facility] | | | PRODUCT [...] + + + + | [facility] DEPARTMENT OF | [address] | [place] [address] | | | PATHOLOGY | [address] [...] + + + + | PRODUCT | [id number] | | [facility] | | | UNIT [...] + + + + | BLOOD | [id number] | | [facility] | | | PRODUCT [...] + + + + | [facility] DEPARTMENT OF | [address] | [place] [address] | | | PATHOLOGY | [address] [...] [place] | [address] | [place], [place] | | | DAVID SOLIS OF CARE | [address] | [address] | | | TESTS | | | [...] [place] | [address] | [place], [place] | | | DAVID SOLIS OF MANJIT | [facility] | [address] | | | TESTS | | | [...] WALLS | [address] | [place], [place] | | | WILL POINT OF CARE | [address] | [address] | | | TESTS | | | [...] [place] | [address] | [place], [place] | | | WILL POINT OF CARE | [address] | [address] | | | TESTS | | | [...] [place] | [address] | [place], [place] | | | WILL POINT OF CARE | [address] | [address] | | | TESTS | | | [...] WALLS | [address] | [place], [place] | | | DAVID SOLIS OF CARE | [address] | [address] | | | TESTS | | | [...] TITI | [address] | [place], [place] | | | DAVID SOLIS OF CARE | [facility] | [address] | | | TESTS | | | [...] TITI | [address] | [place], [place] | | | DAVID SOLIS OF [facility] | [address] | [address] | | | TESTS | | | [...] [facility] | [address] | [place] [address] | | | SERVICES, CORE | [address] [...] | + + + + + | [facility] | [address] | [place] [address] | | | [address] | JACKIE [...] [place] | [address] | [place], [place] | | | HILL, POINT OF CARE | [address] | [address] | | | TESTS | | | [...] - [place] | [address] | [place], [place] | | | DAVID SOLIS OF CARE | [address] | [address] | | | TESTS | | | [...] WALLS | [address] | [place] | | | DAVID SOLIS OF MANJIT | [facility] | [address] | | | TESTS | | | [...] [facility] | [address] | [place], [place] | | | WILL POINT OF CARE | [address] | [address] | | | TESTS | | | [...] [place] | [address] | [place] | | | DAVID SOLIS OF [facility] | [facility] | [address] | | | TESTS | | | [...] W[place]S | [address] | [place], [place] | | | DAVID SOLIS OF MAN[place]IT | [address] | [address] | | | TESTS | | | [...] TITI | [address] | [place], [place] | | | WILL POINT OF CARE | [facility] | [address] | | | TESTS | | | [...] + + | [facility] | [address] | [place], [place] | | | WILL POINT OF CARE | [address] | [address] | | | TESTS | | | [...] + + + + | PRODUCT | [id number] | | [facility] | | | UNIT [...] + + + + | BLOOD | [id number] | | [facility] | | | PRODUCT [...] + + + + | [facility] | [address] | [place] [address] | | | PATHOLOGY | [address] [...] + + + + | PRODUCT | [id number] | | [facility] | | | UNIT [...] + + + + | BLOOD | [id number] | | [facility] | | | PRODUCT [...] DEPARTMENT OF | [address] | [place] [address] | | | PATHOLOGY | [address] [...] + + + + | PRODUCT | [id number] | | [facility] | | | UNIT [...] + + + + | BLOOD | [id number] | | [facility] | | | PRODUCT [...] + + + + | [facility] | [address] | [place] [address] | | | PATHOLOGY | [address] [...] + + + + | PRODUCT | [id number] | | [facility] | | | UNIT [...] + + + + | BLOOD | [id number] | | [facility] | | | PRODUCT [...] DEPARTMENT OF | [address] | [place] [address] | | | PATHOLOGY | [address] [...] + + + + | PRODUCT | [id number] | | [facility] | | | UNIT [...] + + + + | BLOOD | [id number] | | [facility] | | | PRODUCT [...] + + + + | [facility] | [address] | [place] [address] | | | PATHOLOGY | [address] [...] + + + + | PRODUCT | [id number] | | [facility] | | | UNIT [...] + + + + | BLOOD | [id number] | | [facility] | | | PRODUCT [...] DEPARTMENT OF | [address] | [place] [address] | | | PATHOLOGY | [address] [...] + + + + | PRODUCT | [id number] | | [facility] | | | UNIT [...] + + + + | BLOOD | [id number] | | [facility] | | | PRODUCT [...] + + + + | [facility] | [address] | [place] [address] | | | PATHOLOGY | [address] [...] + + + + | PRODUCT | [id number] | | [facility] | | | UNIT [...] + + + + | BLOOD | [id number] | | [facility] | | | PRODUCT [...] DEPARTMENT OF | [address] | [place] [address] | | | PATHOLOGY | [address] [...] + + + + | PRODUCT | [id number] | | [facility] | | | UNIT [...] + + + + | BLOOD | [id number] | | [facility] | | | PRODUCT [...] + + + + | [facility] | [address] | [place] [address] | | | PATHOLOGY | [address] [...] + + + + | PRODUCT | [id number] | | [facility] | | | UNIT [...] + + + + | BLOOD | [id number] | | [facility] | | | PRODUCT [...] DEPARTMENT OF | [address] | [place] [address] | | | PATHOLOGY | [address] [...] + + + + | PRODUCT | [id number] | | [facility] | | | UNIT [...] + + + + | BLOOD | [id number] | | [facility] | | | PRODUCT [...] + + + + | [facility] | [address] | [place] [address] | | | PATHOLOGY | [address] [...] + + + + | PRODUCT | [id number] | | [facility] | | | UNIT [...] + + + + | BLOOD | [id number] | | [facility] | | | PRODUCT [...] + + + + | [facility] DEPARTMENT OF | [address] | [place] [address] | | | PATHOLOGY | [address] [...] + + + + | PRODUCT | [id number] | | [facility] | | | UNIT [...] + + + + | BLOOD | [id number] | | [facility] | | | PRODUCT [...] + + + + | [facility] | [address] | [place] [address] | | | PATHOLOGY | [address] [...] + + + + | PRODUCT | [id number] | | [facility] | | | UNIT [...] + + + + | BLOOD | [id number] | | [facility] | | | PRODUCT [...] DEPARTMENT OF | [address] | [place] [address] | | | PATHOLOGY | [address] [...] + + + + | PRODUCT | [id number] | | [facility] | | | UNIT [...] + + + + | BLOOD | [id number] | | [facility] | | | PRODUCT [...] DEPARTMENT | [address] | [place] [address] | | | PATHOLOGY | [address] [...] + + + + | PRODUCT | [id number] | | [facility] | | | UNIT [...] + + + + | BLOOD | [id number] | | [facility] | | | PRODUCT [...] DEPARTMENT OF | [address] | [place] [address] | | | PATHOLOGY | [address] [...] + + + + | PRODUCT | [id number] | | [facility] | | | UNIT [...] + + + + | BLOOD | [id number] | | [facility] | | | PRODUCT [...] DEPARTMENT OF | [address] | [place] [address] | | | PATHOLOGY | [address] [...] + + + + | PRODUCT | [id number] | | [facility] | | | UNIT [...] + + + + | BLOOD | [id number] | | [facility] | | | PRODUCT [...] + + + + | [facility] DEPARTMENT OF | [address] | [place] [address] | | | PATHOLOGY | [address] [...] + + + + | PRODUCT | [id number] | | [facility] | | | UNIT [...] + + + + | BLOOD | [id number] | | [facility] | | | PRODUCT [...] + + + + | [facility] DEPARTMENT | [address] | [place] [address] | | | PATHOLOGY | [address] [...] + + + + | PRODUCT | [id number] | | [facility] | | | UNIT [...] + + + + | BLOOD | [id number] | | [facility] | | | PRODUCT [...] + + + + | [facility] | [address] | [place] [address] | | | PATHOLOGY | [address] [...] + + + + | PRODUCT | [id number] | | [facility] | | | UNIT [...] + + + + | BLOOD | [id number] | | [facility] | | | PRODUCT [...] DEPARTMENT OF | [address] | [place] [address] | | | PATHOLOGY | [address] [...] + + + + | PRODUCT | [id number] | | [facility] | | | UNIT [...] + + + + | BLOOD | [id number] | | [facility] | | | PRODUCT [...] + + + + | [facility] | [address] | [place] [address] | | | PATHOLOGY | [address] [...] + + + + | PRODUCT | [id number] | | [facility] | | | UNIT [...] + + + + | BLOOD | [id number] | | [facility] | | | PRODUCT [...] DEPARTMENT OF | [address] | [place] [address] | | | PATHOLOGY | [address] [...] + + + + | PRODUCT | [id number] | | [facility] | | | UNIT [...] + + + + | BLOOD | [id number] | | [facility] | | | PRODUCT [...] + + + + | [facility] DEPARTMENT | [address] | [place] [address] | | | PATHOLOGY | [address] [...] TITI | [address] | [place], [place] | | | DAVID SOLIS OF [facility] | [address] | [address] | | | TESTS | | | [...] + + + + | PRODUCT | [id number] | | [facility] | | | UNIT [...] + + + + | BLOOD | [id number] | | [facility] | | | PRODUCT [...] + + + + | [facility] | [address] | [place] [address] | | | PATHOLOGY | [address] [...] + + + + | PRODUCT | [id number] | | [facility] | | | UNIT [...] + + + + | BLOOD | [id number] | | [facility] | | | PRODUCT [...] DEPARTMENT OF | [address] | [place] [address] | | | PATHOLOGY | [address] [...] + + + + | PRODUCT | [id number] | | [facility] | | | UNIT [...] + + + + | BLOOD | [id number] | | [facility] | | | PRODUCT [...] + + + + | [facility] | [address] | [place] [address] | | | PATHOLOGY | [address] [...] + + + + | PRODUCT | [id number] | | [facility] | | | UNIT [...] + + + + | BLOOD | [id number] | | [facility] | | | PRODUCT [...] DEPARTMENT OF | [address] | [place] [address] | | | PATHOLOGY | [address] [...] + + + + | PRODUCT | [id number] | | [facility] | | | UNIT [...] + + + + | BLOOD | [id number] | | [facility] | | | PRODUCT [...] + + + + | [facility] | [address] | [place] [address] | | | PATHOLOGY | [address] [...] + + + + | PRODUCT | [id number] | | [facility] | | | UNIT [...] + + + + | BLOOD | [id number] | | [facility] | | | PRODUCT [...] + + + + | [facility] | [address] | [place] [address] | | | PATHOLOGY | [address] [...] (L) | 23 - 29 mmol/L | [facility] - | | | TC02 | | | [facility] | | | | | | [facility] | | | | | | OF CARE | | | | | | TESTS | | + + + + + + | ED BG POC | 7.06 (L) | 7.35 - 7.45 | [facility] - | | | PH | | [...] WALLS | [address] | [place], [place] | | | WILL POINT OF CARE | [address] | [address] | | | TESTS | | | [...] + + + + | PRODUCT | [id number] | | [facility] | | | UNIT [...] + + + + | BLOOD | [id number] | | [facility] | | | PRODUCT [...] DEPARTMENT OF | [address] | [place] [address] | | | PATHOLOGY | [address] [...] + + + + | PRODUCT | [id number] | | [facility] | | | UNIT [...] + + + + | BLOOD | [id number] | | [facility] | | | PRODUCT [...] + + + + | [facility] | [address] | [place] [address] | | | PATHOLOGY | [address] [...] + + + + | PRODUCT | [id number] | | [facility] | | | UNIT [...] + + + + | BLOOD | [id number] | | [facility] | | | PRODUCT [...] [facility] DEPARTMENT | [address] | [place] [address] | | | PATHOLOGY | [address] [...] + + + + | PRODUCT | [id number] | | [facility] | | | UNIT [...] + + + + | BLOOD | [id number] | | [facility] | | | PRODUCT [...] + + + + | [facility] | [address] | [place] [address] | | | PATHOLOGY | [address] [...] + + + + | PRODUCT | [id number] | | [facility] | | | UNIT [...] + + + + | BLOOD | [id number] | | [facility] | | | PRODUCT [...] DEPARTMENT OF | [address] | [place] [address] | | | PATHOLOGY | [address] [...] + + + + | PRODUCT | [id number] | | [facility] | | | UNIT [...] + + + + | BLOOD | [id number] | | [facility] | | | PRODUCT [...] + + + + | [facility] | [address] | [place] [address] | | | PATHOLOGY | [address] [...] + + + + | PRODUCT | [id number] | | [facility] | | | UNIT [...] + + + + | BLOOD | [id number] | | [facility] | | | PRODUCT [...] DEPARTMENT OF | [address] | [place] [address] | | | PATHOLOGY | [address] [...] + + + + | PRODUCT | [id number] | | [facility] | | | UNIT [...] + + + + | BLOOD | [id number] | | [facility] | | | PRODUCT [...] + + + + | [facility] | [address] | [place] [address] | | | PATHOLOGY | [address] [...] [facility] | [address] | [place] [address] | | | SERVICES, | [address] [...] [facility] | [address] | [place] [address] | | | SERVICES, | [address] [...] [facility] | [address] | [place] [address] | | | SERVICES, CORE | [address] [...] | + + + + + | [facility] | [address] | [place] [address] | | | SERVICES, CORE | JACKIE [...] | | | LABORATORY | | | [place] | | | SERVICES, | | | [...] + + | [facility] | [address] | [place] [address] | | | SERVICES, CORE | [address] [...] | + + + + + | [facility] | [address] | [place] [place] [address] | | | SERVICES, CORE | JACKIE [...] [facility] | [address] | [place] [address] | | | SERVICES, CORE | PARK [...] discolored, | | | | | | [id number]-fb-doxyay | | | | | | -green [...] | | | | | | colon:A1, premium service representative | | | | | [...] + + + + | [facility] | [address] | [place] [address] | | | PATHOLOGY | [address] [...] | | at 1900, Last dose on [facility] | | | | | | [...] | | | | First dose on [facility] 09/13/14 at | | AM PDT [...]
[~2019-09-08 02:52] MED LIST changes: +BACTRIM DS TAB1 EACH PO; +CEPHALEXIN500 MG PO; +CLINDAMYCIN HC300 MG PO; +FLAGYL500 MG PO; +METHADOSE40 MG PO; +MUCINEX600 MG PO; +OXYCODONE HCL5 MG PO; +TRAMADOL HCL50 MG PO
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
[2019-09-08] MEDS ORDERED: METHADOSE40 MG PO (03:10)
== END 2019-09-08 04:12 | disposition home or self-care (01) ==
LOC: ED 02:52
DX: H18.823 Corneal disorder due to contact lens, bilateral (principal); K21.9 Gastro-esophageal reflux disease without esophagitis; F17.200 Nicotine dependence, unspecified, uncomplicated; Z79.899 Other long term (current) drug therapy
CPT/HCPCS: 99283

== ENCOUNTER 2019-10-02 11:55 | Emergency (ER) | payer OTHER ==
[~2019-10-02] VITALS: Ht 170.2 cm; Wt 88.7 kg
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
--- OUTSIDE RECORDS SUMMARY | ~2019-10-02 | XMS | Encounter Summary ---
Demographics + + + | Address | [address] | | | [place] [address] | + + + | Home Phone | | + + + | Preferred Language | Unknown | + + + | Marital Status | | + + + | Druze Affiliation | NON | + + + | Race | Unknown | + + + | Ethnic Group | Not or | + + + Author + + + | Author | [facility] | + + + | Organization | [facility] | + + + | Address | Unknown | + + + | Phone | Unavailable | + + + Support + + + + + | Name | Relationship | Address | Phone | + + + + + | Noemy Alvarez | ADOL[place] | [address] | | | | | [place] | | | | | [address] | | + + + + + Care Team Providers + +------+ + | Care Access Service Representative Name | Role | Phone | + [...] | | | | | [place], | | | | | | [place] [address] | | | +--------+ + + + [...]
--- OUTSIDE RECORDS SUMMARY | ~2019-10-02 | XMS | Encounter Summary ---
Demographics + + + | Address | [address] | | | [place] [address] | + + + | Home Phone | | + + + | Preferred Language | Unknown | + + + | Marital Status | | + + + | Yazidi Affiliation | NON | + + + [...] [place] | | | | | [phone] | | + + + + + Care Team Providers + +------+ + | Care Health Inspector Food Name | Role | Phone | + [...] | | | | | [place], | | | | | | [place] [address] | | | +--------+ + + + [...]
--- OUTSIDE RECORDS SUMMARY | ~2019-10-02 | XMS | Encounter Summary ---
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 [...] + + + + | PRODUCT | [id number] | | [facility] | | | UNIT [...] + + + + | BLOOD | [id number] | | [facility] | | | PRODUCT [...] DEPARTMENT OF | [address] | [place] [address] | | | PATHOLOGY | [address] [...] + + + + | PRODUCT | [id number] | | [facility] | | | UNIT [...] + + + + | BLOOD | [id number] | | [facility] | | | PRODUCT [...] DEPARTMENT OF | [address] | [place] [address] | | | PATHOLOGY | [address] [...] + + + + | PRODUCT | [id number] | | [facility] | | | UNIT [...] + + + + | BLOOD | [id number] | | [facility] | | | PRODUCT [...] DEPARTMENT OF | [address] | [place] [address] | | | PATHOLOGY | [address] [...] + + + + | PRODUCT | [id number] | | [facility] | | | UNIT [...] + + + + | BLOOD | [id number] | | [facility] | | | PRODUCT [...] DEPARTMENT OF | [address] | [place] [address] | | | PATHOLOGY | [address] [...] + + + + | PRODUCT | [id number] | | [facility] | | | UNIT [...] + + + + | BLOOD | [id number] | | [facility] | | | PRODUCT [...] DEPARTMENT OF | [address] | [place] [address] | | | PATHOLOGY | [address] [...] + + + + | PRODUCT | [id number] | | [facility] | | | UNIT [...] + + + + | BLOOD | [id number] | | [facility] | | | PRODUCT [...] OF | [address] | [place] [address] | | | PATHOLOGY | [address] [...] + + + + | PRODUCT | [id number] | | [facility] | | | UNIT [...] + + + + | BLOOD | [id number] | | [facility] | | | PRODUCT [...] DEPARTMENT OF | [address] | [place] [address] | | | PATHOLOGY | [address] [...] + + + + | PRODUCT | [id number] | | [facility] | | | UNIT [...] + + + + | BLOOD | [id number] | | [facility] | | | PRODUCT [...] DEPARTMENT OF | [address] | [place] [address] | | | PATHOLOGY | [address] [...] + + + + | PRODUCT | [id number] | | [facility] | | | UNIT [...] + + + + | BLOOD | [id number] | | [facility] | | | PRODUCT [...] DEPARTMENT OF | [address] | [place], [place] [address] | | | PATHOLOGY | [address] [...] | + + + + + | [facility] | [address] | [place] [address] | | | SERVICES, CORE | [address] [...] [facility] | [address] | [place] [address] | | | ALMA ROSA, ELOY | [...] 3.3 (H) | 0.5 - 1.6 | [facility] - | | | ARTERIAL, | [...] MAR[facility] | [address] | [place], [place] | | | DAV[facility]IS [facility] CARE | [address] | [address] | | | TESTS | | | [...] WALLS | [address] | [place], [place] | | | WILL POINT OF CARE | [address] | [address] | | | TESTS | | | | + + + + + POTASSIUM POC (09/09/2014 6:24 AM PDT) + +-------+ [...] MAR[facility] | [address] | [place], [place] | | | WILL POINT OF CARE | [address] | [address] | | | TESTS | | | [...] + | [facility] | [address] | [place], [place] | | | DAVID SOLIS OF CARE | [address] | [address] | | | TESTS | | | [...] + + | JUAN C [facility] | [address] | [place], [place] | | | DAVID SOLIS OF [facility] | [address] | [address] | | | TESTS | | | [...] MARQUAM | [address] | [place], [place] | | | DAV[facility] CARE | [facility] | [address] | | | TESTS | | | [...] ANDERSONAM | [address] | [place], [place] | | | WILL POINT OF CARE | [address] | [address] | | | TESTS | | | [...] [facility] | [address] | [place] [address] | | | SERVICES, | [address] [...] + | [facility] | [address] | [place], [place] | | | DAVID SOLIS OF CARE | [address] | [address] | | | TESTS | | | [...] W[place] | [address] | [place] | | | DAVID SOLIS OF [facility] | [facility] | [address] | | | TESTS | | | [...] TITI | [address] | [place], [place] | | | DAVID SOLIS OF [facility] | [address] | [address] | | | TESTS | | | [...] + | [facility] | [address] | [place], [place] | | | DAVID SOLIS OF [facility] | [facility] | [address] | | | TESTS | | | [...] W[place]S | [address] | [place], [place] | | | WILL POINT OF CARE | [address] | [address] | | | TESTS | | | [...] + + | Performing | Address | City/State/Inscription House Health Centercode | Phone Number | | Organization | | | | + + + + + | [facility] | [address] | [place], [place] | | | DAVID SOLIS OF [facility] | [facility] | [address] | | | TESTS | | | | + + + + + HEMOGLOBIN-WESTON TAVERAS (09/09/2014 5:58 AM PDT) + + + [...] - MAR[place] | [address] | [place], [place] | | | DAVID SOLIS OF CARE | [address] | [address] | | | TESTS | | | [...] TITI | [address] | [place], [place] | | | DAVID SOLIS OF CARE | [address] | [address] | | | TESTS | | | [...] + + + + | PRODUCT | [id number] | | [facility] | | | UNIT [...] + + + + | BLOOD | [id number] | | [facility] | | | PRODUCT [...] + | [facility] DEPARTMENT OF | [address] | [place] [address] | | | PATHOLOGY | [address] [...] + + + + | PRODUCT | [id number] | | [facility] | | | UNIT [...] + + + + | BLOOD | [id number] | | [facility] | | | PRODUCT [...] | + + + + + | [facility] DEPARTMENT OF | [address] | [place] [address] | | | PATHOLOGY | [address] [...] + + + + | PRODUCT | [id number] | | [facility] | | | UNIT [...] + + + + | BLOOD | [id number] | | [facility] | | | PRODUCT [...] DEPARTMENT OF | [address] | [place] [address] | | | PATHOLOGY | [address] [...] + + + + | PRODUCT | [id number] | | [facility] | | | UNIT [...] + + + + | BLOOD | [id number] | | [facility] | | | PRODUCT [...] | + + + + + | [facility] DEPARTMENT OF | [address] | [place] [address] | | | PATHOLOGY | [address] [...] + + + + | PRODUCT | [id number] | | [facility] | | | UNIT [...] + + + + | BLOOD | [id number] | | [facility] | | | PRODUCT [...] DEPARTMENT OF | [address] | [place] [address] | | | PATHOLOGY | [address] [...] + + + + | PRODUCT | [id number] | | [facility] | | | UNIT [...] + + + + | BLOOD | [id number] | | [facility] | | | PRODUCT [...] | + + + + + | [facility] DEPARTMENT OF | [address] | [place] [address] | | | PATHOLOGY | [address] [...] + + + + | PRODUCT | [id number] | | [facility] | | | UNIT [...] + + + + | BLOOD | [id number] | | [facility] | | | PRODUCT [...] | + + + + + | [facility] DEPARTMENT OF | [address] | [place] [address] | | | PATHOLOGY | [address] [...] + + + + | PRODUCT | [id number] | | [facility] | | | UNIT [...] + + + + | BLOOD | [id number] | | [facility] | | | PRODUCT [...] | + + + + + | [facility] DEPARTMENT OF | [address] | [place] [address] | | | PATHOLOGY | [address] [...] + + + + | PRODUCT | [id number] | | [facility] | | | UNIT [...] + + + + | BLOOD | [id number] | | [facility] | | | PRODUCT [...] | + + + + + | [facility] DEPARTMENT OF | [address] | [place] [address] | | | PATHOLOGY | [address] [...] + + + + | PRODUCT | [id number] | | [facility] | | | UNIT [...] + + + + | BLOOD | [id number] | | [facility] | | | PRODUCT [...] | + + + + + | [facility] DEPARTMENT OF | [address] | [place] [address] | | | PATHOLOGY | [address] [...] + + + + | PRODUCT | [id number] | | [facility] | | | UNIT [...] + + + + | BLOOD | [id number] | | [facility] | | | PRODUCT [...] [facility] DEPARTMENT | [address] | [place] [address] | | | PATHOLOGY | [address] [...] + + + + | PRODUCT | [id number] | | [facility] | | | UNIT [...] + + + + | BLOOD | [id number] | | [facility] | | | PRODUCT [...] | + + + + + | [facility] | [address] | [place] [address] | | | PATHOLOGY | [address] [...] + + + + | PRODUCT | [id number] | | [facility] | | | UNIT [...] + + + + | BLOOD | [id number] | | [facility] | | | PRODUCT [...] DEPARTMENT OF | [address] | [place] [address] | | | PATHOLOGY | [address] [...] + + + + | PRODUCT | [id number] | | [facility] | | | UNIT [...] + + + + | BLOOD | [id number] | | [facility] | | | PRODUCT [...] | + + + + + | [facility] | [address] | [place] [address] | | | PATHOLOGY | [address] [...] + + + + | PRODUCT | [id number] | | [facility] | | | UNIT [...] + + + + | BLOOD | [id number] | | [facility] | | | PRODUCT [...] DEPARTMENT OF | [address] | [place] [address] | | | PATHOLOGY | [address] [...] + + + + | PRODUCT | [id number] | | [facility] | | | UNIT [...] + + + + | BLOOD | [id number] | | [facility] | | | PRODUCT [...] | + + + + + | [facility] | [address] | [place] [address] | | | PATHOLOGY | [address] [...] + + + + | PRODUCT | [id number] | | [facility] | | | UNIT [...] + + + + | BLOOD | [id number] | | [facility] | | | PRODUCT [...] DEPARTMENT OF | [address] | [place] [address] | | | PATHOLOGY | [address] [...] + + + + | PRODUCT | [id number] | | [facility] | | | UNIT [...] + + + + | BLOOD | [id number] | | [facility] | | | PRODUCT [...] | + + + + + | [facility] | [address] | [place] [address] | | | PATHOLOGY | [address] [...] + + + + | PRODUCT | [id number] | | [facility] | | | UNIT [...] + + + + | BLOOD | [id number] | | [facility] | | | PRODUCT [...] | [address] | [place] [address] | | | PATHOLOGY | [address] [...] + + + + | PRODUCT | [id number] | | [facility] | | | UNIT [...] + + + + | BLOOD | [id number] | | [facility] | | | PRODUCT [...] | + + + + + | [facility] DEPARTMENT OF | [address] | [place] [address] | | | PATHOLOGY | [address] [...] + + + + | PRODUCT | [id number] | | [facility] | | | UNIT [...] + + + + | BLOOD | [id number] | | [facility] | | | PRODUCT [...] DEPARTMENT OF | [address] | [place] [address] | | | PATHOLOGY | [address] [...] + + + + | PRODUCT | [id number] | | [facility] | | | UNIT [...] + + + + | BLOOD | [id number] | | [facility] | | | PRODUCT [...] OF | [address] | [place] [address] | | | PATHOLOGY | [address] [...] + + + + | PRODUCT | [id number] | | [facility] | | | UNIT [...] + + + + | BLOOD | [id number] | | [facility] | | | PRODUCT [...] | + + + + + | [facility] DEPARTMENT OF | [address] | [place] [address] | | | PATHOLOGY | [address] [...] + + + + | PRODUCT | [id number] | | [facility] | | | UNIT [...] + + + + | BLOOD | [id number] | | [facility] | | | PRODUCT [...] [facility] DEPARTMENT | [address] | [place] [address] | | | PATHOLOGY | [address] [...] + + + + | PRODUCT | [id number] | | [facility] | | | UNIT [...] + + + + | BLOOD | [id number] | | [facility] | | | PRODUCT [...] | + + + + + | [facility] | [address] | [place] [address] | | | PATHOLOGY | [address] [...] + + + + | PRODUCT | [id number] | | [facility] | | | UNIT [...] + + + + | BLOOD | [id number] | | [facility] | | | PRODUCT [...] [facility] DEPARTMENT | [address] | [place] [address] | | | PATHOLOGY | [address] [...] + + + + | PRODUCT | [id number] | | [facility] | | | UNIT [...] + + + + | BLOOD | [id number] | | [facility] | | | PRODUCT [...] | + + + + + | [facility] | [address] | [place] [address] | | | PATHOLOGY | [address] [...] + + + + | PRODUCT | [id number] | | [facility] | | | UNIT [...] + + + + | BLOOD | [id number] | | [facility] | | | PRODUCT [...] [facility] DEPARTMENT | [address] | [place] [address] | | | PATHOLOGY | [address] [...] WALLS | [address] | [place], [place] | | | DAVID SOLIS OF [facility] | [facility] | [address] | | | TESTS | | | [...] TITI | [address] | [place], [place] | | | CHRISTIANO SOLIS | [address] | [address] | | | TESTS | | | [...] TITI | [address] | [place], [place] | | | DAVID SOLIS OF CARE | [facility] | [address] | | | TESTS | | | | + + + + + GLUCOSE, POC (09/09/2014 5:29 AM PDT) + +---------+ + + + | Component | Value | Ref Range | Performed | Pathologist | | | | | At | Signature | + +---------+ + + + | GLUCOSE, | 267 (H) | 60 - 99 mg/dL | [facility] - | | | POC [...] [facility] | [address] | [place], [place] | | | DAVID SOLIS OF [facility] | [address] | [address] | | | TESTS | | | [...] [place] | [address] | [place], [place] | | | DAVID SOLIS OF CARE | [facility] | [address] | | | TESTS | | | [...] - MAR[place] | [address] | [place], [place] | | | DAVID SOLIS OF CARE | [facility] | [address] | | | TESTS | | | [...] [place] | [address] | [place], [place] | | | DAVID SOLIS OF CARE | [facility] | [address] | | | TESTS | | | [...] | | | [facility] | | | [place] | | | DAVID SOLIS | | [...] TITI | [address] | [place], [place] | | | DAVID SOLIS OF [facility] | [address] | [address] | | | TESTS | | | [...] | + + + + + | [facility] | [address] | [place] [address] | | | SERVICES, CORE | [address] [...] | + + + + + | [facility] | [address] | [place] [address] | | | [address] | [address] | | | + + + + + LACTATE (ART), POC (09/09/2014 5:08 AM PDT) + +---------+ + + + | Component | Value | Ref Range | Performed | Pathologist | | | | | At | Signature | + +---------+ + + + | LACTATE | 3.5 (H) | 0.5 - 1.6 | [facility] - | | | ARTERIAL, | [...] AND[facility] | [address] | [place], [place] | | | WILL POINT OF CARE | [address] | [address] | | | TESTS | | | [...] WALLS | [address] | [place], [place] | | | DAVID SOLIS OF CARE | [facility] | [address] | | | TESTS | | | [...] ANDERSONAM | [address] | [place], [place] | | | DAVID SOLIS OF CARE | [facility] | [address] | | | TESTS | | | [...] [place] | [address] | [place], [place] | | | DAVID SOLIS OF [facility] | [facility] | [address] | | | TESTS | | | [...] W[place]S | [address] | [place], [place] | | | DAVID SOLIS OF CARE | [address] | [address] | | | TESTS | | | [...] [place] | [address] | [place], [place] | | | DAVID SOLIS OF CARE | [facility] | [address] | | | TESTS | | | [...] W[place] | [address] | [place], [place] | | | WILL POINT OF CARE | [address] | [address] | | | TESTS | | | [...] + | [facility] | [address] | [place], [place] | | | WILL POINT OF CARE | [address] | [address] | | | TESTS | | | [...] | | + +---------+ + + | [facility] DEPARTMENT OF | | | | [...] + + + + | PRODUCT | [id number] | | [facility] | | | UNIT [...] + + + + | BLOOD | [id number] | | [facility] | | | PRODUCT [...] DEPARTMENT OF | [address] | [place] [address] | | | PATHOLOGY | [address] [...] + + + + | PRODUCT | [id number] | | [facility] | | | UNIT [...] + + + + | BLOOD | [id number] | | [facility] | | | PRODUCT [...] | + + + + + | [facility] | [address] | [place] [address] | | | PATHOLOGY | [address] [...] + + + + | PRODUCT | [id number] | | [facility] | | | UNIT [...] + + + + | BLOOD | [id number] | | [facility] | | | PRODUCT [...] DEPARTMENT OF | [address] | [place] [address] | | | PATHOLOGY | [address] [...] + + + + | PRODUCT | [id number] | | [facility] | | | UNIT [...] + + + + | BLOOD | [id number] | | [facility] | | | PRODUCT [...] | + + + + + | [facility] | [address] | [place] [address] | | | PATHOLOGY | [address] [...] + + + + | PRODUCT | [id number] | | [facility] | | | UNIT [...] + + + + | BLOOD | [id number] | | [facility] | | | PRODUCT [...] DEPARTMENT OF | [address] | [place] [address] | | | PATHOLOGY | [address] [...] + + + + | PRODUCT | [id number] | | [facility] | | | UNIT [...] + + + + | BLOOD | [id number] | | [facility] | | | PRODUCT [...] | + + + + + | [facility] | [address] | [place] [address] | | | PATHOLOGY | [address] [...] + + + + | PRODUCT | [id number] | | [facility] | | | UNIT [...] + + + + | BLOOD | [id number] | | [facility] | | | PRODUCT [...] DEPARTMENT OF | [address] | [place] [address] | | | PATHOLOGY | [address] [...] + + + + | PRODUCT | [id number] | | [facility] | | | UNIT [...] + + + + | BLOOD | [id number] | | [facility] | | | PRODUCT [...] | + + + + + | [facility] | [address] | [place] [address] | | | PATHOLOGY | [address] [...] + + + + | PRODUCT | [id number] | | [facility] | | | UNIT [...] + + + + | BLOOD | [id number] | | [facility] | | | PRODUCT [...] DEPARTMENT OF | [address] | [place] [address] | | | PATHOLOGY | [address] [...] + + + + | PRODUCT | [id number] | | [facility] | | | UNIT [...] + + + + | BLOOD | [id number] | | [facility] | | | PRODUCT [...] | + + + + + | [facility] | [address] | [place] [address] | | | PATHOLOGY | [address] [...] + + + + | PRODUCT | [id number] | | [facility] | | | UNIT [...] + + + + | BLOOD | [id number] | | [facility] | | | PRODUCT [...] DEPARTMENT OF | [address] | [place] [address] | | | PATHOLOGY | [address] [...] + + + + | PRODUCT | [id number] | | [facility] | | | UNIT [...] + + + + | BLOOD | [id number] | | [facility] | | | PRODUCT [...] | + + + + + | [facility] DEPARTMENT | [address] | [place] [address] | | | PATHOLOGY | [address] [...] + + + + | PRODUCT | [id number] | | [facility] | | | UNIT [...] + + + + | BLOOD | [id number] | | [facility] | | | PRODUCT [...] DEPARTMENT OF | [address] | [place] [address] | | | PATHOLOGY | [address] [...] + + + + | PRODUCT | [id number] | | [facility] | | | UNIT [...] + + + + | BLOOD | [id number] | | [facility] | | | PRODUCT [...] DEPARTMENT OF | [address] | [place] [address] | | | PATHOLOGY | [address] [...] + + + + | PRODUCT | [id number] | | [facility] | | | UNIT [...] + + + + | BLOOD | [id number] | | [facility] | | | PRODUCT [...] DEPARTMENT OF | [address] | [place] [address] | | | PATHOLOGY | [address] [...] + + + + | PRODUCT | [id number] | | [facility] | | | UNIT [...] + + + + | BLOOD | [id number] | | [facility] | | | PRODUCT [...] DEPARTMENT OF | [address] | [place] [address] | | | PATHOLOGY | [address] [...] + + + + | PRODUCT | [id number] | | [facility] | | | UNIT [...] + + + + | BLOOD | [id number] | | [facility] | | | PRODUCT [...] | + + + + + | [facility] DEPARTMENT OF | [address] | [place] [address] | | | PATHOLOGY | [address] [...] + + + + | PRODUCT | [id number] | | [facility] | | | UNIT [...] + + + + | BLOOD | [id number] | | [facility] | | | PRODUCT [...] [facility] DEPARTMENT | [address] | [place], [place] [address] | | | PATHOLOGY | [address] [...] + + + + | PRODUCT | [id number] | | [facility] | | | UNIT [...] + + + + | BLOOD | [id number] | | [facility] | | | PRODUCT [...] | + + + + + | [facility] | [address] | [place] [address] | | | PATHOLOGY | [address] [...] + + + + | PRODUCT | [id number] | | [facility] | | | UNIT [...] + + + + | BLOOD | [id number] | | [facility] | | | PRODUCT [...] DEPARTMENT OF | [address] | [place] [address] | | | PATHOLOGY | [address] [...] + + + + | PRODUCT | [id number] | | [facility] | | | UNIT [...] + + + + | BLOOD | [id number] | | [facility] | | | PRODUCT [...] | + + + + + | [facility] | [address] | [place] [address] | | | PATHOLOGY | [address] [...] + + + + | PRODUCT | [id number] | | [facility] | | | UNIT [...] + + + + | BLOOD | [id number] | | [facility] | | | PRODUCT [...] DEPARTMENT OF | [address] | [place] [address] | | | PATHOLOGY | [address] [...] + + + + | PRODUCT | [id number] | | [facility] | | | UNIT [...] + + + + | BLOOD | [id number] | | [facility] | | | PRODUCT [...] | + + + + + | [facility] DEPARTMENT OF | [address] | [place] [address] | | | PATHOLOGY | [address] [...] + + + + | PRODUCT | [id number] | | [facility] | | | UNIT [...] + + + + | BLOOD | [id number] | | [facility] | | | PRODUCT [...] | [address] | [place] [address] | | | PATHOLOGY | [address] [...] | | | | | mmol/L | [facility] | | [...] - | | | | | | [facility] | | | [...] | | POC | | g/dL | [facility] | | | | | | [facility] | | | | | | OF CARE | | | | | | TESTS | | + + + + + + | HEMATOCRIT, | 13 (AA) | 41.0 - 53.0 | [facility] - | | | POC | | %PCV | [facility] | | | | | [...] WALLS | [address] | [place], [place] | | | DAV[facility] SOLIS OF [facility] | [address] | [address] | | | TESTS | | | [...] + + + + | PRODUCT | [id number] | | [facility] | | | UNIT [...] + + + + | BLOOD | [id number] | | [facility] | | | PRODUCT [...] DEPARTMENT OF | [address] | [place] [address] | | | PATHOLOGY | [address] [...] + + + + | PRODUCT | [id number] | | [facility] | | | UNIT [...] + + + + | BLOOD | [id number] | | [facility] | | | PRODUCT [...] | + + + + + | [facility] | [address] | [place] [address] | | | PATHOLOGY | [address] [...] + + + + | PRODUCT | [id number] | | [facility] | | | UNIT [...] + + + + | BLOOD | [id number] | | [facility] | | | PRODUCT [...] DEPARTMENT OF | [address] | [place] [address] | | | PATHOLOGY | [address] [...] + + + + | PRODUCT | [id number] | | [facility] | | | UNIT [...] + + + + | BLOOD | [id number] | | [facility] | | | PRODUCT [...] | + + + + + | [facility] | [address] | [place] [address] | | | PATHOLOGY | [address] [...] + + + + | PRODUCT | [id number] | | [facility] | | | UNIT [...] + + + + | BLOOD | [id number] | | [facility] | | | PRODUCT [...] DEPARTMENT OF | [address] | [place] [address] | | | PATHOLOGY | [address] [...] + + + + | PRODUCT | [id number] | | [facility] | | | UNIT [...] + + + + | BLOOD | [id number] | | [facility] | | | PRODUCT [...] | + + + + + | [facility] | [address] | [place] [address] | | | PATHOLOGY | [address] | | | + + + + + ED WESTON THOMPSON (09/09/2014 3:52 AM PDT) + + + [...] TITI | [address] | [place], [place] | | | DAVID SOLIS OF [facility] | [facility] | [address] | | | TESTS | | | [...] + + + + | PRODUCT | [id number] | | [facility] | | | UNIT [...] + + + + | BLOOD | [id number] | | [facility] | | | PRODUCT [...] | + + + + + | [facility] | [address] | [place] [address] | | | PATHOLOGY | [address] [...] + + + + | PRODUCT | [id number] | | [facility] | | | UNIT [...] + + + + | BLOOD | [id number] | | [facility] | | | PRODUCT [...] DEPARTMENT OF | [address] | [place] [address] | | | PATHOLOGY | [address] [...] + + + + | PRODUCT | [id number] | | [facility] | | | UNIT [...] + + + + | BLOOD | [id number] | | [facility] | | | PRODUCT [...] | + + + + + | [facility] | [address] | [place] [address] | | | PATHOLOGY | [address] [...] + + + + | PRODUCT | [id number] | | [facility] | | | UNIT [...] + + + + | BLOOD | [id number] | | [facility] | | | PRODUCT [...] DEPARTMENT OF | [address] | [place] [address] | | | PATHOLOGY | [address] [...] + + + + | PRODUCT | [id number] | | [facility] | | | UNIT [...] + + + + | BLOOD | [id number] | | [facility] | | | PRODUCT [...] | + + + + + | [facility] | [address] | [place] [address] | | | PATHOLOGY | [address] [...] + + + + | PRODUCT | [id number] | | [facility] | | | UNIT [...] + + + + | BLOOD | [id number] | | [facility] | | | PRODUCT [...] DEPARTMENT OF | [address] | [place] [address] | | | PATHOLOGY | [address] [...] + + + + | PRODUCT | [id number] | | [facility] | | | UNIT [...] + + + + | BLOOD | [id number] | | [facility] | | | PRODUCT [...] | + + + + + | [facility] | [address] | [place] [address] | | | PATHOLOGY | [address] [...] + + + + | PRODUCT | [id number] | | [facility] | | | UNIT [...] + + + + | BLOOD | [id number] | | [facility] | | | PRODUCT [...] DEPARTMENT OF | [address] | [place] [address] | | | PATHOLOGY | [address] [...] [facility] | [address] | [place] [address] | | | SERVICES, | [address] [...] [facility] | [address] | [place] [address] | | | SERVICES, | [address] [...] | + + + + + | [facility] | [address] | [place] [address] | | | SERVICES, CORE | [address] [...] [facility] | [address] | [place] [address] | | | SERVICES, CORE | [address] [...] | | | LABORATORY | | | [facility] [place] | | | SERVICES, | | | [...] | + + + + + | [employer] | [address] | [place] [address] | | | ALMA ROSA, CORE | [...] [facility] | [address] | [place] [address] | | | SERVICES, CORE | [address] [...] | + + + + + | [facility] | [address] | [place] [address] | | | SERVICES, CORE | [address] [...] | | | | | name(initials KH) and: | | | | | | [...] discolored, | | | | | | [id number] | | | | | | -green [...] | | | | | | viable. Landfill Gas Collection System Operator | | | | | | sections [...] hemorrhage. | | | | | | Landfill Gas Collection System Operator | | | | | | sections are submitted. 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
--- OUTSIDE RECORDS SUMMARY | ~2019-10-02 | XMS | Clinical Summary ---
Demographics + + + | Address | [address] | | | [place] [address] | + + + | Home Phone | | + + + | Preferred Language | Unknown | + + + | Marital Status | | + + + | Amish Affiliation | NON | + + + [...] [place] | | | | | [address] | | + + + + + Care Team Providers + +------+ + | Care Steam Cleaning Machine Operator Name | Role | Phone | + +------+ + | No Pcp Per Patient | PCP | Unavailable | + +------+ + Source Comments JUAN C is fully live on both [facility] Ambulatory and [facility] InPatient.[facility] Allergies No Known Allergies Medications [...] | exploratory laparotomy and was transferred to [facility] as hemorrhage | | was uncontrollable. Pt was brought to [facility] Trauma Service as a | | [...] N/A: | FRASER | | 06/28/ | [id number] | | [id number]: Qty: 1 on | | Abdome | HEALTHCARE | | 2015 | 0 / | | 09/09/2014 by Shen, | | n | | | | /HA140 | | Addie Valenzuela MD at [facility] | | | | | | [...] + +--------+ +--------+ + +--------+ | [place] | OHP | xxxxxxxx | 09/08/ | [phone] | [address] | [address] | | | PLUS | | 2013-P | 6 | [id number] | id | | | OPEN | | resent | | [place] | | | | CARD | | | | [phone] | | + +--------+ +--------+ + +--------+ | [facility] | [place] | [phone] | Effect | [phone] | [address] | Agency | | | CRIME | | [address] | [address] | | | | VICTIM | | for | | [place], [place] | | | | S | | all | | [phone] | | | | COMPEN | | [...] | 1990 | [phone] | [place] [address] | | | lito | | | 8 (Home) | | + +--------+ +--------+ + + | Jah Garrido | Agency | Self | [birth year] | | [address] | | | | | 1990 | [phone] | [place] [address] | | | | | | 8 [...]
--- OUTSIDE RECORDS SUMMARY | ~2019-10-02 | XMS | Clinical Summary ---
Demographics + + + | Address | [address] | | | [place] [address] | + + + | Home Phone | | + + + | Preferred Language | Unknown | + + + | Marital Status | | + + + | Religion Affiliation | NON | + + + [...] [place] | | | | | [address] | | + + + + + Care Team Providers + +------+ + | Care Mortuary Beautician Name | Role | Phone | + +------+ + | No Pcp Per Patient | PCP | Unavailable | + +------+ + Source Comments JUAN C is fully live on both [facility] Ambulatory and [facility] InPatient.[facility] Allergies No Known Allergies Medications + + [...] | exploratory laparotomy and was transferred to [facility] as hemorrhage | | was uncontrollable. Pt was brought to [facility] Trauma Service as a | | Level [...] N/A: | FRASER | | 06/28/ | [id number] | | [id number]: Qty: 1 on | | Abdome | HEALTHCARE | | 2015 | 0 / | | 09/09/2014 by hSen, | | n | | | | /HA140 | | Addie Valenzuela MD at [facility] | | | | | | [address] [...] + +--------+ +--------+ + +--------+ | [place] | OHP | xxxxxxxx | 09/08/ | [phone] | [address] | [address] | | | PLUS | | 2013-P | 6 | [phone] | id | | | OPEN | | resent | | [place] | | | | CARD | | | | [phone] | | + +--------+ +--------+ + +--------+ | [facility] | [place] | [phone] | Effect | [phone] | [address] | Agency | | | CRIME | | [address]rett | [address] | | | | VICTIM | | for | | [place], [place] | | | | S | | all | | [phone] | | | | COMPEN | | [...] | 1990 | [phone] | [place] [address] | | | lito | | | 8 (Home) | | + +--------+ +--------+ + + | Jah Garrido | Agency | Self | [birth year] | | [address] | | | | | 1990 | [phone] | [place] [address] | | | | | | 8 [...]
--- OUTSIDE RECORDS SUMMARY | ~2019-10-02 | XMS | Clinical Summary ---
Demographics + + + | Address | NEED ADDRESS | | | [place] [address] | + + + | Home Phone | | + + + | Preferred Language | Unknown | + + + | Marital Status | Single | + + + | Jehovah'S Witness Affiliation | Unknown | + + + | Race | Unknown | + + + | Ethnic Group | Unknown | + + + Author + + + | Author | [facility] | | | and [place] | + + + | Organization | [facility] | | | and [place] | [...] [place], [place] | | | | | [address] | | + + + + + | Sarai Tinoco | ECON | Unknown | | + + + + + Care Team Providers + +------+ + | Care Parole Or Probation Officer Name | Role | Phone | + [...] documents on file. For more information, please contact:[facility] [place] [address]
--- OUTSIDE RECORDS SUMMARY | ~2019-10-02 | XMS | Encounter Summary ---
Demographics + + + | Address | [address] | | | [place] [address] | + + + | Home Phone [...] [place] | | | | | [address] | | + + + + + Care Team Providers + +------+ + | Care Pens And Pencils Repairer Name | Role | Phone | + [...] | | | 2013 | Event | [facility] | [address] | | | | | Admitting Desk | [address] | | | | | Located on the [address] | [place], [place] | | | | | [facility] [address] | [address] | | | | | [address] | [phone] | | | | | [place], [place] | | | | | | [address] | Victoriano Munson, | | | | | | [address] | | | | | | [address] | | | | | | [place], [place] | | | | | | [address] | | | | | | [phone] | | | | | | | [...] Retained Sponges | | | | | -[place]-Colostomy (N/A | | | | | Abdomen) [...] RN | | Drains | No; 19 [place]ish; Robbin; Upper, | | | | | [...]
--- OUTSIDE RECORDS SUMMARY | ~2019-10-02 | XMS | Encounter Summary ---
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 [place] [address] | | | PATHOLOGY | [address] [...] + + + + | PRODUCT | [id number] | | [facility] | | | UNIT [...] + + + + | BLOOD | [id number] | | [facility] | | | PRODUCT [...] DEPARTMENT OF | [address] | [place] [address] | | | PATHOLOGY | [address] [...] + + + + | PRODUCT | [id number] | | [facility] | | | UNIT [...] + + + + | BLOOD | [id number] | | [facility] | | | PRODUCT [...] DEPARTMENT OF | [address] | [place], [place] [address] | | | PATHOLOGY | [address] [...] | + + + + + | [facility] | [address] | [place] [address] | | | SERVICES, CORE | [address] [...] [facility] | [address] | [place] [address] | | | ALMA ROSA, ELOY | [...] 3.3 (H) | 0.5 - 1.6 | [facility] - | | | ARTERIAL, | | [...] [place] | [address] | [place], [place] | | | DAVID SOLIS OF CARE | [address] | [address] | | | TESTS | | | [...] WALLS | [address] | [place], [place] | | | WILL POINT OF CARE | [address] | [address] | | | TESTS | | | [...] [place] | [address] | [place], [place] | | | WILL POINT OF CARE | [address] | [address] | | | TESTS | | | [...] - TITI | [address] | [place], [place] | | | DAVID SOLIS OF CARE | [address] | [address] | | | TESTS | | | [...] + + | JUAN C WALLS | [address] | [place], [place] | | | DAVID SOLIS OF [facility] | [address] | [address] | | | TESTS | | | [...] [place] | [address] | [place], [place] | | | DAVID SOLIS OF CARE | [facility] | [address] | | | TESTS | | | [...] ANDERSONAM | [address] | [place], [place] | | | WILL POINT OF CARE | [address] | [address] | | | TESTS | | | [...] [facility] | [address] | [place] [address] | | | SERVICES, | [address] [...] - MARKADEEMAM | [address] | [place], [place] | | | DAVID SOLIS OF CARE | [address] | [address] | | | TESTS | | | [...] WALLS | [address] | [place], [place] | | | DAVID SOLIS OF [facility] | [facility] | [address] | | | TESTS | | | [...] TITI | [address] | [place], [place] | | | DAVID SOLIS OF [facility] | [address] | [address] | | | TESTS | | | [...] - TITI | [address] | [place], [place] | | | DAVID SOLIS OF [facility] | [facility] | [address] | | | TESTS | | | [...] WALLS | [address] | [place], [place] | | | WILL POINT OF CARE | [address] | [address] | | | TESTS | | | [...] + + | Performing | Address | City/State/Unm [facility] | Phone Number | | Organization | | | | + + + + + | [facility] | [address] | [place], [place] | | | DAVID SOLIS OF [facility] | [facility] | [address] | | | TESTS | | | [...] - MARQUAM | [address] | [place], [place] | | | DAVID SOLIS OF CARE | [address] | [address] | | | TESTS | | | [...] TITI | [address] | [place], [place] | | | DAVID SOLIS OF CARE | [address] | [address] | | | TESTS | | | [...] + + + + | PRODUCT | [id number] | | [facility] | | | UNIT [...] + + + + | BLOOD | [id number] | | [facility] | | | PRODUCT [...] DEPARTMENT OF | [address] | [place] [address] | | | PATHOLOGY | [address] [...] + + + + | PRODUCT | [id number] | | [facility] | | | UNIT [...] + + + + | BLOOD | [id number] | | [facility] | | | PRODUCT [...] | + + + + + | [facility] DEPARTMENT OF | [address] | [place] [address] | | | PATHOLOGY | [address] [...] + + + + | PRODUCT | [id number] | | [facility] | | | UNIT [...] + + + + | BLOOD | [id number] | | [facility] | | | PRODUCT [...] DEPARTMENT OF | [address] | [place] [address] | | | PATHOLOGY | [address] [...] + + + + | PRODUCT | [id number] | | [facility] | | | UNIT [...] + + + + | BLOOD | [id number] | | [facility] | | | PRODUCT [...] | + + + + + | [facility] DEPARTMENT OF | [address] | [place] [address] | | | PATHOLOGY | [address] [...] + + + + | PRODUCT | [id number] | | [facility] | | | UNIT [...] + + + + | BLOOD | [id number] | | [facility] | | | PRODUCT [...] DEPARTMENT OF | [address] | [place] [address] | | | PATHOLOGY | [address] [...] + + + + | PRODUCT | [id number] | | [facility] | | | UNIT [...] + + + + | BLOOD | [id number] | | [facility] | | | PRODUCT [...] | + + + + + | [facility] DEPARTMENT OF | [address] | [place] [address] | | | PATHOLOGY | [address] [...] + + + + | PRODUCT | [id number] | | [facility] | | | UNIT [...] + + + + | BLOOD | [id number] | | [facility] | | | PRODUCT [...] | + + + + + | [facility] DEPARTMENT OF | [address] | [place] [address] | | | PATHOLOGY | [address] [...] + + + + | PRODUCT | [id number] | | [facility] | | | UNIT [...] + + + + | BLOOD | [id number] | | [facility] | | | PRODUCT [...] | + + + + + | [facility] DEPARTMENT OF | [address] | [place] [address] | | | PATHOLOGY | [address] [...] + + + + | PRODUCT | [id number] | | [facility] | | | UNIT [...] + + + + | BLOOD | [id number] | | [facility] | | | PRODUCT [...] | + + + + + | [facility] DEPARTMENT OF | [address] | [place] [address] | | | PATHOLOGY | [address] [...] + + + + | PRODUCT | [id number] | | [facility] | | | UNIT [...] + + + + | BLOOD | [id number] | | [facility] | | | PRODUCT [...] | + + + + + | [facility] DEPARTMENT OF | [address] | [place] [address] | | | PATHOLOGY | [address] [...] + + + + | PRODUCT | [id number] | | [facility] | | | UNIT [...] + + + + | BLOOD | [id number] | | [facility] | | | PRODUCT [...] [facility] DEPARTMENT | [address] | [place] [address] | | | PATHOLOGY | [address] [...] + + + + | PRODUCT | [id number] | | [facility] | | | UNIT [...] + + + + | BLOOD | [id number] | | [facility] | | | PRODUCT [...] [facility] | [address] | [place] [address] | | | PATHOLOGY | [address] [...] + + + + | PRODUCT | [id number] | | [facility] | | | UNIT [...] + + + + | BLOOD | [id number] | | [facility] | | | PRODUCT [...] DEPARTMENT OF | [address] | [place] [address] | | | PATHOLOGY | [address] [...] + + + + | PRODUCT | [id number] | | [facility] | | | UNIT [...] + + + + | BLOOD | [id number] | | [facility] | | | PRODUCT [...] [facility] | [address] | [place] [address] | | | PATHOLOGY | [address] [...] + + + + | PRODUCT | [id number] | | [facility] | | | UNIT [...] + + + + | BLOOD | [id number] | | [facility] | | | PRODUCT [...] DEPARTMENT OF | [address] | [place] [address] | | | PATHOLOGY | [address] [...] + + + + | PRODUCT | [id number] | | [facility] | | | UNIT [...] + + + + | BLOOD | [id number] | | [facility] | | | PRODUCT [...] [facility] | [address] | [place] [address] | | | PATHOLOGY | [address] [...] + + + + | PRODUCT | [id number] | | [facility] | | | UNIT [...] + + + + | BLOOD | [id number] | | [facility] | | | PRODUCT [...] DEPARTMENT OF | [address] | [place] [address] | | | PATHOLOGY | [address] [...] + + + + | PRODUCT | [id number] | | [facility] | | | UNIT [...] + + + + | BLOOD | [id number] | | [facility] | | | PRODUCT [...] [facility] | [address] | [place] [address] | | | PATHOLOGY | [address] [...] + + + + | PRODUCT | [id number] | | [facility] | | | UNIT [...] + + + + | BLOOD | [id number] | | [facility] | | | PRODUCT [...] | [address] | [place] [address] | | | PATHOLOGY | [address] [...] + + + + | PRODUCT | [id number] | | [facility] | | | UNIT [...] + + + + | BLOOD | [id number] | | [facility] | | | PRODUCT [...] | + + + + + | [facility] DEPARTMENT OF | [address] | [place] [address] | | | PATHOLOGY | [address] [...] + + + + | PRODUCT | [id number] | | [facility] | | | UNIT [...] + + + + | BLOOD | [id number] | | [facility] | | | PRODUCT [...] DEPARTMENT OF | [address] | [place] [address] | | | PATHOLOGY | [address] [...] + + + + | PRODUCT | [id number] | | [facility] | | | UNIT [...] + + + + | BLOOD | [id number] | | [facility] | | | PRODUCT [...] OF | [address] | [place] [address] | | | PATHOLOGY | [address] [...] + + + + | PRODUCT | [id number] | | [facility] | | | UNIT [...] + + + + | BLOOD | [id number] | | [facility] | | | PRODUCT [...] | + + + + + | [facility] DEPARTMENT OF | [address] | [place] [address] | | | PATHOLOGY | [address] [...] + + + + | PRODUCT | [id number] | | [facility] | | | UNIT [...] + + + + | BLOOD | [id number] | | [facility] | | | PRODUCT [...] [facility] DEPARTMENT | [address] | [place] [address] | | | PATHOLOGY | [address] [...] + + + + | PRODUCT | [id number] | | [facility] | | | UNIT [...] + + + + | BLOOD | [id number] | | [facility] | | | PRODUCT [...] [facility] | [address] | [place] [address] | | | PATHOLOGY | [address] [...] + + + + | PRODUCT | [id number] | | [facility] | | | UNIT [...] + + + + | BLOOD | [id number] | | [facility] | | | PRODUCT [...] [facility] DEPARTMENT | [address] | [place] [address] | | | PATHOLOGY | [address] [...] + + + + | PRODUCT | [id number] | | [facility] | | | UNIT [...] + + + + | BLOOD | [id number] | | [facility] | | | PRODUCT [...] [facility] | [address] | [place] [address] | | | PATHOLOGY | [address] [...] + + + + | PRODUCT | [id number] | | [facility] | | | UNIT [...] + + + + | BLOOD | [id number] | | [facility] | | | PRODUCT [...] [facility] DEPARTMENT | [address] | [place] [address] | | | PATHOLOGY | [address] [...] WALLS | [address] | [place], [place] | | | DAVID SOLIS OF [facility] | [facility] | [address] | | | TESTS | | | [...] TITI | [address] | [place], [place] | | | CHRISTIANO SOLIS | [address] | [address] | | | TESTS | | | [...] TITI | [address] | [place], [place] | | | DAVID SOLIS OF CARE | [facility] | [address] | | | TESTS | | | [...] MARQUAM | [address] | [place], [place] | | | DAVID SOLIS OF [facility] | [address] | [address] | | | TESTS | | | [...] WALLS | [address] | [place], [place] | | | DAVID SOLIS OF CARE | [facility] | [address] | | | TESTS | | | [...] - [place] | [address] | [place], [place] | | | DAVID SOLIS OF CARE | [facility] | [address] | | | TESTS | | | [...] WALLS | [address] | [place], [place] | | | DAVID SOLIS OF CARE | [facility] | [address] | | | TESTS | | | [...] TITI | [address] | [place], [place] | | | DAVID SOLIS OF [facility] | [address] | [address] | | | TESTS | | | [...] | + + + + + | [facility] | [address] | [place] [address] | | | SERVICES, CORE | [address] [...] | + + + + + | [facility] | [address] | [place] [address] | | | [address] | [address] | | | + + + + + LACTATE (ART), POC (09/09/2014 5:08 AM PDT) + +---------+ + + + | Component | Value | Ref Range | Performed | Pathologist | | | | | At | Signature | + +---------+ + + + | LACTATE | 3.5 (H) | 0.5 - 1.6 | [facility] - | | | ARTERIAL, | | [...] ANDERSONAM | [address] | [place], [place] | | | WILL POINT OF CARE | [address] | [address] | | | TESTS | | | [...] WALLS | [address] | [place], [place] | | | DAVID SOLIS OF CARE | [facility] | [address] | | | TESTS | | | [...] ANDERSONAM | [address] | [place], [place] | | | DAVID SOLIS OF CARE | [facility] | [address] | | | TESTS | | | [...] MARQUAM | [address] | [place], [place] | | | DAVID SOLIS OF [facility] | [facility] | [address] | | | TESTS | | | [...] WALLS | [address] | [place], [place] | | | DAVID SOLIS OF CARE | [address] | [address] | | | TESTS | | | [...] MARQUAM | [address] | [place], [place] | | | DAVID SOLIS OF CARE | [facility] | [address] | | | TESTS | | | [...] WALLS | [address] | [place], [place] | | | WILL POINT OF CARE | [address] | [address] | | | TESTS | | | [...] C WALLS | [address] | [place], [place] | | | WILL POINT OF CARE | [address] | [address] | | | TESTS | | | [...] | | + +---------+ + + | [facility] DEPARTMENT OF | | | | | [...] + + + + | PRODUCT | [id number] | | [facility] | | | UNIT [...] + + + + | BLOOD | [id number] | | [facility] | | | PRODUCT [...] DEPARTMENT OF | [address] | [place] [address] | | | PATHOLOGY | [address] [...] + + + + | PRODUCT | [id number] | | [facility] | | | UNIT [...] + + + + | BLOOD | [id number] | | [facility] | | | PRODUCT [...] [facility] | [address] | [place] [address] | | | PATHOLOGY | [address] [...] + + + + | PRODUCT | [id number] | | [facility] | | | UNIT [...] + + + + | BLOOD | [id number] | | [facility] | | | PRODUCT [...] DEPARTMENT OF | [address] | [place] [address] | | | PATHOLOGY | [address] [...] + + + + | PRODUCT | [id number] | | [facility] | | | UNIT [...] + + + + | BLOOD | [id number] | | [facility] | | | PRODUCT [...] [facility] | [address] | [place] [address] | | | PATHOLOGY | [address] [...] + + + + | PRODUCT | [id number] | | [facility] | | | UNIT [...] + + + + | BLOOD | [id number] | | [facility] | | | PRODUCT [...] DEPARTMENT OF | [address] | [place] [address] | | | PATHOLOGY | [address] [...] + + + + | PRODUCT | [id number] | | [facility] | | | UNIT [...] + + + + | BLOOD | [id number] | | [facility] | | | PRODUCT [...] [facility] | [address] | [place] [address] | | | PATHOLOGY | [address] [...] + + + + | PRODUCT | [id number] | | [facility] | | | UNIT [...] + + + + | BLOOD | [id number] | | [facility] | | | PRODUCT [...] DEPARTMENT OF | [address] | [place] [address] | | | PATHOLOGY | [address] [...] + + + + | PRODUCT | [id number] | | [facility] | | | UNIT [...] + + + + | BLOOD | [id number] | | [facility] | | | PRODUCT [...] [facility] | [address] | [place] [address] | | | PATHOLOGY | [address] [...] + + + + | PRODUCT | [id number] | | [facility] | | | UNIT [...] + + + + | BLOOD | [id number] | | [facility] | | | PRODUCT [...] DEPARTMENT OF | [address] | [place] [address] | | | PATHOLOGY | [address] [...] + + + + | PRODUCT | [id number] | | [facility] | | | UNIT [...] + + + + | BLOOD | [id number] | | [facility] | | | PRODUCT [...] [facility] | [address] | [place] [address] | | | PATHOLOGY | [address] [...] + + + + | PRODUCT | [id number] | | [facility] | | | UNIT [...] + + + + | BLOOD | [id number] | | [facility] | | | PRODUCT [...] DEPARTMENT OF | [address] | [place] [address] | | | PATHOLOGY | [address] [...] + + + + | PRODUCT | [id number] | | [facility] | | | UNIT [...] + + + + | BLOOD | [id number] | | [facility] | | | PRODUCT [...] | + + + + + | [facility] DEPARTMENT | [address] | [place] [address] | | | PATHOLOGY | [address] [...] + + + + | PRODUCT | [id number] | | [facility] | | | UNIT [...] + + + + | BLOOD | [id number] | | [facility] | | | PRODUCT [...] DEPARTMENT OF | [address] | [place] [address] | | | PATHOLOGY | [address] [...] + + + + | PRODUCT | [id number] | | [facility] | | | UNIT [...] + + + + | BLOOD | [id number] | | [facility] | | | PRODUCT [...] DEPARTMENT OF | [address] | [place] [address] | | | PATHOLOGY | [address] [...] + + + + | PRODUCT | [id number] | | [facility] | | | UNIT [...] + + + + | BLOOD | [id number] | | [facility] | | | PRODUCT [...] DEPARTMENT OF | [address] | [place] [address] | | | PATHOLOGY | [address] [...] + + + + | PRODUCT | [id number] | | [facility] | | | UNIT [...] + + + + | BLOOD | [id number] | | [facility] | | | PRODUCT [...] DEPARTMENT OF | [address] | [place] [address] | | | PATHOLOGY | [address] [...] + + + + | PRODUCT | [id number] | | [facility] | | | UNIT [...] + + + + | BLOOD | [id number] | | [facility] | | | PRODUCT [...] | + + + + + | [facility] DEPARTMENT OF | [address] | [place] [address] | | | PATHOLOGY | [address] [...] + + + + | PRODUCT | [id number] | | [facility] | | | UNIT [...] + + + + | BLOOD | [id number] | | [facility] | | | PRODUCT [...] [facility] DEPARTMENT | [address] | [place], [place] [address] | | | PATHOLOGY | [address] [...] + + + + | PRODUCT | [id number] | | [facility] | | | UNIT [...] + + + + | BLOOD | [id number] | | [facility] | | | PRODUCT [...] [facility] | [address] | [place] [address] | | | PATHOLOGY | [address] [...] + + + + | PRODUCT | [id number] | | [facility] | | | UNIT [...] + + + + | BLOOD | [id number] | | [facility] | | | PRODUCT [...] DEPARTMENT OF | [address] | [place] [address] | | | PATHOLOGY | [address] [...] + + + + | PRODUCT | [id number] | | [facility] | | | UNIT [...] + + + + | BLOOD | [id number] | | [facility] | | | PRODUCT [...] [facility] | [address] | [place] [address] | | | PATHOLOGY | [address] [...] + + + + | PRODUCT | [id number] | | [facility] | | | UNIT [...] + + + + | BLOOD | [id number] | | [facility] | | | PRODUCT [...] DEPARTMENT OF | [address] | [place] [address] | | | PATHOLOGY | [address] [...] + + + + | PRODUCT | [id number] | | [facility] | | | UNIT [...] + + + + | BLOOD | [id number] | | [facility] | | | PRODUCT [...] | + + + + + | [facility] DEPARTMENT OF | [address] | [place] [address] | | | PATHOLOGY | [address] [...] + + + + | PRODUCT | [id number] | | [facility] | | | UNIT [...] + + + + | BLOOD | [id number] | | [facility] | | | PRODUCT [...] | [address] | [place] [address] | | | PATHOLOGY | [address] [...] WALLS | [address] | [place], [place] | | | DAVID SOLIS OF [facility] | [address] | [address] | | | TESTS | | | [...] + + + + | PRODUCT | [id number] | | [facility] | | | UNIT [...] + + + + | BLOOD | [id number] | | [facility] | | | PRODUCT [...] DEPARTMENT OF | [address] | [place] [address] | | | PATHOLOGY | [address] [...] + + + + | PRODUCT | [id number] | | [facility] | | | UNIT [...] + + + + | BLOOD | [id number] | | [facility] | | | PRODUCT [...] [facility] | [address] | [place] [address] | | | PATHOLOGY | [address] [...] + + + + | PRODUCT | [id number] | | [facility] | | | UNIT [...] + + + + | BLOOD | [id number] | | [facility] | | | PRODUCT [...] DEPARTMENT OF | [address] | [place] [address] | | | PATHOLOGY | [address] [...] + + + + | PRODUCT | [id number] | | [facility] | | | UNIT [...] + + + + | BLOOD | [id number] | | [facility] | | | PRODUCT [...] [facility] | [address] | [place] [address] | | | PATHOLOGY | [address] [...] + + + + | PRODUCT | [id number] | | [facility] | | | UNIT [...] + + + + | BLOOD | [id number] | | [facility] | | | PRODUCT [...] DEPARTMENT OF | [address] | [place] [address] | | | PATHOLOGY | [address] [...] + + + + | PRODUCT | [id number] | | [facility] | | | UNIT [...] + + + + | BLOOD | [id number] | | [facility] | | | PRODUCT [...] [facility] | [address] | [place] [address] | | | PATHOLOGY | [address] [...] TITI | [address] | [place], [place] | | | [facility] | [facility] | [address] | | | TESTS | | | [...] + + + + | PRODUCT | [id number] | | [facility] | | | UNIT [...] + + + + | BLOOD | [id number] | | [facility] | | | PRODUCT [...] [facility] | [address] | [place] [address] | | | PATHOLOGY | [address] [...] + + + + | PRODUCT | [id number] | | [facility] | | | UNIT [...] + + + + | BLOOD | [id number] | | [facility] | | | PRODUCT [...] DEPARTMENT OF | [address] | [place] [address] | | | PATHOLOGY | [address] [...] + + + + | PRODUCT | [id number] | | [facility] | | | UNIT [...] + + + + | BLOOD | [id number] | | [facility] | | | PRODUCT [...] [facility] | [address] | [place] [address] | | | PATHOLOGY | [address] [...] + + + + | PRODUCT | [id number] | | [facility] | | | UNIT [...] + + + + | BLOOD | [id number] | | [facility] | | | PRODUCT [...] DEPARTMENT OF | [address] | [place] [address] | | | PATHOLOGY | [address] [...] + + + + | PRODUCT | [id number] | | [facility] | | | UNIT [...] + + + + | BLOOD | [id number] | | [facility] | | | PRODUCT [...] [facility] | [address] | [place] [address] | | | PATHOLOGY | [address] [...] + + + + | PRODUCT | [id number] | | [facility] | | | UNIT [...] + + + + | BLOOD | [id number] | | [facility] | | | PRODUCT [...] DEPARTMENT OF | [address] | [place] [address] | | | PATHOLOGY | [address] [...] + + + + | PRODUCT | [id number] | | [facility] | | | UNIT [...] + + + + | BLOOD | [id number] | | [facility] | | | PRODUCT [...] [facility] | [address] | [place] [address] | | | PATHOLOGY | [address] [...] + + + + | PRODUCT | [id number] | | [facility] | | | UNIT [...] + + + + | BLOOD | [id number] | | [facility] | | | PRODUCT [...] DEPARTMENT OF | [address] | [place] [address] | | | PATHOLOGY | [address] [...] [facility] | [address] | [place] [address] | | | SERVICES, | [address] [...] [facility] | [address] | [place] [address] | | | SERVICES, | [address] [...] | + + + + + | [facility] | [address] | [place] [address] | | | SERVICES, CORE | MONTSERRAT [...] [facility] | [address] | [place] [address] | | | SERVICES, CORE | [address] [...] | | | LABORATORY | | | [facility] | | | SERVICES, | | | [...] | + + + + + | [facility] | [address] | [place] [address] | | | ALMA ROSA, CORE | [...] [facility] | [address] | [place] [address] | | | SERVICES, CORE | PARK [...] | + + + + + | [facility] | [address] | [place] [address] | | | SERVICES, CORE | MONTSERRAT [...] discolored, | | | | | | appoeogndpvsie-rk-udyapg | | | | | | -green [...] | | | | | | viable. [employer] | | | | | | sections [...] hemorrhage. | | | | | | [employer] | | | | | | sections are submitted. 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
--- OUTSIDE RECORDS SUMMARY | ~2019-10-02 | XMS | Encounter Summary ---
Demographics + + + | Address | [address] | | | [place] [address] | + + + | Home Phone | | + + + | Preferred Language | Unknown | + + + | Marital Status | | + + + | Voodoo Affiliation | NON | + + + | Race | Unknown | + + + | Ethnic Group | Not or | + + + Author + + + | Author | [facility] | + + + | Organization | [facility] | + + + | Address | Unknown | + + + | Phone | Unavailable | + + + Support + + + + + | Name | Relationship | Address | Phone | + + + + + | Noemy Alvarez | [place]OL[facility] | [address] | | | | | [place] | | | | | [address] | | + + + + + Care Team Providers + +------+ + | Care Counselling Psychologist Name | Role | Phone | + [...] [address] | | | | | | [place], [place] | | | | | | [address] | | | +--------+ + + + [...]
--- OUTSIDE RECORDS SUMMARY | ~2019-10-02 | XMS | Encounter Summary ---
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 [place] [address] | | | PATHOLOGY | [address] [...] C LABORATORY | [address] | [place] [address] | | | SERVICES, CORE | [address] [...] | + + + + + | [facility] | [address] | [place] [address] | | | SERVICES, CORE | [address] [...] WALLS | [address] | [place], [place] | | | [facility] | [facility] | [address] | | | TESTS | | | [...] [place] | [address] | [place], [place] | | | HILL, POINT OF CARE | [facility] | [address] | | | TESTS | | | [...] - [place] | [address] | [place], [place] | | | WILL POINT OF CARE | [address] | [address] | | | TESTS | | | [...] WALLS | [address] | [place], [place] | | | [facility] OF CARE | [address] | [address] | | | TESTS | | | [...] [place] | [address] | [place], [place] | | | WILL POINT OF CARE | [address] | [address] | | | TESTS | | | [...] [place]QU[place] | [address] | [place], [place] | | | [facility] | [facility] | [address] | | | TESTS | | | [...] WALLS | [address] | [place], [place] | | | DAV[facility] OF [facility] | [facility] | [address] | | | TESTS | | | [...] | + + + + + | [facility] | [address] | [place] [address] | | | ALMA ROSA, | JACKIE [...] WALLS | [address] | [place], [place] | | | WILL POINT OF CARE | [address] | [address] | | | TESTS | | | [...] MARQUAM | [address] | [place], [place] | | | [facility] OF CARE | [address] | [address] | | | TESTS | | | [...] C WALLS | [address] | [place], [place] | | | [facility]IS OF CARE | [facility] | [address] | | | TESTS | | | [...] WALLS | [address] | [place], [place] | | | WILL POINT OF CARE | [address] | [address] | | | TESTS | | | [...] TITI | [address] | [place], [place] | | | DAV[facility] OF [facility] | [facility] | [address] | | | TESTS | | | [...] - MARKADEEMAM | [address] | [place], [place] | | | DAV[facility] SOLIS OF CARE | [address] | [address] | | | TESTS | | | [...] WALLS | [address] | [place], [place] | | | [facility] OF CARE | [address] | [address] | | | TESTS | | | [...] - TITI | [address] | [place], [place] | | | [facility] | [address] | [address] | | | TESTS | | | [...] + + + + | PRODUCT | [id number] | | [facility] | | | UNIT [...] + + + + | BLOOD | [id number] | | [facility] | | | PRODUCT [...] + + + + | [facility] | [address] | [place] [address] | | | PATHOLOGY | [address] [...] + + + + | PRODUCT | [id number] | | [facility] | | | UNIT [...] + + + + | BLOOD | [id number] | | [facility] | | | PRODUCT [...] | [address] | [place] [address] | | | PATHOLOGY | [address] [...] + + + + | PRODUCT | [id number] | | [facility] | | | UNIT [...] + + + + | BLOOD | [id number] | | [facility] | | | PRODUCT [...] + + + + | [facility] | [address] | [place] [address] | | | PATHOLOGY | [address] [...] + + + + | PRODUCT | [id number] | | [facility] | | | UNIT [...] + + + + | BLOOD | [id number] | | [facility] | | | PRODUCT [...] DEPARTMENT OF | [address] | [place], [place] [address] | | | PATHOLOGY | [address] [...] + + + + | PRODUCT | [id number] | | [facility] | | | UNIT [...] + + + + | BLOOD | [id number] | | [facility] | | | PRODUCT [...] + + + + | [facility] | [address] | [place] [address] | | | PATHOLOGY | [address] [...] + + + + | PRODUCT | [id number] | | [facility] | | | UNIT [...] + + + + | BLOOD | [id number] | | [facility] | | | PRODUCT [...] DEPARTMENT OF | [address] | [place] [address] | | | PATHOLOGY | [address] [...] + + + + | PRODUCT | [id number] | | [facility] | | | UNIT [...] + + + + | BLOOD | [id number] | | [facility] | | | PRODUCT [...] + + + + | [facility] | [address] | [place] [address] | | | PATHOLOGY | [address] [...] + + + + | PRODUCT | [id number] | | [facility] | | | UNIT [...] + + + + | BLOOD | [id number] | | [facility] | | | PRODUCT [...] DEPARTMENT OF | [address] | [place] [address] | | | PATHOLOGY | [address] [...] + + + + | PRODUCT | [id number] | | [facility] | | | UNIT [...] + + + + | BLOOD | [id number] | | [facility] | | | PRODUCT [...] + + + + | [facility] | [address] | [place] [address] | | | PATHOLOGY | [address] [...] + + + + | PRODUCT | [id number] | | [facility] | | | UNIT [...] + + + + | BLOOD | [id number] | | [facility] | | | PRODUCT [...] DEPARTMENT OF | [address] | [place] [address] | | | PATHOLOGY | [address] [...] + + + + | PRODUCT | [id number] | | [facility] | | | UNIT [...] + + + + | BLOOD | [id number] | | [facility] | | | PRODUCT [...] + + + + | [facility] | [address] | [place] [address] | | | PATHOLOGY | [address] [...] + + + + | PRODUCT | [id number] | | [facility] | | | UNIT [...] + + + + | BLOOD | [id number] | | [facility] | | | PRODUCT [...] DEPARTMENT OF | [address] | [place] [address] | | | PATHOLOGY | [address] [...] + + + + | PRODUCT | [id number] | | [facility] | | | UNIT [...] + + + + | BLOOD | [id number] | | [facility] | | | PRODUCT [...] | + + + + + | [facility] DEPARTMENT | [address] | [place] [address] | | | PATHOLOGY | [address] [...] + + + + | PRODUCT | [id number] | | [facility] | | | UNIT [...] + + + + | BLOOD | [id number] | | [facility] | | | PRODUCT [...] DEPARTMENT OF | [address] | [place] [address] | | | PATHOLOGY | [address] [...] + + + + | PRODUCT | [id number] | | [facility] | | | UNIT [...] + + + + | BLOOD | [id number] | | [facility] | | | PRODUCT [...] DEPARTMENT OF | [address] | [place] [address] | | | PATHOLOGY | [address] [...] + + + + | PRODUCT | [id number] | | [facility] | | | UNIT [...] + + + + | BLOOD | [id number] | | [facility] | | | PRODUCT [...] DEPARTMENT OF | [address] | [place] [address] | | | PATHOLOGY | [address] [...] + + + + | PRODUCT | [id number] | | [facility] | | | UNIT [...] + + + + | BLOOD | [id number] | | [facility] | | | PRODUCT [...] DEPARTMENT OF | [address] | [place] [address] | | | PATHOLOGY | [address] [...] + + + + | PRODUCT | [id number] | | [facility] | | | UNIT [...] + + + + | BLOOD | [id number] | | [facility] | | | PRODUCT [...] | + + + + + | [facility] DEPARTMENT OF | [address] | [place] [address] | | | PATHOLOGY | [address] [...] + + + + | PRODUCT | [id number] | | [facility] | | | UNIT [...] + + + + | BLOOD | [id number] | | [facility] | | | PRODUCT [...] | + + + + + | [facility] DEPARTMENT OF | [address] | [place] [address] | | | PATHOLOGY | [address] [...] + + + + | PRODUCT | [id number] | | [facility] | | | UNIT [...] + + + + | BLOOD | [id number] | | [facility] | | | PRODUCT [...] + + + + | [facility] | [address] | [place] [address] | | | PATHOLOGY | [address] [...] + + + + | PRODUCT | [id number] | | [facility] | | | UNIT [...] + + + + | BLOOD | [id number] | | [facility] | | | PRODUCT [...] DEPARTMENT OF | [address] | [place] [address] | | | PATHOLOGY | [address] [...] + + + + | PRODUCT | [id number] | | [facility] | | | UNIT [...] + + + + | BLOOD | [id number] | | [facility] | | | PRODUCT [...] + + + + | [facility] | [address] | [place] [address] | | | PATHOLOGY | [address] [...] + + + + | PRODUCT | [id number] | | [facility] | | | UNIT [...] + + + + | BLOOD | [id number] | | [facility] | | | PRODUCT [...] DEPARTMENT OF | [address] | [place] [address] | | | PATHOLOGY | [address] [...] + + + + | PRODUCT | [id number] | | [facility] | | | UNIT [...] + + + + | BLOOD | [id number] | | [facility] | | | PRODUCT [...] + + + + | [facility] | [address] | [place] [address] | | | PATHOLOGY | [address] [...] + + + + | PRODUCT | [id number] | | [facility] | | | UNIT [...] + + + + | BLOOD | [id number] | | [facility] | | | PRODUCT [...] DEPARTMENT OF | [address] | [place] [address] | | | PATHOLOGY | [address] [...] + + + + | PRODUCT | [id number] | | [facility] | | | UNIT [...] + + + + | BLOOD | [id number] | | [facility] | | | PRODUCT [...] + + + + | [facility] | [address] | [place] [address] | | | PATHOLOGY | [address] [...] + + + + | PRODUCT | [id number] | | [facility] | | | UNIT [...] + + + + | BLOOD | [id number] | | [facility] | | | PRODUCT [...] DEPARTMENT OF | [address] | [place] [address] | | | PATHOLOGY | [address] [...] + + + + | PRODUCT | [id number] | | [facility] | | | UNIT [...] + + + + | BLOOD | [id number] | | [facility] | | | PRODUCT [...] + + + + | [facility] | [address] | [place] [address] | | | PATHOLOGY | [address] [...] [place] | [address] | [place], [place] | | | [facility] | [address] | [address] | | | TESTS | | | [...] C WALLS | [address] | [place], [place] | | | DAV[facility] OF [facility] | [facility] | [address] | | | TESTS | | | [...] WALLS | [address] | [place], [place] | | | WILL POINT OF CARE | [address] | [address] | | | TESTS | | | [...] WALLS | [address] | [place], [place] | | | [facility] OF [facility] | [facility] | [address] | | | TESTS | | | [...] ANDERSONAM | [address] | [place], [place] | | | [facility] | [facility] | [address] | | | TESTS | | | [...] WALLS | [address] | [place], [place] | | | [facility] OF CARE | [address] | [address] | | | TESTS | | | [...] TITI | [address] | [place], [place] | | | [facility] | [address] | [address] | | | TESTS | | | [...] - TITI | [address] | [place], [place] | | | [facility] | [address] | [address] | | | TESTS | | | [...] [facility] | [address] | [place] [address] | | | SERVICES, CORE | [address] [...] | + + + + + | [facility] | [address] | [place] [address] | | | SERVICES, CORE | [address] [...] + | [facility] - TITI | [address] [facility] [address] | [place], [place] | | | [facility] | [address] | [address] | | | TESTS | | | [...] - TITI | [address] | [place], [place] | | | [facility] | [facility] | [address] | | | TESTS | | | [...] ANDERSONAM | [address] | [place], [place] | | | [facility] | [address] | [address] | | | TESTS | | | [...] WALLS | [address] | [place], [place] | | | [facility] | [facility] | [address] | | | TESTS | | | [...] - MARQU[place] | [address] | [place], [place] | | | DAV[facility] SOLIS OF CARE | [facility] | [address] | | | TESTS | | | [...] TITI | [address] | [place], [place] | | | [facility] | [address] | [address] | | | TESTS | | | [...] TITI | [address] | [place], [place] | | | [facility] | [address] | [address] | | | TESTS | | | [...] WALLS | [address] | [place], [place] | | | WILL POINT OF CARE | [address] | [address] | | | TESTS | | | [...] | | + +---------+ + + | [facility] DEPARTMENT OF | | | | [...] | | + +---------+ + + | [facility] DEPARTMENT OF | | | | [...] + + + + | PRODUCT | [id number] | | [facility] | | | UNIT [...] + + + + | BLOOD | [id number] | | [facility] | | | PRODUCT [...] DEPARTMENT OF | [address] | [place] [address] | | | PATHOLOGY | [address] [...] + + + + | PRODUCT | [id number] | | [facility] | | | UNIT [...] + + + + | BLOOD | [id number] | | [facility] | | | PRODUCT [...] DEPARTMENT OF | [address] | [place] [address] | | | PATHOLOGY | [address] [...] + + + + | PRODUCT | [id number] | | [facility] | | | UNIT [...] + + + + | BLOOD | [id number] | | [facility] | | | PRODUCT [...] DEPARTMENT OF | [address] | [place] [address] | | | PATHOLOGY | [address] [...] + + + + | PRODUCT | [id number] | | [facility] | | | UNIT [...] + + + + | BLOOD | [id number] | | [facility] | | | PRODUCT [...] DEPARTMENT OF | [address] | [place] [address] | | | PATHOLOGY | [address] [...] + + + + | PRODUCT | [id number] | | [facility] | | | UNIT [...] + + + + | BLOOD | [id number] | | [facility] | | | PRODUCT [...] DEPARTMENT OF | [address] | [place] [address] | | | PATHOLOGY | [address] [...] + + + + | PRODUCT | [id number] | | [facility] | | | UNIT [...] + + + + | BLOOD | [id number] | | [facility] | | | PRODUCT [...] DEPARTMENT OF | [address] | [place], [place] [address] | | | PATHOLOGY | [address] [...] + + + + | PRODUCT | [id number] | | [facility] | | | UNIT [...] + + + + | BLOOD | [id number] | | [facility] | | | PRODUCT [...] DEPARTMENT OF | [address] | [place] [address] | | | PATHOLOGY | [address] [...] + + + + | PRODUCT | [id number] | | [facility] | | | UNIT [...] + + + + | BLOOD | [id number] | | [facility] | | | PRODUCT [...] DEPARTMENT OF | [address] | [place] [address] | | | PATHOLOGY | [address] [...] + + + + | PRODUCT | [id number] | | [facility] | | | UNIT [...] + + + + | BLOOD | [id number] | | [facility] | | | PRODUCT [...] DEPARTMENT OF | [address] | [place] [address] | | | PATHOLOGY | [address] [...] + + + + | PRODUCT | [id number] | | [facility] | | | UNIT [...] + + + + | BLOOD | [id number] | | [facility] | | | PRODUCT [...] DEPARTMENT OF | [address] | [place] [address] | | | PATHOLOGY | [address] [...] + + + + | PRODUCT | [id number] | | [facility] | | | UNIT [...] + + + + | BLOOD | [id number] | | [facility] | | | PRODUCT [...] DEPARTMENT OF | [address] | [place] [address] | | | PATHOLOGY | [address] [...] + + + + | PRODUCT | [id number] | | [facility] | | | UNIT [...] + + + + | BLOOD | [id number] | | [facility] | | | PRODUCT [...] | + + + + + | [facility] DEPARTMENT OF | [address] | [place] [address] | | | PATHOLOGY | [address] [...] + + + + | PRODUCT | [id number] | | [facility] | | | UNIT [...] + + + + | BLOOD | [id number] | | [facility] | | | PRODUCT [...] | + + + + + | [facility] DEPARTMENT OF | [address] | [place] [address] | | | PATHOLOGY | [address] [...] + + + + | PRODUCT | [id number] | | [facility] | | | UNIT [...] + + + + | BLOOD | [id number] | | [facility] | | | PRODUCT [...] | + + + + + | [facility] DEPARTMENT OF | [address] | [place] [address] | | | PATHOLOGY | [address] [...] + + + + | PRODUCT | [id number] | | [facility] | | | UNIT [...] + + + + | BLOOD | [id number] | | [facility] | | | PRODUCT [...] [facility] DEPARTMENT | [address] | [place] [address] | | | PATHOLOGY | [address] [...] + + + + | PRODUCT | [id number] | | [facility] | | | UNIT [...] + + + + | BLOOD | [id number] | | [facility] | | | PRODUCT [...] + + + + | [facility] | [address] | [place] [address] | | | PATHOLOGY | [address] [...] + + + + | PRODUCT | [id number] | | [facility] | | | UNIT [...] + + + + | BLOOD | [id number] | | [facility] | | | PRODUCT [...] DEPARTMENT OF | [address] | [place] [address] | | | PATHOLOGY | [address] [...] + + + + | PRODUCT | [id number] | | [facility] | | | UNIT [...] + + + + | BLOOD | [id number] | | [facility] | | | PRODUCT [...] + + + + | [facility] | [address] | [place] [address] | | | PATHOLOGY | [address] [...] + + + + | PRODUCT | [id number] | | [facility] | | | UNIT [...] + + + + | BLOOD | [id number] | | [facility] | | | PRODUCT [...] DEPARTMENT OF | [address] | [place] [address] | | | PATHOLOGY | [address] [...] + + + + | PRODUCT | [id number] | | [facility] | | | UNIT [...] + + + + | BLOOD | [id number] | | [facility] | | | PRODUCT [...] [facility] DEPARTMENT | [address] | [place] [address] | | | PATHOLOGY | [address] [...] + + + + | PRODUCT | [id number] | | [facility] | | | UNIT [...] + + + + | BLOOD | [id number] | | [facility] | | | PRODUCT [...] | [address] | [place] [address] | | | PATHOLOGY | [address] [...] + + + + | PRODUCT | [id number] | | [facility] | | | UNIT [...] + + + + | BLOOD | [id number] | | [facility] | | | PRODUCT [...] DEPARTMENT OF | [address] | [place] [address] | | | PATHOLOGY | [address] [...] + + + + | PRODUCT | [id number] | | [facility] | | | UNIT [...] + + + + | BLOOD | [id number] | | [facility] | | | PRODUCT [...] + + + + | [facility] | [address] | [place] [address] | | | PATHOLOGY | [address] [...] + + + + | PRODUCT | [id number] | | [facility] | | | UNIT [...] + + + + | BLOOD | [id number] | | [facility] | | | PRODUCT [...] DEPARTMENT | [address] | [place] [address] | | | PATHOLOGY | [address] [...] [place] | [address] | [place], [place] | | | [facility] CARE | [address] | [address] | | | TESTS | | | [...] + + + + | PRODUCT | [id number] | | [facility] | | | UNIT [...] + + + + | BLOOD | [id number] | | [facility] | | | PRODUCT [...] + + + + | [facility] | [address] | [place] [address] | | | PATHOLOGY | [address] [...] + + + + | PRODUCT | [id number] | | [facility] | | | UNIT [...] + + + + | BLOOD | [id number] | | [facility] | | | PRODUCT [...] DEPARTMENT OF | [address] | [place] [address] | | | PATHOLOGY | [address] [...] + + + + | PRODUCT | [id number] | | [facility] | | | UNIT [...] + + + + | BLOOD | [id number] | | [facility] | | | PRODUCT [...] [facility] DEPARTMENT | [address] | [place] [address] | | | PATHOLOGY | [address] [...] + + + + | PRODUCT | [id number] | | [facility] | | | UNIT [...] + + + + | BLOOD | [id number] | | [facility] | | | PRODUCT [...] | [address] | [place] [address] | | | PATHOLOGY | [address] [...] + + + + | PRODUCT | [id number] | | [facility] | | | UNIT [...] + + + + | BLOOD | [id number] | | [facility] | | | PRODUCT [...] | + + + + + | [facility] DEPARTMENT OF | [address] | [place] [address] | | | PATHOLOGY | [address] [...] + + + + | PRODUCT | [id number] | | [facility] | | | UNIT [...] + + + + | BLOOD | [id number] | | [facility] | | | PRODUCT [...] | [address] | [place] [address] | | | PATHOLOGY | [address] [...] WALLS | [address] | [place], [place] | | | WILL POINT OF CARE | [address] | [address] | | | TESTS | | | [...] + + + + | PRODUCT | [id number] | | [facility] | | | UNIT [...] + + + + | BLOOD | [id number] | | [facility] | | | PRODUCT [...] DEPARTMENT OF | [address] | [place] [address] | | | PATHOLOGY | [address] [...] + + + + | PRODUCT | [id number] | | [facility] | | | UNIT [...] + + + + | BLOOD | [id number] | | [facility] | | | PRODUCT [...] + + + + | [facility] | [address] | [place] [address] | | | PATHOLOGY | [address] [...] + + + + | PRODUCT | [id number] | | [facility] | | | UNIT [...] + + + + | BLOOD | [id number] | | [facility] | | | PRODUCT [...] DEPARTMENT OF | [address] | [place] [address] | | | PATHOLOGY | [address] [...] + + + + | PRODUCT | [id number] | | [facility] | | | UNIT [...] + + + + | BLOOD | [id number] | | [facility] | | | PRODUCT [...] + + + + | [facility] | [address] | [place] [address] | | | PATHOLOGY | [address] [...] + + + + | PRODUCT | [id number] | | [facility] | | | UNIT [...] + + + + | BLOOD | [id number] | | [facility] | | | PRODUCT [...] DEPARTMENT OF | [address] | [place] [address] | | | PATHOLOGY | [address] [...] + + + + | PRODUCT | [id number] | | [facility] | | | UNIT [...] + + + + | BLOOD | [id number] | | [facility] | | | PRODUCT [...] [facility] DEPARTMENT | [address] | [place] [address] | | | PATHOLOGY | [address] [...] + + + + | PRODUCT | [id number] | | [facility] | | | UNIT [...] + + + + | BLOOD | [id number] | | [facility] | | | PRODUCT [...] | [address] | [place] [address] | | | PATHOLOGY | [address] [...] + + + + | PRODUCT | [id number] | | [facility] | | | UNIT [...] + + + + | BLOOD | [id number] | | [facility] | | | PRODUCT [...] [facility] | [address] | [place] [address] | | | PATHOLOGY | [address] [...] | + + + + + | [facility] | [address] | [place] [address] | | | SERVICES, | [address] [...] [facility] | [address] | [place] [address] | | | SERVICES, | [address] [...] [facility] | [address] | [place] [address] | | | SERVICES, CORE | [address] [...] | + + + + + | [facility] | [address] | [place] [address] | | | SERVICES, CORE | [address] [...] | | | LABORATORY | | | [facility] | | | SERVICES, | | | [...] the MDRD equation recommended by the | [facility] | | National Kidney Disease Education [...] | + + + + + | [facility] | [address] | [place] [address] | | | SERVICES, CORE | P[address] [...] + + | [facility] | [address] | [place] [address] | | | SERVICES, CORE | [address] [...] | + + + + + | [facility] | [address] | [place] [address] | | | SERVICES, ELOY | [address] [...] discolored, | | | | | | [id number] | | | | | | -green [...] | | | | | | viable. Wireless Technician | | | | | | sections [...] hemorrhage. | | | | | | Wireless Technician | | | | | | sections are submitted. | | | | | | Cassette Index:A: | | | | | | Left colon:A1, | | | | | | financial service representative margins | | | | [...] + + + + | [facility] | [address] | [place] [address] | | | PATHOLOGY | [address] [...]
--- OUTSIDE RECORDS SUMMARY | ~2019-10-02 | XMS | Encounter Summary ---
Demographics + + + | Address | [address] | | | [place] [address] | + + + | Home Phone | | + + + | Preferred Language | Unknown | + + + | Marital Status | | + + + | Restorationist Affiliation | NON | + + + [...] [place] | | | | | [id number] | | + + + + + Care Team Providers + +------+ + | Care Administrative Office Specialist Name | Role | Phone | [...] | | | 2013 | Event | [facility] | ,PhD [address] | | | | | Admitting Desk | [address] | | | | | Located on the | [place], [place] | | | | | floor [address] [facility] | [address] | | | | | [address] | [phone] | | | | | [place], [place] | | | | | | [address] | Juan William MD | | +--------+ [...]
--- OUTSIDE RECORDS SUMMARY | ~2019-10-02 | XMS | Encounter Summary ---
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 | | [...] MARQUAM | [address] | [place], [place] | | | DAVID SOLIS OF CARE | [address] | [address] | | | TESTS | | | [...] + + | [facility] | [address] | [place], [place] | | | DAVID SOLIS OF CARE | [address] | [address] | | | TESTS | | | [...] MARQUAM | [address] | [place], [place] | | | DAVID SOLIS OF CARE | [facility] | [address] | | | TESTS | | | [...] TITI | [address] | [place], [place] | | | WILL POINT OF CARE | [address] | [address] | | | TESTS | | | [...] [facility] | [address] | [place] [address] | | | SERVICES, | [address] [...] - MARQUAM | [address] | [place], [place] | | | WILL POINT OF CARE | [address] | [address] | | | TESTS | | | [...] WALLS | [address] | [place], [place] | | | DAVID SOLIS OF [facility] | [facility] | [address] | | | TESTS | | | [...] TITI | [address] | [place], [place] | | | DAVID SOLIS OF [facility] | [address] | [address] | | | TESTS | | | [...] TITI | [address] | [place], [place] | | | DAVID SOLIS OF [facility] | [facility] | [address] | | | TESTS | | | [...] WALLS | [address] | [place], [place] | | | WILL POINT OF CARE | [address] | [address] | | | TESTS | | | [...] TITI | [address] | [place], [place] | | | DAVID SOLIS OF [facility] | [address] | [address] | | | TESTS | | | [...] - MARQUAM | [address] | [place], [place] | | | DAVID SOLIS OF CARE | [address] | [address] | | | TESTS | | | [...] TITI | [address] | [place], [place] | | | DAVID SOLIS OF CARE | [address] | [address] | | | TESTS | | | [...] + + + + | PRODUCT | [id number] | | [facility] | | | UNIT [...] + + + + | BLOOD | [id number] | | [facility] | | | PRODUCT [...] DEPARTMENT OF | [address] | [place] [address] | | | PATHOLOGY | [address] [...] + + + + | PRODUCT | [id number] | | [facility] | | | UNIT [...] + + + + | BLOOD | [id number] | | [facility] | | | PRODUCT [...] DEPARTMENT OF | [address] | [place] [address] | | | PATHOLOGY | [address] [...] + + + + | PRODUCT | [id number] | | [facility] | | | UNIT [...] + + + + | BLOOD | [id number] | | [facility] | | | PRODUCT [...] DEPARTMENT OF | [address] | [place] [address] | | | PATHOLOGY | [address] [...] + + + + | PRODUCT | [id number] | | [facility] | | | UNIT [...] + + + + | BLOOD | [id number] | | [facility] | | | PRODUCT [...] + + + + + | [facility] DEPARTMENT OF | [address] | [place] [address] | | | PATHOLOGY | [address] [...] + + + + | PRODUCT | [id number] | | [facility] | | | UNIT [...] + + + + | BLOOD | [id number] | | [facility] | | | PRODUCT [...] DEPARTMENT OF | [address] | [place] [address] | | | PATHOLOGY | [address] [...] + + + + | PRODUCT | [id number] | | [facility] | | | UNIT [...] + + + + | BLOOD | [id number] | | [facility] | | | PRODUCT [...] + + + + + | [facility] DEPARTMENT OF | [address] | [place] [address] | | | PATHOLOGY | [address] [...] + + + + | PRODUCT | [id number] | | [facility] | | | UNIT [...] + + + + | BLOOD | [id number] | | [facility] | | | PRODUCT [...] OF | [address] | [place] [address] | | | PATHOLOGY | [address] [...] + + + + | PRODUCT | [id number] | | [facility] | | | UNIT [...] + + + + | BLOOD | [id number] | | [facility] | | | PRODUCT [...] + + + + + | [facility] DEPARTMENT OF | [address] | [place] [address] | | | PATHOLOGY | [address] [...] + + + + | PRODUCT | [id number] | | [facility] | | | UNIT [...] + + + + | BLOOD | [id number] | | [facility] | | | PRODUCT [...] DEPARTMENT OF | [address] | [place] [address] | | | PATHOLOGY | [address] [...] + + + + | PRODUCT | [id number] | | [facility] | | | UNIT [...] + + + + | BLOOD | [id number] | | [facility] | | | PRODUCT [...] + + + + + | [facility] DEPARTMENT OF | [address] | [place] [address] | | | PATHOLOGY | [address] [...] + + + + | PRODUCT | [id number] | | [facility] | | | UNIT [...] + + + + | BLOOD | [id number] | | [facility] | | | PRODUCT [...] DEPARTMENT OF | [address] | [place] [address] | | | PATHOLOGY | [address] [...] + + + + | PRODUCT | [id number] | | [facility] | | | UNIT [...] + + + + | BLOOD | [id number] | | [facility] | | | PRODUCT [...] | + + + + + | [facility] | [address] | [place] [address] | | | PATHOLOGY | [address] [...] + + + + | PRODUCT | [id number] | | [facility] | | | UNIT [...] + + + + | BLOOD | [id number] | | [facility] | | | PRODUCT [...] DEPARTMENT OF | [address] | [place] [address] | | | PATHOLOGY | [address] [...] + + + + | PRODUCT | [id number] | | [facility] | | | UNIT [...] + + + + | BLOOD | [id number] | | [facility] | | | PRODUCT [...] | + + + + + | [facility] | [address] | [place] [address] | | | PATHOLOGY | [address] [...] + + + + | PRODUCT | [id number] | | [facility] | | | UNIT [...] + + + + | BLOOD | [id number] | | [facility] | | | PRODUCT [...] DEPARTMENT OF | [address] | [place] [address] | | | PATHOLOGY | [address] [...] + + + + | PRODUCT | [id number] | | [facility] | | | UNIT [...] + + + + | BLOOD | [id number] | | [facility] | | | PRODUCT [...] | + + + + + | [facility] | [address] | [place] [address] | | | PATHOLOGY | [address] [...] + + + + | PRODUCT | [id number] | | [facility] | | | UNIT [...] + + + + | BLOOD | [id number] | | [facility] | | | PRODUCT [...] DEPARTMENT OF | [address] | [place], [place] [address] | | | PATHOLOGY | [address] [...] + + + + | PRODUCT | [id number] | | [facility] | | | UNIT [...] + + + + | BLOOD | [id number] | | [facility] | | | PRODUCT [...] + + + + + | [facility] DEPART[facility] | [address] | [place] [address] | | | PATHOLOGY | [address] [...] + + + + | PRODUCT | [id number] | | [facility] | | | UNIT [...] + + + + | BLOOD | [id number] | | [facility] | | | PRODUCT [...] DEPARTMENT OF | [address] | [place] [address] | | | PATHOLOGY | [address] [...] + + + + | PRODUCT | [id number] | | [facility] | | | UNIT [...] + + + + | BLOOD | [id number] | | [facility] | | | PRODUCT [...] + + + + + | [facility] DEPARTMENT OF | [address] | [place] [address] | | | PATHOLOGY | [address] [...] + + + + | PRODUCT | [id number] | | [facility] | | | UNIT [...] + + + + | BLOOD | [id number] | | [facility] | | | PRODUCT [...] DEPARTMENT OF | [address] | [place] [address] | | | PATHOLOGY | [address] [...] + + + + | PRODUCT | [id number] | | [facility] | | | UNIT [...] + + + + | BLOOD | [id number] | | [facility] | | | PRODUCT [...] DEPARTMENT OF | [address] | [place] [address] | | | PATHOLOGY | [address] [...] + + + + | PRODUCT | [id number] | | [facility] | | | UNIT [...] + + + + | BLOOD | [id number] | | [facility] | | | PRODUCT [...] + + + + + | [facility] DEPARTMENT OF | [address] | [place] [address] | | | PATHOLOGY | [address] [...] + + + + | PRODUCT | [id number] | | [facility] | | | UNIT [...] + + + + | BLOOD | [id number] | | [facility] | | | PRODUCT [...] DEPARTMENT | [address] | [place] [address] | | | PATHOLOGY | [address] [...] + + + + | PRODUCT | [id number] | | [facility] | | | UNIT [...] + + + + | BLOOD | [id number] | | [facility] | | | PRODUCT [...] | + + + + + | [facility] | [address] | [place] [address] | | | PATHOLOGY | [address] [...] + + + + | PRODUCT | [id number] | | [facility] | | | UNIT [...] + + + + | BLOOD | [id number] | | [facility] | | | PRODUCT [...] [facility] DEPARTMENT | [address] | [place] [address] | | | PATHOLOGY | [address] [...] + + + + | PRODUCT | [id number] | | [facility] | | | UNIT [...] + + + + | BLOOD | [id number] | | [facility] | | | PRODUCT [...] | + + + + + | [facility] | [address] | [place] [address] | | | PATHOLOGY | [address] [...] + + + + | PRODUCT | [id number] | | [facility] | | | UNIT [...] + + + + | BLOOD | [id number] | | [facility] | | | PRODUCT [...] [facility] DEPARTMENT | [address] | [place] [address] | | | PATHOLOGY | [address] [...] WALLS | [address] | [place], [place] | | | DAVID SOLIS OF CARE | [address] | [address] | | | TESTS | | | [...] | [facility] - TITI | [address] | [place], [place] | | | DAVID SOLIS OF CARE | [address] | [address] | | | TESTS | | | [...] TITI | [address] | [place], [place] | | | DAVID SOLIS OF [facility] | [facility] | [address] | | | TESTS | | | | + + + + + GLUCOSE, POC (09/09/2014 5:29 AM PDT) + +---------+ + + + | Component | Value | Ref Range | Performed | Pathologist | | | | | At | Signature | + +---------+ + + + | GLUCOSE, | 267 (H) | 60 - 99 mg/dL | [facility] - | | | POC | | [...] TITI | [address] | [place], [place] | | | WILL POINT OF CARE | [address] | [address] | | | TESTS | | | [...] TITI | [address] | [place], [place] | | | DAVID SOLIS OF CARE | [facility] | [address] | | | TESTS | | | [...] MARQUAM | [address] | [place], [place] | | | DAVDI SOLIS OF CARE | [facility] | [address] | | | TESTS | | | [...] WALLS | [address] | [place], [place] | | | WILL POINT OF CARE | [address] | [address] | | | TESTS | | | [...] TITI | [address] | [place], [place] | | | DAVID SOLIS OF [facility] | [facility] | [address] | | | TESTS | | | [...] | + + + + + | [facility] | [address] | [place] [address] | | | SERVICES, CORE | MONTSERRAT [...] | + + + + + | [facility] | [address] | [place] [address] | | | ALMA ROSA, ELOY | [...] 3.5 (H) | 0.5 - 1.6 | [facility] - | | | ARTERIAL, | | [...] ANDERSONAM | [address] | [place], [place] | | | WILL POINT OF CARE | [address] | [address] | | | TESTS | | | [...] TITI | [address] | [place], [place] | | | DAVID SOLIS OF CARE | [facility] | [address] | | | TESTS | | | [...] - MARQUAM | [address] | [place], [place] | | | DAVID SOLIS OF CARE | [facility] | [address] | | | TESTS | | | | + + + + + GLUCOSE, POC (09/09/2014 5:08 AM PDT) + +---------+ + + + | Component | Value | Ref Range | Performed | Pathologist | | | | | At | Signature | + +---------+ + + + | GLUCOSE, | 307 (H) | 60 - 99 mg/dL | [facility] - | | | POC | | [...] TITI | [address] | [place], [place] | | | DAVID SOLIS OF [facility] | [address] | [address] | | | TESTS | | | [...] WALLS | [address] | [place], [place] | | | CHRISTIANO SOLIS | [facility] | [address] | | | TESTS | | | [...] - MARQUAM | [address] | [place], [place] | | | DAVID SOLIS OF CARE | [facility] | [address] | | | TESTS | | | [...] WALLS | [address] | [place], [place] | | | WILL POINT OF CARE | [address] | [address] | | | TESTS | | | [...] Nahid TITI | [address] | [place], [place] | | | WILL POINT OF CARE | [address] | [address] | | | TESTS | | | [...] + + + + | PRODUCT | [id number] | | [facility] | | | UNIT [...] + + + + | BLOOD | [id number] | | [facility] | | | PRODUCT [...] DEPARTMENT OF | [address] | [place] [address] | | | PATHOLOGY | [address] [...] + + + + | PRODUCT | [id number] | | [facility] | | | UNIT [...] + + + + | BLOOD | [id number] | | [facility] | | | PRODUCT [...] | + + + + + | [facility] | [address] | [place] [address] | | | PATHOLOGY | [address] [...] + + + + | PRODUCT | [id number] | | [facility] | | | UNIT [...] + + + + | BLOOD | [id number] | | [facility] | | | PRODUCT [...] DEPARTMENT OF | [address] | [place] [address] | | | PATHOLOGY | [address] [...] + + + + | PRODUCT | [id number] | | [facility] | | | UNIT [...] + + + + | BLOOD | [id number] | | [facility] | | | PRODUCT [...] | + + + + + | [facility] | [address] | [place] [address] | | | PATHOLOGY | [address] [...] + + + + | PRODUCT | [id number] | | [facility] | | | UNIT [...] + + + + | BLOOD | [id number] | | [facility] | | | PRODUCT [...] DEPARTMENT OF | [address] | [place] [address] | | | PATHOLOGY | [address] [...] + + + + | PRODUCT | [id number] | | [facility] | | | UNIT [...] + + + + | BLOOD | [id number] | | [facility] | | | PRODUCT [...] | + + + + + | [facility] | [address] | [place] [address] | | | PATHOLOGY | [address] [...] + + + + | PRODUCT | [id number] | | [facility] | | | UNIT [...] + + + + | BLOOD | [id number] | | [facility] | | | PRODUCT [...] DEPARTMENT OF | [address] | [place] [address] | | | PATHOLOGY | [address] [...] + + + + | PRODUCT | [id number] | | [facility] | | | UNIT [...] + + + + | BLOOD | [id number] | | [facility] | | | PRODUCT [...] | + + + + + | [facility] | [address] | [place] [address] | | | PATHOLOGY | [address] [...] + + + + | PRODUCT | [id number] | | [facility] | | | UNIT [...] + + + + | BLOOD | [id number] | | [facility] | | | PRODUCT [...] DEPARTMENT OF | [address] | [place] [address] | | | PATHOLOGY | [address] [...] + + + + | PRODUCT | [id number] | | [facility] | | | UNIT [...] + + + + | BLOOD | [id number] | | [facility] | | | PRODUCT [...] | + + + + + | [facility] | [address] | [place] [address] | | | PATHOLOGY | [address] [...] + + + + | PRODUCT | [id number] | | [facility] | | | UNIT [...] + + + + | BLOOD | [id number] | | [facility] | | | PRODUCT [...] DEPARTMENT OF | [address] | [place] [address] | | | PATHOLOGY | [address] [...] + + + + | PRODUCT | [id number] | | [facility] | | | UNIT [...] + + + + | BLOOD | [id number] | | [facility] | | | PRODUCT [...] | + + + + + | [facility] | [address] | [place] [address] | | | PATHOLOGY | [address] [...] + + + + | PRODUCT | [id number] | | [facility] | | | UNIT [...] + + + + | BLOOD | [id number] | | [facility] | | | PRODUCT [...] DEPARTMENT OF | [address] | [place] [address] | | | PATHOLOGY | [address] [...] + + + + | PRODUCT | [id number] | | [facility] | | | UNIT [...] + + + + | BLOOD | [id number] | | [facility] | | | PRODUCT [...] + + + + + | [facility] DEPARTMENT OF | [address] | [place] [address] | | | PATHOLOGY | [address] [...] + + + + | PRODUCT | [id number] | | [facility] | | | UNIT [...] + + + + | BLOOD | [id number] | | [facility] | | | PRODUCT [...] DEPARTMENT OF | [address] | [place] [address] | | | PATHOLOGY | [address] [...] + + + + | PRODUCT | [id number] | | [facility] | | | UNIT [...] + + + + | BLOOD | [id number] | | [facility] | | | PRODUCT [...] DEPARTMENT OF | [address] | [place] [address] | | | PATHOLOGY | [address] [...] + + + + | PRODUCT | [id number] | | [facility] | | | UNIT [...] + + + + | BLOOD | [id number] | | [facility] | | | PRODUCT [...] + + + + + | [facility] DEPARTMENT OF | [address] | [place] [address] | | | PATHOLOGY | [address] [...] + + + + | PRODUCT | [id number] | | [facility] | | | UNIT [...] + + + + | BLOOD | [id number] | | [facility] | | | PRODUCT [...] DEPARTMENT OF | [address] | [place] [address] | | | PATHOLOGY | [address] [...] + + + + | PRODUCT | [id number] | | [facility] | | | UNIT [...] + + + + | BLOOD | [id number] | | [facility] | | | PRODUCT [...] | + + + + + | [facility] | [address] | [place] [address] | | | PATHOLOGY | [address] [...] + + + + | PRODUCT | [id number] | | [facility] | | | UNIT [...] + + + + | BLOOD | [id number] | | [facility] | | | PRODUCT [...] DEPARTMENT OF | [address] | [place] [address] | | | PATHOLOGY | [address] [...] + + + + | PRODUCT | [id number] | | [facility] | | | UNIT [...] + + + + | BLOOD | [id number] | | [facility] | | | PRODUCT [...] | + + + + + | [facility] | [address] | [place] [address] | | | PATHOLOGY | [address] [...] + + + + | PRODUCT | [id number] | | [facility] | | | UNIT [...] + + + + | BLOOD | [id number] | | [facility] | | | PRODUCT [...] DEPARTMENT OF | [address] | [place] [address] | | | PATHOLOGY | [address] [...] + + + + | PRODUCT | [id number] | | [facility] | | | UNIT [...] + + + + | BLOOD | [id number] | | [facility] | | | PRODUCT [...] + + + + + | [facility] DEPARTMENT OF | [address] | [place] [address] | | | PATHOLOGY | [address] [...] + + + + | PRODUCT | [id number] | | [facility] | | | UNIT [...] + + + + | BLOOD | [id number] | | [facility] | | | PRODUCT [...] DEPARTMENT OF | [address] | [place] [address] | | | PATHOLOGY | [address] [...] WALLS | [address] | [place], [place] | | | DAVID SOLIS OF [facility] | [address] | [address] | | | TESTS | | | [...] + + + + | PRODUCT | [id number] | | [facility] | | | UNIT [...] + + + + | BLOOD | [id number] | | [facility] | | | PRODUCT [...] DEPARTMENT OF | [address] | [place] [address] | | | PATHOLOGY | [address] [...] + + + + | PRODUCT | [id number] | | [facility] | | | UNIT [...] + + + + | BLOOD | [id number] | | [facility] | | | PRODUCT [...] | + + + + + | [facility] | [address] | [place] [address] | | | PATHOLOGY | [address] [...] + + + + | PRODUCT | [id number] | | [facility] | | | UNIT [...] + + + + | BLOOD | [id number] | | [facility] | | | PRODUCT [...] DEPARTMENT OF | [address] | [place] [address] | | | PATHOLOGY | [address] [...] + + + + | PRODUCT | [id number] | | [facility] | | | UNIT [...] + + + + | BLOOD | [id number] | | [facility] | | | PRODUCT [...] | + + + + + | [facility] | [address] | [place] [address] | | | PATHOLOGY | [address] [...] + + + + | PRODUCT | [id number] | | [facility] | | | UNIT [...] + + + + | BLOOD | [id number] | | [facility] | | | PRODUCT [...] DEPARTMENT OF | [address] | [place] [address] | | | PATHOLOGY | [address] [...] + + + + | PRODUCT | [id number] | | [facility] | | | UNIT [...] + + + + | BLOOD | [id number] | | [facility] | | | PRODUCT [...] | + + + + + | [facility] | [address] | [place] [address] | | | PATHOLOGY | [address] [...] - TITI | [address] | [place], [place] | | | [facility] | [facility] | [address] | | | TESTS | | | [...] + + + + | PRODUCT | [id number] | | [facility] | | | UNIT [...] + + + + | BLOOD | [id number] | | [facility] | | | PRODUCT [...] | + + + + + | [facility] | [address] | [place] [address] | | | PATHOLOGY | [address] [...] + + + + | PRODUCT | [id number] | | [facility] | | | UNIT [...] + + + + | BLOOD | [id number] | | [facility] | | | PRODUCT [...] DEPARTMENT OF | [address] | [place] [address] | | | PATHOLOGY | [address] [...] + + + + | PRODUCT | [id number] | | [facility] | | | UNIT [...] + + + + | BLOOD | [id number] | | [facility] | | | PRODUCT [...] | + + + + + | [facility] | [address] | [place] [address] | | | PATHOLOGY | [address] [...] + + + + | PRODUCT | [id number] | | [facility] | | | UNIT [...] + + + + | BLOOD | [id number] | | [facility] | | | PRODUCT [...] DEPARTMENT OF | [address] | [place] [address] | | | PATHOLOGY | [address] [...] + + + + | PRODUCT | [id number] | | [facility] | | | UNIT [...] + + + + | BLOOD | [id number] | | [facility] | | | PRODUCT [...] | + + + + + | [facility] | [address] | [place] [address] | | | PATHOLOGY | [address] [...] + + + + | PRODUCT | [id number] | | [facility] | | | UNIT [...] + + + + | BLOOD | [id number] | | [facility] | | | PRODUCT [...] DEPARTMENT OF | [address] | [place] [address] | | | PATHOLOGY | [address] [...] + + + + | PRODUCT | [id number] | | [facility] | | | UNIT [...] + + + + | BLOOD | [id number] | | [facility] | | | PRODUCT [...] | + + + + + | [facility] | [address] | [place] [address] | | | PATHOLOGY | [address] [...] + + + + | PRODUCT | [id number] | | [facility] | | | UNIT [...] + + + + | BLOOD | [id number] | | [facility] | | | PRODUCT [...] DEPARTMENT OF | [address] | [place] [address] | | | PATHOLOGY | [address] [...] [facility] | [address] | [place] [address] | | | SERVICES, | [address] [...] + + | [facility] | [address] [facility] [address] | [place] [address] | | | SERVICES, | [address] [...] | + + + + + | [facility] | [address] | [place] [address] | | | SERVICES, CORE | [address] [...] [facility] | [address] | [place] [address] | | | SERVICES, CORE | [address] [...] | | | LABORATORY | | | [facility] | | | SERVICES, | | | [...] + + + + + | [facility] | [address] | [place] [address] | | | [address] | [address] [...] [facility] | [address] | [place] [address] | | | SERVICES, CORE | PARK [...] + + + + + | [facility] | [address] | [place] [address] | | | SERVICES, CORE | [address] [...] discolored, | | | | | | [id number] | | | | | | -green [...] | | | | | | viable. [employer] | | | | | | sections [...] hemorrhage. | | | | | | [employer] | | | | | | sections are submitted. | | | | | | Cassette Index:A: | | | | | | Left colon:A1, | | | | | | labor relations representative margins | | | | [...] | + + + + + | [facility] | [address] | [place] [address] | | | PATHOLOGY | [address] [...]
--- OUTSIDE RECORDS SUMMARY | ~2019-10-02 | XMS | Encounter Summary ---
Demographics + + + | Address | [address] | | | [place] [address] | + + + | Home Phone | | + + + | Preferred Language | Unknown | + + + | Marital Status | | + + + | Jewish Affiliation | NON | + + + | Race | Unknown | + + + | Ethnic Group | Not or | + + + Author + + + | Author | [facility] | + + + | Organization | [facility] | + + + | Address | Unknown | + + + | Phone | Unavailable | + + + Support + + + + + | Name | Relationship | Address | Phone | + + + + + | Noemy Alvarez | ADOL[facility] | [address] | | | | [place] | | | | | [address] | | + + + + + Care Team Providers + +------+ + | Care Librarian Specialist Name | Role | Phone | [...] [address] | | | | | | [place], [place] | | | | | | [address] | | | +--------+ + + + [...]
--- OUTSIDE RECORDS SUMMARY | ~2019-10-02 | XMS | Encounter Summary ---
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 | | WILL POINT OF CARE | [address] | [address] | | | TESTS | | | [...] MARQUAM | [address] | [place], [place] | | | WILL POINT OF CARE | [address] | [address] | | | TESTS | | | [...] MARQUAM | [address] | [place], [place] | | | DAVID SOLIS OF CARE | [address] | [address] | | | TESTS | | | [...] + + | JUAN C WALLS | [address] | [place], [place] | | | DAVID SOLIS OF CARE | [address] | [address] | | | TESTS | | | [...] MARQUAM | [address] | [place], [place] | | | DAVID SOLIS OF CARE | [facility] | [address] | | | TESTS | | | [...] TITI | [address] | [place], [place] | | | WILL POINT OF CARE | [address] | [address] | | | TESTS | | | [...] [facility] | [address] | [place] [address] | | | SERVICES, | [address] [...] - MARQUAM | [address] | [place], [place] | | | WILL POINT OF CARE | [address] | [address] | | | TESTS | | | [...] WALLS | [address] | [place], [place] | | | DAVID [facility]IS OF [facility] | [facility] | [address] | | | TESTS | | | [...] TITI | [address] | [place], [place] | | | DAVID SOLIS OF [facility] | [address] | [address] | | | TESTS | | | [...] TITI | [address] | [place], [place] | | | DAVID SOLIS OF [facility] | [facility] | [address] | | | TESTS | | | [...] WALLS | [address] | [place], [place] | | | WILL POINT OF CARE | [address] | [address] | | | TESTS | | | [...] TITI | [address] | [place], [place] | | | DAVID SOLIS OF [facility] | [address] | [address] | | | TESTS | | | [...] - MARQUAM | [address] | [place], [place] | | | DAVID SOLIS OF CARE | [address] | [address] | | | TESTS | | | [...] TITI | [address] | [place], [place] | | | DAVID SOLIS OF CARE | [address] | [address] | | | TESTS | | | [...] + + + + | PRODUCT | [id number] | | [facility] | | | UNIT [...] + + + + | BLOOD | [id number] | | [facility] | | | PRODUCT [...] DEPARTMENT OF | [address] | [place] [address] | | | PATHOLOGY | [address] [...] + + + + | PRODUCT | [id number] | | [facility] | | | UNIT [...] + + + + | BLOOD | [id number] | | [facility] | | | PRODUCT [...] DEPARTMENT OF | [address] | [place] [address] | | | PATHOLOGY | [address] [...] + + + + | PRODUCT | [id number] | | [facility] | | | UNIT [...] + + + + | BLOOD | [id number] | | [facility] | | | PRODUCT [...] DEPARTMENT OF | [address] | [place] [address] | | | PATHOLOGY | [address] [...] + + + + | PRODUCT | [id number] | | [facility] | | | UNIT [...] + + + + | BLOOD | [id number] | | [facility] | | | PRODUCT [...] | + + + + + | [facility] DEPARTMENT OF | [address] | [place] [address] | | | PATHOLOGY | [address] [...] + + + + | PRODUCT | [id number] | | [facility] | | | UNIT [...] + + + + | BLOOD | [id number] | | [facility] | | | PRODUCT [...] DEPARTMENT OF | [address] | [place] [address] | | | PATHOLOGY | [address] [...] + + + + | PRODUCT | [id number] | | [facility] | | | UNIT [...] + + + + | BLOOD | [id number] | | [facility] | | | PRODUCT [...] | + + + + + | [facility] DEPARTMENT OF | [address] | [place] [address] | | | PATHOLOGY | [address] [...] + + + + | PRODUCT | [id number] | | [facility] | | | UNIT [...] + + + + | BLOOD | [id number] | | [facility] | | | PRODUCT [...] OF | [address] | [place] [address] | | | PATHOLOGY | [address] [...] + + + + | PRODUCT | [id number] | | [facility] | | | UNIT [...] + + + + | BLOOD | [id number] | | [facility] | | | PRODUCT [...] | + + + + + | [facility] DEPARTMENT OF | [address] | [place] [address] | | | PATHOLOGY | [address] [...] + + + + | PRODUCT | [id number] | | [facility] | | | UNIT [...] + + + + | BLOOD | [id number] | | [facility] | | | PRODUCT [...] DEPARTMENT OF | [address] | [place] [address] | | | PATHOLOGY | [address] [...] + + + + | PRODUCT | [id number] | | [facility] | | | UNIT [...] + + + + | BLOOD | [id number] | | [facility] | | | PRODUCT [...] | + + + + + | [facility] DEPARTMENT OF | [address] | [place] [address] | | | PATHOLOGY | [address] [...] + + + + | PRODUCT | [id number] | | [facility] | | | UNIT [...] + + + + | BLOOD | [id number] | | [facility] | | | PRODUCT [...] DEPARTMENT OF | [address] | [place] [address] | | | PATHOLOGY | [address] [...] + + + + | PRODUCT | [id number] | | [facility] | | | UNIT [...] + + + + | BLOOD | [id number] | | [facility] | | | PRODUCT [...] | + + + + + | [facility] | [address] | [place] [address] | | | PATHOLOGY | [address] [...] + + + + | PRODUCT | [id number] | | [facility] | | | UNIT [...] + + + + | BLOOD | [id number] | | [facility] | | | PRODUCT [...] DEPARTMENT OF | [address] | [place] [address] | | | PATHOLOGY | [address] [...] + + + + | PRODUCT | [id number] | | [facility] | | | UNIT [...] + + + + | BLOOD | [id number] | | [facility] | | | PRODUCT [...] | + + + + + | [facility] | [address] | [place] [address] | | | PATHOLOGY | [address] [...] + + + + | PRODUCT | [id number] | | [facility] | | | UNIT [...] + + + + | BLOOD | [id number] | | [facility] | | | PRODUCT [...] DEPARTMENT OF | [address] | [place] [address] | | | PATHOLOGY | [address] [...] + + + + | PRODUCT | [id number] | | [facility] | | | UNIT [...] + + + + | BLOOD | [id number] | | [facility] | | | PRODUCT [...] | + + + + + | [facility] | [address] | [place] [address] | | | PATHOLOGY | [address] [...] + + + + | PRODUCT | [id number] | | [facility] | | | UNIT [...] + + + + | BLOOD | [id number] | | [facility] | | | PRODUCT [...] DEPARTMENT OF | [address] | [place], [place] [address] | | | PATHOLOGY | [address] [...] + + + + | PRODUCT | [id number] | | [facility] | | | UNIT [...] + + + + | BLOOD | [id number] | | [facility] | | | PRODUCT [...] | + + + + + | [facility] DEPARTMENT | [address] | [place] [address] | | | PATHOLOGY | [address] [...] + + + + | PRODUCT | [id number] | | [facility] | | | UNIT [...] + + + + | BLOOD | [id number] | | [facility] | | | PRODUCT [...] DEPARTMENT OF | [address] | [place] [address] | | | PATHOLOGY | [address] [...] + + + + | PRODUCT | [id number] | | [facility] | | | UNIT [...] + + + + | BLOOD | [id number] | | [facility] | | | PRODUCT [...] | + + + + + | [facility] DEPARTMENT OF | [address] | [place] [address] | | | PATHOLOGY | [address] [...] + + + + | PRODUCT | [id number] | | [facility] | | | UNIT [...] + + + + | BLOOD | [id number] | | [facility] | | | PRODUCT [...] DEPARTMENT OF | [address] | [place] [address] | | | PATHOLOGY | [address] [...] + + + + | PRODUCT | [id number] | | [facility] | | | UNIT [...] + + + + | BLOOD | [id number] | | [facility] | | | PRODUCT [...] DEPARTMENT OF | [address] | [place] [address] | | | PATHOLOGY | [address] [...] + + + + | PRODUCT | [id number] | | [facility] | | | UNIT [...] + + + + | BLOOD | [id number] | | [facility] | | | PRODUCT [...] | + + + + + | [facility] DEPARTMENT OF | [address] | [place] [address] | | | PATHOLOGY | [address] [...] + + + + | PRODUCT | [id number] | | [facility] | | | UNIT [...] + + + + | BLOOD | [id number] | | [facility] | | | PRODUCT [...] DEPARTMENT | [address] | [place] [address] | | | PATHOLOGY | [address] [...] + + + + | PRODUCT | [id number] | | [facility] | | | UNIT [...] + + + + | BLOOD | [id number] | | [facility] | | | PRODUCT [...] | + + + + + | [facility] | [address] | [place] [address] | | | PATHOLOGY | [address] [...] + + + + | PRODUCT | [id number] | | [facility] | | | UNIT [...] + + + + | BLOOD | [id number] | | [facility] | | | PRODUCT [...] [facility] DEPARTMENT | [address] | [place] [address] | | | PATHOLOGY | [address] [...] + + + + | PRODUCT | [id number] | | [facility] | | | UNIT [...] + + + + | BLOOD | [id number] | | [facility] | | | PRODUCT [...] | + + + + + | [facility] | [address] | [place] [address] | | | PATHOLOGY | [address] [...] + + + + | PRODUCT | [id number] | | [facility] | | | UNIT [...] + + + + | BLOOD | [id number] | | [facility] | | | PRODUCT [...] [facility] DEPARTMENT | [address] | [place] [address] | | | PATHOLOGY | [address] [...] WALLS | [address] | [place], [place] | | | DAVID SOLIS OF CARE | [address] | [address] | | | TESTS | | | [...] TITI | [address] | [place], [place] | | | DAVID SOLIS OF CARE | [address] | [address] | | | TESTS | | | [...] TITI | [address] | [place], [place] | | | DAVID SOLIS OF [facility] | [facility] | [address] | | | TESTS | | | | + + + + + GLUCOSE, POC (09/09/2014 5:29 AM PDT) + +---------+ + + + | Component | Value | Ref Range | Performed | Pathologist | | | | | At | Signature | + +---------+ + + + | GLUCOSE, | 267 (H) | 60 - 99 mg/dL | [facility] - | | | POC | | [...] TITI | [address] | [place], [place] | | | WILL POINT OF CARE | [address] | [address] | | | TESTS | | | [...] TITI | [address] | [place], [place] | | | DAVID SOLIS OF CARE | [facility] | [address] | | | TESTS | | | [...] MARQUAM | [address] | [place], [place] | | | DAVID SOLIS OF CARE | [facility] | [address] | | | TESTS | | | [...] WALLS | [address] | [place], [place] | | | WILL POINT OF CARE | [address] | [address] | | | TESTS | | | [...] TITI | [address] | [place], [place] | | | DAVID SOLIS OF [facility] | [facility] | [address] | | | TESTS | | | [...] | + + + + + | [facility] | [address] | [place] [address] | | | SERVICES, CORE | [address] [...] | + + + + + | [facility] | [address] | [place] [address] | | | ALMA ROSA, ELOY | [...] 3.5 (H) | 0.5 - 1.6 | [facility] - | | | ARTERIAL, | | [...] ANDERSONAM | [address] | [place], [place] | | | WILL POINT OF CARE | [address] | [address] | | | TESTS | | | [...] TITI | [address] | [place], [place] | | | DAVID SOLIS OF CARE | [facility] | [address] | | | TESTS | | | [...] - MARQUAM | [address] | [place], [place] | | | DAVID SOLIS OF CARE | [facility] | [address] | | | TESTS | | | | + + + + + GLUCOSE, POC (09/09/2014 5:08 AM PDT) + +---------+ + + + | Component | Value | Ref Range | Performed | Pathologist | | | | | At | Signature | + +---------+ + + + | GLUCOSE, | 307 (H) | 60 - 99 mg/dL | [facility] - | | | POC | | [...] TITI | [address] | [place], [place] | | | DAVID [facility] OF [facility] | [address] | [address] | | | TESTS | | | [...] WALLS | [address] | [place], [place] | | | CHRISTIANO SOLIS | [facility] | [address] | | | TESTS | | | [...] - MARQUAM | [address] | [place], [place] | | | DAVID SOLIS OF CARE | [facility] | [address] | | | TESTS | | | [...] WALLS | [address] | [place], [place] | | | WILL POINT OF CARE | [address] | [address] | | | TESTS | | | [...] Nahid TITI | [address] | [place], [place] | | | WILL POINT OF CARE | [address] | [address] | | | TESTS | | | [...] + + + + | PRODUCT | [id number] | | [facility] | | | UNIT [...] + + + + | BLOOD | [id number] | | [facility] | | | PRODUCT [...] DEPARTMENT OF | [address] | [place] [address] | | | PATHOLOGY | [address] [...] + + + + | PRODUCT | [id number] | | [facility] | | | UNIT [...] + + + + | BLOOD | [id number] | | [facility] | | | PRODUCT [...] | + + + + + | [facility] | [address] | [place] [address] | | | PATHOLOGY | [address] [...] + + + + | PRODUCT | [id number] | | [facility] | | | UNIT [...] + + + + | BLOOD | [id number] | | [facility] | | | PRODUCT [...] DEPARTMENT OF | [address] | [place] [address] | | | PATHOLOGY | [address] [...] + + + + | PRODUCT | [id number] | | [facility] | | | UNIT [...] + + + + | BLOOD | [id number] | | [facility] | | | PRODUCT [...] | + + + + + | [facility] | [address] | [place] [address] | | | PATHOLOGY | [address] [...] + + + + | PRODUCT | [id number] | | [facility] | | | UNIT [...] + + + + | BLOOD | [id number] | | [facility] | | | PRODUCT [...] DEPARTMENT OF | [address] | [place] [address] | | | PATHOLOGY | [address] [...] + + + + | PRODUCT | [id number] | | [facility] | | | UNIT [...] + + + + | BLOOD | [id number] | | [facility] | | | PRODUCT [...] | + + + + + | [facility] | [address] | [place] [address] | | | PATHOLOGY | [address] [...] + + + + | PRODUCT | [id number] | | [facility] | | | UNIT [...] + + + + | BLOOD | [id number] | | [facility] | | | PRODUCT [...] | [facility] DEPARTMENT OF | [address] | [place] [address] | | | PATHOLOGY | [address] [...] + + + + | PRODUCT | [id number] | | [facility] | | | UNIT [...] + + + + | BLOOD | [id number] | | [facility] | | | PRODUCT [...] | + + + + + | [facility] | [address] | [place] [address] | | | PATHOLOGY | [address] [...] + + + + | PRODUCT | [id number] | | [facility] | | | UNIT [...] + + + + | BLOOD | [id number] | | [facility] | | | PRODUCT [...] DEPARTMENT OF | [address] | [place] [address] | | | PATHOLOGY | [address] [...] + + + + | PRODUCT | [id number] | | [facility] | | | UNIT [...] + + + + | BLOOD | [id number] | | [facility] | | | PRODUCT [...] | + + + + + | [facility] | [address] | [place] [address] | | | PATHOLOGY | [address] [...] + + + + | PRODUCT | [id number] | | [facility] | | | UNIT [...] + + + + | BLOOD | [id number] | | [facility] | | | PRODUCT [...] | [facility] DEPARTMENT OF | [address] | [place] [address] | | | PATHOLOGY | [address] [...] + + + + | PRODUCT | [id number] | | [facility] | | | UNIT [...] + + + + | BLOOD | [id number] | | [facility] | | | PRODUCT [...] | + + + + + | [facility] | [address] | [place] [address] | | | PATHOLOGY | [address] [...] + + + + | PRODUCT | [id number] | | [facility] | | | UNIT [...] + + + + | BLOOD | [id number] | | [facility] | | | PRODUCT [...] DEPARTMENT OF | [address] | [place] [address] | | | PATHOLOGY | [address] [...] + + + + | PRODUCT | [id number] | | [facility] | | | UNIT [...] + + + + | BLOOD | [id number] | | [facility] | | | PRODUCT [...] | + + + + + | [facility] DEPARTMENT OF | [address] | [place] [address] | | | PATHOLOGY | [address] [...] + + + + | PRODUCT | [id number] | | [facility] | | | UNIT [...] + + + + | BLOOD | [id number] | | [facility] | | | PRODUCT [...] DEPARTMENT OF | [address] | [place] [address] | | | PATHOLOGY | [address] [...] + + + + | PRODUCT | [id number] | | [facility] | | | UNIT [...] + + + + | BLOOD | [id number] | | [facility] | | | PRODUCT [...] DEPARTMENT OF | [address] | [place] [address] | | | PATHOLOGY | [address] [...] + + + + | PRODUCT | [id number] | | [facility] | | | UNIT [...] + + + + | BLOOD | [id number] | | [facility] | | | PRODUCT [...] | + + + + + | [facility] DEPARTMENT OF | [address] | [place] [address] | | | PATHOLOGY | [address] [...] + + + + | PRODUCT | [id number] | | [facility] | | | UNIT [...] + + + + | BLOOD | [id number] | | [facility] | | | PRODUCT [...] DEPARTMENT OF | [address] | [place] [address] | | | PATHOLOGY | [address] [...] + + + + | PRODUCT | [id number] | | [facility] | | | UNIT [...] + + + + | BLOOD | [id number] | | [facility] | | | PRODUCT [...] | + + + + + | [facility] | [address] | [place] [address] | | | PATHOLOGY | [address] [...] + + + + | PRODUCT | [id number] | | [facility] | | | UNIT [...] + + + + | BLOOD | [id number] | | [facility] | | | PRODUCT [...] DEPARTMENT OF | [address] | [place] [address] | | | PATHOLOGY | [address] [...] + + + + | PRODUCT | [id number] | | [facility] | | | UNIT [...] + + + + | BLOOD | [id number] | | [facility] | | | PRODUCT [...] | + + + + + | [facility] | [address] | [place] [address] | | | PATHOLOGY | [address] [...] + + + + | PRODUCT | [id number] | | [facility] | | | UNIT [...] + + + + | BLOOD | [id number] | | [facility] | | | PRODUCT [...] DEPARTMENT OF | [address] | [place] [address] | | | PATHOLOGY | [address] [...] + + + + | PRODUCT | [id number] | | [facility] | | | UNIT [...] + + + + | BLOOD | [id number] | | [facility] | | | PRODUCT [...] | + + + + + | [facility] DEPARTMENT OF | [address] | [place] [address] | | | PATHOLOGY | [address] [...] + + + + | PRODUCT | [id number] | | [facility] | | | UNIT [...] + + + + | BLOOD | [id number] | | [facility] | | | PRODUCT [...] DEPARTMENT OF | [address] | [place] [address] | | | PATHOLOGY | [address] [...] WALLS | [address] | [place], [place] | | | DAVID SOLIS OF [facility] | [address] | [address] | | | TESTS | | | [...] + + + + | PRODUCT | [id number] | | [facility] | | | UNIT [...] + + + + | BLOOD | [id number] | | [facility] | | | PRODUCT [...] DEPARTMENT OF | [address] | [place] [address] | | | PATHOLOGY | [address] [...] + + + + | PRODUCT | [id number] | | [facility] | | | UNIT [...] + + + + | BLOOD | [id number] | | [facility] | | | PRODUCT [...] | + + + + + | [facility] | [address] | [place] [address] | | | PATHOLOGY | [address] [...] + + + + | PRODUCT | [id number] | | [facility] | | | UNIT [...] + + + + | BLOOD | [id number] | | [facility] | | | PRODUCT [...] DEPARTMENT OF | [address] | [place] [address] | | | PATHOLOGY | [address] [...] + + + + | PRODUCT | [id number] | | [facility] | | | UNIT [...] + + + + | BLOOD | [id number] | | [facility] | | | PRODUCT [...] | + + + + + | [facility] | [address] | [place] [address] | | | PATHOLOGY | [address] [...] + + + + | PRODUCT | [id number] | | [facility] | | | UNIT [...] + + + + | BLOOD | [id number] | | [facility] | | | PRODUCT [...] DEPARTMENT OF | [address] | [place] [address] | | | PATHOLOGY | [address] [...] + + + + | PRODUCT | [id number] | | [facility] | | | UNIT [...] + + + + | BLOOD | [id number] | | [facility] | | | PRODUCT [...] | + + + + + | [facility] | [address] | [place] [address] | | | PATHOLOGY | [address] [...] - TITI | [address] | [place], [place] | | | [facility] | [facility] | [id number] | | | TESTS | | | [...] + + + + | PRODUCT | [id number] | | [facility] | | | UNIT [...] + + + + | BLOOD | [id number] | | [facility] | | | PRODUCT [...] | + + + + + | [facility] | [address] | [place] [address] | | | PATHOLOGY | [address] [...] + + + + | PRODUCT | [id number] | | [facility] | | | UNIT [...] + + + + | BLOOD | [id number] | | [facility] | | | PRODUCT [...] DEPARTMENT OF | [address] | [place] [address] | | | PATHOLOGY | [address] [...] + + + + | PRODUCT | [id number] | | [facility] | | | UNIT [...] + + + + | BLOOD | [id number] | | [facility] | | | PRODUCT [...] | + + + + + | [facility] | [address] | [place] [address] | | | PATHOLOGY | [address] [...] + + + + | PRODUCT | [id number] | | [facility] | | | UNIT [...] + + + + | BLOOD | [id number] | | [facility] | | | PRODUCT [...] DEPARTMENT OF | [address] | [place] [address] | | | PATHOLOGY | [address] [...] + + + + | PRODUCT | [id number] | | [facility] | | | UNIT [...] + + + + | BLOOD | [id number] | | [facility] | | | PRODUCT [...] | + + + + + | [facility] | [address] | [place] [address] | | | PATHOLOGY | [address] [...] + + + + | PRODUCT | [id number] | | [facility] | | | UNIT [...] + + + + | BLOOD | [id number] | | [facility] | | | PRODUCT [...] DEPARTMENT OF | [address] | [place] [address] | | | PATHOLOGY | [address] [...] + + + + | PRODUCT | [id number] | | [facility] | | | UNIT [...] + + + + | BLOOD | [id number] | | [facility] | | | PRODUCT [...] | + + + + + | [facility] | [address] | [place] [address] | | | PATHOLOGY | [address] [...] + + + + | PRODUCT | [id number] | | [facility] | | | UNIT [...] + + + + | BLOOD | [id number] | | [facility] | | | PRODUCT [...] DEPARTMENT OF | [address] | [place] [address] | | | PATHOLOGY | [address] [...] [facility] | [address] | [place] [address] | | | SERVICES, | [address] [...] + | [facility] | [address] | [place] [address] | | | SERVICES, | [address] [...] | + + + + + | [facility] | [address] | [place] [address] | | | SERVICES, CORE | [address] [...] [facility] | [address] | [place] [address] | | | SERVICES, CORE | [address] [...] | | | LABORATORY | | | ESTONIAN | | | SERVICES, | | | [...] | + + + + + | [facility] | [address] | [place] [address] | | | [address] | [address] [...] [facility] | [address] | [place] [address] | | | SERVICES, CORE | P[address] [...] | + + + + + | [facility] | [address] | [place] [address] | | | SERVICES, CORE | [address] [...] discolored, | | | | | | [id number]-[id number] | | | | | | -green [...] | | | | | | viable. Insights Manager | | | | | | sections [...] hemorrhage. | | | | | | Insights Manager | | | | | | sections are submitted. | | | | | | Cassette Index:A: | | | | | | Left colon:A1, | | | | | | veterans employment representative margins | | | | | [...] | + + + + + | [facility] | [address] | [place] [address] | | | PATHOLOGY | [address] [...]
--- OUTSIDE RECORDS SUMMARY | ~2019-10-02 | XMS | Clinical Summary ---
Demographics + + + | Address | NEED ADDRESS | | | [place] [address] | + + + | Home Phone | | + + + | Preferred Language | Unknown | + + + | Marital Status | Single | + + + | Baptism Affiliation | Unknown | + + + | Race | Unknown | + + + | Ethnic Group | Unknown | + + + Author + + + | Author | [facility] | | | and [place] | + + + | Organization | [facility] | | | and [place] [...] [place], [place] | | | | | [address] | | + + + + + | Sarai Tinoco | ECON | Unknown | | + + + + + Care Team Providers + +------+ + | Care E Mail System Administrator Name | Role | Phone | [...] documents on file. For more information, please contact:[facility] [place] [address]
--- OUTSIDE RECORDS SUMMARY | ~2019-10-02 | XMS | Encounter Summary ---
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 [place] | | | WILL POINT OF CARE | [address] | [address] | | | TESTS | | | [...] MARQUAM | [address] | [place], [place] | | | DAVID SOLIS OF [place] | [facility] | [address] | | | TESTS | | | [...] WALLS | [address] | [place], [place] | | | DAVID SOLIS OF [place] | [facility] | [address] | | | TESTS | | | [...] + + + | [facility] LABORATORY | [address] | [place] [address] | | | ALMA ROSA, | JACKIE [...] WALLS | [address] | [place], [place] | | | WILL POINT OF CARE | [address] | [address] | | | TESTS | | | [...] MARQUAM | [address] | [place], [place] | | | DAVID SOLIS OF CARE | [address] | [address] | | | TESTS | | | [...] C WALLS | [address] | [place], [place] | | | DAVID SOLIS OF CARE | [facility] | [address] | | | TESTS | | | [...] WALLS | [address] | [place], [place] | | | WILL POINT OF CARE | [address] | [address] | | | TESTS | | | [...] TITI | [address] | [place], [place] | | | DAVID SOLIS OF [place] | [facility] | [address] | | | TESTS | | | [...] - MARKADEEMAM | [address] | [place], [place] | | | DAVID SOLIS OF CARE | [address] | [address] | | | TESTS | | | [...] WALLS | [address] | [place], [place] | | | DAV[facility] SOLIS OF CARE | [address] | [address] | | | TESTS | | | [...] - TITI | [address] | [place] | | | [facility] OF [facility] | [address] | [address] | | | TESTS | | | [...] + + + + | PRODUCT | [id number] | | [facility] | | | UNIT [...] + + + + | BLOOD | [id number] | | [facility] | | | PRODUCT [...] | + + + + + | [facility] | [address] | [place] [address] | | | PATHOLOGY | [address] [...] + + + + | PRODUCT | [id number] | | [facility] | | | UNIT [...] + + + + | BLOOD | [id number] | | [facility] | | | PRODUCT [...] | [address] | [place] [address] | | | PATHOLOGY | [address] [...] + + + + | PRODUCT | [id number] | | [facility] | | | UNIT [...] + + + + | BLOOD | [id number] | | [facility] | | | PRODUCT [...] | + + + + + | [facility] | [address] | [place] [address] | | | PATHOLOGY | [address] [...] + + + + | PRODUCT | [id number] | | [facility] | | | UNIT [...] + + + + | BLOOD | [id number] | | [facility] | | | PRODUCT [...] DEPARTMENT OF | [address] | [place], [place] [address] | | | PATHOLOGY | [address] [...] + + + + | PRODUCT | [id number] | | [facility] | | | UNIT [...] + + + + | BLOOD | [id number] | | [facility] | | | PRODUCT [...] | + + + + + | [facility] | [address] | [place] [address] | | | PATHOLOGY | [address] [...] + + + + | PRODUCT | [id number] | | [facility] | | | UNIT [...] + + + + | BLOOD | [id number] | | [facility] | | | PRODUCT [...] DEPARTMENT OF | [address] | [place] [address] | | | PATHOLOGY | [address] [...] + + + + | PRODUCT | [id number] | | [facility] | | | UNIT [...] + + + + | BLOOD | [id number] | | [facility] | | | PRODUCT [...] | + + + + + | [facility] | [address] | [place] [address] | | | PATHOLOGY | [address] [...] + + + + | PRODUCT | [id number] | | [facility] | | | UNIT [...] + + + + | BLOOD | [id number] | | [facility] | | | PRODUCT [...] DEPARTMENT OF | [address] | [place] [address] | | | PATHOLOGY | [address] [...] + + + + | PRODUCT | [id number] | | [facility] | | | UNIT [...] + + + + | BLOOD | [id number] | | [facility] | | | PRODUCT [...] | + + + + + | [facility] | [address] | [place] [address] | | | PATHOLOGY | [address] [...] + + + + | PRODUCT | [id number] | | [facility] | | | UNIT [...] + + + + | BLOOD | [id number] | | [facility] | | | PRODUCT [...] DEPARTMENT OF | [address] | [place] [address] | | | PATHOLOGY | [address] [...] + + + + | PRODUCT | [id number] | | [facility] | | | UNIT [...] + + + + | BLOOD | [id number] | | [facility] | | | PRODUCT [...] | + + + + + | [facility] | [address] | [place] [address] | | | PATHOLOGY | [address] [...] + + + + | PRODUCT | [id number] | | [facility] | | | UNIT [...] + + + + | BLOOD | [id number] | | [facility] | | | PRODUCT [...] DEPARTMENT OF | [address] | [place] [address] | | | PATHOLOGY | [address] [...] + + + + | PRODUCT | [id number] | | [facility] | | | UNIT [...] + + + + | BLOOD | [id number] | | [facility] | | | PRODUCT [...] + + + | [facility] DEPARTMENT | [address] | [place] [address] | | | PATHOLOGY | [address] [...] + + + + | PRODUCT | [id number] | | [facility] | | | UNIT [...] + + + + | BLOOD | [id number] | | [facility] | | | PRODUCT [...] DEPARTMENT OF | [address] | [place] [address] | | | PATHOLOGY | [address] [...] + + + + | PRODUCT | [id number] | | [facility] | | | UNIT [...] + + + + | BLOOD | [id number] | | [facility] | | | PRODUCT [...] DEPARTMENT OF | [address] | [place] [address] | | | PATHOLOGY | [address] [...] + + + + | PRODUCT | [id number] | | [facility] | | | UNIT [...] + + + + | BLOOD | [id number] | | [facility] | | | PRODUCT [...] DEPARTMENT OF | [address] | [place] [address] | | | PATHOLOGY | [address] [...] + + + + | PRODUCT | [id number] | | [facility] | | | UNIT [...] + + + + | BLOOD | [id number] | | [facility] | | | PRODUCT [...] DEPARTMENT OF | [address] | [place] [address] | | | PATHOLOGY | [address] [...] + + + + | PRODUCT | [id number] | | [facility] | | | UNIT [...] + + + + | BLOOD | [id number] | | [facility] | | | PRODUCT [...] + + + | [facility] DEPARTMENT OF | [address] | [place] [address] | | | PATHOLOGY | [address] [...] + + + + | PRODUCT | [id number] | | [facility] | | | UNIT [...] + + + + | BLOOD | [id number] | | [facility] | | | PRODUCT [...] + + + | [facility] DEPARTMENT OF | [address] | [place] [address] | | | PATHOLOGY | [address] [...] + + + + | PRODUCT | [id number] | | [facility] | | | UNIT [...] + + + + | BLOOD | [id number] | | [facility] | | | PRODUCT [...] | + + + + + | [facility] | [address] | [place] [address] | | | PATHOLOGY | [address] [...] + + + + | PRODUCT | [id number] | | [facility] | | | UNIT [...] + + + + | BLOOD | [id number] | | [facility] | | | PRODUCT [...] DEPARTMENT OF | [address] | [place] [address] | | | PATHOLOGY | [address] [...] + + + + | PRODUCT | [id number] | | [facility] | | | UNIT [...] + + + + | BLOOD | [id number] | | [facility] | | | PRODUCT [...] | + + + + + | [facility] | [address] | [place] [address] | | | PATHOLOGY | [address] [...] + + + + | PRODUCT | [id number] | | [facility] | | | UNIT [...] + + + + | BLOOD | [id number] | | [facility] | | | PRODUCT [...] DEPARTMENT OF | [address] | [place] [address] | | | PATHOLOGY | [address] [...] + + + + | PRODUCT | [id number] | | [facility] | | | UNIT [...] + + + + | BLOOD | [id number] | | [facility] | | | PRODUCT [...] | + + + + + | [facility] | [address] | [place] [address] | | | PATHOLOGY | [address] [...] + + + + | PRODUCT | [id number] | | [facility] | | | UNIT [...] + + + + | BLOOD | [id number] | | [facility] | | | PRODUCT [...] DEPARTMENT OF | [address] | [place] [address] | | | PATHOLOGY | [address] [...] + + + + | PRODUCT | [id number] | | [facility] | | | UNIT [...] + + + + | BLOOD | [id number] | | [facility] | | | PRODUCT [...] | + + + + + | [facility] | [address] | [place] [address] | | | PATHOLOGY | [address] [...] + + + + | PRODUCT | [id number] | | [facility] | | | UNIT [...] + + + + | BLOOD | [id number] | | [facility] | | | PRODUCT [...] DEPARTMENT OF | [address] | [place] [address] | | | PATHOLOGY | [address] [...] + + + + | PRODUCT | [id number] | | [facility] | | | UNIT [...] + + + + | BLOOD | [id number] | | [facility] | | | PRODUCT [...] | + + + + + | [facility] | [address] | [place] [address] | | | PATHOLOGY | [address] [...] [place] | [address] | [place], [place] | | | DAVID SOLIS OF [facility] | [address] | [address] | | | TESTS | | | [...] C WALLS | [address] | [place], [place] | | | DAVID SOLIS OF [place] | [facility] | [address] | | | TESTS | | | [...] WALLS | [address] | [place], [place] | | | WILL POINT OF CARE | [address] | [address] | | | TESTS | | | [...] WALLS | [address] | [place], [place] | | | DAVID SOLIS OF [place] | [facility] | [address] | | | TESTS | | | [...] ANDERSONAM | [address] | [place] | | | DAVID SOLIS OF [place] | [facility] | [address] | | | TESTS | | | [...] WALLS | [address] | [place] | | | DAVID SOLIS OF CARE | [address] | [address] | | | TESTS | | | [...] TITI | [address] | [place] | | | DAVID SOLIS OF [place] | [address] | [address] | | | TESTS | | | [...] - TITI | [address] | [place] | | | [facility] [facility] | [address] | [address] | | | TESTS | | | [...] [facility] LAB[facility] | [address] | [place] [address] | | | SERVICES, CORE | [address] [...] | + + + + + | [facility] | [address] | [place] [address] | | | SERVICES, CORE | P[address] [...] + | [facility] - TITI | [address] [facility] [address] | [place], [place] | | | DAVID SOLIS OF [place] | [address] | [address] | | | TESTS | | | [...] - TITI | [address] | [place] | | | DAVID SOLIS OF [place] | [facility] | [address] | | | TESTS | | | [...] ANDERSONAM | [address] | [place], [place] | | | DAVID SOL[facility] OF [place] | [address] | [address] | | | TESTS | | | [...] WALLS | [address] | [place], [place] | | | DAVID SOLIS OF [place] | [facility] | [address] | | | TESTS | | | [...] - MARQUAM | [address] | [place], [place] | | | DAVID SOLIS OF CARE | [facility] | [address] | | | TESTS | | | [...] TITI | [address] | [place] | | | [facility] | [address] | [address] | | | TESTS | | | [...] TITI | [address] | [place] | | | DAV[facility] | [address] | [address] | | | TESTS | | | [...] WALLS | [address] | [place], [place] | | | WILL POINT OF CARE | [address] | [address] | | | TESTS | | | [...] +---------+ + + | [facility] DEPARTMENT OF | | | | [...] +---------+ + + | [facility] DEPARTMENT OF | | | | [...] + + + + | PRODUCT | [id number] | | [facility] | | | UNIT [...] + + + + | BLOOD | [id number] | | [facility] | | | PRODUCT [...] DEPARTMENT OF | [address] | [place] [address] | | | PATHOLOGY | [address] [...] + + + + | PRODUCT | [id number] | | [facility] | | | UNIT [...] + + + + | BLOOD | [id number] | | [facility] | | | PRODUCT [...] DEPARTMENT OF | [address] | [place] [address] | | | PATHOLOGY | [address] [...] + + + + | PRODUCT | [id number] | | [facility] | | | UNIT [...] + + + + | BLOOD | [id number] | | [facility] | | | PRODUCT [...] DEPARTMENT OF | [address] | [place] [address] | | | PATHOLOGY | [address] [...] + + + + | PRODUCT | [id number] | | [facility] | | | UNIT [...] + + + + | BLOOD | [id number] | | [facility] | | | PRODUCT [...] DEPARTMENT OF | [address] | [place] [address] | | | PATHOLOGY | [address] [...] + + + + | PRODUCT | [id number] | | [facility] | | | UNIT [...] + + + + | BLOOD | [id number] | | [facility] | | | PRODUCT [...] DEPARTMENT OF | [address] | [place] [address] | | | PATHOLOGY | [address] [...] + + + + | PRODUCT | [id number] | | [facility] | | | UNIT [...] + + + + | BLOOD | [id number] | | [facility] | | | PRODUCT [...] DEPARTMENT OF | [address] | [place], [place] [address] | | | PATHOLOGY | [address] [...] + + + + | PRODUCT | [id number] | | [facility] | | | UNIT [...] + + + + | BLOOD | [id number] | | [facility] | | | PRODUCT [...] DEPARTMENT OF | [address] | [place] [address] | | | PATHOLOGY | [address] [...] + + + + | PRODUCT | [id number] | | [facility] | | | UNIT [...] + + + + | BLOOD | [id number] | | [facility] | | | PRODUCT [...] DEPARTMENT OF | [address] | [place] [address] | | | PATHOLOGY | [address] [...] + + + + | PRODUCT | [id number] | | [facility] | | | UNIT [...] + + + + | BLOOD | [id number] | | [facility] | | | PRODUCT [...] DEPARTMENT OF | [address] | [place] [address] | | | PATHOLOGY | [address] [...] + + + + | PRODUCT | [id number] | | [facility] | | | UNIT [...] + + + + | BLOOD | [id number] | | [facility] | | | PRODUCT [...] DEPARTMENT OF | [address] | [place] [address] | | | PATHOLOGY | [address] [...] + + + + | PRODUCT | [id number] | | [facility] | | | UNIT [...] + + + + | BLOOD | [id number] | | [facility] | | | PRODUCT [...] DEPARTMENT OF | [address] | [place] [address] | | | PATHOLOGY | [address] [...] + + + + | PRODUCT | [id number] | | [facility] | | | UNIT [...] + + + + | BLOOD | [id number] | | [facility] | | | PRODUCT [...] + + + | [facility] DEPARTMENT OF | [address] | [place] [address] | | | PATHOLOGY | [address] [...] + + + + | PRODUCT | [id number] | | [facility] | | | UNIT [...] + + + + | BLOOD | [id number] | | [facility] | | | PRODUCT [...] + + + | [facility] DEPARTMENT OF | [address] | [place] [address] | | | PATHOLOGY | [address] [...] + + + + | PRODUCT | [id number] | | [facility] | | | UNIT [...] + + + + | BLOOD | [id number] | | [facility] | | | PRODUCT [...] + + + | [facility] DEPARTMENT OF | [address] | [place] [address] | | | PATHOLOGY | [address] [...] + + + + | PRODUCT | [id number] | | [facility] | | | UNIT [...] + + + + | BLOOD | [id number] | | [facility] | | | PRODUCT [...] [facility] DEPARTMENT | [address] | [place] [address] | | | PATHOLOGY | [address] [...] + + + + | PRODUCT | [id number] | | [facility] | | | UNIT [...] + + + + | BLOOD | [id number] | | [facility] | | | PRODUCT [...] | + + + + + | [facility] | [address] | [place] [address] | | | PATHOLOGY | [address] [...] + + + + | PRODUCT | [id number] | | [facility] | | | UNIT [...] + + + + | BLOOD | [id number] | | [facility] | | | PRODUCT [...] DEPARTMENT OF | [address] | [place] [address] | | | PATHOLOGY | [address] [...] + + + + | PRODUCT | [id number] | | [facility] | | | UNIT [...] + + + + | BLOOD | [id number] | | [facility] | | | PRODUCT [...] | + + + + + | [facility] | [address] | [place] [address] | | | PATHOLOGY | [address] [...] + + + + | PRODUCT | [id number] | | [facility] | | | UNIT [...] + + + + | BLOOD | [id number] | | [facility] | | | PRODUCT [...] DEPARTMENT OF | [address] | [place] [address] | | | PATHOLOGY | [address] [...] + + + + | PRODUCT | [id number] | | [facility] | | | UNIT [...] + + + + | BLOOD | [id number] | | [facility] | | | PRODUCT [...] [facility] DEPARTMENT | [address] | [place] [address] | | | PATHOLOGY | [address] [...] + + + + | PRODUCT | [id number] | | [facility] | | | UNIT [...] + + + + | BLOOD | [id number] | | [facility] | | | PRODUCT [...] | [address] | [place] [address] | | | PATHOLOGY | [address] [...] + + + + | PRODUCT | [id number] | | [facility] | | | UNIT [...] + + + + | BLOOD | [id number] | | [facility] | | | PRODUCT [...] DEPARTMENT OF | [address] | [place] [address] | | | PATHOLOGY | [address] [...] + + + + | PRODUCT | [id number] | | [facility] | | | UNIT [...] + + + + | BLOOD | [id number] | | [facility] | | | PRODUCT [...] | + + + + + | [facility] | [address] | [place] [address] | | | PATHOLOGY | [address] [...] + + + + | PRODUCT | [id number] | | [facility] | | | UNIT [...] + + + + | BLOOD | [id number] | | [facility] | | | PRODUCT [...] DEPARTMENT | [address] | [place] [address] | | | PATHOLOGY | [address] [...] [place] | [address] | [place], [place] | | | [facility] CARE | [address] | [address] | | | TESTS | | | [...] + + + + | PRODUCT | [id number] | | [facility] | | | UNIT [...] + + + + | BLOOD | [id number] | | [facility] | | | PRODUCT [...] | + + + + + | [facility] | [address] | [place] [address] | | | PATHOLOGY | [address] [...] + + + + | PRODUCT | [id number] | | [facility] | | | UNIT [...] + + + + | BLOOD | [id number] | | [facility] | | | PRODUCT [...] DEPARTMENT OF | [address] | [place] [address] | | | PATHOLOGY | [address] [...] + + + + | PRODUCT | [id number] | | [facility] | | | UNIT [...] + + + + | BLOOD | [id number] | | [facility] | | | PRODUCT [...] [facility] DEPARTMENT | [address] | [place] [address] | | | PATHOLOGY | [address] [...] + + + + | PRODUCT | [id number] | | [facility] | | | UNIT [...] + + + + | BLOOD | [id number] | | [facility] | | | PRODUCT [...] | [address] | [place] [address] | | | PATHOLOGY | [address] [...] + + + + | PRODUCT | [id number] | | [facility] | | | UNIT [...] + + + + | BLOOD | [id number] | | [facility] | | | PRODUCT [...] + + + | [facility] DEPARTMENT OF | [address] | [place] [address] | | | PATHOLOGY | [address] [...] + + + + | PRODUCT | [id number] | | [facility] | | | UNIT [...] + + + + | BLOOD | [id number] | | [facility] | | | PRODUCT [...] | [address] | [place] [address] | | | PATHOLOGY | [address] [...] WALLS | [address] | [place], [place] | | | [facility] | [address] | [address] | | | TESTS | | | [...] + + + + | PRODUCT | [id number] | | [facility] | | | UNIT [...] + + + + | BLOOD | [id number] | | [facility] | | | PRODUCT [...] DEPARTMENT OF | [address] | [place] [address] | | | PATHOLOGY | [address] [...] + + + + | PRODUCT | [id number] | | [facility] | | | UNIT [...] + + + + | BLOOD | [id number] | | [facility] | | | PRODUCT [...] | + + + + + | [facility] | [address] | [place] [address] | | | PATHOLOGY | [address] [...] + + + + | PRODUCT | [id number] | | [facility] | | | UNIT [...] + + + + | BLOOD | [id number] | | [facility] | | | PRODUCT [...] DEPARTMENT OF | [address] | [place] [address] | | | PATHOLOGY | [address] [...] + + + + | PRODUCT | [id number] | | [facility] | | | UNIT [...] + + + + | BLOOD | [id number] | | [facility] | | | PRODUCT [...] | + + + + + | [facility] | [address] | [place] [address] | | | PATHOLOGY | [address] [...] + + + + | PRODUCT | [id number] | | [facility] | | | UNIT [...] + + + + | BLOOD | [id number] | | [facility] | | | PRODUCT [...] DEPARTMENT OF | [address] | [place] [address] | | | PATHOLOGY | [address] [...] + + + + | PRODUCT | [id number] | | [facility] | | | UNIT [...] + + + + | BLOOD | [id number] | | [facility] | | | PRODUCT [...] [facility] DEPARTMENT | [address] | [place] [address] | | | PATHOLOGY | [address] [...] + + + + | PRODUCT | [id number] | | [facility] | | | UNIT [...] + + + + | BLOOD | [id number] | | [facility] | | | PRODUCT [...] | [address] | [place] [address] | | | PATHOLOGY | [address] [...] + + + + | PRODUCT | [id number] | | [facility] | | | UNIT [...] + + + + | BLOOD | [id number] | | [facility] | | | PRODUCT [...] [facility] DEPARTMENT | [address] | [place] [address] | | | PATHOLOGY | [address] [...] | + + + + + | [facility] | [address] | [place] [address] | | | SERVICES, | [address] [...] [facility] | [address] | [place] [address] | | | SERVICES, | [address] [...] [facility] | [address] | [place] [address] | | | SERVICES, CORE | [address] [...] | + + + + + | [facility] | [address] | [place] [address] | | | SERVICES, CORE | [address] [...] | | | LABORATORY | | | [place] | | | SERVICES, | | | [...] recommended by the | [facility] | | [employer] [...] [facility] | [address] | [place] [address] | | | SERVICES, CORE | [address] [...] + + | [facility] | [address] [facility] | [place] [address] | | | SERVICES, CORE | PARK [...] | + + + + + | [facility] | [address] | [place] [address] | | | SERVICES, ELOY | PARK [...] discolored, | | | | | | [id number] | | | | | | -green [...] | | | | | | viable. Electric Train Driver | | | | | | sections [...] hemorrhage. | | | | | | Electric Train Driver | | | | | | sections are submitted. | | | | | | Cassette Index:A: | | | | | | Left colon:A1, | | | | | | patient support representative margins | | | | | [...] | + + + + + | [facility] | [address] | [place] [address] | | | PATHOLOGY | [address] [...]
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
[2019-10-02] MEDS ORDERED: DOXYCYCLINE HY100 MG PO (15:19)
[2019-10-03] MEDS ORDERED: CEFUROXIME500 MG PO (19:13)
== END 2019-10-02 15:52 | disposition home or self-care (01) ==
LOC: ED 11:55
DX: N45.1 Epididymitis (principal); R74.8 Abnormal levels of other serum enzymes; K21.9 Gastro-esophageal reflux disease without esophagitis; F17.200 Nicotine dependence, unspecified, uncomplicated
CPT/HCPCS: 36415; 80053; 81001; 82550; 83605; 85025; 87491; 87591; 96372; 99283; J0696; J7030

== ENCOUNTER 2019-10-03 07:05 | Emergency (ER) | payer OTHER ==
[~2019-10-03] VITALS: Ht 170.2 cm; Wt 88.7 kg
--- OUTSIDE RECORDS SUMMARY | ~2019-10-03 | XMS | Encounter Summary ---
Demographics + + + | Address | [address] | | | [place] [address] | + + + | Home Phone | | + + + | Preferred Language | Unknown | + + + | Marital Status | | + + + | Buddhist Affiliation | NON | + + + | Race | Unknown | + + + | Ethnic Group | Not or | + + + Author + + + | Author | [facility] | + + + | Organization | [facility] | + + + | Address | Unknown | + + + | Phone | Unavailable | + + + Support + + + + + | Name | Relationship | Address | Phone | + + + + + | Noemy Alvarez | ADOLFO | [address] | | | | | [place] | | | | | [address] | | + + + + + Care Team Providers + +------+ + | Care Tipping Machine Operator Name | Role | Phone | + +------+ + | No Pcp Per Patient | PCP | Unavailable | + +------+ + Encounter Details +--------+ + + + + | Date | Type | Department | Care Team | Description | +--------+ + + + + | 09/09/ | Document-Sc | UNKNOWN DEPARTMENT | Unknown . | | | 2013 | anned | [address] | | | | | | [address] | | | | | | [place], [place] | | | | | | [address] | | | +--------+ + + + + Social History + +-------+ +--------+------+ | Tobacco Use | Types | Packs/Day | Years | Date | | | | | Used | | + +-------+ +--------+------+ | Never Assessed | | | | | + +-------+ +--------+------+ + + +---------+ + | Alcohol Use | Drinks/Week | oz/Week | Comments | + + +---------+ + | Yes | 28 Cans of beer | 23.3 | | + + +---------+ + + + + | Sex Assigned at | Date Recorded | | | | + + + | Not on file | | + + + + + + + | Job Start Date | Occupation | Industry | + + + + | Not on file | Not on file | Not on file | + + + + + + + + | Travel History | Travel Start | Travel End | + + + + + + | No recent travel history available. | + + documented as of this encounter Plan of Treatment Not on filedocumented as of this encounter Visit Diagnoses Not on filedocumented in this encounter"
--- OUTSIDE RECORDS SUMMARY | ~2019-10-03 | XMS | Encounter Summary ---
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 Thromboembolism (2.0 - 3.0) INR INR for | LABORATORY | | most patients with mech. valves (2.5 - 3.5) INR APTT | [address] | | Therapeutic Range: (75 - 120) sec | | | Heparin levels of 0.35 - 0.7 U/mL | | + + + + + + + + | Performing | Address | City/State/Zipcode | Phone Number | | Organization | | | | + + + + + | [facility] | [address] | [place] [address] | | | [address] | [address] | | | + + + [...] | | | LABORATORY | | | SERVICES, CORE | + + + + + + + + | Performing | Address | City/State/Zipcode | Phone Number | | Organization | | | | + + + + + | [facility] | [address] | [place] [address] | | | SERVICES, CORE | PARK [...] [facility] | | anticoagulation: INR for Venous Thromboembolism | LABORATORY | | (2.0 - 3.0) INR INR for most patients with mech. valves (2.5 | SERVICES, CORE | | - 3.5) INR APTT Therapeutic Range: | | | (75 - 120) sec Heparin levels of 0.35 - 0.7 U/mL | | + + + + + + + + | Performing | Address | City/State/Zipcode | Phone Number | | Organization | | | | + + + + + | [facility] | [address] | [place] [address] | | | [address] | [address] | | | + + + [...] [facility] | [address] | [place] [address] | | | SERVICES, CORE | PARK [...] | | | LABORATORY | | | [facility] | | | SERVICES, | | | [...] | | Interpretive Information: <60 mL/min/1.73 sq m | SERVICES, CORE | | Chronic Kidney Disease <15 mL/min/1.73 sq m | | | Kidney Failure Estimated GFR greater that 60 mL/min/1.73 sq m is of | | | limited clinical value. The MDRD equation is not valid in the | | | following situations: - Patients under 18 years of age - Severe | | | malnutrition or obesity - Vegetarian diet - Rapidly changing kidney | | | function | | + + + + + + + + | Performing | Address | City/State/Zipcode | Phone Number | | Organization | | | | + + + + + | [facility] | [address] | [place] [address] | | | SERVICES, ELOY | [address] | | | + + + + + X-RAY PORTABLE CHEST 1 VIEW (09/09/2014 10:53 AM PDT) + + + + + + | Component | Value | Ref Range | Performed | Pathologist | | | | | At | Signature | + + + + + + | X-RAY | STUDY: OK CHEST 1 VIEW | | | | [...] | | | | signed / IVET CAMACHO | | | | | | 09/09/2014 11:28 AM | | | | + + [...] | | ARTERIAL, | | mmol/L | [facility] | | | POC | | | [...] | [facility] | [address] | [place], [place] | | | DAVID SOLIS OF MANJIT | [facility] | [address] | | | TESTS | | | [...] - [facility] | [address] | [place], [place] | | | DAVID SOLIS OF CARE | [facility] | [address] | | | TESTS | | | [...] | [facility] | [address] | [place], [place] | | | DAVID SOLIS OF CARE | [address] | [address] | | | TESTS | | | [...] [facility] | | | | | | ADVID SOLIS | | | | | | [...] | [facility] | [address] | [place], [place] | | | DAVID SOILS OF CARE | [address] | [address] | | | TESTS | | | | + + + + + EWSTON STERN (09/09/2014 8:55 AM PDT) + +---------+ + [...] | [facility] | [address] | [place], [place] | | | HILL, POINT OF CARE | [facility] | [address] | | | TESTS | | | [...] | [facility] | [address] | [place], [place] | | | CHRISTIANO SOLIS | [facility] | [address] | | | TESTS | | | | + + + + + HEMOGLOBIN-COOXWESTON (09/09/2014 8:55 AM PDT) + + + [...] | + + + + + | [facility] | [address] | [place], [place] | | | DAVID SOLIS OF MAN[place]IT | [facility] | [address] | | | TESTS | | | [...] | + + + + + | [facility] | [address] | [place] [address] | | | SERVICES, CORE | [address] | | | + + + [...] + + | [facility] | [address] | [place] [address] | | | SERVICES, CORE | PARK [...] [facility] | [address] | [place] [address] | | | SERVICES, CORE | [address] | | | + + + [...] | Venous Thromboembolism (2.0 - 3.0) INR INR for | LABORATORY | | most patients with mech. valves (2.5 - 3.5) INR APTT | SERVICES, CORE | | Therapeutic Range: (75 - 120) sec | | | Heparin levels of 0.35 - 0.7 U/mL | | + + + + + + + + | Performing | Address | City/State/Zipcode | Phone Number | | Organization | | | | + + + + + | [facility] | [address] | [place] [address] | | | SERVICES, CORE | [address] | | | + + + + + JASS (YEN)WESTON (09/09/2014 7:46 AM PDT) + +---------+ + [...] | [facility] | [address] | [place], [place] | | | DAVID SOLIS OF MAN[place]IT | [address] | [address] | | | TESTS | | | [...] + | [facility] | [address] | [place], [place] | | | DAVID SOLIS OF MANJIT | [facility] | [address] | | | TESTS | | | | + + + + + POTASSIUM, POC (09/09/2014 7:46 AM PDT) + +-------+ + + + | Component | Value | Ref Range | Performed | Pathologist | | | | | At | Signature | + +-------+ + + + | POTASSIUM, | 3.5 | 3.4 - 5.0 | [facility] - | | | POC | | [...] | [facility] | [address] | [place], [place] | | | DAVID SOLIS OF CARE | [address] | [address] | | | TESTS | | | [...] [facility] | [address] | [place], [place] | | | DAVID SOLIS OF MAN[place] | [facility] | [address] | | | TESTS | | | | + + + + + WESTON STERN (09/09/2014 7:46 AM PDT) + +---------+ + [...] | [facility] | [address] | [place], [place] | | | DAVID SOLIS OF CARE | [facility] | [address] | | | TESTS | | | | + + + + + LEANDRO IONIZED CA, POC (09/09/2014 7:46 AM PDT) + + [...] | [facility] | [address] | [place], [place] | | | WILL POINT OF CARE | [address] | [address] | | | TESTS | | | | + + + + + HEMOGLOBIN-WESTON TAVERAS (09/09/2014 7:46 AM PDT) + + + [...] | [facility] | [address] | [place], [place] | | | DAVID SOLIS OF MANJIT | [address] | [address] | | | TESTS | | | [...] [facility] | [address] | [place] [address] | | | SERVICES, | [address] [...] | + + + + + | [facility] | [address] | [place] [address] | | | SERVICES, | [address] [...] | [facility] | [address] | [place], [place] | | | DAVID SOLIS OF CARE | [address] | [address] | | | TESTS | | | [...] | + + + + + | [facility] | [address] | [place], [place] | | | DAVID SOLIS OF MANJIT | [facility] | [address] | | | TESTS | | | [...] | [facility] | [address] | [place], [place] | | | WILL POINT OF CARE | [address] | [address] | | | TESTS | | | [...] | [facility] | [address] | [place], [place] | | | DAVID SOLIS OF MANJIT | [address] | [address] | | | TESTS | | | [...] | [facility] | [address] | [place], [place] | | | DAVID SOLIS OF CARE | [facility] | [address] | | | TESTS | | | [...] | [facility] | [address] | [place], [place] | | | DAVID SOLIS OF CARE | [address] | [address] | | | TESTS | | | [...] | [facility] | [address] | [place], [place] | | | WILL POINT OF CARE | [address] | [address] | | | TESTS | | | [...] + + + + | PRODUCT | [id number] | | [facility] | | | UNIT [...] + + + + | BLOOD | [id number] | | [facility] | | | PRODUCT [...] | + + + + + | [facility] | [address] | [place] [address] | | | PATHOLOGY | [address] [...] + + + + | PRODUCT | [id number] | | [facility] | | | UNIT [...] + + + + | BLOOD | [id number] | | [facility] | | | PRODUCT [...] DEPARTMENT OF | [address] | [place] [address] | | | PATHOLOGY | [address] [...] + + + + | PRODUCT | [id number] | | [facility] | | | UNIT [...] + + + + | BLOOD | [id number] | | [facility] | | | PRODUCT [...] | + + + + + | [facility] | [address] | [place] [address] | | | PATHOLOGY | [address] [...] + + + + | PRODUCT | [id number] | | [facility] | | | UNIT [...] + + + + | BLOOD | [id number] | | [facility] | | | PRODUCT [...] DEPARTMENT OF | [address] | [place] [address] | | | PATHOLOGY | [address] [...] + + + + | PRODUCT | [id number] | | [facility] | | | UNIT [...] + + + + | BLOOD | [id number] | | [facility] | | | PRODUCT [...] DEPARTMENT OF | [address] | [place] [address] | | | PATHOLOGY | [address] [...] + + + + | PRODUCT | [id number] | | [facility] | | | UNIT [...] + + + + | BLOOD | [id number] | | [facility] | | | PRODUCT [...] DEPARTMENT OF | [address] | [place] [address] | | | PATHOLOGY | [address] [...] + + + + | PRODUCT | [id number] | | [facility] | | | UNIT [...] + + + + | BLOOD | [id number] | | [facility] | | | PRODUCT [...] DEPARTMENT OF | [address] | [place] [address] | | | PATHOLOGY | [address] [...] + + + + | PRODUCT | [id number] | | [facility] | | | UNIT [...] + + + + | BLOOD | [id number] | | [facility] | | | PRODUCT [...] DEPARTMENT OF | [address] | [place], [place] [address] | | | PATHOLOGY | [address] [...] + + + + | PRODUCT | [id number] | | [facility] | | | UNIT [...] + + + + | BLOOD | [id number] | | [facility] | | | PRODUCT [...] | [facility] DEPARTMENT OF | [address] | [place] [address] | | | PATHOLOGY | [address] [...] + + + + | PRODUCT | [id number] | | [facility] | | | UNIT [...] + + + + | BLOOD | [id number] | | [facility] | | | PRODUCT [...] DEPARTMENT OF | [address] | [place] [address] | | | PATHOLOGY | [address] [...] + + + + | PRODUCT | [id number] | | [facility] | | | UNIT [...] + + + + | BLOOD | [id number] | | [facility] | | | PRODUCT [...] DEPARTMENT OF | [address] | [place] [address] | | | PATHOLOGY | [address] [...] + + + + | PRODUCT | [id number] | | [facility] | | | UNIT [...] + + + + | BLOOD | [id number] | | [facility] | | | PRODUCT [...] DEPARTMENT OF | [address] | [place] [address] | | | PATHOLOGY | [address] [...] + + + + | PRODUCT | [id number] | | [facility] | | | UNIT [...] + + + + | BLOOD | [id number] | | [facility] | | | PRODUCT [...] | [facility] DEPARTMENT OF | [address] | [place] [address] | | | PATHOLOGY | [address] [...] + + + + | PRODUCT | [id number] | | [facility] | | | UNIT [...] + + + + | BLOOD | [id number] | | [facility] | | | PRODUCT [...] DEPARTMENT OF | [address] | [place] [address] | | | PATHOLOGY | [address] [...] + + + + | PRODUCT | [id number] | | [facility] | | | UNIT [...] + + + + | BLOOD | [id number] | | [facility] | | | PRODUCT [...] DEPARTMENT OF | [address] | [place] [address] | | | PATHOLOGY | [address] [...] + + + + | PRODUCT | [id number] | | [facility] | | | UNIT [...] + + + + | BLOOD | [id number] | | [facility] | | | PRODUCT [...] DEPARTMENT OF | [address] | [place], [place] [address] | | | PATHOLOGY | [address] [...] + + + + | PRODUCT | [id number] | | [facility] | | | UNIT [...] + + + + | BLOOD | [id number] | | [facility] | | | PRODUCT [...] DEPARTMENT OF | [address] | [place] [address] | | | PATHOLOGY | [address] [...] + + + + | PRODUCT | [id number] | | [facility] | | | UNIT [...] + + + + | BLOOD | [id number] | | [facility] | | | PRODUCT [...] DEPARTMENT OF | [address] | [place], [place] [address] | | | PATHOLOGY | [address] [...] | + + + + + | [facility] | [address] | [place] [address] | | | SERVICES, CORE | [address] | | | + + + [...] | Venous Thromboembolism (2.0 - 3.0) INR INR for | LABORATORY | | most patients with mech. valves (2.5 - 3.5) INR APTT | SERVICES, CORE | | Therapeutic Range: (75 - 120) sec | | | Heparin levels of 0.35 - 0.7 U/mL | | + + + + + + + + | Performing | Address | City/State/Zipcode | Phone Number | | Organization | | | | + + + + + | [facility] | [address] | [place] [address] | | | ALMA ROSA, ELOY | [address] | | | + + + + + LACTATE (ART), POC (09/09/2014 6:24 AM PDT) + +---------+ + + + | Component | Value | Ref Range | Performed | Pathologist | | | | | At | Signature | + +---------+ + + + | LACTATE | 3.3 (H) | 0.5 - 1.6 | CEDAR [...] | [facility] | [address] | [place], [place] | | | DAVID SOLIS OF MANJIT | [facility] | [address] | | | TESTS | | | [...] | | | | | mmol/L | [facility] | | [...] | [facility] | [address] | [place], [place] | | | WILL POINT OF CARE | [address] | [address] | | | TESTS | | | [...] | [facility] | [address] | [place], [place] | | | WILL POINT OF CARE | [address] | [address] | | | TESTS | | | [...] | | | POC | | | [facility] | | | | | | DAVID [...] + | [facility] | [address] | [place], [place] | | | DAVID SOLIS OF CARE | [address] | [address] | | | TESTS | | | [...] + + | [facility] | [address] | [place], [place] | | | DAVID SOLIS OF CARE | [address] | [address] | | | TESTS | | | [...] | [facility] | [address] | [place], [place] | | | DAVID SOLIS OF CARE | [facility] | [address] | | | TESTS | | | [...] | [facility] | [address] | [place], [place] | | | WILL POINT OF CARE | [address] | [address] | | | TESTS | | | [...] [facility] | [address] | [place] [address] | | | SERVICES, | [address] [...] - [facility] | [address] | [place], [place] | | | WILL POINT OF CARE | [address] | [address] | | | TESTS | | | [...] | [facility] | [address] | [place], [place] | | | DAVID [facility]IS [facility] | [facility] | [address] | | | TESTS | | | | + + + + + WESTON WHITEHEAD (09/09/2014 5:58 AM PDT) + +-------+ + [...] + | [facility] | [address] | [place], [place] | | | DAVID SOLIS OF MANJIT | [address] | [address] | | | TESTS | | | [...] | + + + + + | [facility] | [address] | [place], [place] | | | DAVID SOLIS OF MANJIT | [facility] | [address] | | | TESTS | | | | + + + + + CHLORIDE, POC (09/09/2014 5:58 AM PDT) + +---------+ + + + | Component | Value | Ref Range | Performed | Pathologist | | | | | At | Signature | + +---------+ + + + | CHLORIDE, | 112 (H) | 97 - 108 mmol/L | [facility] - | | | POC | | [...] | [facility] | [address] | [place], [place] | | | WILL POINT OF CARE | [address] | [address] | | | TESTS | | | [...] | [facility] | [address] | [place], [place] | | | DAVID SOLIS OF MANJIT | [address] | [address] | | | TESTS | | | | + + + + + HEMOGLOBIN-COOX, POC (09/09/2014 5:58 AM PDT) + + [...] - [facility] | [address] | [place], [place] | | | DAVID SOLIS OF CARE | [address] | [address] | | | TESTS | | | [...] | | [facility] | | | [facility] | | | [facility] | | | POC | | | [...] | [facility] | [address] | [place], [place] | | | DAVID SOLIS OF CARE | [address] | [address] | | | TESTS | | | [...] + + + + | PRODUCT | [id number] | | [facility] | | | UNIT [...] + + + + | BLOOD | [id number] | | [facility] | | | PRODUCT [...] DEPARTMENT OF | [address] | [place] [address] | | | PATHOLOGY | [address] [...] + + + + | PRODUCT | [id number] | | [facility] | | | UNIT [...] + + + + | BLOOD | [id number] | | [facility] | | | PRODUCT [...] DEPARTMENT OF | [address] | [place] [address] | | | PATHOLOGY | [address] [...] + + + + | PRODUCT | [id number] | | [facility] | | | UNIT [...] + + + + | BLOOD | [id number] | | [facility] | | | PRODUCT [...] DEPARTMENT OF | [address] | [place] [address] | | | PATHOLOGY | [address] [...] + + + + | PRODUCT | [id number] | | [facility] | | | UNIT [...] + + + + | BLOOD | [id number] | | [facility] | | | PRODUCT [...] [facility] | [address] | [place] [address] | | | PATHOLOGY | [address] [...] + + + + | PRODUCT | [id number] | | [facility] | | | UNIT [...] + + + + | BLOOD | [id number] | | [facility] | | | PRODUCT [...] DEPARTMENT OF | [address] | [place] [address] | | | PATHOLOGY | [address] [...] + + + + | PRODUCT | [id number] | | [facility] | | | UNIT [...] + + + + | BLOOD | [id number] | | [facility] | | | PRODUCT [...] DEPARTMENT OF | [address] | [place] [address] | | | PATHOLOGY | [address] [...] + + + + | PRODUCT | [id number] | | [facility] | | | UNIT [...] + + + + | BLOOD | [id number] | | [facility] | | | PRODUCT [...] | [facility] DEPARTMENT OF | [address] | [place] [address] | | | PATHOLOGY | [address] [...] + + + + | PRODUCT | [id number] | | [facility] | | | UNIT [...] + + + + | BLOOD | [id number] | | [facility] | | | PRODUCT [...] DEPARTMENT OF | [address] | [place] [address] | | | PATHOLOGY | [address] [...] + + + + | PRODUCT | [id number] | | [facility] | | | UNIT [...] + + + + | BLOOD | [id number] | | [facility] | | | PRODUCT [...] DEPARTMENT OF | [address] | [place] [address] | | | PATHOLOGY | [address] [...] + + + + | PRODUCT | [id number] | | [facility] | | | UNIT [...] + + + + | BLOOD | [id number] | | [facility] | | | PRODUCT [...] DEPARTMENT OF | [address] | [place] [address] | | | PATHOLOGY | [address] [...] + + + + | PRODUCT | [id number] | | [facility] | | | UNIT [...] + + + + | BLOOD | [id number] | | [facility] | | | PRODUCT [...] DEPARTMENT OF | [address] | [place] [address] | | | PATHOLOGY | [address] [...] + + + + | PRODUCT | [id number] | | [facility] | | | UNIT [...] + + + + | BLOOD | [id number] | | [facility] | | | PRODUCT [...] | + + + + + | [facility] | [address] | [place] [address] | | | PATHOLOGY | [address] [...] + + + + | PRODUCT | [id number] | | [facility] | | | UNIT [...] + + + + | BLOOD | [id number] | | [facility] | | | PRODUCT [...] DEPARTMENT OF | [address] | [place] [address] | | | PATHOLOGY | [address] [...] + + + + | PRODUCT | [id number] | | [facility] | | | UNIT [...] + + + + | BLOOD | [id number] | | [facility] | | | PRODUCT [...] | + + + + + | [facility] | [address] | [place] [address] | | | PATHOLOGY | [address] [...] + + + + | PRODUCT | [id number] | | [facility] | | | UNIT [...] + + + + | BLOOD | [id number] | | [facility] | | | PRODUCT [...] DEPARTMENT OF | [address] | [place] [address] | | | PATHOLOGY | [address] [...] + + + + | PRODUCT | [id number] | | [facility] | | | UNIT [...] + + + + | BLOOD | [id number] | | [facility] | | | PRODUCT [...] | + + + + + | [facility] | [address] | [place] [address] | | | PATHOLOGY | [address] [...] + + + + | PRODUCT | [id number] | | [facility] | | | UNIT [...] + + + + | BLOOD | [id number] | | [facility] | | | PRODUCT [...] DEPARTMENT OF | [address] | [place], [place] [address] | | | PATHOLOGY | [address] [...] + + + + | PRODUCT | [id number] | | [facility] | | | UNIT [...] + + + + | BLOOD | [id number] | | [facility] | | | PRODUCT [...] [facility] DEPARTMENT | [address] | [place] [address] | | | PATHOLOGY | [address] [...] + + + + | PRODUCT | [id number] | | [facility] | | | UNIT [...] + + + + | BLOOD | [id number] | | [facility] | | | PRODUCT [...] DEPARTMENT OF | [address] | [place] [address] | | | PATHOLOGY | [address] [...] + + + + | PRODUCT | [id number] | | [facility] | | | UNIT [...] + + + + | BLOOD | [id number] | | [facility] | | | PRODUCT [...] DEPARTMENT OF | [address] | [place] [address] | | | PATHOLOGY | [address] [...] + + + + | PRODUCT | [id number] | | [facility] | | | UNIT [...] + + + + | BLOOD | [id number] | | [facility] | | | PRODUCT [...] DEPARTMENT OF | [address] | [place] [address] | | | PATHOLOGY | [address] [...] + + + + | PRODUCT | [id number] | | [facility] | | | UNIT [...] + + + + | BLOOD | [id number] | | [facility] | | | PRODUCT [...] DEPARTMENT OF | [address] | [place] [address] | | | PATHOLOGY | [address] [...] + + + + | PRODUCT | [id number] | | [facility] | | | UNIT [...] + + + + | BLOOD | [id number] | | [facility] | | | PRODUCT [...] DEPARTMENT OF | [address] | [place] [address] | | | PATHOLOGY | [address] [...] + + + + | PRODUCT | [id number] | | [facility] | | | UNIT [...] + + + + | BLOOD | [id number] | | [facility] | | | PRODUCT [...] + | [facility] DEPARTMENT | [address] | [place] [address] | | | PATHOLOGY | [address] [...] + + + + | PRODUCT | [id number] | | [facility] | | | UNIT [...] + + + + | BLOOD | [id number] | | [facility] | | | PRODUCT [...] | + + + + + | [facility] | [address] | [place] [address] | | | PATHOLOGY | [address] [...] + + + + | PRODUCT | [id number] | | [facility] | | | UNIT [...] + + + + | BLOOD | [id number] | | [facility] | | | PRODUCT [...] [facility] DEPARTMENT | [address] | [place] [address] | | | PATHOLOGY | [address] [...] + + + + | PRODUCT | [id number] | | [facility] | | | UNIT [...] + + + + | BLOOD | [id number] | | [facility] | | | PRODUCT [...] | + + + + + | [facility] | [address] | [place] [address] | | | PATHOLOGY | [address] [...] + + + + | PRODUCT | [id number] | | [facility] | | | UNIT [...] + + + + | BLOOD | [id number] | | [facility] | | | PRODUCT [...] [facility] DEPARTMENT | [address] | [place] [address] | | | PATHOLOGY | [address] | | | + + + + + LACTATE (ART), POC (09/09/2014 5:29 AM PDT) + +---------+ [...] | [facility] | [address] | [place], [place] | | | [facility]ARE | [address] | [address] | | | TESTS | | | [...] | [facility] | [address] | [place], [place] | | | [facility]ARE | [address] | [address] | | | TESTS | | | [...] [place] | | | | | | [place] | | | | | | [...] | [facility] | [address] | [place], [place] | | | [facility] OF [facility] | [facility] | [address] | | | TESTS | | | [...] | [facility] | [address] | [place], [place] | | | [facility] POINT OF CARE | [address] | [address] | | | TESTS | | | [...] [facility] | [address] | [place], [place] | | | [facility]ARE | [facility] | [address] | | | TESTS | | | [...] | [facility] | [address] | [place], [place] | | | [facility]ARE | [facility] | [address] | | | TESTS | | | | + + + + + HEMOGLOBIN-COOX, POC (09/09/2014 5:29 AM PDT) + + [...] % | [facility] - | | | IN POC | | | [place] | | [...] | [facility] | [address] | [place], [place] | | | WILL POINT OF CARE | [address] | [address] | | | TESTS | | | [...] | | [facility] - | | | [facility] | | | [facility] | | | POC | | | [...] | [facility] | [address] | [place], [place] | | | [facility] OF [facility] | [facility] | [address] | | | TESTS | | | [...] | + + + + + | [facility] | [address] | [place] [address] | | | SERVICES, CORE | [address] | | | + + + [...] | Venous Thromboembolism (2.0 - 3.0) INR INR for | LABORATORY | | most patients with mech. valves (2.5 - 3.5) INR APTT | SERVICES, CORE | | Therapeutic Range: (75 - 120) sec | | | Heparin levels of 0.35 - 0.7 U/mL | | + + + + + + + + | Performing | Address | City/State/Zipcode | Phone Number | | Organization | | | | + + + + + | [facility] | [address] | [place] [address] | | | ALMA ROSA, ELOY | [address] | | | + + + + + LACTATE (ART), POC (09/09/2014 5:08 AM PDT) + +---------+ + + + | Component | Value | Ref Range | Performed | Pathologist | | | | | At | Signature | + +---------+ + + + | LACTATE | 3.5 (H) | 0.5 - 1.6 | CEDAR [...] | [facility] | [address] | [place], [place] | | | WILL POINT OF CARE | [address] | [address] | | | TESTS | | | [...] [facility] | [address] | [place], [place] | | | DAVID SOLIS OF CARE | [facility] | [address] | | | TESTS | | | [...] | [facility] | [address] | [place], [place] | | | DAVID SOLIS OF CARE | [facility] | [address] | | | TESTS | | | [...] | [facility] | [address] | [place], [place] | | | DAVID SOLIS OF MANJIT | [address] | [address] | | | TESTS | | | [...] | [facility] | [address] | [place], [place] | | | CHRISTIANO SOLIS | [facility] | [address] | | | TESTS | | | [...] + | [facility] | [address] | [place], [place] | | | DAVID SOLIS OF CARE | [facility] | [address] | | | TESTS | | | [...] | | | | | | DAVID SLOIS | | | | | | OF [...] | [facility] | [address] | [place], [place] | | | WILL POINT OF CARE | [address] | [address] | | | TESTS | | | [...] + + + + | [facility] | [address] | [place], [place] | | | WILL POINT OF CARE | [address] | [address] | | | TESTS | | | [...] | | | | signed / ELIO FRANKS | | | | | | 09/09/2014 11:50 AM | | | | + + + + + + + + | Specimen | + + | | + + + +---------+ + + | Performing | Address | City/State/Zipcode | Phone Number | | Organization | | | | + +---------+ + + | [facility] | | | | | [...] | | | | signed / ELIO FRANKS | | | | | | 09/09/2014 11:50 AM | | | | + + + + + + + + | Specimen | + + | | + + + +---------+ + + | Performing | Address | City/State/Zipcode | Phone Number | | Organization | | | | + +---------+ + + | [facility] | | | | | [...] + + + + | PRODUCT | [id number] | | [facility] | | | UNIT [...] + + + + | BLOOD | [id number] | | [facility] | | | PRODUCT [...] DEPARTMENT OF | [address] | [place] [address] | | | PATHOLOGY | [address] [...] + + + + | PRODUCT | [id number] | | [facility] | | | UNIT [...] + + + + | BLOOD | [id number] | | [facility] | | | PRODUCT [...] | + + + + + | [facility] | [address] | [place] [address] | | | PATHOLOGY | [address] [...] + + + + | PRODUCT | [id number] | | [facility] | | | UNIT [...] + + + + | BLOOD | [id number] | | [facility] | | | PRODUCT [...] DEPARTMENT OF | [address] | [place] [address] | | | PATHOLOGY | [address] [...] + + + + | PRODUCT | [id number] | | [facility] | | | UNIT [...] + + + + | BLOOD | [id number] | | [facility] | | | PRODUCT [...] | + + + + + | [facility] | [address] | [place] [address] | | | PATHOLOGY | [address] [...] + + + + | PRODUCT | [id number] | | [facility] | | | UNIT [...] + + + + | BLOOD | [id number] | | [facility] | | | PRODUCT [...] DEPARTMENT OF | [address] | [place] [address] | | | PATHOLOGY | [address] [...] + + + + | PRODUCT | [id number] | | [facility] | | | UNIT [...] + + + + | BLOOD | [id number] | | [facility]

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
--- OUTSIDE RECORDS SUMMARY | ~2019-10-03 | XMS | Clinical Summary ---
Demographics + + + | Address | NEED ADDRESS | | | [place] [address] | + + + | Home Phone | | + + + | Preferred Language | Unknown | + + + | Marital Status | Single | + + + | Mormonism Affiliation | Unknown | + + + | Race | Unknown | + + + | Ethnic Group | Unknown | + + + Author + + + | Author | [facility] | | | and Shawnana | + + + | Organization | [facility] | | | and [...] [place], [place] | | | | | [address] | | + + + + + | Sarai Tinoco | ECON | Unknown | | + + + + + Care Team Providers + +------+ + | Care Retort Pre Cooker Name | Role | Phone | + [...] documents on file. For more information, please contact:[facility] [place] [address]
--- OUTSIDE RECORDS SUMMARY | ~2019-10-03 | XMS | Encounter Summary ---
Demographics + + + | Address | [address] | | | [place] [address] | + + + | Home Phone [...] + + + | Author | [facility] | + + + | Organization | [facility] | + + + | Address | Unknown | + + + | Phone | Unavailable | + + + Support + + + + + | Name | Relationship | Address | Phone | + + + + + | Noemy Alvarez | ADOLFO | [address] | | | | | [place] | | | | | [address] | | + + + + + Care Team Providers + +------+ + | Care Wood Gluer Name | Role | Phone | + [...] | | | 2013 | Event | [facility] | ,PhD [address] | | | | | Admitting Desk | [address] | | | | | Located on the | [place], [place] | | | | | floor [address] [facility] [address] | [address] | | | | | [address] | [phone] | | | | | [place], [place] | | | | | | [address] | Juan William MD | | +--------+ [...] OG; | Ragini Gupta RN | Elena Barrinetos RN | | Gastri | 16FR | [...]
--- OUTSIDE RECORDS SUMMARY | ~2019-10-03 | XMS | Encounter Summary ---
Demographics + + + | Address | [address] | | | [place] [address] | + + + | Home Phone | | + + + | Preferred Language | Unknown | + + + | Marital Status | | + + + | Confucianist Affiliation | NON | + + + | Race | Unknown | + + + | Ethnic Group | Not or | + + + Author + + + | Author | [facility] | + + + | Organization | [facility] | + + + | Address | Unknown | + + + | Phone | Unavailable | + + + Support + + + + + | Name | Relationship | Address | Phone | + + + + + | Noemy Alvarez | ADOLFO | [address] | | | | | [place] | | | | | [address] | | + + + + + Care Team Providers + +------+ + | Care Paper Bundler Name | Role | Phone | + [...] | | | 2013 | Event | [facility] | [address] | | | | | Admitting Desk | [address] | | | | | Located on the [address] | [place], [place] | | | | | [facility] [address] | [address] | | | | | [address] | [phone] | | | | | [place], [place] | | | | | | [address] | Victoriano Munson, | | | | | | [address] | | | | | | [address] | | | | | | [place], [place] | | | | | | [address] | | | | | | [phone] | | | | | | | [...] Retained Sponges | | | | | -[place]-Colostomy (N/A | | | | | Abdomen) [...] RN | | Drains | No; 19 Lithuanian; [place]; Upper, | | | | | [...]
--- OUTSIDE RECORDS SUMMARY | ~2019-10-03 | XMS | Encounter Summary ---
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 + + + + | [facility] | [address] | [place] [address] | | | PATHOLOGY | [address] [...] + + + + | PRODUCT | [id number] | | [facility] | | | UNIT [...] + + + + | BLOOD | [id number] | | [facility] | | | PRODUCT [...] [facility] DEPARTMENT | [address] | [place] [address] | | | PATHOLOGY | [address] [...] + + + + | PRODUCT | [id number] | | [facility] | | | UNIT [...] + + + + | BLOOD | [id number] | | [facility] | | | PRODUCT [...] | + + + + + | [facility] | [address] | [place] [address] | | | PATHOLOGY | [address] [...] + + + + | PRODUCT | [id number] | | [facility] | | | UNIT [...] + + + + | BLOOD | [id number] | | [facility] | | | PRODUCT [...] DEPARTMENT OF | [address] | [place] [address] | | | PATHOLOGY | [address] [...] + + + + | PRODUCT | [id number] | | [facility] | | | UNIT [...] + + + + | BLOOD | [id number] | | [facility] | | | PRODUCT [...] | + + + + + | [facility] | [address] | [place] [address] | | | PATHOLOGY | [address] [...] + + + + | PRODUCT | [id number] | | [facility] | | | UNIT [...] + + + + | BLOOD | [id number] | | [facility] | | | PRODUCT [...] [facility] DEPARTMENT | [address] | [place] [address] | | | PATHOLOGY | [address] [...] + + + + | PRODUCT | [id number] | | [facility] | | | UNIT [...] + + + + | BLOOD | [id number] | | [facility] | | | PRODUCT [...] | + + + + + | [facility] | [address] | [place] [address] | | | PATHOLOGY | [address] [...] + + + + | PRODUCT | [id number] | | [facility] | | | UNIT [...] + + + + | BLOOD | [id number] | | [facility] | | | PRODUCT [...] | + + + + + | [facility] DEPARTMENT | [address] | [place] [address] | | | PATHOLOGY | [address] [...] C LABORATORY | [address] | [place] [address] | | | SERVICES, CORE | [address] [...] | + + + + + | [facility] LABORATORY | [address] [facility] | [place] [address] | | | SERVICES, CORE | [address] [...] WALLS | [address] | [place], [place] | | | DAVID SOLIS OF [facility] | [facility] | [address] | | | TESTS | | | [...] MARQUAM | [address] | [place], [place] | | | HILL, POINT OF CARE | [facility] | [address] | | | TESTS | | | [...] TITI | | | | | | WILL, [...] - MARQUAM | [address] | [place], [place] | | | WILL POINT OF CARE | [address] | [address] | | | TESTS | | | [...] WALLS | [address] | [place], [place] | | | [facility]ARE | [address] | [address] | | | TESTS | | | [...] MARQUAM | [address] | [place], [place] | | | WILL POINT OF CARE | [address] | [address] | | | TESTS | | | [...] [facility] - MARQUAM | [address] | [place], [place] | | | DAVID SOLIS OF [facility] | [facility] | [address] | | | TESTS | | | [...] WALLS | [address] | [place], [place] | | | DAVID SOLIS OF [facility] | [facility] | [address] | | | TESTS | | | [...] | + + + + + | [facility] LAB[facility]ATORY | [address] | [place] [address] | | | ALMA ROSA, | [address] | | | | [...] WALLS | [address] | [place], [place] | | | WILL POINT OF CARE | [address] | [address] | | | TESTS | | | [...] MARQUAM | [address] | [place], [place] | | | DAV[facility] CARE | [address] | [address] | | | TESTS | | | [...] C WALLS | [address] | [place], [place] | | | DAVID [facility] CARE | [facility] | [address] | | | TESTS | | | | + + + + + GLUCOSE, POC (09/09/2014 5:58 AM PDT) + +---------+ + + + | Component | Value | Ref Range | Performed | Pathologist | | | | | At | Signature | + +---------+ + + + | GLUCOSE, | 244 (H) | 60 - 99 mg/dL | JUAN C - | | | [...] WALLS | [address] | [place], [place] | | | WILL POINT OF CARE | [address] | [address] | | | TESTS | | | | + + + + + WESTON STERN (09/09/2014 5:58 AM PDT) + +---------+ + [...] TITI | [address] | [place], [place] | | | DAVID SOLIS OF [facility] | [facility] | [address] | | | TESTS | | | [...] - MARKADEEMAM | [address] | [place], [place] | | | DAVID [facility] CARE | [address] | [address] | | | TESTS | | | [...] WALLS | [address] | [place], [place] | | | DAVID [facility] CARE | [address] | [address] | | | TESTS | | | [...] - TITI | [address] | [place], [place] | | | DAVID SOLIS OF [facility] | [address] | [address] | | | TESTS | | | [...] + + + + | PRODUCT | [id number] | | [facility] | | | UNIT [...] + + + + | BLOOD | [id number] | | [facility] | | | PRODUCT [...] | + + + + + | [facility] | [address] | [place] [address] | | | PATHOLOGY | [address] [...] + + + + | PRODUCT | [id number] | | [facility] | | | UNIT [...] + + + + | BLOOD | [id number] | | [facility] | | | PRODUCT [...] | [address] | [place] [address] | | | PATHOLOGY | [address] [...] + + + + | PRODUCT | [id number] | | [facility] | | | UNIT [...] + + + + | BLOOD | [id number] | | [facility] | | | PRODUCT [...] | + + + + + | [facility] | [address] | [place] [address] | | | PATHOLOGY | [address] [...] + + + + | PRODUCT | [id number] | | [facility] | | | UNIT [...] + + + + | BLOOD | [id number] | | [facility] | | | PRODUCT [...] DEPARTMENT OF | [address] | [place], [place] [address] | | | PATHOLOGY | [address] [...] + + + + | PRODUCT | [id number] | | [facility] | | | UNIT [...] + + + + | BLOOD | [id number] | | [facility] | | | PRODUCT [...] | + + + + + | [facility] | [address] | [place] [address] | | | PATHOLOGY | [address] [...] + + + + | PRODUCT | [id number] | | [facility] | | | UNIT [...] + + + + | BLOOD | [id number] | | [facility] | | | PRODUCT [...] DEPARTMENT OF | [address] | [place] [address] | | | PATHOLOGY | [address] [...] + + + + | PRODUCT | [id number] | | [facility] | | | UNIT [...] + + + + | BLOOD | [id number] | | [facility] | | | PRODUCT [...] | + + + + + | [facility] | [address] | [place] [address] | | | PATHOLOGY | [address] [...] + + + + | PRODUCT | [id number] | | [facility] | | | UNIT [...] + + + + | BLOOD | [id number] | | [facility] | | | PRODUCT [...] DEPARTMENT OF | [address] | [place] [address] | | | PATHOLOGY | [address] [...] + + + + | PRODUCT | [id number] | | [facility] | | | UNIT [...] + + + + | BLOOD | [id number] | | [facility] | | | PRODUCT [...] | + + + + + | [facility] | [address] | [place] [address] | | | PATHOLOGY | [address] [...] + + + + | PRODUCT | [id number] | | [facility] | | | UNIT [...] + + + + | BLOOD | [id number] | | [facility] | | | PRODUCT [...] DEPARTMENT OF | [address] | [place] [address] | | | PATHOLOGY | [address] [...] + + + + | PRODUCT | [id number] | | [facility] | | | UNIT [...] + + + + | BLOOD | [id number] | | [facility] | | | PRODUCT [...] | + + + + + | [facility] | [address] | [place] [address] | | | PATHOLOGY | [address] [...] + + + + | PRODUCT | [id number] | | [facility] | | | UNIT [...] + + + + | BLOOD | [id number] | | [facility] | | | PRODUCT [...] DEPARTMENT OF | [address] | [place] [address] | | | PATHOLOGY | [address] [...] + + + + | PRODUCT | [id number] | | [facility] | | | UNIT [...] + + + + | BLOOD | [id number] | | [facility] | | | PRODUCT [...] | + + + + + | [facility] DEPARTMENT | [address] | [place] [address] | | | PATHOLOGY | [address] [...] + + + + | PRODUCT | [id number] | | [facility] | | | UNIT [...] + + + + | BLOOD | [id number] | | [facility] | | | PRODUCT [...] DEPARTMENT OF | [address] | [place] [address] | | | PATHOLOGY | [address] [...] + + + + | PRODUCT | [id number] | | [facility] | | | UNIT [...] + + + + | BLOOD | [id number] | | [facility] | | | PRODUCT [...] DEPARTMENT OF | [address] | [place] [address] | | | PATHOLOGY | [address] [...] + + + + | PRODUCT | [id number] | | [facility] | | | UNIT [...] + + + + | BLOOD | [id number] | | [facility] | | | PRODUCT [...] DEPARTMENT OF | [address] | [place] [address] | | | PATHOLOGY | [address] [...] + + + + | PRODUCT | [id number] | | [facility] | | | UNIT [...] + + + + | BLOOD | [id number] | | [facility] | | | PRODUCT [...] DEPARTMENT OF | [address] | [place] [address] | | | PATHOLOGY | [address] [...] + + + + | PRODUCT | [id number] | | [facility] | | | UNIT [...] + + + + | BLOOD | [id number] | | [facility] | | | PRODUCT [...] | + + + + + | [facility] DEPARTMENT OF | [address] | [place] [address] | | | PATHOLOGY | [address] [...] + + + + | PRODUCT | [id number] | | [facility] | | | UNIT [...] + + + + | BLOOD | [id number] | | [facility] | | | PRODUCT [...] | + + + + + | [facility] DEPARTMENT OF | [address] | [place] [address] | | | PATHOLOGY | [address] [...] + + + + | PRODUCT | [id number] | | [facility] | | | UNIT [...] + + + + | BLOOD | [id number] | | [facility] | | | PRODUCT [...] | + + + + + | [facility] | [address] | [place] [address] | | | PATHOLOGY | [address] [...] + + + + | PRODUCT | [id number] | | [facility] | | | UNIT [...] + + + + | BLOOD | [id number] | | [facility] | | | PRODUCT [...] + | [facility] DEPARTMENT OF | [address] | [place] [address] | | | PATHOLOGY | [address] [...] + + + + | PRODUCT | [id number] | | [facility] | | | UNIT [...] + + + + | BLOOD | [id number] | | [facility] | | | PRODUCT [...] | + + + + + | [facility] | [address] | [place] [address] | | | PATHOLOGY | [address] [...] + + + + | PRODUCT | [id number] | | [facility] | | | UNIT [...] + + + + | BLOOD | [id number] | | [facility] | | | PRODUCT [...] DEPARTMENT OF | [address] | [place] [address] | | | PATHOLOGY | [address] [...] + + + + | PRODUCT | [id number] | | [facility] | | | UNIT [...] + + + + | BLOOD | [id number] | | [facility] | | | PRODUCT [...] | + + + + + | [facility] | [address] | [place] [address] | | | PATHOLOGY | [address] [...] + + + + | PRODUCT | [id number] | | [facility] | | | UNIT [...] + + + + | BLOOD | [id number] | | [facility] | | | PRODUCT [...] DEPARTMENT OF | [address] | [place] [address] | | | PATHOLOGY | [address] [...] + + + + | PRODUCT | [id number] | | [facility] | | | UNIT [...] + + + + | BLOOD | [id number] | | [facility] | | | PRODUCT [...] | + + + + + | [facility] | [address] | [place] [address] | | | PATHOLOGY | [address] [...] + + + + | PRODUCT | [id number] | | [facility] | | | UNIT [...] + + + + | BLOOD | [id number] | | [facility] | | | PRODUCT [...] DEPARTMENT OF | [address] | [place] [address] | | | PATHOLOGY | [address] [...] + + + + | PRODUCT | [id number] | | [facility] | | | UNIT [...] + + + + | BLOOD | [id number] | | [facility] | | | PRODUCT [...] | + + + + + | [facility] | [address] | [place] [address] | | | PATHOLOGY | [address] | | | + + + + + JASS (YEN)WESTON (09/09/2014 5:29 AM PDT) + +---------+ + [...] MARQUAM | [address] | [place], [place] | | | DAVID SOLIS OF [facility] | [address] | [address] | | | TESTS | | | [...] C WALLS | [address] | [place], [place] | | | DAVID SOLIS OF [facility] | [facility] | [address] | | | TESTS | | | | + + + + + POTASSIUM, POC (09/09/2014 5:29 AM PDT) + +-------+ + + + | Component | Value | Ref Range | Performed | Pathologist | | | | | At | Signature | + +-------+ + + + | POTASSIUM, | 5.0 | 3.4 - 5.0 | JUAN C [...] WALLS | [address] | [place], [place] | | | WILL POINT OF CARE | [address] | [address] | | | TESTS | | | [...] WALLS | [address] | [place], [place] | | | DAVID SOLIS OF [facility] | [facility] | [address] | | | TESTS | | | [...] MARKADEEMAM | | | | | | WILL [...] ANDERSONAM | [address] | [place], [place] | | | DAVID SOLIS OF [facility] | [facility] | [address] | | | TESTS | | | [...] WALLS | [address] | [place], [place] | | | DAVID SOLIS OF CARE | [address] | [address] | | | TESTS | | | [...] TITI | [address] | [place], [place] | | | DAVID SOLIS OF [facility] | [address] | [address] | | | TESTS | | | [...] - TITI | [address] | [place], [place] | | | ETHEL POINT OF [facility] | [address] | [address] | | | TESTS | | | [...] [facility] | [address] | [place] [address] | | | SERVICES, CORE | [address] [...] | + + + + + | [facility] | [address] | [place] [address] | | | SERVICES, CORE | [address] | | | + + + + + LACTATE (ART)WESTON (09/09/2014 5:08 AM PDT) + +---------+ [...] + | [facility] - TITI | [address] [facility] [address] | [place], [place] | | | DAVID SOLIS OF [facility] | [address] | [address] | | | TESTS | | | [...] - TITI | [address] | [place], [place] | | | DAVID SOLIS OF [facility] | [facility] | [address] | | | TESTS | | | [...] ANDERSONAM | [address] | [place], [place] | | | DAVID SOLIS OF [facility] | [address] | [address] | | | TESTS | | | [...] WALLS | [address] | [place], [place] | | | DAVID SOLIS OF [facility] | [facility] | [address] | | | TESTS | | | | + + + + + WESTON STERN (09/09/2014 5:08 AM PDT) + +---------+ + [...] - MARQUAM | [address] | [place], [place] | | | DAVID SOLIS OF CARE | [facility] | [address] | | | TESTS | | | [...] TITI | [address] | [place], [place] | | | DAVID SOLIS OF [facility] | [address] | [address] | | | TESTS | | | | + + + + + HEMOGLOBIN-COOX POC (09/09/2014 5:08 AM PDT) + + [...] | [facility] | [address] | [place], [place] | | | DAVID SOLIS OF [facility] | [address] | [address] | | | TESTS | | | [...] WALLS | [address] | [place], [place] | | | WILL POINT OF CARE | [address] | [address] | | | TESTS | | | [...] | | + +---------+ + + | [facility] DEPARTMENT OF | | | | [...] | | | | hours by Dr. Barr. | | | | | | Attending [...] | | + +---------+ + + | [facility] DEPARTMENT OF | | | | [...] + + + + | PRODUCT | [id number] | | [facility] | | | UNIT [...] + + + + | BLOOD | [id number] | | [facility] | | | PRODUCT [...] DEPARTMENT OF | [address] | [place] [address] | | | PATHOLOGY | [address] [...] + + + + | PRODUCT | [id number] | | [facility] | | | UNIT [...] + + + + | BLOOD | [id number] | | [facility] | | | PRODUCT [...] DEPARTMENT OF | [address] | [place] [address] | | | PATHOLOGY | [address] [...] + + + + | PRODUCT | [id number] | | [facility] | | | UNIT [...] + + + + | BLOOD | [id number] | | [facility] | | | PRODUCT [...] DEPARTMENT OF | [address] | [place] [address] | | | PATHOLOGY | [address] [...] + + + + | PRODUCT | [id number] | | [facility] | | | UNIT [...] + + + + | BLOOD | [id number] | | [facility] | | | PRODUCT [...] DEPARTMENT OF | [address] | [place] [address] | | | PATHOLOGY | [address] [...] + + + + | PRODUCT | [id number] | | [facility] | | | UNIT [...] + + + + | BLOOD | [id number] | | [facility] | | | PRODUCT [...] DEPARTMENT OF | [address] | [place] [address] | | | PATHOLOGY | [address] [...] + + + + | PRODUCT | [id number] | | [facility] | | | UNIT [...] + + + + | BLOOD | [id number] | | [facility] | | | PRODUCT [...] DEPARTMENT OF | [address] | [place], [place] [address] | | | PATHOLOGY | [address] [...] + + + + | PRODUCT | [id number] | | [facility] | | | UNIT [...] + + + + | BLOOD | [id number] | | [facility] | | | PRODUCT [...] DEPARTMENT OF | [address] | [place] [address] | | | PATHOLOGY | [address] [...] + + + + | PRODUCT | [id number] | | [facility] | | | UNIT [...] + + + + | BLOOD | [id number] | | [facility] | | | PRODUCT [...] DEPARTMENT OF | [address] | [place] [address] | | | PATHOLOGY | [address] [...] + + + + | PRODUCT | [id number] | | [facility] | | | UNIT [...] + + + + | BLOOD | [id number] | | [facility] | | | PRODUCT [...] DEPARTMENT OF | [address] | [place] [address] | | | PATHOLOGY | [address] [...] + + + + | PRODUCT | [id number] | | [facility] | | | UNIT [...] + + + + | BLOOD | [id number] | | [facility] | | | PRODUCT [...] DEPARTMENT OF | [address] | [place] [address] | | | PATHOLOGY | [address] [...] + + + + | PRODUCT | [id number] | | [facility] | | | UNIT [...] + + + + | BLOOD | [id number] | | [facility] | | | PRODUCT [...] DEPARTMENT OF | [address] | [place] [address] | | | PATHOLOGY | [address] [...] + + + + | PRODUCT | [id number] | | [facility] | | | UNIT [...] + + + + | BLOOD | [id number] | | [facility] | | | PRODUCT [...] | + + + + + | [facility] DEPARTMENT OF | [address] | [place] [address] | | | PATHOLOGY | [address] [...] + + + + | PRODUCT | [id number] | | [facility] | | | UNIT [...] + + + + | BLOOD | [id number] | | [facility] | | | PRODUCT [...] | + + + + + | [facility] DEPARTMENT OF | [address] | [place] [address] | | | PATHOLOGY | [address] [...] + + + + | PRODUCT | [id number] | | [facility] | | | UNIT [...] + + + + | BLOOD | [id number] | | [facility] | | | PRODUCT [...] | + + + + + | [facility] DEPARTMENT OF | [address] | [place] [address] | | | PATHOLOGY | [address] [...] + + + + | PRODUCT | [id number] | | [facility] | | | UNIT [...] + + + + | BLOOD | [id number] | | [facility] | | | PRODUCT [...] [facility] DEPARTMENT | [address] | [place] [address] | | | PATHOLOGY | [address] [...] + + + + | PRODUCT | [id number] | | [facility] | | | UNIT [...] + + + + | BLOOD | [id number] | | [facility] | | | PRODUCT [...] | + + + + + | [facility] | [address] | [place] [address] | | | PATHOLOGY | [address] [...] + + + + | PRODUCT | [id number] | | [facility] | | | UNIT [...] + + + + | BLOOD | [id number] | | [facility] | | | PRODUCT [...] DEPARTMENT OF | [address] | [place] [address] | | | PATHOLOGY | [address] [...] + + + + | PRODUCT | [id number] | | [facility] | | | UNIT [...] + + + + | BLOOD | [id number] | | [facility] | | | PRODUCT [...] | + + + + + | [facility] | [address] | [place] [address] | | | PATHOLOGY | [address] [...] + + + + | PRODUCT | [id number] | | [facility] | | | UNIT [...] + + + + | BLOOD | [id number] | | [facility] | | | PRODUCT [...] DEPARTMENT OF | [address] | [place] [address] | | | PATHOLOGY | [address] [...] + + + + | PRODUCT | [id number] | | [facility] | | | UNIT [...] + + + + | BLOOD | [id number] | | [facility] | | | PRODUCT [...] [facility] DEPARTMENT | [address] | [place] [address] | | | PATHOLOGY | [address] [...] + + + + | PRODUCT | [id number] | | [facility] | | | UNIT [...] + + + + | BLOOD | [id number] | | [facility] | | | PRODUCT [...] | [address] | [place] [address] | | | PATHOLOGY | [address] [...] + + + + | PRODUCT | [id number] | | [facility] | | | UNIT [...] + + + + | BLOOD | [id number] | | [facility] | | | PRODUCT [...] | [facility] DEPARTMENT OF | [address] | [place] [address] | | | PATHOLOGY | [address] [...] + + + + | PRODUCT | [id number] | | [facility] | | | UNIT [...] + + + + | BLOOD | [id number] | | [facility] | | | PRODUCT [...] | + + + + + | [facility] | [address] | [place] [address] | | | PATHOLOGY | [address] [...] + + + + | PRODUCT | [id number] | | [facility] | | | UNIT [...] + + + + | BLOOD | [id number] | | [facility] | | | PRODUCT [...] DEPARTMENT | [address] | [place] [address] | | | PATHOLOGY | [address] [...] [facility] | [address] | [place], [place] | | | [facility] | [address] | [address] | | | TESTS | | | [...] + + + + | PRODUCT | [id number] | | [facility] | | | UNIT [...] + + + + | BLOOD | [id number] | | [facility] | | | PRODUCT [...] | + + + + + | [facility] | [address] | [place] [address] | | | PATHOLOGY | [address] [...] + + + + | PRODUCT | [id number] | | [facility] | | | UNIT [...] + + + + | BLOOD | [id number] | | [facility] | | | PRODUCT [...] DEPARTMENT OF | [address] | [place] [address] | | | PATHOLOGY | [address] [...] + + + + | PRODUCT | [id number] | | [facility] | | | UNIT [...] + + + + | BLOOD | [id number] | | [facility] | | | PRODUCT [...] [facility] DEPARTMENT | [address] | [place] [address] | | | PATHOLOGY | [address] [...] + + + + | PRODUCT | [id number] | | [facility] | | | UNIT [...] + + + + | BLOOD | [id number] | | [facility] | | | PRODUCT [...] | [address] | [place] [address] | | | PATHOLOGY | [address] [...] + + + + | PRODUCT | [id number] | | [facility] | | | UNIT [...] + + + + | BLOOD | [id number] | | [facility] | | | PRODUCT [...] | + + + + + | [facility] DEPARTMENT OF | [address] | [place] [address] | | | PATHOLOGY | [address] [...] + + + + | PRODUCT | [id number] | | [facility] | | | UNIT [...] + + + + | BLOOD | [id number] | | [facility] | | | PRODUCT [...] | [address] | [place] [address] | | | PATHOLOGY | [address] [...] | | | PH | | | MARKADEEMAM | | | [...] | | | TEMP | | | TITI | | | | | | DAVID SOLIS | | | | | | OF CARE | | | | | | TESTS | | + + + + + + | ISTAT | VENOUS | | [facility] - | | | SAMPLE TYPE | | | TITI | | | [...] WALLS | [address] | [place], [place] | | | WILL POINT OF CARE | [address] | [address] | | | TESTS | | | [...] + + + + | PRODUCT | [id number] | | [facility] | | | UNIT [...] + + + + | BLOOD | [id number] | | [facility] | | | PRODUCT [...] DEPARTMENT OF | [address] | [place] [address] | | | PATHOLOGY | [address] [...] + + + + | PRODUCT | [id number] | | [facility] | | | UNIT [...] + + + + | BLOOD | [id number] | | [facility] | | | PRODUCT [...] | + + + + + | [facility] | [address] | [place] [address] | | | PATHOLOGY | [address] [...] + + + + | PRODUCT | [id number] | | [facility] | | | UNIT [...] + + + + | BLOOD | [id number] | | [facility] | | | PRODUCT [...] DEPARTMENT OF | [address] | [place] [address] | | | PATHOLOGY | [address] [...] + + + + | PRODUCT | [id number] | | [facility] | | | UNIT [...] + + + + | BLOOD | [id number] | | [facility] | | | PRODUCT [...] | + + + + + | [facility] | [address] | [place] [address] | | | PATHOLOGY | [address] [...] + + + + | PRODUCT | [id number] | | [facility] | | | UNIT [...] + + + + | BLOOD | [id number] | | [facility] | | | PRODUCT [...] DEPARTMENT OF | [address] | [place] [address] | | | PATHOLOGY | [address] [...] + + + + | PRODUCT | [id number] | | [facility] | | | UNIT [...] + + + + | BLOOD | [id number] | | [facility] | | | PRODUCT [...] OH DEPARTMENT | [address] | [place] [address] | | | PATHOLOGY | [address] [...] + + + + | PRODUCT | [id number] | | [facility] | | | UNIT [...] + + + + | BLOOD | [id number] | | [facility] | | | PRODUCT [...] | [address] | [place] [address] | | | PATHOLOGY | [address] [...] + + + + | PRODUCT | [id number] | | [facility] | | | UNIT [...] + + + + | BLOOD | [id number] | | [facility] | | | PRODUCT [...] [facility] DEPARTMENT | [address] | [place] [address] | | | PATHOLOGY | [address] [...] | + + + + + | [facility] | [address] | [place] [address] | | | SERVICES, | [address] [...] [facility] | [address] | [place] [address] | | | SERVICES, | [address] [...] [facility] | [address] | [place] [address] | | | SERVICES, CORE | PARK [...] | + + + + + | [facility] | [address] | [place] [address] | | | SERVICES, CORE | PARK [...] | | | LABORATORY | | | [place] | | | SERVICES, | | | [...] the MDRD equation recommended by the | [facility] | | National Kidney Disease Education [...] | + + + + + | [facility] | [address] | [place] [address] | | | SERVICES, CORE | PARK [...] + + | [facility] | [address] [facility] | [place] [address] | | | SERVICES, CORE | PARK [...] | + + + + + | [facility] | [address] | [place] [address] | | | SERVICES, ELOY | [address] [...] discolored, | | | | | | [id number]-vapjsk | | | | | | -green [...] | | | | | | viable. [employer] | | | | | | sections [...] hemorrhage. | | | | | | [employer] | | | | | | sections are submitted. | | | | | | Cassette Index:A: | | | | | | Left colon:A1, | | | | | | community relations representative margins | | | | | [...] | + + + + + | [facility] | [address] | [place] [address] | | | PATHOLOGY | [address] [...] | | | | | | Starting 10/12/14 at 1045, | | | | | [...] | | | DAILY, First dose on Tu | | PM PDT | | | [...] | | | | | 09/11/14 at 1336 | | | | | | + +-------+ +--------+---+ + +---+---+ | | | +---+---+ + +-------+ +--------+---+---+ | mineral oil (FLEET MINERAL OIL) | Given | 09/13/20 | 133 mL | | | | [...] PDT | | | | | Until Wed09/17/14 at 0105, | | | [...] | | | | | First dose (after last | | AM PDT | | | | | modification) on Wed09/13/14 at | | | | | | | 1130, Until [...] | | | | | dose on Melissa 09/13/14 at 1030, | | | | | [...] | | | | | dose on Melissa 09/13/14 at 1130, | | PM PDT | [...] +-------+ +-------+---+---+ +-------+ +-------+---+---+ | Given | 10/16/20 | 80 mg | | | | | 14 7:51 | | | | | | PM PDT | | | | +-------+ +-------+---+---+ | Given | 10/16/20 | 80 mg | | | | | 14 9:51 | | | | | | AM PDT | | | | +-------+ +-------+---+---+ +---+---+ | | | +---+---+ documented in this encounter
--- OUTSIDE RECORDS SUMMARY | ~2019-10-03 | XMS | Encounter Summary ---
Demographics + + + | Address | [address] | | | [place] [address] | + + + | Home Phone | | + + + | Preferred Language | Unknown | + + + | Marital Status | | + + + | Pentecostalism Affiliation | NON | + + + | Race | Unknown | + + + | Ethnic Group | Not or | + + + Author + + + | Author | [facility] | + + + | Organization | [facility] | + + + | Address | Unknown | + + + | Phone | Unavailable | + + + Support + + + + + | Name | Relationship | Address | Phone | + + + + + | Noemy Alvarez | ADOLFO | [address] | | | | | [place] | | | | | [address] | | + + + + + Care Team Providers + +------+ + | Care Ranch Cook Name | Role | Phone | + [...] | | | 2013 | Event | [facility] | ,PhD [address] | | | | | Admitting Desk | [address] | | | | | Located on the | [place], [place] | | | | | floor [address] [facility] | [address] | | | | | [address] | [phone] | | | | | [place], [place] | | | | | | [address] | Juan William MD | | +--------+ [...] - | Yes; Introducer; Right; Neck; | Raigni Gupta RN | Elena Barrientos RN | [...]
--- OUTSIDE RECORDS SUMMARY | ~2019-10-03 | XMS | Encounter Summary ---
Demographics + + + | Address | [address] | | | [place] [address] | + + + | Home Phone [...] [place] | | | | | [address] | | + + + + + Care Team Providers + +------+ + | Care Catheterization Laboratory Technician Name | Role | Phone | + [...] | | | 2013 | Event | [facility] | [address] | | | | | Admitting Desk | [address] | | | | | Located on the [address] | [place], [place] | | | | | [facility] [address] | [address] | | | | | [address] | [phone] | | | | | [place], [place] | | | | | | [address] | Victoriano Munson, | | | | | | [address] | | | | | | [address] | | | | | | [place], [place] | | | | | | [address] | | | | | | [phone] | | | | | | | [...] Retained Sponges | | | | | -[place]-Colostomy (N/A | | | | | Abdomen) [...] | 09/16/17 (Automatic cleanup per | Martha Nahs RN | Discontinued After | | Incisi [...] RN | | Drains | No; 19 Croatian; Robbin; Upper, | | | | | [...]
--- OUTSIDE RECORDS SUMMARY | ~2019-10-03 | XMS | Encounter Summary ---
Demographics + + + | Address | [address] | | | [place] [address] | + + + | Home Phone | | + + + | Preferred Language | Unknown | + + + | Marital Status | | + + + | Quaker Affiliation | NON | + + + | Race | Unknown | + + + | Ethnic Group | Not or | + + + Author + + + | Author | [facility] | + + + | Organization | [facility] | + + + | Address | Unknown | + + + | Phone | Unavailable | + + + Support + + + + + | Name | Relationship | Address | Phone | + + + + + | Noemy Alvarez | ADOLFO | [address] | | | | | [place] | | | | | [address] | | + + + + + Care Team Providers + +------+ + | Care Track Dresser Name | Role | Phone | + [...] Rd | | | | | | [place], [place] | | | | | | [address] | | | +--------+ + + + [...]
--- OUTSIDE RECORDS SUMMARY | ~2019-10-03 | XMS | Clinical Summary ---
Demographics + + + | Address | [address] | | | [place] [address] | + + + | Home Phone [...] [place] | | | | | [address] | | + + + + + Care Team Providers + +------+ + | Care Presser And Shaper Knitted Goods Name | Role | Phone | + +------+ + | No Pcp Per Patient | PCP | Unavailable | + +------+ + Source Comments JUAN C is fully live on both [facility] and [facility] InPatient.[facility] Allergies No Known Allergies Medications [...] | exploratory laparotomy and was transferred to [facility] as hemorrhage | | was uncontrollable. Pt was brought to [facility] Trauma Service as a | | Level [...] N/A: | FRASER | | 06/28/ | [id number] | | [id number]: Qty: 1 on | | Abdome | HEALTHCARE | | 2015 | 0 / | | 09/09/2014 by Shen, | | n | | | | /HA140 | | Addie Valenzuela MD at [facility] | | | | | | 139 [...] +--------+ +--------+ + +--------+ | [place] | OHP | [id number] | 09/08/ | [phone] | [address] | [address] | | | PLUS | | 2013-P | 6 | [id number] | id | | | OPEN | | resent | | [place] | | | | CARD | | | | [address] | | + +--------+ +--------+ + +--------+ | [facility] | [place] | [phone] | Effect | [phone] | [address] | Agency | | | CRIME | | [address] | [address] | | | | VICTIM | | for | | [place], [place] | | | | S | | all | | [address] | | | | COMPEN | | [...] | 1990 | [phone] | [place] [address] | | | lito | | | 8 (Home) | | + +--------+ +--------+ + + | Jah Garrido | Agency | Self | [birth year] | | [address] | | | | | 1990 | [phone] | [place] [address] | | | | | | 8 [...]
--- OUTSIDE RECORDS SUMMARY | ~2019-10-03 | XMS | Encounter Summary ---
Demographics + + + | Address | [address] | | | [place] [address] | + + + | Home Phone | | + + + | Preferred Language | Unknown | + + + | Marital Status | | + + + | Muslim Affiliation | NON | + + + | Race | Unknown | + + + | Ethnic Group | Not or | + + + Author + + + | Author | [facility] | + + + | Organization | [facility] | + + + | Address | Unknown | + + + | Phone | Unavailable | + + + Support + + + + + | Name | Relationship | Address | Phone | + + + + + | Noemy Alvarez | ADOLFO | [address] | | | | | [place] | | | | | [address] | | + + + + + Care Team Providers + +------+ + | Care Manufacturing Coordinator Name | Role | Phone | + [...] | | | | | [place], | | | | | | [place] [address] | | | +--------+ + + + [...]
--- OUTSIDE RECORDS SUMMARY | ~2019-10-03 | XMS | Encounter Summary ---
Demographics + + + | Address | [address] | | | [place] [address] | + + + | Home Phone | | + + + | Preferred Language | Unknown | + + + | Marital Status | | + + + | Rastafari Affiliation | NON | + + + | Race | Unknown | + + + | Ethnic Group | Not or | + + + Author + + + | Author | [facility] | + + + | Organization | [facility] | + + + | Address | Unknown | + + + | Phone | Unavailable | + + + Support + + + + + | Name | Relationship | Address | Phone | + + + + + | Noemy Alvarez | ADOLFO | [address] | | | | | [place] | | | | | [address] | | + + + + + Care Team Providers + +------+ + | Care Nurse Practitioner Physician Assistant Name | Role | Phone | [...] | | | | | [address] [place], | | | | | | [place] [address] | | | +--------+ + + + [...]
--- OUTSIDE RECORDS SUMMARY | ~2019-10-03 | XMS | Clinical Summary ---
Demographics + + + | Address | [address] | | | [place] [address] | + + + | Home Phone | | + + + | Preferred Language | Unknown | + + + | Marital Status | Single | + + + | Congregational Affiliation | Unknown | + + + | Race | Unknown | + + + | Ethnic Group | Unknown | + + + Author + + + | Author | [facility] | | | and [place] | + + + | Organization | [facility] | | | and [place] [...] [place], [place] | | | | | [address] | | + + + + + | Sarai Tinoco | ECON | Unknown | | + + + + + Care Team Providers + +------+ + | Care Sewer Inspector Name | Role | Phone | [...] documents on file. For more information, please contact:[facility] [place] [address]
--- OUTSIDE RECORDS SUMMARY | ~2019-10-03 | XMS | Encounter Summary ---
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 | [address] | [place] [address] | | | PATHOLOGY | [address] [...] + + + + | PRODUCT | [id number] | | [facility] | | | UNIT [...] + + + + | BLOOD | [id number] | | [facility] | | | PRODUCT [...] | [facility] DEPARTMENT OF | [address] | [place], [place] [address] | | | PATHOLOGY | [address] [...] | + + + + + | [facility] | [address] | [place] [address] | | | SERVICES, CORE | [address] | | | + + + [...] | + + + + + | [facility] | [address] | [place] [address] | | | ALMA ROSA, ELOY | [...] 3.3 (H) | 0.5 - 1.6 | [facility] - | | | ARTERIAL, | | [...] TITI | [address] | [place], [place] | | | DAVID SOLIS OF MAN[facility] | [facility] | [address] | | | TESTS | | | [...] WALLS | [address] | [place], [place] | | | WILL POINT OF CARE | [address] | [address] | | | TESTS | | | [...] MARQUAM | [address] | [place], [place] | | | WILL POINT OF CARE | [address] | [address] | | | TESTS | | | [...] MARQUAM | [address] | [place], [place] | | | DAVID SOLIS OF CARE | [address] | [address] | | | TESTS | | | [...] + + | JUAN C WALLS | [address] | [place], [place] | | | DAVID SOLIS OF CARE | [address] | [address] | | | TESTS | | | [...] MARQUAM | [address] | [place], [place] | | | DAVID SOLIS OF CARE | [facility] | [address] | | | TESTS | | | [...] TITI | [address] | [place], [place] | | | WILL POINT OF CARE | [address] | [address] | | | TESTS | | | [...] [facility] | [address] | [place] [address] | | | SERVICES, | [address] [...] - MARQU[place] | [address] | [place], [place] | | | WILL POINT OF CARE | [address] | [address] | | | TESTS | | | [...] WALLS | [address] | [place], [place] | | | DAVID SOLIS OF [facility] | [facility] | [address] | | | TESTS | | | [...] TITI | [address] | [place], [place] | | | DAVID SOLIS OF [facility] | [address] | [address] | | | TESTS | | | [...] TITI | [address] | [place], [place] | | | DAVID SOLIS OF [facility] | [facility] | [address] | | | TESTS | | | [...] WALLS | [address] | [place], [place] | | | WILL POINT OF CARE | [address] | [address] | | | TESTS | | | [...] TITI | [address] | [place], [place] | | | DAVID SOLIS OF [facility] | [address] | [address] | | | TESTS | | | [...] - MARQUAM | [address] | [place], [place] | | | DAVID SOLIS OF CARE | [address] | [address] | | | TESTS | | | [...] TITI | [address] | [place], [place] | | | DAVID SOLIS OF CARE | [address] | [address] | | | TESTS | | | [...] + + + + | PRODUCT | [id number] | | [facility] | | | UNIT [...] + + + + | BLOOD | [id number] | | [facility] | | | PRODUCT [...] OF | [address] | [place] [address] | | | PATHOLOGY | [address] [...] + + + + | PRODUCT | [id number] | | [facility] | | | UNIT [...] + + + + | BLOOD | [id number] | | [facility] | | | PRODUCT [...] DEPARTMENT OF | [address] | [place] [address] | | | PATHOLOGY | [address] [...] + + + + | PRODUCT | [id number] | | [facility] | | | UNIT [...] + + + + | BLOOD | [id number] | | [facility] | | | PRODUCT [...] DEPARTMENT OF | [address] | [place] [address] | | | PATHOLOGY | [address] [...] + + + + | PRODUCT | [id number] | | [facility] | | | UNIT [...] + + + + | BLOOD | [id number] | | [facility] | | | PRODUCT [...] | + + + + + | [facility]PARTMENT [facility] | [address] | [place] [address] | | | PATHOLOGY | [address] [...] + + + + | PRODUCT | [id number] | | [facility] | | | UNIT [...] + + + + | BLOOD | [id number] | | [facility] | | | PRODUCT [...] DEPARTMENT OF | [address] | [place] [address] | | | PATHOLOGY | [address] [...] + + + + | PRODUCT | [id number] | | [facility] | | | UNIT [...] + + + + | BLOOD | [id number] | | [facility] | | | PRODUCT [...] | + + + + + | [facility] DEPARTMENT [facility] | [address] | [place] [address] | | | PATHOLOGY | [address] [...] + + + + | PRODUCT | [id number] | | [facility] | | | UNIT [...] + + + + | BLOOD | [id number] | | [facility] | | | PRODUCT [...] OF | [address] | [place] [address] | | | PATHOLOGY | [address] [...] + + + + | PRODUCT | [id number] | | [facility] | | | UNIT [...] + + + + | BLOOD | [id number] | | [facility] | | | PRODUCT [...] | + + + + + | [facility] DEPARTMENT [facility] | [address] | [place] [address] | | | PATHOLOGY | [address] [...] + + + + | PRODUCT | [id number] | | [facility] | | | UNIT [...] + + + + | BLOOD | [id number] | | [facility] | | | PRODUCT [...] OF | [address] | [place] [address] | | | PATHOLOGY | [address] [...] + + + + | PRODUCT | [id number] | | [facility] | | | UNIT [...] + + + + | BLOOD | [id number] | | [facility] | | | PRODUCT [...] | + + + + + | [facility] DEPARTMENT [facility] | [address] | [place] [address] | | | PATHOLOGY | [address] [...] + + + + | PRODUCT | [id number] | | [facility] | | | UNIT [...] + + + + | BLOOD | [id number] | | [facility] | | | PRODUCT [...] OF | [address] | [place] [address] | | | PATHOLOGY | [address] [...] + + + + | PRODUCT | [id number] | | [facility] | | | UNIT [...] + + + + | BLOOD | [id number] | | [facility] | | | PRODUCT [...] | + + + + + | [facility] | [address] | [place] [address] | | | PATHOLOGY | [address] [...] + + + + | PRODUCT | [id number] | | [facility] | | | UNIT [...] + + + + | BLOOD | [id number] | | [facility] | | | PRODUCT [...] DEPARTMENT OF | [address] | [place] [address] | | | PATHOLOGY | [address] [...] + + + + | PRODUCT | [id number] | | [facility] | | | UNIT [...] + + + + | BLOOD | [id number] | | [facility] | | | PRODUCT [...] | + + + + + | [facility] | [address] | [place] [address] | | | PATHOLOGY | [address] [...] + + + + | PRODUCT | [id number] | | [facility] | | | UNIT [...] + + + + | BLOOD | [id number] | | [facility] | | | PRODUCT [...] OF | [address] | [place] [address] | | | PATHOLOGY | [address] [...] + + + + | PRODUCT | [id number] | | [facility] | | | UNIT [...] + + + + | BLOOD | [id number] | | [facility] | | | PRODUCT [...] | + + + + + | [facility] | [address] | [place] [address] | | | PATHOLOGY | [address] [...] + + + + | PRODUCT | [id number] | | [facility] | | | UNIT [...] + + + + | BLOOD | [id number] | | [facility] | | | PRODUCT [...] OF | [address] | [place], [place] [address] | | | PATHOLOGY | [address] [...] + + + + | PRODUCT | [id number] | | [facility] | | | UNIT [...] + + + + | BLOOD | [id number] | | [facility] | | | PRODUCT [...] | + + + + + | [facility] | [address] | [place] [address] | | | PATHOLOGY | [address] [...] + + + + | PRODUCT | [id number] | | [facility] | | | UNIT [...] + + + + | BLOOD | [id number] | | [facility] | | | PRODUCT [...] OF | [address] | [place] [address] | | | PATHOLOGY | [address] [...] + + + + | PRODUCT | [id number] | | [facility] | | | UNIT [...] + + + + | BLOOD | [id number] | | [facility] | | | PRODUCT [...] | + + + + + | [facility] DEPARTMENT OF | [address] | [place] [address] | | | PATHOLOGY | [address] [...] + + + + | PRODUCT | [id number] | | [facility] | | | UNIT [...] + + + + | BLOOD | [id number] | | [facility] | | | PRODUCT [...] OF | [address] | [place] [address] | | | PATHOLOGY | [address] [...] + + + + | PRODUCT | [id number] | | [facility] | | | UNIT [...] + + + + | BLOOD | [id number] | | [facility] | | | PRODUCT [...] DEPARTMENT OF | [address] | [place] [address] | | | PATHOLOGY | [address] [...] + + + + | PRODUCT | [id number] | | [facility] | | | UNIT [...] + + + + | BLOOD | [id number] | | [facility] | | | PRODUCT [...] | + + + + + | [facility] DEPARTMENT OF | [address] | [place] [address] | | | PATHOLOGY | [address] [...] + + + + | PRODUCT | [id number] | | [facility] | | | UNIT [...] + + + + | BLOOD | [id number] | | [facility] | | | PRODUCT [...] DEPARTMENT | [address] | [place] [address] | | | PATHOLOGY | [address] [...] + + + + | PRODUCT | [id number] | | [facility] | | | UNIT [...] + + + + | BLOOD | [id number] | | [facility] | | | PRODUCT [...] | + + + + + | [facility] | [address] | [place] [address] | | | PATHOLOGY | [address] [...] + + + + | PRODUCT | [id number] | | [facility] | | | UNIT [...] + + + + | BLOOD | [id number] | | [facility] | | | PRODUCT [...] DEPARTMENT | [address] | [place] [address] | | | PATHOLOGY | [address] [...] + + + + | PRODUCT | [id number] | | [facility] | | | UNIT [...] + + + + | BLOOD | [id number] | | [facility] | | | PRODUCT [...] | + + + + + | [facility] | [address] | [place] [address] | | | PATHOLOGY | [address] [...] + + + + | PRODUCT | [id number] | | [facility] | | | UNIT [...] + + + + | BLOOD | [id number] | | [facility] | | | PRODUCT [...] DEPARTMENT | [address] | [place] [address] | | | PATHOLOGY | [address] [...] WALLS | [address] | [place], [place] | | | DAVID SOLIS OF CARE | [address] | [address] | | | TESTS | | | [...] TITI | [address] | [place], [place] | | | DAVID SOLIS OF CARE | [address] | [address] | | | TESTS | | | [...] TITI | [address] | [place], [place] | | | DAVID SOLIS OF MANJ[facility] | [facility] | [address] | | | TESTS | | | | + + + + + GLUCOSE, POC (09/09/2014 5:29 AM PDT) + +---------+ + + + | Component | Value | Ref Range | Performed | Pathologist | | | | | At | Signature | + +---------+ + + + | GLUCOSE, | 267 (H) | 60 - 99 mg/dL | [facility] - | | | POC | | [...] TITI | [address] | [place], [place] | | | WILL POINT OF CARE | [address] | [address] | | | TESTS | | | [...] TITI | [address] | [place], [place] | | | DAVID SOLIS OF CARE | [facility] | [address] | | | TESTS | | | [...] MARQUAM | [address] | [place], [place] | | | DAVID SOLIS OF CARE | [facility] | [address] | | | TESTS | | | [...] WALLS | [address] | [place], [place] | | | WILL POINT OF CARE | [address] | [address] | | | TESTS | | | [...] TITI | [address] | [place], [place] | | | DAVID SOLIS OF MANJ[facility] | [facility] | [address] | | | TESTS | | | [...] | + + + + + | [facility] | [address] | [place] [address] | | | SERVICES, CORE | [address] [...] | + + + + + | [facility] | [address] | [place] [address] | | | ALMA ROSA, ELOY | [...] 3.5 (H) | 0.5 - 1.6 | [facility] - | | | ARTERIAL, | | [...] ANDERSONAM | [address] | [place], [place] | | | WILL POINT OF CARE | [address] | [address] | | | TESTS | | | [...] TITI | [address] | [place], [place] | | | DAVID SOLIS OF CARE | [facility] | [address] | | | TESTS | | | [...] - MARQUAM | [address] | [place] | | | DAVID SOLIS OF CARE | [facility] | [address] | | | TESTS | | | | + + + + + GLUCOSE, POC (09/09/2014 5:08 AM PDT) + +---------+ + + + | Component | Value | Ref Range | Performed | Pathologist | | | | | At | Signature | + +---------+ + + + | GLUCOSE, | 307 (H) | 60 - 99 mg/dL | [facility] - | | | POC | | [...] TITI | [address] | [place], [place] | | | DAVID SOLIS OF [facility] | [address] | [address] | | | TESTS | | | [...] WALLS | [address] | [place], [place] | | | CHRISTIANO SOLIS | [facility] | [address] | | | TESTS | | | [...] - MARQUAM | [address] | [place], [place] | | | DAVID SOLIS OF CARE | [facility] | [address] | | | TESTS | | | [...] WALLS | [address] | [place], [place] | | | WILL POINT OF CARE | [address] | [address] | | | TESTS | | | [...] Nahid TITI | [address] | [place], [place] | | | WILL POINT OF CARE | [address] | [address] | | | TESTS | | | [...] + + + + | PRODUCT | [id number] | | [facility] | | | UNIT [...] + + + + | BLOOD | [id number] | | [facility] | | | PRODUCT [...] OF | [address] | [place] [address] | | | PATHOLOGY | [address] [...] + + + + | PRODUCT | [id number] | | [facility] | | | UNIT [...] + + + + | BLOOD | [id number] | | [facility] | | | PRODUCT [...] | + + + + + | [facility] | [address] | [place] [address] | | | PATHOLOGY | [address] [...] + + + + | PRODUCT | [id number] | | [facility] | | | UNIT [...] + + + + | BLOOD | [id number] | | [facility] | | | PRODUCT [...] DEPARTMENT OF | [address] | [place] [address] | | | PATHOLOGY | [address] [...] + + + + | PRODUCT | [id number] | | [facility] | | | UNIT [...] + + + + | BLOOD | [id number] | | [facility] | | | PRODUCT [...] | + + + + + | [facility] | [address] | [place] [address] | | | PATHOLOGY | [address] [...] + + + + | PRODUCT | [id number] | | [facility] | | | UNIT [...] + + + + | BLOOD | [id number] | | [facility] | | | PRODUCT [...] OF | [address] | [place] [address] | | | PATHOLOGY | [address] [...] + + + + | PRODUCT | [id number] | | [facility] | | | UNIT [...] + + + + | BLOOD | [id number] | | [facility] | | | PRODUCT [...] | + + + + + | [facility] | [address] | [place] [address] | | | PATHOLOGY | [address] [...] + + + + | PRODUCT | [id number] | | [facility] | | | UNIT [...] + + + + | BLOOD | [id number] | | [facility] | | | PRODUCT [...] DEPARTMENT OF | [address] | [place] [address] | | | PATHOLOGY | [address] [...] + + + + | PRODUCT | [id number] | | [facility] | | | UNIT [...] + + + + | BLOOD | [id number] | | [facility] | | | PRODUCT [...] | + + + + + | [facility] | [address] | [place] [address] | | | PATHOLOGY | [address] [...] + + + + | PRODUCT | [id number] | | [facility] | | | UNIT [...] + + + + | BLOOD | [id number] | | [facility] | | | PRODUCT [...] DEPARTMENT OF | [address] | [place] [address] | | | PATHOLOGY | [address] [...] + + + + | PRODUCT | [id number] | | [facility] | | | UNIT [...] + + + + | BLOOD | [id number] | | [facility] | | | PRODUCT [...] | + + + + + | [facility] | [address] | [place] [address] | | | PATHOLOGY | [address] [...] + + + + | PRODUCT | [id number] | | [facility] | | | UNIT [...] + + + + | BLOOD | [id number] | | [facility] | | | PRODUCT [...] DEPARTMENT OF | [address] | [place] [address] | | | PATHOLOGY | [address] [...] + + + + | PRODUCT | [id number] | | [facility] | | | UNIT [...] + + + + | BLOOD | [id number] | | [facility] | | | PRODUCT [...] | + + + + + | [facility] | [address] | [place] [address] | | | PATHOLOGY | [address] [...] + + + + | PRODUCT | [id number] | | [facility] | | | UNIT [...] + + + + | BLOOD | [id number] | | [facility] | | | PRODUCT [...] DEPARTMENT OF | [address] | [place] [address] | | | PATHOLOGY | [address] [...] + + + + | PRODUCT | [id number] | | [facility] | | | UNIT [...] + + + + | BLOOD | [id number] | | [facility] | | | PRODUCT [...] | + + + + + | [facility] DEPARTMENT OF | [address] | [place] [address] | | | PATHOLOGY | [address] [...] + + + + | PRODUCT | [id number] | | [facility] | | | UNIT [...] + + + + | BLOOD | [id number] | | [facility] | | | PRODUCT [...] OF | [address] | [place] [address] | | | PATHOLOGY | [address] [...] + + + + | PRODUCT | [id number] | | [facility] | | | UNIT [...] + + + + | BLOOD | [id number] | | [facility] | | | PRODUCT [...] DEPARTMENT OF | [address] | [place] [address] | | | PATHOLOGY | [address] [...] + + + + | PRODUCT | [id number] | | [facility] | | | UNIT [...] + + + + | BLOOD | [id number] | | [facility] | | | PRODUCT [...] | + + + + + | [facility] DEPARTMENT OF | [address] | [place] [address] | | | PATHOLOGY | [address] [...] + + + + | PRODUCT | [id number] | | [facility] | | | UNIT [...] + + + + | BLOOD | [id number] | | [facility] | | | PRODUCT [...] OF | [address] | [place] [address] | | | PATHOLOGY | [address] [...] + + + + | PRODUCT | [id number] | | [facility] | | | UNIT [...] + + + + | BLOOD | [id number] | | [facility] | | | PRODUCT [...] | + + + + + | [facility] | [address] | [place] [address] | | | PATHOLOGY | [address] [...] + + + + | PRODUCT | [id number] | | [facility] | | | UNIT [...] + + + + | BLOOD | [id number] | | [facility] | | | PRODUCT [...] OF | [address] | [place] [address] | | | PATHOLOGY | [address] [...] + + + + | PRODUCT | [id number] | | [facility] | | | UNIT [...] + + + + | BLOOD | [id number] | | [facility] | | | PRODUCT [...] | + + + + + | [facility] | [address] | [place] [address] | | | PATHOLOGY | [address] [...] + + + + | PRODUCT | [id number] | | [facility] | | | UNIT [...] + + + + | BLOOD | [id number] | | [facility] | | | PRODUCT [...] OF | [address] | [place] [address] | | | PATHOLOGY | [address] [...] + + + + | PRODUCT | [id number] | | [facility] | | | UNIT [...] + + + + | BLOOD | [id number] | | [facility] | | | PRODUCT [...] | + + + + + | [facility] DEPARTMENT OF | [address] | [place] [address] | | | PATHOLOGY | [address] [...] + + + + | PRODUCT | [id number] | | [facility] | | | UNIT [...] + + + + | BLOOD | [id number] | | [facility] | | | PRODUCT [...] | [facility] DEPARTMENT OF | [address] | [place] [address] | | | PATHOLOGY | [address] [...] WALLS | [address] | [place], [place] | | | DAVID SOLIS OF [facility] | [address] | [address] | | | TESTS | | | [...] + + + + | PRODUCT | [id number] | | [facility] | | | UNIT [...] + + + + | BLOOD | [id number] | | [facility] | | | PRODUCT [...] OF | [address] | [place] [address] | | | PATHOLOGY | [address] [...] + + + + | PRODUCT | [id number] | | [facility] | | | UNIT [...] + + + + | BLOOD | [id number] | | [facility] | | | PRODUCT [...] | + + + + + | [facility] | [address] | [place] [address] | | | PATHOLOGY | [address] [...] + + + + | PRODUCT | [id number] | | [facility] | | | UNIT [...] + + + + | BLOOD | [id number] | | [facility] | | | PRODUCT [...] OF | [address] | [place] [address] | | | PATHOLOGY | [address] [...] + + + + | PRODUCT | [id number] | | [facility] | | | UNIT [...] + + + + | BLOOD | [id number] | | [facility] | | | PRODUCT [...] | + + + + + | [facility] | [address] | [place] [address] | | | PATHOLOGY | [address] [...] + + + + | PRODUCT | [id number] | | [facility] | | | UNIT [...] + + + + | BLOOD | [id number] | | [facility] | | | PRODUCT [...] DEPARTMENT OF | [address] | [place] [address] | | | PATHOLOGY | [address] [...] + + + + | PRODUCT | [id number] | | [facility] | | | UNIT [...] + + + + | BLOOD | [id number] | | [facility] | | | PRODUCT [...] | + + + + + | [facility] | [address] | [place] [address] | | | PATHOLOGY | [address] [...] - TITI | [address] | [place], [place] | | | [facility] | [facility] | [id number] | | | TESTS | | | [...] + + + + | PRODUCT | [id number] | | [facility] | | | UNIT [...] + + + + | BLOOD | [id number] | | [facility] | | | PRODUCT [...] | + + + + + | [facility] | [address] | [place] [address] | | | PATHOLOGY | [address] [...] + + + + | PRODUCT | [id number] | | [facility] | | | UNIT [...] + + + + | BLOOD | [id number] | | [facility] | | | PRODUCT [...] DEPARTMENT OF | [address] | [place] [address] | | | PATHOLOGY | [address] [...] + + + + | PRODUCT | [id number] | | [facility] | | | UNIT [...] + + + + | BLOOD | [id number] | | [facility] | | | PRODUCT [...] | + + + + + | [facility] | [address] | [place] [address] | | | PATHOLOGY | [address] [...] + + + + | PRODUCT | [id number] | | [facility] | | | UNIT [...] + + + + | BLOOD | [id number] | | [facility] | | | PRODUCT [...] OF | [address] | [place] [address] | | | PATHOLOGY | [address] [...] + + + + | PRODUCT | [id number] | | [facility] | | | UNIT [...] + + + + | BLOOD | [id number] | | [facility] | | | PRODUCT [...] | + + + + + | [facility] | [address] | [place] [address] | | | PATHOLOGY | [address] [...] + + + + | PRODUCT | [id number] | | [facility] | | | UNIT [...] + + + + | BLOOD | [id number] | | [facility] | | | PRODUCT [...] OF | [address] | [place] [address] | | | PATHOLOGY | [address] [...] + + + + | PRODUCT | [id number] | | [facility] | | | UNIT [...] + + + + | BLOOD | [id number] | | [facility] | | | PRODUCT [...] | + + + + + | [facility] | [address] | [place] [address] | | | PATHOLOGY | [address] [...] + + + + | PRODUCT | [id number] | | [facility] | | | UNIT [...] + + + + | BLOOD | [id number] | | [facility] | | | PRODUCT [...] DEPARTMENT OF | [address] | [place] [address] | | | PATHOLOGY | [address] [...] [facility] | [address] | [place] [address] | | | SERVICES, | [address] [...] + | [facility] | [address] | [place] [address] | | | SERVICES, | [address] [...] | + + + + + | [facility] | [address] | [place] [address] | | | SERVICES, CORE | [address] [...] [facility] | [address] | [place] [address] | | | SERVICES, CORE | [address] [...] | | | LABORATORY | | | [employer] | | | SERVICES, | | | [...] | + + + + + | [facility] | [address] | [place] [address] | | | [address] | [address] [...] [facility] | [address] | [place] [address] | | | SERVICES, CORE | P[address] [...] | + + + + + | [facility] | [address] | [place] [address] | | | SERVICES, CORE | [address] [...] discolored, | | | | | | [id number]-wg-ktwczg | | | | | | -green [...] | | | | | | viable. [employer] | | | | | | sections [...] hemorrhage. | | | | | | [employer] | | | | | | sections are submitted. | | | | | | Cassette Index:A: | | | | | | Left colon:A1, | | | | | | compliance representative margins | | | | | [...] | + + + + + | [facility] | [address] | [place] [address] | | | PATHOLOGY | [address] [...]
--- OUTSIDE RECORDS SUMMARY | ~2019-10-03 | XMS | Encounter Summary ---
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 [address] | | | PATHOLOGY | [address] [...] + + + + | PRODUCT | [id number] | | [facility] | | | UNIT [...] + + + + | BLOOD | [id number] | | [facility] | | | PRODUCT [...] OF | [address] | [place] [address] | | | PATHOLOGY | [address] [...] + + + + | PRODUCT | [id number] | | [facility] | | | UNIT [...] + + + + | BLOOD | [id number] | | [facility] | | | PRODUCT [...] DEPARTMENT OF | [address] | [place] [address] | | | PATHOLOGY | [address] [...] + + + + | PRODUCT | [id number] | | [facility] | | | UNIT [...] + + + + | BLOOD | [id number] | | [facility] | | | PRODUCT [...] DEPARTMENT OF | [address] | [place] [address] | | | PATHOLOGY | [address] [...] + + + + | PRODUCT | [id number] | | [facility] | | | UNIT [...] + + + + | BLOOD | [id number] | | [facility] | | | PRODUCT [...] DEPARTMENT OF | [address] | [place], [place] [address] | | | PATHOLOGY | [address] [...] | + + + + + | [facility] | [address] | [place] [address] | | | SERVICES, CORE | [address] [...] [facility] | [address] | [place] [address] | | | ALMA ROSA, ELOY | [...] 3.3 (H) | 0.5 - 1.6 | [facility] - | | | ARTERIAL, | [...] MARQUAM | [address] | [place] | | | DAVID [facility] OF CARE | [address] | [address] | | | TESTS | | | [...] WALLS | [address] | [place] | | | [facility] CARE | [address] | [address] | | | TESTS | | | [...] MARQUAM | [address] | [place] | | | WILL POINT OF CARE | [address] | [address] | | | TESTS | | | [...] - TITI | [address] | [place], [place] | | | DAVID SOLIS OF CARE | [address] | [address] | | | TESTS | | | [...] + + | JUAN C WALLS | [address] | [place] | | | DAVID SOLIS OF MAN[facility] | [address] | [address] | | | TESTS | | | [...] MARQUAM | [address] | [place] | | | DAVID [facility]IS OF CARE | [facility] | [address] | | | TESTS | | | [...] ANDERSONAM | [address] | [place] | | | WILL PO[facility] CARE | [address] | [address] | | | TESTS | | | [...] [facility] | [address] | [place] [address] | | | SERVICES, | [address] [...] - MARKADEEMAM | [address] | [place] | | | DAVID SOLIS OF CARE | [address] | [address] | | | TESTS | | | [...] WALLS | [address] | [place] | | | DAVID SOLIS OF [facility] | [facility] | [address] | | | TESTS | | | [...] TITI | [address] | [place], [place] | | | DAVID SOLIS OF MAN[facility] | [address] | [address] | | | TESTS | | | [...] - TITI | [address] | [place] | | | DAVID SOLIS OF [facility] | [facility] | [address] | | | TESTS | | | [...] WALLS | [address] | [place] | | | WILL [facility] CARE | [address] | [address] | | | TESTS | | | [...] TITI | [address] | [place], [place] | | | DAVID SOLIS OF MAN[facility] | [facility] | [address] | | | TESTS | | | [...] - MARQUAM | [address] | [place] | | | DAVID SOL[facility] OF CARE | [address] | [address] | | | TESTS | | | [...] TITI | [address] | [place] | | | DAVID SOLIS OF CARE | [address] | [address] | | | TESTS | | | [...] + + + + | PRODUCT | [id number] | | [facility] | | | UNIT [...] + + + + | BLOOD | [id number] | | [facility] | | | PRODUCT [...] DEPARTMENT OF | [address] | [place] [address] | | | PATHOLOGY | [address] [...] + + + + | PRODUCT | [id number] | | [facility] | | | UNIT [...] + + + + | BLOOD | [id number] | | [facility] | | | PRODUCT [...] | + + + + + | [facility] DEPARTMENT OF | [address] | [place] [address] | | | PATHOLOGY | [address] [...] + + + + | PRODUCT | [id number] | | [facility] | | | UNIT [...] + + + + | BLOOD | [id number] | | [facility] | | | PRODUCT [...] DEPARTMENT OF | [address] | [place] [address] | | | PATHOLOGY | [address] [...] + + + + | PRODUCT | [id number] | | [facility] | | | UNIT [...] + + + + | BLOOD | [id number] | | [facility] | | | PRODUCT [...] | + + + + + | [facility] DEPARTMENT OF | [address] | [place] [address] | | | PATHOLOGY | [address] [...] + + + + | PRODUCT | [id number] | | [facility] | | | UNIT [...] + + + + | BLOOD | [id number] | | [facility] | | | PRODUCT [...] DEPARTMENT OF | [address] | [place] [address] | | | PATHOLOGY | [address] [...] + + + + | PRODUCT | [id number] | | [facility] | | | UNIT [...] + + + + | BLOOD | [id number] | | [facility] | | | PRODUCT [...] | + + + + + | [facility] DEPARTMENT OF | [address] | [place] [address] | | | PATHOLOGY | [address] [...] + + + + | PRODUCT | [id number] | | [facility] | | | UNIT [...] + + + + | BLOOD | [id number] | | [facility] | | | PRODUCT [...] | + + + + + | [facility] DEPARTMENT OF | [address] | [place] [address] | | | PATHOLOGY | [address] [...] + + + + | PRODUCT | [id number] | | [facility] | | | UNIT [...] + + + + | BLOOD | [id number] | | [facility] | | | PRODUCT [...] | + + + + + | [facility] DEPARTMENT OF | [address] | [place] [address] | | | PATHOLOGY | [address] [...] + + + + | PRODUCT | [id number] | | [facility] | | | UNIT [...] + + + + | BLOOD | [id number] | | [facility] | | | PRODUCT [...] | + + + + + | [facility] DEPARTMENT OF | [address] | [place] [address] | | | PATHOLOGY | [address] [...] + + + + | PRODUCT | [id number] | | [facility] | | | UNIT [...] + + + + | BLOOD | [id number] | | [facility] | | | PRODUCT [...] | + + + + + | [facility] DEPARTMENT OF | [address] | [place] [address] | | | PATHOLOGY | [address] [...] + + + + | PRODUCT | [id number] | | [facility] | | | UNIT [...] + + + + | BLOOD | [id number] | | [facility] | | | PRODUCT [...] [facility] DEPARTMENT | [address] | [place] [address] | | | PATHOLOGY | [address] [...] + + + + | PRODUCT | [id number] | | [facility] | | | UNIT [...] + + + + | BLOOD | [id number] | | [facility] | | | PRODUCT [...] | + + + + + | [facility] | [address] | [place] [address] | | | PATHOLOGY | [address] [...] + + + + | PRODUCT | [id number] | | [facility] | | | UNIT [...] + + + + | BLOOD | [id number] | | [facility] | | | PRODUCT [...] DEPARTMENT OF | [address] | [place] [address] | | | PATHOLOGY | [address] [...] + + + + | PRODUCT | [id number] | | [facility] | | | UNIT [...] + + + + | BLOOD | [id number] | | [facility] | | | PRODUCT [...] | + + + + + | [facility] | [address] | [place] [address] | | | PATHOLOGY | [address] [...] + + + + | PRODUCT | [id number] | | [facility] | | | UNIT [...] + + + + | BLOOD | [id number] | | [facility] | | | PRODUCT [...] DEPARTMENT OF | [address] | [place] [address] | | | PATHOLOGY | [address] [...] + + + + | PRODUCT | [id number] | | [facility] | | | UNIT [...] + + + + | BLOOD | [id number] | | [facility] | | | PRODUCT [...] | + + + + + | [facility] | [address] | [place] [address] | | | PATHOLOGY | [address] [...] + + + + | PRODUCT | [id number] | | [facility] | | | UNIT [...] + + + + | BLOOD | [id number] | | [facility] | | | PRODUCT [...] DEPARTMENT OF | [address] | [place] [address] | | | PATHOLOGY | [address] [...] + + + + | PRODUCT | [id number] | | [facility] | | | UNIT [...] + + + + | BLOOD | [id number] | | [facility] | | | PRODUCT [...] | + + + + + | [facility] | [address] | [place] [address] | | | PATHOLOGY | [address] [...] + + + + | PRODUCT | [id number] | | [facility] | | | UNIT [...] + + + + | BLOOD | [id number] | | [facility] | | | PRODUCT [...] | [address] | [place] [address] | | | PATHOLOGY | [address] [...] + + + + | PRODUCT | [id number] | | [facility] | | | UNIT [...] + + + + | BLOOD | [id number] | | [facility] | | | PRODUCT [...] | + + + + + | [facility] DEPARTMENT OF | [address] | [place] [address] | | | PATHOLOGY | [address] [...] + + + + | PRODUCT | [id number] | | [facility] | | | UNIT [...] + + + + | BLOOD | [id number] | | [facility] | | | PRODUCT [...] DEPARTMENT OF | [address] | [place] [address] | | | PATHOLOGY | [address] [...] + + + + | PRODUCT | [id number] | | [facility] | | | UNIT [...] + + + + | BLOOD | [id number] | | [facility] | | | PRODUCT [...] OF | [address] | [place] [address] | | | PATHOLOGY | [address] [...] + + + + | PRODUCT | [id number] | | [facility] | | | UNIT [...] + + + + | BLOOD | [id number] | | [facility] | | | PRODUCT [...] | + + + + + | [facility] DEPARTMENT OF | [address] | [place] [address] | | | PATHOLOGY | [address] [...] + + + + | PRODUCT | [id number] | | [facility] | | | UNIT [...] + + + + | BLOOD | [id number] | | [facility] | | | PRODUCT [...] [facility] DEPARTMENT | [address] | [place] [address] | | | PATHOLOGY | [address] [...] + + + + | PRODUCT | [id number] | | [facility] | | | UNIT [...] + + + + | BLOOD | [id number] | | [facility] | | | PRODUCT [...] | + + + + + | [facility] | [address] | [place] [address] | | | PATHOLOGY | [address] [...] + + + + | PRODUCT | [id number] | | [facility] | | | UNIT [...] + + + + | BLOOD | [id number] | | [facility] | | | PRODUCT [...] [facility] DEPARTMENT | [address] | [place] [address] | | | PATHOLOGY | [address] [...] + + + + | PRODUCT | [id number] | | [facility] | | | UNIT [...] + + + + | BLOOD | [id number] | | [facility] | | | PRODUCT [...] | + + + + + | [facility] | [address] | [place] [address] | | | PATHOLOGY | [address] [...] + + + + | PRODUCT | [id number] | | [facility] | | | UNIT [...] + + + + | BLOOD | [id number] | | [facility] | | | PRODUCT [...] [facility] DEPARTMENT | [address] | [place] [address] | | | PATHOLOGY | [address] [...] WALLS | [address] | [place] | | | DAVID SOLIS OF [facility] | [facility] | [address] | | | TESTS | | | [...] TITI | [address] | [place], [place] | | | CHRISTIANO SOLIS | [address] | [address] | | | TESTS | | | [...] TITI | [address] | [place] | | | DAVID SOLIS OF CARE | [facility] | [address] | | | TESTS | | | [...] MARQUAM | [address] | [place] | | | DAVID SOLIS OF [facility] | [address] | [address] | | | TESTS | | | [...] WALLS | [address] | [place] | | | DAVID SOLIS OF CARE | [facility] | [address] | | | TESTS | | | [...] - MARQUAM | [address] | [place], [place] | | | DAVID SOLIS OF CARE | [facility] | [address] | | | TESTS | | | [...] WALLS | [address] | [place] | | | DAVID SOLIS OF CARE | [facility] | [address] | | | TESTS | | | [...] TITI | [address] | [place] | | | DAVID SOLIS OF MANJIT | [address] | [address] | | | TESTS | | | [...] | + + + + + | [facility] | [address] | [place] [address] | | | SERVICES, CORE | [address] [...] | + + + + + | [facility] | [address] | [place] [address] | | | [address] | [address] | | | + + + + + LACTATE (ART), POC (09/09/2014 5:08 AM PDT) + +---------+ + + + | Component | Value | Ref Range | Performed | Pathologist | | | | | At | Signature | + +---------+ + + + | LACTATE | 3.5 (H) | 0.5 - 1.6 | [facility] - | | | ARTERIAL, | [...] ANDERSONAM | [address] | [place] | | | WILL POINT OF CARE | [address] | [address] | | | TESTS | | | [...] WALLS | [address] | [place] | | | DAVID SOLIS OF CARE | [facility] | [address] | | | TESTS | | | [...] ANDERSONAM | [address] | [place], [place] | | | DAVID SOLIS OF CARE | [facility] | [address] | | | TESTS | | | [...] MARQUAM | [address] | [place] | | | DAVID SOLIS OF MAN[place]IT | [facility] | [address] | | | TESTS | | | [...] WALLS | [address] | [place] | | | DAVID SOLIS OF CARE | [address] | [address] | | | TESTS | | | [...] MARQUAM | [address] | [place], [place] | | | DAVID SOLIS OF CARE | [facility] | [address] | | | TESTS | | | [...] WALLS | [address] | [place] | | | WILL POINT OF CARE | [address] | [address] | | | TESTS | | | [...] C WALLS | [address] | [place] | | | WILL POINT OF CARE | [address] | [address] | | | TESTS | | | [...] | | + +---------+ + + | [facility] DEPARTMENT OF | | | | [...] + + + + | PRODUCT | [id number] | | [facility] | | | UNIT [...] + + + + | BLOOD | [id number] | | [facility] | | | PRODUCT [...] DEPARTMENT OF | [address] | [place] [address] | | | PATHOLOGY | [address] [...] + + + + | PRODUCT | [id number] | | [facility] | | | UNIT [...] + + + + | BLOOD | [id number] | | [facility] | | | PRODUCT [...] | + + + + + | [facility] | [address] | [place] [address] | | | PATHOLOGY | [address] [...] + + + + | PRODUCT | [id number] | | [facility] | | | UNIT [...] + + + + | BLOOD | [id number] | | [facility] | | | PRODUCT [...] DEPARTMENT OF | [address] | [place] [address] | | | PATHOLOGY | [address] [...] + + + + | PRODUCT | [id number] | | [facility] | | | UNIT [...] + + + + | BLOOD | [id number] | | [facility] | | | PRODUCT [...] | + + + + + | [facility] | [address] | [place] [address] | | | PATHOLOGY | [address] [...] + + + + | PRODUCT | [id number] | | [facility] | | | UNIT [...] + + + + | BLOOD | [id number] | | [facility] | | | PRODUCT [...] DEPARTMENT OF | [address] | [place] [address] | | | PATHOLOGY | [address] [...] + + + + | PRODUCT | [id number] | | [facility] | | | UNIT [...] + + + + | BLOOD | [id number] | | [facility] | | | PRODUCT [...] | + + + + + | [facility] | [address] | [place] [address] | | | PATHOLOGY | [address] [...] + + + + | PRODUCT | [id number] | | [facility] | | | UNIT [...] + + + + | BLOOD | [id number] | | [facility] | | | PRODUCT [...] DEPARTMENT OF | [address] | [place] [address] | | | PATHOLOGY | [address] [...] + + + + | PRODUCT | [id number] | | [facility] | | | UNIT [...] + + + + | BLOOD | [id number] | | [facility] | | | PRODUCT [...] | + + + + + | [facility] | [address] | [place] [address] | | | PATHOLOGY | [address] [...] + + + + | PRODUCT | [id number] | | [facility] | | | UNIT [...] + + + + | BLOOD | [id number] | | [facility] | | | PRODUCT [...] DEPARTMENT OF | [address] | [place] [address] | | | PATHOLOGY | [address] [...] + + + + | PRODUCT | [id number] | | [facility] | | | UNIT [...] + + + + | BLOOD | [id number] | | [facility] | | | PRODUCT [...] | + + + + + | [facility] | [address] | [place] [address] | | | PATHOLOGY | [address] [...] + + + + | PRODUCT | [id number] | | [facility] | | | UNIT [...] + + + + | BLOOD | [id number] | | [facility] | | | PRODUCT [...] DEPARTMENT OF | [address] | [place] [address] | | | PATHOLOGY | [address] [...] + + + + | PRODUCT | [id number] | | [facility] | | | UNIT [...] + + + + | BLOOD | [id number] | | [facility] | | | PRODUCT [...] | + + + + + | [facility] DEPARTMENT | [address] | [place] [address] | | | PATHOLOGY | [address] [...] + + + + | PRODUCT | [id number] | | [facility] | | | UNIT [...] + + + + | BLOOD | [id number] | | [facility] | | | PRODUCT [...] DEPARTMENT OF | [address] | [place] [address] | | | PATHOLOGY | [address] [...] + + + + | PRODUCT | [id number] | | [facility] | | | UNIT [...] + + + + | BLOOD | [id number] | | [facility] | | | PRODUCT [...] DEPARTMENT OF | [address] | [place] [address] | | | PATHOLOGY | [address] [...] + + + + | PRODUCT | [id number] | | [facility] | | | UNIT [...] + + + + | BLOOD | [id number] | | [facility] | | | PRODUCT [...] DEPARTMENT OF | [address] | [place] [address] | | | PATHOLOGY | [address] [...] + + + + | PRODUCT | [id number] | | [facility] | | | UNIT [...] + + + + | BLOOD | [id number] | | [facility] | | | PRODUCT [...] DEPARTMENT OF | [address] | [place] [address] | | | PATHOLOGY | [address] [...] + + + + | PRODUCT | [id number] | | [facility] | | | UNIT [...] + + + + | BLOOD | [id number] | | [facility] | | | PRODUCT [...] | + + + + + | [facility] DEPARTMENT OF | [address] | [place] [address] | | | PATHOLOGY | [address] [...] + + + + | PRODUCT | [id number] | | [facility] | | | UNIT [...] + + + + | BLOOD | [id number] | | [facility] | | | PRODUCT [...] [facility] DEPARTMENT | [address] | [place], [place] [address] | | | PATHOLOGY | [address] [...] + + + + | PRODUCT | [id number] | | [facility] | | | UNIT [...] + + + + | BLOOD | [id number] | | [facility] | | | PRODUCT [...] | + + + + + | [facility] | [address] | [place] [address] | | | PATHOLOGY | [address] [...] + + + + | PRODUCT | [id number] | | [facility] | | | UNIT [...] + + + + | BLOOD | [id number] | | [facility] | | | PRODUCT [...] DEPARTMENT OF | [address] | [place] [address] | | | PATHOLOGY | [address] [...] + + + + | PRODUCT | [id number] | | [facility] | | | UNIT [...] + + + + | BLOOD | [id number] | | [facility] | | | PRODUCT [...] | + + + + + | [facility] | [address] | [place] [address] | | | PATHOLOGY | [address] [...] + + + + | PRODUCT | [id number] | | [facility] | | | UNIT [...] + + + + | BLOOD | [id number] | | [facility] | | | PRODUCT [...] DEPARTMENT OF | [address] | [place] [address] | | | PATHOLOGY | [address] [...] + + + + | PRODUCT | [id number] | | [facility] | | | UNIT [...] + + + + | BLOOD | [id number] | | [facility] | | | PRODUCT [...] | + + + + + | [facility] DEPARTMENT OF | [address] | [place] [address] | | | PATHOLOGY | [address] [...] + + + + | PRODUCT | [id number] | | [facility] | | | UNIT [...] + + + + | BLOOD | [id number] | | [facility] | | | PRODUCT [...] | [address] | [place] [address] | | | PATHOLOGY | [address] [...] WALLS | [address] | [place], [place] | | | DAV[facility] SOL[facility] OF [facility] | [address] | [address] | | | TESTS | | | [...] + + + + | PRODUCT | [id number] | | [facility] | | | UNIT [...] + + + + | BLOOD | [id number] | | [facility] | | | PRODUCT [...] DEPARTMENT OF | [address] | [place] [address] | | | PATHOLOGY | [address] [...] + + + + | PRODUCT | [id number] | | [facility] | | | UNIT [...] + + + + | BLOOD | [id number] | | [facility] | | | PRODUCT [...] | + + + + + | [facility] | [address] | [place] [address] | | | PATHOLOGY | [address] [...] + + + + | PRODUCT | [id number] | | [facility] | | | UNIT [...] + + + + | BLOOD | [id number] | | [facility] | | | PRODUCT [...] DEPARTMENT OF | [address] | [place] [address] | | | PATHOLOGY | [address] [...] + + + + | PRODUCT | [id number] | | [facility] | | | UNIT [...] + + + + | BLOOD | [id number] | | [facility] | | | PRODUCT [...] | + + + + + | [facility] | [address] | [place] [address] | | | PATHOLOGY | [address] [...] + + + + | PRODUCT | [id number] | | [facility] | | | UNIT [...] + + + + | BLOOD | [id number] | | [facility] | | | PRODUCT [...] DEPARTMENT OF | [address] | [place] [address] | | | PATHOLOGY | [address] [...] + + + + | PRODUCT | [id number] | | [facility] | | | UNIT [...] + + + + | BLOOD | [id number] | | [facility] | | | PRODUCT [...] | + + + + + | [facility] | [address] | [place] [address] | | | PATHOLOGY | [address] [...] TITI | [address] | [place], [place] | | | [facility] | [facility] | [address] | | | TESTS | | | [...] + + + + | PRODUCT | [id number] | | [facility] | | | UNIT [...] + + + + | BLOOD | [id number] | | [facility] | | | PRODUCT [...] | + + + + + | [facility] | [address] | [place] [address] | | | PATHOLOGY | [address] [...] + + + + | PRODUCT | [id number] | | [facility] | | | UNIT [...] + + + + | BLOOD | [id number] | | [facility] | | | PRODUCT [...] DEPARTMENT OF | [address] | [place] [address] | | | PATHOLOGY | [address] [...] + + + + | PRODUCT | [id number] | | [facility] | | | UNIT [...] + + + + | BLOOD | [id number] | | [facility] | | | PRODUCT [...] | + + + + + | [facility] | [address] | [place] [address] | | | PATHOLOGY | [address] [...] + + + + | PRODUCT | [id number] | | [facility] | | | UNIT [...] + + + + | BLOOD | [id number] | | [facility] | | | PRODUCT [...] DEPARTMENT OF | [address] | [place] [address] | | | PATHOLOGY | [address] [...] + + + + | PRODUCT | [id number] | | [facility] | | | UNIT [...] + + + + | BLOOD | [id number] | | [facility] | | | PRODUCT [...] | + + + + + | [facility] | [address] | [place] [address] | | | PATHOLOGY | [address] [...] + + + + | PRODUCT | [id number] | | [facility] | | | UNIT [...] + + + + | BLOOD | [id number] | | [facility] | | | PRODUCT [...] DEPARTMENT OF | [address] | [place] [address] | | | PATHOLOGY | [address] [...] + + + + | PRODUCT | [id number] | | [facility] | | | UNIT [...] + + + + | BLOOD | [id number] | | [facility] | | | PRODUCT [...] | + + + + + | [facility] | [address] | [place] [address] | | | PATHOLOGY | [address] [...] + + + + | PRODUCT | [id number] | | [facility] | | | UNIT [...] + + + + | BLOOD | [id number] | | [facility] | | | PRODUCT [...] DEPARTMENT OF | [address] | [place] [address] | | | PATHOLOGY | [address] [...] [facility] | [address] | [place] [address] | | | SERVICES, | [address] [...] [facility] | [address] | [place] [address] | | | SERVICES, | [address] [...] | + + + + + | [facility] | [address] | [place] [address] | | | SERVICES, CORE | [address] [...] [facility] | [address] | [place] [address] | | | SERVICES, CORE | PARK [...] | | | LABORATORY | | | AUSTRIAN | | | SERVICES, | | | [...] | + + + + + | [facility] | [address] | [place] [address] | | | ALMA ROSA, CORE | [...] [facility] | [address] | [place] [address] | | | SERVICES, CORE | PARK [...] | + + + + + | [facility] | [address] | [place] [address] | | | SERVICES, CORE | [address] [...] discolored, | | | | | | [id number]-[id number] | | | | | | -green [...] | | | | | | viable. Pneudraulic Systems Mechanic | | | | | | [...] hemorrhage. | | | | | | Pneudraulic Systems Mechanic | | | | | | sections are submitted. 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
--- OUTSIDE RECORDS SUMMARY | ~2019-10-03 | XMS | Encounter Summary ---
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 BLOOD | [id number] | | [facility] | | | PRODUCT [...] OF | [address] | [place] [address] | | | PATHOLOGY | [address] [...] + + + + | PRODUCT | [id number] | | [facility] | | | UNIT [...] + + + + | BLOOD | [id number] | | [facility] | | | PRODUCT [...] DEPARTMENT OF | [address] | [place] [address] | | | PATHOLOGY | [address] [...] + + + + | PRODUCT | [id number] | | [facility] | | | UNIT [...] + + + + | BLOOD | [id number] | | [facility] | | | PRODUCT [...] DEPARTMENT OF | [address] | [place] [address] | | | PATHOLOGY | [address] [...] + + + + | PRODUCT | [id number] | | [facility] | | | UNIT [...] + + + + | BLOOD | [id number] | | [facility] | | | PRODUCT [...] DEPARTMENT OF | [address] | [place], [place] [address] | | | PATHOLOGY | [address] [...] | + + + + + | [facility] | [address] [facility] | [place] [address] | | | SERVICES, CORE | [address] [...] [facility] | [address] | [place] [address] | | | ALMA ROSA, ELOY | [...] 3.3 (H) | 0.5 - 1.6 | [facility] - | | | ARTERIAL, | [...] [place] | [address] | [place], [place] | | | [facility]ARE | [address] | [address] | | | TESTS | | | [...] WALLS | [address] | [place], [place] | | | WILL POINT OF CARE | [address] | [address] | | | TESTS | | | [...] [place] | [address] | [place], [place] | | | WILL POINT OF CARE | [address] | [address] | | | TESTS | | | [...] - TITI | [address] | [place], [place] | | | [facility] CARE | [address] | [address] | | | TESTS | | | [...] + + | J[facility] | [address] | [place], [place] | | | [facility] OF [facility] | [address] | [address] | | | TESTS | | | [...] [place] | [address] | [place], [place] | | | [facility] CARE | [facility] | [address] | | | TESTS | | | [...] ANDERSONAM | [address] | [place], [place] | | | WILL POINT OF CARE | [address] | [address] | | | TESTS | | | [...] [facility] | [address] | [place] [address] | | | SERVICES, | [address] [...] - MARKADEEMAM | [address] | [place], [place] | | | [facility] CARE | [address] | [address] | | | TESTS | | | [...] WALLS | [address] | [place], [place] | | | [facility] OF [facility] | [facility] | [address] | | | TESTS | | | [...] TITI | [address] | [place], [place] | | | [facility] OF [facility] | [address] | [address] | | | TESTS | | | [...] - TITI | [address] | [place], [place] | | | [facility] | [facility] | [address] | | | TESTS | | | [...] WALLS | [address] | [place], [place] | | | WILL POINT OF CARE | [address] | [address] | | | TESTS | | | [...] + + | Performing | Address | City/State/[facility] | Phone Number | | Organization | | | | + + + + + | [facility] | [address] | [place], [place] | | | [facility] | [facility] | [address] | | | TESTS | | | [...] - MARQUAM | [address] | [place], [place] | | | [facility] CARE | [address] | [address] | | | TESTS | | | [...] TITI | [address] | [place], [place] | | | [facility] CARE | [address] | [address] | | | TESTS | | | [...] + + + + | PRODUCT | [id number] | | [facility] | | | UNIT [...] + + + + | BLOOD | [id number] | | [facility] | | | PRODUCT [...] DEPARTMENT OF | [address] | [place] [address] | | | PATHOLOGY | [address] [...] + + + + | PRODUCT | [id number] | | [facility] | | | UNIT [...] + + + + | BLOOD | [id number] | | [facility] | | | PRODUCT [...] + + + + | [facility] DEPARTMENT OF | [address] | [place] [address] | | | PATHOLOGY | [address] [...] + + + + | PRODUCT | [id number] | | [facility] | | | UNIT [...] + + + + | BLOOD | [id number] | | [facility] | | | PRODUCT [...] DEPARTMENT OF | [address] | [place] [address] | | | PATHOLOGY | [address] [...] + + + + | PRODUCT | [id number] | | [facility] | | | UNIT [...] + + + + | BLOOD | [id number] | | [facility] | | | PRODUCT [...] + + + + | [facility] DEPARTMENT OF | [address] | [place] [address] | | | PATHOLOGY | [address] [...] + + + + | PRODUCT | [id number] | | [facility] | | | UNIT [...] + + + + | BLOOD | [id number] | | [facility] | | | PRODUCT [...] DEPARTMENT OF | [address] | [place] [address] | | | PATHOLOGY | [address] [...] + + + + | PRODUCT | [id number] | | [facility] | | | UNIT [...] + + + + | BLOOD | [id number] | | [facility] | | | PRODUCT [...] + + + + | [facility] DEPARTMENT OF | [address] | [place] [address] | | | PATHOLOGY | [address] [...] + + + + | PRODUCT | [id number] | | [facility] | | | UNIT [...] + + + + | BLOOD | [id number] | | [facility] | | | PRODUCT [...] + + + + | [facility] DEPARTMENT OF | [address] | [place] [address] | | | PATHOLOGY | [address] [...] + + + + | PRODUCT | [id number] | | [facility] | | | UNIT [...] + + + + | BLOOD | [id number] | | [facility] | | | PRODUCT [...] + + + + | [facility] DEPARTMENT OF | [address] | [place] [address] | | | PATHOLOGY | [address] [...] + + + + | PRODUCT | [id number] | | [facility] | | | UNIT [...] + + + + | BLOOD | [id number] | | [facility] | | | PRODUCT [...] + + + + | [facility] DEPARTMENT OF | [address] | [place] [address] | | | PATHOLOGY | [address] [...] + + + + | PRODUCT | [id number] | | [facility] | | | UNIT [...] + + + + | BLOOD | [id number] | | [facility] | | | PRODUCT [...] + + + + | [facility] DEPARTMENT OF | [address] | [place] [address] | | | PATHOLOGY | [address] [...] + + + + | PRODUCT | [id number] | | [facility] | | | UNIT [...] + + + + | BLOOD | [id number] | | [facility] | | | PRODUCT [...] [facility] DEPARTMENT | [address] | [place] [address] | | | PATHOLOGY | [address] [...] + + + + | PRODUCT | [id number] | | [facility] | | | UNIT [...] + + + + | BLOOD | [id number] | | [facility] | | | PRODUCT [...] | + + + + + | [facility] | [address] | [place] [address] | | | PATHOLOGY | [address] [...] + + + + | PRODUCT | [id number] | | [facility] | | | UNIT [...] + + + + | BLOOD | [id number] | | [facility] | | | PRODUCT [...] DEPARTMENT OF | [address] | [place] [address] | | | PATHOLOGY | [address] [...] + + + + | PRODUCT | [id number] | | [facility] | | | UNIT [...] + + + + | BLOOD | [id number] | | [facility] | | | PRODUCT [...] | + + + + + | [facility] | [address] | [place] [address] | | | PATHOLOGY | [address] [...] + + + + | PRODUCT | [id number] | | [facility] | | | UNIT [...] + + + + | BLOOD | [id number] | | [facility] | | | PRODUCT [...] DEPARTMENT OF | [address] | [place] [address] | | | PATHOLOGY | [address] [...] + + + + | PRODUCT | [id number] | | [facility] | | | UNIT [...] + + + + | BLOOD | [id number] | | [facility] | | | PRODUCT [...] | + + + + + | [facility] | [address] | [place] [address] | | | PATHOLOGY | [address] [...] + + + + | PRODUCT | [id number] | | [facility] | | | UNIT [...] + + + + | BLOOD | [id number] | | [facility] | | | PRODUCT [...] DEPARTMENT OF | [address] | [place] [address] | | | PATHOLOGY | [address] [...] + + + + | PRODUCT | [id number] | | [facility] | | | UNIT [...] + + + + | BLOOD | [id number] | | [facility] | | | PRODUCT [...] | + + + + + | [facility] | [address] | [place] [address] | | | PATHOLOGY | [address] [...] + + + + | PRODUCT | [id number] | | [facility] | | | UNIT [...] + + + + | BLOOD | [id number] | | [facility] | | | PRODUCT [...] | [address] | [place] [address] | | | PATHOLOGY | [address] [...] + + + + | PRODUCT | [id number] | | [facility] | | | UNIT [...] + + + + | BLOOD | [id number] | | [facility] | | | PRODUCT [...] + + + + | [facility] DEPARTMENT OF | [address] | [place] [address] | | | PATHOLOGY | [address] [...] + + + + | PRODUCT | [id number] | | [facility] | | | UNIT [...] + + + + | BLOOD | [id number] | | [facility] | | | PRODUCT [...] DEPARTMENT OF | [address] | [place] [address] | | | PATHOLOGY | [address] [...] + + + + | PRODUCT | [id number] | | [facility] | | | UNIT [...] + + + + | BLOOD | [id number] | | [facility] | | | PRODUCT [...] OF | [address] | [place] [address] | | | PATHOLOGY | [address] [...] + + + + | PRODUCT | [id number] | | [facility] | | | UNIT [...] + + + + | BLOOD | [id number] | | [facility] | | | PRODUCT [...] + + + + | [facility] DEPARTMENT OF | [address] | [place] [address] | | | PATHOLOGY | [address] [...] + + + + | PRODUCT | [id number] | | [facility] | | | UNIT [...] + + + + | BLOOD | [id number] | | [facility] | | | PRODUCT [...] [facility] DEPARTMENT | [address] | [place] [address] | | | PATHOLOGY | [address] [...] + + + + | PRODUCT | [id number] | | [facility] | | | UNIT [...] + + + + | BLOOD | [id number] | | [facility] | | | PRODUCT [...] | + + + + + | [facility] | [address] | [place] [address] | | | PATHOLOGY | [address] [...] + + + + | PRODUCT | [id number] | | [facility] | | | UNIT [...] + + + + | BLOOD | [id number] | | [facility] | | | PRODUCT [...] [facility] DEPARTMENT | [address] | [place] [address] | | | PATHOLOGY | [address] [...] + + + + | PRODUCT | [id number] | | [facility] | | | UNIT [...] + + + + | BLOOD | [id number] | | [facility] | | | PRODUCT [...] | + + + + + | [facility] | [address] | [place] [address] | | | PATHOLOGY | [address] [...] + + + + | PRODUCT | [id number] | | [facility] | | | UNIT [...] + + + + | BLOOD | [id number] | | [facility] | | | PRODUCT [...] [facility] DEPARTMENT | [address] | [place] [address] | | | PATHOLOGY | [address] [...] WALLS | [address] | [place], [place] | | | [facility] | [facility] | [address] | | | TESTS | | | [...] TITI | [address] | [place], [place] | | | CHRISTIANO SOLIS | [address] | [address] | | | TESTS | | | [...] TITI | [address] | [place], [place] | | | [facility] OF CARE | [facility] | [address] | | | TESTS | | | [...] MARQU[place] | [address] | [place], [place] | | | [facility] | [address] | [address] | | | TESTS | | | [...] W[place]S | [address] | [place], [place] | | | DAV[facility] SOL[facility] OF CARE | [facility] | [address] | | | TESTS | | | [...] - [place] | [address] | [place], [place] | | | DAV[facility] SOL[facility] OF CARE | [facility] | [address] | | | TESTS | | | [...] WALLS | [address] | [place], [place] | | | DAV[facility] OF CARE | [facility] | [address] | | | TESTS | | | [...] TITI | [address] | [place], [place] | | | DAV[facility] OF [facility] | [address] | [address] | | | TESTS | | | [...] | + + + + + | [facility] | [address] | [place] [address] | | | SERVICES, CORE | [address] | | | + + + [...] | + + + + + | [facility] | [address] | [place] [address] | | | [address] | [address] | | | + + + + + LACTATE (ART), POC (09/09/2014 5:08 AM PDT) + +---------+ + + + | Component | Value | Ref Range | Performed | Pathologist | | | | | At | Signature | + +---------+ + + + | LACTATE | 3.5 (H) | 0.5 - 1.6 | [facility] - | | | ARTERIAL, | [...] ANDERSONAM | [address] | [place], [place] | | | WILL POINT OF CARE | [address] | [address] | | | TESTS | | | [...] WALLS | [address] | [place], [place] | | | [facility] SOL[facility] OF CARE | [facility] | [address] | | | TESTS | | | [...] ANDERSONAM | [address] | [place], [place] | | | DAV[facility] SOLIS OF CARE | [facility] | [address] | | | TESTS | | | [...] MARQU[place] | [address] | [place], [place] | | | DAVID SOLIS OF [facility] | [facility] | [address] | | | TESTS | | | [...] WALLS | [address] | [place], [place] | | | DAVID SOLIS OF CARE | [address] | [address] | | | TESTS | | | [...] MARQUAM | [address] | [place], [place] | | | DAV[facility] SOLIS OF CARE | [facility] | [address] | | | TESTS | | | [...] WALLS | [address] | [place], [place] | | | WILL POINT OF CARE | [address] | [address] | | | TESTS | | | [...] C WALLS | [address] | [place], [place] | | | WILL POINT OF CARE | [address] | [address] | | | TESTS | | | [...] | | + +---------+ + + | [facility] DEPARTMENT OF | | | | [...] + + + + | PRODUCT | [id number] | | [facility] | | | UNIT [...] + + + + | BLOOD | [id number] | | [facility] | | | PRODUCT [...] DEPARTMENT OF | [address] | [place] [address] | | | PATHOLOGY | [address] [...] + + + + | PRODUCT | [id number] | | [facility] | | | UNIT [...] + + + + | BLOOD | [id number] | | [facility] | | | PRODUCT [...] | + + + + + | [facility] | [address] | [place] [address] | | | PATHOLOGY | [address] [...] + + + + | PRODUCT | [id number] | | [facility] | | | UNIT [...] + + + + | BLOOD | [id number] | | [facility] | | | PRODUCT [...] DEPARTMENT OF | [address] | [place] [address] | | | PATHOLOGY | [address] [...] + + + + | PRODUCT | [id number] | | [facility] | | | UNIT [...] + + + + | BLOOD | [id number] | | [facility] | | | PRODUCT [...] | + + + + + | [facility] | [address] | [place] [address] | | | PATHOLOGY | [address] [...] + + + + | PRODUCT | [id number] | | [facility] | | | UNIT [...] + + + + | BLOOD | [id number] | | [facility] | | | PRODUCT [...] DEPARTMENT OF | [address] | [place] [address] | | | PATHOLOGY | [address] [...] + + + + | PRODUCT | [id number] | | [facility] | | | UNIT [...] + + + + | BLOOD | [id number] | | [facility] | | | PRODUCT [...] | + + + + + | [facility] | [address] | [place] [address] | | | PATHOLOGY | [address] [...] + + + + | PRODUCT | [id number] | | [facility] | | | UNIT [...] + + + + | BLOOD | [id number] | | [facility] | | | PRODUCT [...] DEPARTMENT OF | [address] | [place] [address] | | | PATHOLOGY | [address] [...] + + + + | PRODUCT | [id number] | | [facility] | | | UNIT [...] + + + + | BLOOD | [id number] | | [facility] | | | PRODUCT [...] | + + + + + | [facility] | [address] | [place] [address] | | | PATHOLOGY | [address] [...] + + + + | PRODUCT | [id number] | | [facility] | | | UNIT [...] + + + + | BLOOD | [id number] | | [facility] | | | PRODUCT [...] DEPARTMENT OF | [address] | [place] [address] | | | PATHOLOGY | [address] [...] + + + + | PRODUCT | [id number] | | [facility] | | | UNIT [...] + + + + | BLOOD | [id number] | | [facility] | | | PRODUCT [...] | + + + + + | [facility] | [address] | [place] [address] | | | PATHOLOGY | [address] [...] + + + + | PRODUCT | [id number] | | [facility] | | | UNIT [...] + + + + | BLOOD | [id number] | | [facility] | | | PRODUCT [...] DEPARTMENT OF | [address] | [place] [address] | | | PATHOLOGY | [address] [...] + + + + | PRODUCT | [id number] | | [facility] | | | UNIT [...] + + + + | BLOOD | [id number] | | [facility] | | | PRODUCT [...] + + + + | [facility] DEPARTMENT | [address] | [place] [address] | | | PATHOLOGY | [address] [...] + + + + | PRODUCT | [id number] | | [facility] | | | UNIT [...] + + + + | BLOOD | [id number] | | [facility] | | | PRODUCT [...] DEPARTMENT OF | [address] | [place] [address] | | | PATHOLOGY | [address] [...] + + + + | PRODUCT | [id number] | | [facility] | | | UNIT [...] + + + + | BLOOD | [id number] | | [facility] | | | PRODUCT [...] DEPARTMENT OF | [address] | [place] [address] | | | PATHOLOGY | [address] [...] + + + + | PRODUCT | [id number] | | [facility] | | | UNIT [...] + + + + | BLOOD | [id number] | | [facility] | | | PRODUCT [...] DEPARTMENT OF | [address] | [place] [address] | | | PATHOLOGY | [address] [...] + + + + | PRODUCT | [id number] | | [facility] | | | UNIT [...] + + + + | BLOOD | [id number] | | [facility] | | | PRODUCT [...] DEPARTMENT OF | [address] | [place] [address] | | | PATHOLOGY | [address] [...] + + + + | PRODUCT | [id number] | | [facility] | | | UNIT [...] + + + + | BLOOD | [id number] | | [facility] | | | PRODUCT [...] + + + + | [facility] DEPARTMENT OF | [address] | [place] [address] | | | PATHOLOGY | [address] [...] + + + + | PRODUCT | [id number] | | [facility] | | | UNIT [...] + + + + | BLOOD | [id number] | | [facility] | | | PRODUCT [...] [facility] DEPARTMENT | [address] | [place], [place] [address] | | | PATHOLOGY | [address] [...] + + + + | PRODUCT | [id number] | | [facility] | | | UNIT [...] + + + + | BLOOD | [id number] | | [facility] | | | PRODUCT [...] | + + + + + | [facility] | [address] | [place] [address] | | | PATHOLOGY | [address] [...] + + + + | PRODUCT | [id number] | | [facility] | | | UNIT [...] + + + + | BLOOD | [id number] | | [facility] | | | PRODUCT [...] DEPARTMENT OF | [address] | [place] [address] | | | PATHOLOGY | [address] [...] + + + + | PRODUCT | [id number] | | [facility] | | | UNIT [...] + + + + | BLOOD | [id number] | | [facility] | | | PRODUCT [...] | + + + + + | [facility] | [address] | [place] [address] | | | PATHOLOGY | [address] [...] + + + + | PRODUCT | [id number] | | [facility] | | | UNIT [...] + + + + | BLOOD | [id number] | | [facility] | | | PRODUCT [...] + | [facility] DEPARTMENT OF | [address] | [place] [address] | | | PATHOLOGY | [address] [...] + + + + | PRODUCT | [id number] | | [facility] | | | UNIT [...] + + + + | BLOOD | [id number] | | [facility] | | | PRODUCT [...] + + + + | [facility] DEPARTMENT OF | [address] | [place] [address] | | | PATHOLOGY | [address] [...] + + + + | PRODUCT | [id number] | | [facility] | | | UNIT [...] + + + + | BLOOD | [id number] | | [facility] | | | PRODUCT [...] | [address] | [place] [address] | | | PATHOLOGY | [address] [...] WALLS | [address] | [place], [place] | | | [facility] | [address] | [address] | | | TESTS | | | [...] + + + + | PRODUCT | [id number] | | [facility] | | | UNIT [...] + + + + | BLOOD | [id number] | | [facility] | | | PRODUCT [...] DEPARTMENT OF | [address] | [place] [address] | | | PATHOLOGY | [address] [...] + + + + | PRODUCT | [id number] | | [facility] | | | UNIT [...] + + + + | BLOOD | [id number] | | [facility] | | | PRODUCT [...] | + + + + + | [facility] | [address] | [place] [address] | | | PATHOLOGY | [address] [...] + + + + | PRODUCT | [id number] | | [facility] | | | UNIT [...] + + + + | BLOOD | [id number] | | [facility] | | | PRODUCT [...] DEPARTMENT OF | [address] | [place] [address] | | | PATHOLOGY | [address] [...] + + + + | PRODUCT | [id number] | | [facility] | | | UNIT [...] + + + + | BLOOD | [id number] | | [facility] | | | PRODUCT [...] | + + + + + | [facility] | [address] | [place] [address] | | | PATHOLOGY | [address] [...] + + + + | PRODUCT | [id number] | | [facility] | | | UNIT [...] + + + + | BLOOD | [id number] | | [facility] | | | PRODUCT [...] DEPARTMENT OF | [address] | [place] [address] | | | PATHOLOGY | [address] [...] + + + + | PRODUCT | [id number] | | [facility] | | | UNIT [...] + + + + | BLOOD | [id number] | | [facility] | | | PRODUCT [...] | + + + + + | [facility] | [address] | [place] [address] | | | PATHOLOGY | [address] [...] TITI | [address] | [place], [place] | | | [facility] | [facility] | [address] | | | TESTS | | | [...] + + + + | PRODUCT | [id number] | | [facility] | | | UNIT [...] + + + + | BLOOD | [id number] | | [facility] | | | PRODUCT [...] | + + + + + | [facility] | [address] | [place] [address] | | | PATHOLOGY | [address] [...] + + + + | PRODUCT | [id number] | | [facility] | | | UNIT [...] + + + + | BLOOD | [id number] | | [facility] | | | PRODUCT [...] DEPARTMENT OF | [address] | [place] [address] | | | PATHOLOGY | [address] [...] + + + + | PRODUCT | [id number] | | [facility] | | | UNIT [...] + + + + | BLOOD | [id number] | | [facility] | | | PRODUCT [...] | + + + + + | [facility] | [address] | [place] [address] | | | PATHOLOGY | [address] [...] + + + + | PRODUCT | [id number] | | [facility] | | | UNIT [...] + + + + | BLOOD | [id number] | | [facility] | | | PRODUCT [...] DEPARTMENT OF | [address] | [place] [address] | | | PATHOLOGY | [address] [...] + + + + | PRODUCT | [id number] | | [facility] | | | UNIT [...] + + + + | BLOOD | [id number] | | [facility] | | | PRODUCT [...] | + + + + + | [facility] | [address] | [place] [address] | | | PATHOLOGY | [address] [...] + + + + | PRODUCT | [id number] | | [facility] | | | UNIT [...] + + + + | BLOOD | [id number] | | [facility] | | | PRODUCT [...] DEPARTMENT OF | [address] | [place] [address] | | | PATHOLOGY | [address] [...] + + + + | PRODUCT | [id number] | | [facility] | | | UNIT [...] + + + + | BLOOD | [id number] | | [facility] | | | PRODUCT [...] | + + + + + | [facility] | [address] | [place] [address] | | | PATHOLOGY | [address] [...] + + + + | PRODUCT | [id number] | | [facility] | | | UNIT [...] + + + + | BLOOD | [id number] | | [facility] | | | PRODUCT [...] DEPARTMENT OF | [address] | [place] [address] | | | PATHOLOGY | [address] [...] [facility] | [address] | [place] [address] | | | SERVICES, | [address] [...] [facility] | [address] | [place] [address] | | | SERVICES, | [address] [...] | + + + + + | [facility] | [address] | [place] [address] | | | SERVICES, CORE | MONTS[address]AT [...] [facility] | [address] | [place] [address] | | | SERVICES, CORE | [address] [...] | | | LABORATORY | | | [facility] | | | SERVICES, | | | [...] | + + + + + | [facility] | [address] | [place] [address] | | | ALMA ROSA, CORE | [...] [facility] | [address] | [place] [address] | | | SERVICES, CORE | P[address] [...] + + + + | [facility] | [address] | [place] [address] | | | SERVICES, CORE | MONTSERRAT [...] discolored, | | | | | | [id number] | | | | | | -green [...] | | | | | | viable. Grades 9 Thru 12 Visiting Teacher | | | | | | sections [...] hemorrhage. | | | | | | Grades 9 Thru 12 Visiting Teacher | | | | | | sections are submitted. 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
--- OUTSIDE RECORDS SUMMARY | ~2019-10-03 | XMS | Encounter Summary ---
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 | | | PRODUCT [...] DEPARTMENT OF | [address] | [place] [address] | | | PATHOLOGY | [address] [...] + + + + | PRODUCT | [id number] | | [facility] | | | UNIT [...] + + + + | BLOOD | [id number] | | [facility] | | | PRODUCT [...] | + + + + + | [facility] | [address] | [place] [address] | | | PATHOLOGY | [address] [...] + + + + | PRODUCT | [id number] | | [facility] | | | UNIT [...] + + + + | BLOOD | [id number] | | [facility] | | | PRODUCT [...] DEPARTMENT OF | [address] | [place] [address] | | | PATHOLOGY | [address] [...] + + + + | PRODUCT | [id number] | | [facility] | | | UNIT [...] + + + + | BLOOD | [id number] | | [facility] | | | PRODUCT [...] [facility] DEPARTMENT | [address] | [place] [address] | | | PATHOLOGY | [address] [...] + + + + | PRODUCT | [id number] | | [facility] | | | UNIT [...] + + + + | BLOOD | [id number] | | [facility] | | | PRODUCT [...] DEPARTMENT OF | [address] | [place] [address] | | | PATHOLOGY | [address] [...] + + + + | PRODUCT | [id number] | | [facility] | | | UNIT [...] + + + + | BLOOD | [id number] | | [facility] | | | PRODUCT [...] DEPARTMENT OF | [address] | [place] [address] | | | PATHOLOGY | [address] [...] + + + + | PRODUCT | [id number] | | [facility] | | | UNIT [...] + + + + | BLOOD | [id number] | | [facility] | | | PRODUCT [...] DEPARTMENT OF | [address] | [place] [address] | | | PATHOLOGY | [address] [...] + + + + | PRODUCT | [id number] | | [facility] | | | UNIT [...] + + + + | BLOOD | [id number] | | [facility] | | | PRODUCT [...] DEPARTMENT OF | [address] | [place] [address] | | | PATHOLOGY | [address] [...] + + + + | PRODUCT | [id number] | | [facility] | | | UNIT [...] + + + + | BLOOD | [id number] | | [facility] | | | PRODUCT [...] DEPARTMENT OF | [address] | [place] [address] | | | PATHOLOGY | [address] [...] + + + + | PRODUCT | [id number] | | [facility] | | | UNIT [...] + + + + | BLOOD | [id number] | | [facility] | | | PRODUCT [...] HEALTH SERVICES DEPARTMENT OF | [address] | [place] [address] | | | PATHOLOGY | [address] [...] + + + + | PRODUCT | [id number] | | [facility] | | | UNIT [...] + + + + | BLOOD | [id number] | | [facility] | | | PRODUCT [...] | + + + + + | [facility] | [address] | [place] [address] | | | PATHOLOGY | [address] [...] + + + + | PRODUCT | [id number] | | [facility] | | | UNIT [...] + + + + | BLOOD | [id number] | | [facility] | | | PRODUCT [...] DEPARTMENT OF | [address] | [place] [address] | | | PATHOLOGY | [address] [...] + + + + | PRODUCT | [id number] | | [facility] | | | UNIT [...] + + + + | BLOOD | [id number] | | [facility] | | | PRODUCT [...] | + + + + + | [facility] | [address] | [place] [address] | | | PATHOLOGY | [address] [...] + + + + | PRODUCT | [id number] | | [facility] | | | UNIT [...] + + + + | BLOOD | [id number] | | [facility] | | | PRODUCT [...] DEPARTMENT OF | [address] | [place] [address] | | | PATHOLOGY | [address] [...] + + + + | PRODUCT | [id number] | | [facility] | | | UNIT [...] + + + + | BLOOD | [id number] | | [facility] | | | PRODUCT [...] | + + + + + | [facility] | [address] | [place] [address] | | | PATHOLOGY | [address] [...] + + + + | PRODUCT | [id number] | | [facility] | | | UNIT [...] + + + + | BLOOD | [id number] | | [facility] | | | PRODUCT [...] DEPARTMENT OF | [address] | [place] [address] | | | PATHOLOGY | [address] [...] + + + + | PRODUCT | [id number] | | [facility] | | | UNIT [...] + + + + | BLOOD | [id number] | | [facility] | | | PRODUCT [...] | + + + + + | [facility] | [address] | [place] [address] | | | PATHOLOGY | [address] [...] + + + + | PRODUCT | [id number] | | [facility] | | | UNIT [...] + + + + | BLOOD | [id number] | | [facility] | | | PRODUCT [...] DEPARTMENT OF | [address] | [place] [address] | | | PATHOLOGY | [address] [...] + + + + | PRODUCT | [id number] | | [facility] | | | UNIT [...] + + + + | BLOOD | [id number] | | [facility] | | | PRODUCT [...] | + + + + + | [facility] | [address] | [place] [address] | | | PATHOLOGY | [address] [...] [place] | [address] | [place], [place] | | | DAVID [facility]IS OF [facility] | [address] | [address] | | | TESTS | | | [...] C WALLS | [address] | [place], [place] | | | DAVID SOLIS OF [facility] | [facility] | [address] | | | TESTS | | | [...] WALLS | [address] | [place], [place] | | | WL[facility] POINT OF CARE | [address] | [address] | | | TESTS | | | [...] WALLS | [address] | [place], [place] | | | DAVID SOLIS OF [facility] | [facility] | [address] | | | TESTS | | | [...] [place] | [address] | [place], [place] | | | DAVID SOLIS OF [facility] | [facility] | [address] | | | TESTS | | | [...] WALLS | [address] | [place], [place] | | | [facility]ARE | [address] | [address] | | | TESTS | | | [...] TITI | [address] | [place], [place] | | | DAVID [facility]IS OF [facility] | [address] | [address] | | | TESTS | | | [...] - TITI | [address] | [place], [place] | | | [place] | [address] | [address] | | | TESTS | | | [...] [facility] | [address] | [place] [address] | | | SERVICES, CORE | [address] [...] | + + + + + | [facility] | [address] | [place] [address] | | | SERVICES, CORE | [address] [...] + | [facility] | [address] [facility] | [place], [place] | | | DAV[facility] OF [facility] | [address] | [address] | | | TESTS | | | [...] - TITI | [address] | [place], [place] | | | DAVID SOLIS OF [facility] | [facility] | [address] | | | TESTS | | | [...] | [facility] | [address] | [place], [place] | | | DAV[facility] OF [facility] | [address] | [address] | | | TESTS | | | [...] WALLS | [address] | [place], [place] | | | DAV[facility] SOLIS OF [facility] | [facility] | [address] | | | TESTS | | | [...] - [place] | [address] | [place], [place] | | | [facility] OF CARE | [facility] | [address] | | | TESTS | | | [...] TITI | [address] | [place], [place] | | | DAV[facility]IS OF [facility] | [address] | [address] | | | TESTS | | | [...] TITI | [address] | [place], [place] | | | DAV[facility] | [address] | [address] | | | TESTS | | | [...] WALLS | [address] | [place], [place] | | | WILL POINT OF CARE | [address] | [address] | | | TESTS | | | [...] + + + + | PRODUCT | [id number] | | [facility] | | | UNIT [...] + + + + | BLOOD | [id number] | | [facility] | | | PRODUCT [...] DEPARTMENT OF | [address] | [place] [address] | | | PATHOLOGY | [address] [...] + + + + | PRODUCT | [id number] | | [facility] | | | UNIT [...] + + + + | BLOOD | [id number] | | [facility] | | | PRODUCT [...] DEPARTMENT OF | [address] | [place] [address] | | | PATHOLOGY | [address] [...] + + + + | PRODUCT | [id number] | | [facility] | | | UNIT [...] + + + + | BLOOD | [id number] | | [facility] | | | PRODUCT [...] DEPARTMENT OF | [address] | [place] [address] | | | PATHOLOGY | [address] [...] + + + + | PRODUCT | [id number] | | [facility] | | | UNIT [...] + + + + | BLOOD | [id number] | | [facility] | | | PRODUCT [...] DEPARTMENT OF | [address] | [place] [address] | | | PATHOLOGY | [address] [...] + + + + | PRODUCT | [id number] | | [facility] | | | UNIT [...] + + + + | BLOOD | [id number] | | [facility] | | | PRODUCT [...] DEPARTMENT OF | [address] | [place] [address] | | | PATHOLOGY | [address] [...] + + + + | PRODUCT | [id number] | | [facility] | | | UNIT [...] + + + + | BLOOD | [id number] | | [facility] | | | PRODUCT [...] DEPARTMENT OF | [address] | [place], [place] [address] | | | PATHOLOGY | [address] [...] + + + + | PRODUCT | [id number] | | [facility] | | | UNIT [...] + + + + | BLOOD | [id number] | | [facility] | | | PRODUCT [...] DEPARTMENT OF | [address] | [place] [address] | | | PATHOLOGY | [address] [...] + + + + | PRODUCT | [id number] | | [facility] | | | UNIT [...] + + + + | BLOOD | [id number] | | [facility] | | | PRODUCT [...] DEPARTMENT OF | [address] | [place] [address] | | | PATHOLOGY | [address] [...] + + + + | PRODUCT | [id number] | | [facility] | | | UNIT [...] + + + + | BLOOD | [id number] | | [facility] | | | PRODUCT [...] DEPARTMENT OF | [address] | [place] [address] | | | PATHOLOGY | [address] [...] + + + + | PRODUCT | [id number] | | [facility] | | | UNIT [...] + + + + | BLOOD | [id number] | | [facility] | | | PRODUCT [...] DEPARTMENT OF | [address] | [place] [address] | | | PATHOLOGY | [address] [...] + + + + | PRODUCT | [id number] | | [facility] | | | UNIT [...] + + + + | BLOOD | [id number] | | [facility] | | | PRODUCT [...] DEPARTMENT OF | [address] | [place] [address] | | | PATHOLOGY | [address] [...] + + + + | PRODUCT | [id number] | | [facility] | | | UNIT [...] + + + + | BLOOD | [id number] | | [facility] | | | PRODUCT [...] DEPARTMENT OF | [address] | [place] [address] | | | PATHOLOGY | [address] [...] + + + + | PRODUCT | [id number] | | [facility] | | | UNIT [...] + + + + | BLOOD | [id number] | | [facility] | | | PRODUCT [...] DEPARTMENT OF | [address] | [place] [address] | | | PATHOLOGY | [address] [...] + + + + | PRODUCT | [id number] | | [facility] | | | UNIT [...] + + + + | BLOOD | [id number] | | [facility] | | | PRODUCT [...] & HEALTH SERVICES DEPARTMENT OF | [address] | [place] [address] | | | PATHOLOGY | [address] [...] + + + + | PRODUCT | [id number] | | [facility] | | | UNIT [...] + + + + | BLOOD | [id number] | | [facility] | | | PRODUCT [...] [facility] DEPARTMENT | [address] | [place] [address] | | | PATHOLOGY | [address] [...] + + + + | PRODUCT | [id number] | | [facility] | | | UNIT [...] + + + + | BLOOD | [id number] | | [facility] | | | PRODUCT [...] | + + + + + | [facility] | [address] | [place] [address] | | | PATHOLOGY | [address] [...] + + + + | PRODUCT | [id number] | | [facility] | | | UNIT [...] + + + + | BLOOD | [id number] | | [facility] | | | PRODUCT [...] DEPARTMENT OF | [address] | [place] [address] | | | PATHOLOGY | [address] [...] + + + + | PRODUCT | [id number] | | [facility] | | | UNIT [...] + + + + | BLOOD | [id number] | | [facility] | | | PRODUCT [...] | + + + + + | [facility] | [address] | [place] [address] | | | PATHOLOGY | [address] [...] + + + + | PRODUCT | [id number] | | [facility] | | | UNIT [...] + + + + | BLOOD | [id number] | | [facility] | | | PRODUCT [...] DEPARTMENT OF | [address] | [place] [address] | | | PATHOLOGY | [address] [...] + + + + | PRODUCT | [id number] | | [facility] | | | UNIT [...] + + + + | BLOOD | [id number] | | [facility] | | | PRODUCT [...] [facility] DEPARTMENT | [address] | [place] [address] | | | PATHOLOGY | [address] [...] + + + + | PRODUCT | [id number] | | [facility] | | | UNIT [...] + + + + | BLOOD | [id number] | | [facility] | | | PRODUCT [...] | [address] | [place] [address] | | | PATHOLOGY | [address] [...] + + + + | PRODUCT | [id number] | | [facility] | | | UNIT [...] + + + + | BLOOD | [id number] | | [facility] | | | PRODUCT [...] DEPARTMENT OF | [address] | [place] [address] | | | PATHOLOGY | [address] [...] + + + + | PRODUCT | [id number] | | [facility] | | | UNIT [...] + + + + | BLOOD | [id number] | | [facility] | | | PRODUCT [...] | + + + + + | [facility] | [address] | [place] [address] | | | PATHOLOGY | [address] [...] + + + + | PRODUCT | [id number] | | [facility] | | | UNIT [...] + + + + | BLOOD | [id number] | | [facility] | | | PRODUCT [...] DEPARTMENT | [address] | [place] [address] | | | PATHOLOGY | [address] [...] [place] | [address] | [place], [place] | | | [facility]ARE | [address] | [address] | | | TESTS | | | [...] + + + + | PRODUCT | [id number] | | [facility] | | | UNIT [...] + + + + | BLOOD | [id number] | | [facility] | | | PRODUCT [...] | + + + + + | [facility] | [address] | [place] [address] | | | PATHOLOGY | [address] [...] + + + + | PRODUCT | [id number] | | [facility] | | | UNIT [...] + + + + | BLOOD | [id number] | | [facility] | | | PRODUCT [...] DEPARTMENT OF | [address] | [place] [address] | | | PATHOLOGY | [address] [...] + + + + | PRODUCT | [id number] | | [facility] | | | UNIT [...] + + + + | BLOOD | [id number] | | [facility] | | | PRODUCT [...] [facility] DEPARTMENT | [address] | [place] [address] | | | PATHOLOGY | [address] [...] + + + + | PRODUCT | [id number] | | [facility] | | | UNIT [...] + + + + | BLOOD | [id number] | | [facility] | | | PRODUCT [...] | [address] | [place] [address] | | | PATHOLOGY | [address] [...] + + + + | PRODUCT | [id number] | | [facility] | | | UNIT [...] + + + + | BLOOD | [id number] | | [facility] | | | PRODUCT [...] DEPARTMENT OF | [address] | [place] [address] | | | PATHOLOGY | [address] [...] + + + + | PRODUCT | [id number] | | [facility] | | | UNIT [...] + + + + | BLOOD | [id number] | | [facility] | | | PRODUCT [...] | [address] | [place] [address] | | | PATHOLOGY | [address] [...] WALLS | [address] | [place], [place] | | | WILL PO[facility] OF CARE | [address] | [address] | | | TESTS | | | [...] + + + + | PRODUCT | [id number] | | [facility] | | | UNIT [...] + + + + | BLOOD | [id number] | | [facility] | | | PRODUCT [...] DEPARTMENT OF | [address] | [place] [address] | | | PATHOLOGY | [address] [...] + + + + | PRODUCT | [id number] | | [facility] | | | UNIT [...] + + + + | BLOOD | [id number] | | [facility] | | | PRODUCT [...] | + + + + + | [facility] | [address] | [place] [address] | | | PATHOLOGY | [address] [...] + + + + | PRODUCT | [id number] | | [facility] | | | UNIT [...] + + + + | BLOOD | [id number] | | [facility] | | | PRODUCT [...] DEPARTMENT OF | [address] | [place] [address] | | | PATHOLOGY | [address] [...] + + + + | PRODUCT | [id number] | | [facility] | | | UNIT [...] + + + + | BLOOD | [id number] | | [facility] | | | PRODUCT [...] | + + + + + | [facility] | [address] | [place] [address] | | | PATHOLOGY | [address] [...] + + + + | PRODUCT | [id number] | | [facility] | | | UNIT [...] + + + + | BLOOD | [id number] | | [facility] | | | PRODUCT [...] DEPARTMENT OF | [address] | [place] [address] | | | PATHOLOGY | [address] [...] + + + + | PRODUCT | [id number] | | [facility] | | | UNIT [...] + + + + | BLOOD | [id number] | | [facility] | | | PRODUCT [...] [facility] DEPARTMENT | [address] | [place] [address] | | | PATHOLOGY | [...] + + + + | PRODUCT | [id number] | | [facility] | | | UNIT [...] + + + + | BLOOD | [id number] | | [facility] | | | PRODUCT [...] | [address] | [place] [address] | | | PATHOLOGY | [address] [...] + + + + | PRODUCT | [id number] | | [facility] | | | UNIT [...] + + + + | BLOOD | [id number] | | [facility] | | | PRODUCT [...] [facility] DEPARTMENT | [address] | [place] [address] | | | PATHOLOGY | [address] [...] | + + + + + | [facility] | [address] | [place] [address] | | | SERVICES, | [address] [...] [facility] | [address] | [place] [address] | | | SERVICES, | [address] [...] [facility] | [address] | [place] [address] | | | SERVICES, CORE | [address] [...] | + + + + + | [facility] | [address] | [place] [address] | | | SERVICES, CORE | [address] [...] | | | LABORATORY | | | [place] | | | SERVICES, | | | [...] | + + + + + | [facility] | [address] | [place] [address] | | | SERVICES, CORE | [address] [...] | [facility] | [address] [facility] | [place] [address] | | | SERVICES, CORE | [address] [...] | + + + + + | [facility] | [address] | [place] [address] | | | SERVICES, ELOY | [address] [...] discolored, | | | | | | mynimtcjkahhpa-mn-cxoaok | | | | | | -green [...] | | | | | | viable. Project Coordinator | | | | | | sections [...] hemorrhage. | | | | | | Project Coordinator | | | | | | sections are submitted. | | | | | | Cassette Index:A: | | | | | | Left colon:A1, | | | | | | exhibit display representative margins | | | | | [...] | + + + + + | [facility] | [address] | [place] [address] | | | PATHOLOGY | [address] [...]
[~2019-10-03 07:05] MED LIST changes: +DOXYCYCLINE HY100 MG PO
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
[2019-10-03] MEDS ORDERED: CEFUROXIME500 MG PO (19:13)
== END 2019-10-03 19:25 | disposition home or self-care (01) ==
LOC: ED 07:05
DX: F19.10 Other psychoactive substance abuse, uncomplicated (principal); N39.0 Urinary tract infection, site not specified; K21.9 Gastro-esophageal reflux disease without esophagitis; F17.200 Nicotine dependence, unspecified, uncomplicated; Z79.899 Other long term (current) drug therapy
CPT/HCPCS: 80053; 80176; 81001; 82550; 84443; 85025; 87088; 96372; 99284; G0480; J1200; J1630